=== PATIENT | male | born 1945 | race Caucasian/White ===

== ENCOUNTER 2019-03-09 01:22 | Inpatient (IN) | payer MEDICARE, SELFPAY ==
[2019-03-09] VITALS (10 sets, daily range): BP systolic 135–200; BP diastolic 56–85; PULSE 78–88; RESP 16–24; TEMP 36.2–37.6; O2SAT 93–98; BMI 30.5; BMI 28.8; BMI 30.6
--- NOTE | 2019-03-09 02:11 | EKG12_ITS ---
Test Reason : Blood Pressure : / mmHG Vent. Rate : 082 BPM Atrial Rate : 082 BPM P-R Int : 224 ms QRS Dur : 094 ms QT Int : 388 ms P-R-T Axes : 017 -35 007 degrees QTc Int : 453 ms Sinus rhythm with 1st degree A-V block Left axis deviation Incomplete right bundle branch block Abnormal ECG Confirmed by MATTI FUENTES ([id number]), legal editor NANDA HOPKINS ([id number]) on 03/14/2019 1:32:26 PM Referred By: Salvatore Mccall Confirmed By:MATTI FUENTES
--- NOTE | 2019-03-09 02:12 | CT_ITS ---
HISTORY: LT NEPHROSTOMY TUBE NOT DRAINING,BACK PAIN AND CONSTIPATION,PT'S URETER WAS CUT DURING SURGERY AND HAS NEPHRO TUBE IN LT KIDNEYHX:HTN,HLD,COLORECTAL CANCER WITH COLOSTOMY EXAMINATION: CT Abdomen And Pelvis W/ Contrast TECHNIQUE: Helically acquired images were obtained of the abdomen and pelvis following IV contrast. A radiation dose optimization technique was used for this scan. IV Contrast dosage and agent: 100ML Isovue 300 Oral contrast: None. COMPARISON: None FINDINGS: Lower thorax: Mild dependent atelectasis. No pleural effusion or pericardial effusion. The gallbladder is well distended and suboptimally visualized secondary to motion artifact. Several small gallstones are questioned. No biliary dilatation. Normal liver, spleen, and pancreas. Both kidneys are normal in position. Left percutaneous nephrostomy catheter which appears enters the left renal pelvis. From the left renal pelvis, the catheter extends to the L5-S1 level on the left. The catheter does not enter the urinary bladder and I am unsure if there is an ileal loop reservoir in place. Mild left hydronephrosis. No hydroureter visualized. The right kidney shows normal excretion of contrast without hydronephrosis or hydroureter. Small component of contrast within urinary bladder. The urinary bladder is well distended. Small free fluid superior to the urinary bladder and tracking of fluid within the mesentery, more so within the right abdomen. Widespread mesenteric edema. Edema and fluid may be related to urine leak from the left ureter. The adrenal glands are not enlarged. Abdominal aorta is atherosclerotic and normal in caliber. No retroperitoneal lymph node enlargement seen. GI tract: Left lower quadrant colostomy. No bowel obstruction seen. No pneumoperitoneum. CT/Abdomen/Pelvis W IV Cont ONLY IMPRESSION: 1. The left percutaneous nephrostomy catheter enters the left renal pelvis and extends into the left ureter but not urinary bladder. 2. Small ascites together with mesenteric fluid and mesenteric edema and this may reflect left ureteral urine leak. 3. Mild left hydronephrosis and no hydronephrosis on the right. 4. Left lower quadrant functioning colostomy. No bowel obstruction seen. Individualized dose optimization techniques were used for this CT. at 0441 Reported and signed by: Jae Martinez MD Electronically Signed: Jae Martinez, at 4:40 EDT Tel , Service support ,
[2019-03-09] MEDS: proMETHazine 25 MG/ML Syringe 6.25 MG IV (02:27)
[2019-03-09] MEDS: 0.9% Normal Saline 1,000 ML 1000 ML IV (02:27)
[2019-03-09 02:29] LABS: Absolute Lymphocyte Count 0.36 X10^3/uL (0.83-4.51); Absolute Neutrophil Count 10.1 X10^3/uL (2.0-7.7); Basophil# 0.01 X10^3/uL; Basophil% 0.1 % (0-1); Hematocrit 36.1 % (40-54); Hemoglobin 11.6 g/dL (13.0-16.5); Lymphocyte # 0.36 X10^3/ul (4.0); Lymphocyte % 3.3 % (19-41); Mean Corp Hgb Conc 32.1 g/dL (32-36); Mean Corpuscular Hgb 29.4 pg (27.0-32.0); Mean Corpuscular Volume 91.6 fL (80-94); Mean Platelet Vol. 9.5 fl (6.2-12.0); Monocyte# 0.49 X10^3/uL; Monocyte% 4.4 % (0-10); NRBC Flagged by Analyzer 0 % (0-5); Neutrophil # 10.11 X10^3/uL (2.7-7.7); Neutrophil % 91.7 % (47-70); POSITIVE DIFFERENTIAL YES; POSITIVE MORPHOLOGY YES; Platelet Count 97 K/mm3 (150-450); RBC Distribution Width CV 18.6 % (11.6-14.6); RBC Distribution Width SD 61.4 fl (35.1-43.9); Red Blood Count 3.94 M/mm3 (4.6-6.2)
[2019-03-09 02:31] LABS: Differential Indicated SCAN CRITERIA MET
[2019-03-09 02:50] LABS: ALB/GLOB Ratio 0.8 RATIO (0.9-2.4); AST(SGOT) 14 U/L (15-37); Alanine Aminotransfer ALT/SGPT 13 U/L (16-61); Albumin, Serum 3.1 g/dL (3.2-5.0); Alkaline Phosphatase 119 U/L (45-117); Anion Gap 10 (5-15); BUN 20 mg/dL (7-18); BUN/Creat Ratio 13.7 RATIO (10-20); Calcium,Total 8.9 mg/dL (8.5-10.1); Chloride 103 mmol/L (98-107); Creatinine, Serum 1.46 mg/dL (0.70-1.30); EST Glomerular Filtration Rate 50 mL/min (>60); Est Glom Filt Rate - Afr Amer 61 mL/min (>60); Estimated Creatinine Clearance 47.28 ml/min; Globulin 3.8 g/dL (2.2-4.2); Glucose 211 mg/dL (74-106); Lipase 49 U/L (73-393); Potassium 3.8 mmol/L (3.5-5.1); Protein, Total 6.9 g/dL (6.4-8.2); Sodium Level 138 mmol/L (136-145)
[2019-03-09 02:57] LABS: Differential Comment SCANNED
[2019-03-09 02:58] LABS: Platelet Estimate ADEQUATE (ADEQ)
[2019-03-09 03:00] LABS: Lactic Acid 3.2 mmol/L (0.4-2.0)
--- NOTE | 2019-03-09 03:00 | ED.RN ---
LAB CALLED WITH CRITICAL VALUE. DR FRITZ INFORMED AT THIS TIME.
--- NOTE | 2019-03-09 03:29 | ED.RN ---
MD AWARE OF INCREASED LACTIC ACID. NO NEW ORDERS. DISCUSSED URINE COLLECTION WITH MD, ORDER WILL BE CANCELLED.
--- NOTE | 2019-03-09 03:35 | ED.DCSUM_ITS ---
- ER Visit Summary Date of Service: 03/09/19 Chief Complaint: Abdominal pain History of Present Illness: The patient is a 73 M presenting with abdominal pain, nausea, vomiting. Patient has a history of rectal cancer on chemotherapy. He had surgery in [place] for rectal mass removal with diverting colostomy. During the surgery the ureter was cut. He now has a nephrostomy tube. He now follows at [facility]. The nephrostomy tube was exchanged last Thursday. The nephrostomy tube is now not draining. His colostomy also has decreased output. He complains of diffuse abdominal pain. He is scheduled to start his third round of chemotherapy tomorrow. He denies fever. Denies chest pain or shortness of breath. Physical Examination: Vitals are stable. Patient is afebrile. Alert no acute distress. HEENT exam is unremarkable. Neck is supple. Lungs are clear and equal bilaterally. Heart is regular rate and rhythm. Abdomen is soft diffuse tenderness, ostomy. Back: left nephrostomy tube Extremities are unremarkable. Skin is warm and dry. No focal neurologic deficit. Remainder of exam is unremarkable. Emergency Department Course and Treatment: EKG is sinus rhythm rate of 82 with no acute ischemic changes. CBC shows a hemoglobin 11.6, platelet 97. Glucose 211, BUN 20, creatinine 1.46. Alk phos 119, ALT 13, AST 14, lipase 49. Troponin is negative. Lactic acid 3.2. Patient was given IV fluids, Phenergan, Zofran. Discussed with [facility] interventional radiology. They reviewed his records and the nephrostomy tube is in the correct position. Discussed with Dr. Peña, Dr. Espinoza. Dr. Espinoza recommends CT with p.o. contrast. This is pending. Family prefers to stay at [facility] if possible. Discussed with the hospitalist for observation. Disposition: Observation Impression: Abdominal pain, vomiting, hx rectal cancer This note was generated with [employer] dictation software. It may contain incorrect words, spelling, and punctuation that were not noted in review of the chart prior to signing ED Disposition - Plan for ED Patient: Referrals: Bertrand Gardner [Primary Care Provider] -
[2019-03-09] MEDS: 0.9% Normal Saline 1,000 ML 999 ML IV (03:49)
[2019-03-09] MEDS: Ondansetron 4 MG/2 ML Vial IV (03:49)
[2019-03-09 04:05] LABS: Color, Urine Yellow (Yellow); Glucose, Dipstick 250 mg/dl (Normal); Ketone-Dipstick Negative (Negative); Leukocyte Esterase-Dipstick Negative /ul (Negative); Nitrite-Dipstick Negative (Negative); Occult Blood-Urine Negative /ul (Negative); Protein-Dipstick 15 mg/dl (Negative); Urine Bilirubin Dipstick Negative (Negative); Urine Clarity Clear (Clear); Urine Urobilinogen Normal (Normal)
[2019-03-09 04:11] LABS: Bacteria RARE /hpf (None Seen); Red Blood Cells-Urine 0-5 SEEN /hpf (0-5); White Blood Cells 0-5 SEEN /hpf (0-5)
[2019-03-09 04:12] LABS: Mucous, Urine 1+ /hpf (<or=2+); Squamous Epithelial Cells - UA 0-5 SEEN /hpf (0-5)
--- NOTE | 2019-03-09 05:32 | CT_ITS ---
STUDY: CT ABDOMEN AND PELVIS WITHOUT CONTRAST REASON FOR EXAM: Male, 73 years old. Decreased colostomy output RADIATION DOSAGE (If Supplied By Facility): CTDIvol = ( 20.18 ) mGy, DLP = ( 1185.15 ) mGycm TECHNIQUE: Transaxial images were obtained from the dome of the diaphragm to the symphysis pubis without oral contrast, and without intravenous contrast. Sagittal and coronal images were reconstructed. Individualized dose optimization techniques were used for this CT. COMPARISON: None. FINDINGS: Some dependent bibasilar atelectasis. The visualized portions of the heart are within normal limits. Small amount of ascites. Normal liver. Normal gallbladder and extrahepatic biliary system. Normal spleen. Normal pancreas. Normal bilateral adrenal glands. Normal right kidney. Left-sided nephroureteral stent without hydronephrosis. Normal visualized stomach. Normal small intestine. Status post resection of the sigmoid colon with a left lower quadrant colostomy. There is non-visualization of the appendix. Normal abdominal aorta. Normal inferior vena cava. Normal retroperitoneum. Normal urinary bladder. Normal abdominal wall. Normal osseous structures. CT/Abdomen/Pel W ORAL Cont Only IMPRESSION: 1. No acute abnormality. 2. Status post resection of the sigmoid colon with a left lower quadrant colostomy. No bowel obstruction. 3. Left-sided nephroureteral stent. 4. Small amount of ascites. Electronically Signed: Reggie Sim MD at 8:27 EDT Tel , Service support ,
[2019-03-09 06:27] LABS: Reflex Lactate? Y
--- NOTE | 2019-03-09 08:52 | PCM.CONS.B ---
- Consult Date of Consult: 03/09/19 - Reason for Consult CC: abdominal pain HPI: 73 y/o WM presents with recent lap-assisted LAR involving C with colostomy formation (12/07/18, Dr. Ward)?but unfortunately this was complicated?intraoperative left ureteral injury identified intraoperatively and managed with abdominal drains. Post op course c/b AMS, chronic thrombocytopenia, DARIAN, blood transfusion for anemia.?He was transferred to [facility] main?a few weeks ago?for further management of ureteral injury. ? Pathology: ?Residual tumor cells seen in distal margin, but no tumor visible at the sigmoid colon resection, no lymph nodes were identified. pT0, pNx. Has had nephrostomy tube x3 placed. Is draining now, had stopcock turned and was not draining. ? Adjuvant chemotherapy: Capcitabine by Dr. Monson ? He has been evaluated by Dr Serrato and Dr Vidal?for revision/repair of temporary ostomy and ureter and?combined operation,?but timing would depend on completion of adjuvant therapy. ? He presents with one day history of abdominal pain. Feeling ill. Has constipation. Also notes nausea and small amount of emesis. Denies fevers, but has chills and feeling clammy. He also notes no stool output per colostomy for 24 hours. He does admit to taking lots of peptobismol. Also admits to not drinking enough free water. CT scan shows stool throughout colon. Used gastrograffin contrast. ? PAST MEDICAL HISTORY Anemia ? Hyperlipidemia ? Hypertension ? Hypothyroidism rectal cancer ? ? PAST?SURGICAL?HISTORY colonoscopy laparoscopic Low anterior resection Colostomy Nephrostomy tube placement x 3 MEDICATIONS: capecitabine (XELODA) 500 mg tablet capecitabine (XELODA) 150 mg tablet capecitabine (XELODA) 150 mg tablet?() sertraline (ZOLOFT) 50 mg tablet ALPRAZolam (XANAX) 0.25 mg tablet ondansetron (ZOFRAN) 8 mg tablet famotidine (PEPCID) 20 mg tablet levothyroxine (SYNTHROID) 50 mcg tablet Hydrochlorothiazide 12.5 mg capsule lisinopril (ZESTRIL, PRINIVIL) 10 mg tablet pravastatin (PRAVACHOL) 40 mg tablet acetaminophen (TYLENOL 8 HOUR) 650 mg CR tablet methyl salicylate/menthol (THERA-GESIC TOPICAL) cyanocobalamin 1,000 mcg/mL soln Allergies: no known allergies ? REVIEW OF SYSTEMS: CONSTITUTIONAL: ?felt clammy and ill as above HEENT: ?Denies frequent or severe headaches, nasal congestion/sinus symptoms, problematic allergy problems. + Decreased hearing EYES: ?No diplopia or blurry vision. CARDIOVASCULAR: ?No chest pain, dyspnea, palpitations, orthopnea, PND, ankle edema. PULM: ?No dyspnea, unexplained cough. GI: ?see HPI. : ?see HPI,?No?gross hematuria or pyuria. NEURO: ?No new balance problems, peripheral weakness/paresthesias or numbness of concern. MUSC-SKEL: ?No new joint pain, swelling, or erythema. PSY: ?No concerns regarding depression, anxiety or panic. INTEGUMENTARY: ?No new skin changes (rash, new or changing mole, new growth) ? PHYSICAL EXAMINATION: 73-year-old moderately obese gentleman appeared to be distress Performance status?80% BP 146/67 Pulse 62 Temp (Src) 97.8 (Temporal) Wt 213 lb (96.6kg) HEENT: Head is normocephalic, atraumatic. Sclerae white, conjunctivae pink. PEERL. EOMs are intact. Wearing glasses. Oropharynx is benign. LYMPHATICS: There is no palpable adenopathy in the neck, supraclavicular region, axillae, or groin. LUNGS: Lungs are clear to percussion and auscultation. HEART: Heart is normal without murmurs, gallops, or rubs. ABDOMEN: Soft but generalized tenderness. Ostomy in left lower quadrant with pink mucosa. No masses can be palpated due to patient's body habitus. EXTREMITIES: Are without edema. No petechiae or ecchymosis NEUROLOGIC: Exam is physiologic ? ? ASSESSMENT:?abdominal pain, constipation ? PLAN:? admitted to hospitalist service. IV hydration No need for surgical intervention at this point in time. Will follow while patient in hospital Hopefully constipation will resolved with gastrografin given for CT scan
[2019-03-09] MEDS: 0.9% Normal Saline 1,000 ML 100 ML IV ×2 (11:20→21:34)
--- NOTE | 2019-03-09 13:58 | HP.PCM_ITS ---
Problem List (1) Rectal cancer Status: Acute (2) Intraoperative ureteral injury Status: Acute (3) Constipation Status: Acute (4) Nausea and vomiting Status: Acute (5) Hypothyroidism Status: Acute (6) Depression Status: Acute (7) Hyperlipidemia Status: Acute History of Present Illness Date of Admission: 03/09/19 Chief Complaint: Nausea and vomiting with abdominal pain The patient is a 73 year old M with PMH as below who presents with abdominal pain, nausea, vomiting for the last 24 hours. His medical history is fairly complicated with a recent diagnosis of rectal cancer he status post low anterior resection and colostomy at [facility] where unfortunately there was a complication, a ureteral injury on the left. He underwent a nephrostomy tube placement done at [facility] to assist with the complication. Initially his nephrostomy tube was found to be not draining however later it was determined that somehow the stopcock had been turned off and once that was corrected he started producing urine. He states that he has not had much of an appetite for the last several days and when he was having episodes of vomiting not much came up. In terms of his abdominal pain he states that he has had abdominal pain after surgery and with all the drain tubes that have been placed in the nephrostomy tube being placed but he still not back to a level of 0 abdominal pain. He states that his abdominal pain is much improved today from what it was yesterday. However he still has not had a bowel movement. CT scan of his abdomen and pelvis with oral contrast does not demonstrate small bowel obstruction. Past Medical History Allergies No Known Allergies Allergy (Verified 03/09/19 01:29) Home Medications: Ambulatory Orders Medication Instructions Recorded ALPRAZolam [Xanax] 0.25 mg PO QHS PRN PRN 03/09/19 Acetaminophen [Tylenol Extra 500 mg PO PRN PRN 03/09/19 Strength] Capecitabine 2,000 mg QWEEK 03/09/19 Famotidine 20 mg PO PRN PRN 03/09/19 Levothyroxine [Synthroid] 50 mcg PO DAILY 03/09/19 Ondansetron [Zofran] 8 mg PO Q8H PRN PRN 03/09/19 Pravastatin [Pravachol] 40 mg PO QHS 03/09/19 Sertraline HCl [Zoloft] 50 mg PO DAILY 03/09/19 Surgical History: - - Lap assisted LAR, colostomy, percutaneous nephrostomy tube Smoking Status: Former smoker Tobacco Use: Non-smoker Alcohol: None Drugs: None - *Family History Maternal History Items: - - His grandmother had cancer he is not sure what kind and he states that he does not pay attention to his family's medical history Review of Systems Constitutional: Reports: - - Loss of appetite. Denies: Chills, Fever, Weight Change HEENT: Denies: Head Aches, Sinus Congestion, Sinus Drainage Cardiovascular: Denies: Chest Pain, Palpitations Respiratory: Denies: Cough, Shortness of breath at rest, Sputum production Gastrointestinal: Reports: Abdominal Pain, Nausea, Vomiting Genitourinary: Denies: Dysuria Musculoskeletal: Denies: Joint Pain, Joint Tenderness Skin: Denies: Rash, Wounds Neurological: Denies: Numbness, Tingling, Focal weakness Psychiatric: Denies: Anxiety, Depression Hematologic/ Lymphatic: Denies: Easy Bruising, Easy Bleeding VTE Information - Inpt Only VTE Present on Admission: No Patient Problems: Active and Suspected Problems Rectal cancer (Acute) Intraoperative ureteral injury (Acute) Constipation (Acute) Nausea and vomiting (Acute) Hypothyroidism (Acute) Depression (Acute) Hyperlipidemia (Acute) - Physical Exam General: Alert, Oriented x3, Cooperative, No apparent distress, - - Hard of hearing HEENT: Atraumatic, PERRLA, EOMI, Normocephalic Oral: Dry Mucosa Neck: Supple, No JVD Lungs: Clear to auscultation, Normal air movement, No rhonchi, No wheeze, No rales, Diminished Cardiovascular: Regular rate, Regular Rhythm, Normal S1, Normal S2, No murmurs Abdomen: Soft, Non Tender, Non-Distended, No Hepato-splenomegaly, - - His abdominal wall muscle pain, there is reproduction of his abdominal pain when flexing his rectus muscles. There is no gas in the ostomy appliance Extremities: No edema, Capillary Refill Less than 3 Seconds Skin: No rashes, No breakdown Neurological: Neuro grossly intact, Sensory exam intact to light touch and pain Psych/Mental Status: Normal Affect, Appropriate Vital Signs Temp Pulse Resp BP Pulse Ox 99.1 F 78 18 136/78 H 93 03/09/19 11:15 03/09/19 11:15 03/09/19 11:15 03/09/19 11:15 03/09/19 11:15 Oxygen Delivery Method Room Air Weight: 218 lb 4.122 oz Body Mass Index (BMI) 28.8 Laboratory Tests Past 24 Hrs 03/09/19 03/09/19 03/09/19 02:20 02:20 02:20 WBC 11.0 RBC 3.94 L Hgb 11.6 L Hct 36.1 L MCV 91.6 MCH 29.4 MCHC 32.1 RDW Std Deviation 61.4 H RDW Coeff of Azael 18.6 H Plt Count 97 L MPV 9.5 Immature Gran % (Auto) 0.500 Neut % (Auto) 91.7 H Lymph % (Auto) 3.3 L Long % (Auto) 4.4 Eos % (Auto) 0.0 Baso % (Auto) 0.1 Absolute Neuts (auto) 10.1 H Absolute Lymphs (auto) 0.36 L Nucleated RBC % 0 Differential Comment SCANNED Platelet Estimate ADEQUATE Sodium 138 Potassium 3.8 Chloride 103 Carbon Dioxide 25.0 Anion Gap 10 BUN 20 H Creatinine 1.46 H Estim Creat Clear Calc 47.28 Est GFR (MDRD) Af Amer 61 Est GFR (MDRD) Non-Af 50 L BUN/Creatinine Ratio 13.7 Glucose 211 H Lactic Acid 3.2 H Calcium 8.9 Total Bilirubin 0.70 AST 14 L ALT 13 L Alkaline Phosphatase 119 H Troponin I < 0.015 Total Protein 6.9 Albumin 3.1 L Globulin 3.8 Albumin/Globulin Ratio 0.8 L Lipase 49 L Urine Color Urine Clarity Urine pH Ur Specific [place] Urine Protein Urine Glucose (UA) Urine Ketones Urine Occult Blood Urine Nitrite Urine Bilirubin Urine Urobilinogen Ur Leukocyte Esterase Urine RBC Urine WBC Ur Squamous Epith Cells Urine Bacteria Urine Mucus 03/09/19 03/09/19 03:55 06:36 WBC RBC Hgb Hct MCV MCH MCHC RDW Std Deviation RDW Coeff of Azael Plt Count MPV Immature Gran % (Auto) Neut % (Auto) Lymph % (Auto) Long % (Auto) Eos % (Auto) Baso % (Auto) Absolute Neuts (auto) Absolute Lymphs (auto) Nucleated RBC % Differential Comment Platelet Estimate Sodium Potassium Chloride Carbon Dioxide Anion Gap BUN Creatinine Estim Creat Clear Calc Est GFR (MDRD) Af Amer Est GFR (MDRD) Non-Af BUN/Creatinine Ratio Glucose Lactic Acid 3.0 H Calcium Total Bilirubin AST ALT Alkaline Phosphatase Troponin I Total Protein Albumin Globulin Albumin/Globulin Ratio Lipase Urine Color Yellow Urine Clarity Clear Urine pH 5.0 Ur Specific [place] 1.020 Urine Protein 15 H Urine Glucose (UA) 250 H Urine Ketones Negative Urine Occult Blood Negative Urine Nitrite Negative Urine Bilirubin Negative Urine Urobilinogen Normal Ur Leukocyte Esterase Negative Urine RBC 0-5 SEEN Urine WBC 0-5 SEEN Ur Squamous Epith Cells 0-5 SEEN Urine Bacteria RARE Urine Mucus 1+ Assessment/Plan All Active Problems Rectal cancer (Acute) Intraoperative ureteral injury (Acute) Constipation (Acute) Nausea and vomiting (Acute) Hypothyroidism (Acute) Depression (Acute) Hyperlipidemia (Acute) 1. Abdominal pain with nausea and vomiting/dehydration -Provide with IV fluids and clear liquid diet -He has been tolerating lemonades, popsicles and water while here, can advance as tolerated -Appreciate surgical assistance -Zofran PRN -CT scan is negative for an obstruction -His creatinine is 1.46 however we do not have anything to compare it to and therefore cannot determine whether he has an acute kidney injury or not or if this is even chronic. -The catheter was initially elevated to 3.2 and proved with fluid administration to 3, will continue with IV fluid 2. Rectal cancer status post lap assisted LAR with colostomy and ureteral injury status post percutaneous nephrostomy tube placement done at the [facility] -He is supposed to be starting chemotherapy however this will be delayed given his recent illness -Managed by [facility] oncology and he is to start capecitabine 3. Hypothyroidism -Stable -Continue with Synthroid 4. HLD -Stable -Continue with pravastatin 5. Depression/anxiety -Stable -Continue with Zoloft and Xanax VTE: SCDs Code Visit OBSV E&M: 53317 Initial observation care L3
[2019-03-09] MEDS: 0.9% NaCl Peripheral Flush Adult/Peds IV (21:33)
[2019-03-09] MEDS: Acetaminophen 325 MG Tablet 650 MG PO (23:52)
[2019-03-10] VITALS: BP 130/74; PULSE 79; RESP 24; TEMP 36.9; O2SAT 100
[2019-03-10 05:17] VITALS: BP 141/68; PULSE 86; RESP 24; TEMP 36.6; O2SAT 93
[2019-03-10 05:38] LABS: Absolute Lymphocyte Count 0.67 X10^3/uL (0.83-4.51); Absolute Neutrophil Count 6.1 X10^3/uL (2.0-7.7); Basophil# 0.03 X10^3/uL; Basophil% 0.4 % (0-1); Eosinophil# 0.09 X10^3/uL; Eosinophils% 1.2 % (0-5); Hematocrit 29.1 % (40-54); Hemoglobin 10.9 g/dL (13.0-16.5); Lymphocyte # 0.67 X10^3/ul (4.0); Lymphocyte % 9.1 % (19-41); Mean Corp Hgb Conc 37.5 g/dL (32-36); Mean Corpuscular Hgb 36.2 pg (27.0-32.0); Mean Corpuscular Volume 96.7 fL (80-94); Monocyte# 0.44 X10^3/uL; NRBC Flagged by Analyzer 0 % (0-5); Neutrophil # 6.08 X10^3/uL (2.7-7.7); Neutrophil % 82.6 % (47-70); POSITIVE COUNT YES; POSITIVE MORPHOLOGY YES; Platelet Count 108 K/mm3 (150-450); RBC Distribution Width CV 21.1 % (11.6-14.6); RBC Distribution Width SD 61.1 fl (35.1-43.9); Red Blood Count 3.01 M/mm3 (4.6-6.2); White Blood Count 7.4 K/mm3 (4.4-11.0)
[2019-03-10 05:43] LABS: Differential Indicated SCAN CRITERIA MET
[2019-03-10 05:56] LABS: Anion Gap 8 (5-15); BUN 15 mg/dL (7-18); BUN/Creat Ratio 15.7 RATIO (10-20); Calcium,Total 8.1 mg/dL (8.5-10.1); Chloride 108 mmol/L (98-107); Creatinine, Serum 0.95 mg/dL (0.70-1.30); Differential Comment SCANNED; EST Glomerular Filtration Rate 82 mL/min (>60); Est Glom Filt Rate - Afr Amer 99 mL/min (>60); Glucose 102 mg/dL (74-106); Sodium Level 139 mmol/L (136-145)
[2019-03-10] MEDS: 0.9% Normal Saline 1,000 ML 100 ML IV ×2 (07:53→18:19)
[2019-03-10] MEDS: Acetaminophen 325 MG Tablet 650 MG PO ×2 (07:57→20:34)
--- NOTE | 2019-03-10 08:22 | PN_ITS ---
Patient Problems: Active and Suspected Problems Rectal cancer (Acute) Intraoperative ureteral injury (Acute) Constipation (Acute) Nausea and vomiting (Acute) Hypothyroidism (Acute) Depression (Acute) Hyperlipidemia (Acute) Subjective: Seems to be doing better today, he ate mashed potatoes last night for dinner and stayed down and he is continued to drink lemonade and water without any incident. Vitals/I&O's: Vital Signs Temp Pulse Resp BP Pulse Ox 98 F 86 24 H 141/68 H 93 03/10/19 05:17 03/10/19 05:17 03/10/19 05:17 03/10/19 05:17 03/10/19 05:17 Oxygen Delivery Method Room Air Weight: 218 lb 4.122 oz Body Mass Index (BMI) 28.8 Intake and Output for Last 24 Hours 03/08/19 03/09/19 03/10/19 23:59 23:59 23:59 Intake Total 1788 / 1788 976 / 976 Output Total 800 / 800 175 / 175 Balance 988 / 988 801 / 801 General: Alert, Oriented x3, Cooperative, No apparent distress, - - Hard of hearing HEENT: Atraumatic, PERRLA, EOMI, Normocephalic Oral: Dry Mucosa Neck: Supple, No JVD Lungs: Clear to auscultation, Normal air movement, No rhonchi, No wheeze, No rales, Diminished Cardiovascular: Regular rate, Regular Rhythm, Normal S1, Normal S2, No murmurs Abdomen: Soft, Non Tender, Non-Distended, No Hepato-splenomegaly, - - Has abdominal wall muscle pain, there is reproduction of his abdominal pain when flexing his rectus muscles. There is no gas in the ostomy appliance Extremities: No edema, Capillary Refill Less than 3 Seconds Skin: No rashes, No breakdown Neurological: Neuro grossly intact, Sensory exam intact to light touch and pain Psych/Mental Status: Normal Affect, Appropriate Laboratory Results 03/10/19 05:12: WBC 7.4, RBC 3.01 L, Hgb 10.9 L, Hct 29.1 L, MCV 96.7 H, MCH 36.2 H, MCHC 37.5 H, RDW Std Deviation 61.1 H, RDW Coeff of Azael 21.1 H, Plt Count 108 L, MPV 11.0, Immature Gran % (Auto) 0.700, Neut % (Auto) 82.6 H, Lymph % (Auto) 9.1 L, Charles % (Auto) 6.0, Eos % (Auto) 1.2, Baso % (Auto) 0.4, Absolute Neuts (auto) 6.1, Absolute Lymphs (auto) 0.67 L, Nucleated RBC % 0, Differential Comment SCANNED 03/10/19 05:12: Sodium 139, Potassium 4.0, Chloride 108 H, Carbon Dioxide 23.0, Anion Gap 8, BUN 15, Creatinine 0.95, Estim Creat Clear Calc 77.10, Est GFR (MDRD) Af Amer 99, Est GFR (MDRD) Non-Af 82, BUN/Creatinine Ratio 15.7, Glucose 102, Calcium 8.1 L Current Medications Acetaminophen (Tylenol) 650 mg PO Q8H PRN PRN PRN Reason: PAIN Last Admin: 03/10/19 07:57 Dose: 650 mg Documented by: Docusate Sodium (Colace) 100 mg PO BID [facility] Sodium Chloride () 1,000 mls @ 100 mls/hr IV .Q10H MARC Last Admin: 03/10/19 07:53 Dose: 100 mls/hr Documented by: Nutritional Formula (Lactose Free) (Ensure Enlive) 120 ml PO 4X/DAY MARC Ondansetron HCl (Zofran) 4 mg IV Q8H PRN PRN PRN Reason: NAUSEA/VOMITING Polyethylene Glycol (Miralax) 17 gm PO BID MARC Sodium Chloride () 10 - 40 ml IV UD PRN PRN Reason: SALINE FLUSH Last Admin: 03/09/19 21:33 Dose: 10 ml Documented by: Medical Necessity - Tobacco Use Smoking Status: Former smoker Tobacco Use: Non-smoker Assessment/Plan All Active Problems Rectal cancer (Acute) Intraoperative ureteral injury (Acute) Constipation (Acute) Nausea and vomiting (Acute) Hypothyroidism (Acute) Depression (Acute) Hyperlipidemia (Acute) 1. Abdominal pain with nausea and vomiting/dehydration/DARIAN -Provide with IV fluids and clear liquid diet -He has been tolerating lemonades, popsicles and water while here, can advance as tolerated -Appreciate surgical assistance -Zofran PRN -CT scan is negative for an obstruction, though there does appear to be constipation. Will add MiraLAX and Colace and see if that helps -His creatinine is now 0.095 from 1.46, this is potentially his baseline and therefore he did present with an DARIAN -His lactate was initially elevated to 3.2 and proved with fluid administration to 3, will continue with IV fluid 2. Rectal cancer status post lap assisted LAR with colostomy and ureteral injury status post percutaneous nephrostomy tube placement done at the [facility] -He is supposed to be starting chemotherapy however this will be delayed given his recent illness -Managed by [facility] oncology and he is to start capecitabine 3. Hypothyroidism -Stable -Continue with Synthroid 4. HLD -Stable -Continue with pravastatin 5. Depression/anxiety -Stable -Continue with Zoloft and Xanax VTE: SCDs Code Visit OBSV E&M: 14797 Subsequent observation care L2
[2019-03-10 09:33] VITALS: BP 147/74; PULSE 79; RESP 16; TEMP 36.9; O2SAT 95
[2019-03-10] MEDS: Polyethylene Glycol 3350 17 GM PACKET PO (09:36)
[2019-03-10] MEDS: Docusate Sodium 100 MG Capsule PO (09:36)
--- NOTE | 2019-03-10 10:25 | CASEMGMT ---
Social Work Note ALICE reviewed pt's chart. Pt was recently diagnosed with rectal cancer. ALICE met with pt and introduced self and role at [facility]. Pt is alert and orientated x3, is hard of hearing. Pt states that he was diagnosed with rectal cancer last May. Pt states that he had been doing chemotherapy and radiation treatment through [facility]. Pt states from here on out he will only being doing Chemotherapy and that will be managed through [facility]. Pt states that his Chemotherapy will about 4 months and also mentioned that he is hoping to get his two surgeries scheduled by [facility]. Pt states that his two surgeries include moving his colostomy and reconstructing his colon. Pt states that he has good support through his family and denied wanting any additional information regarding support group or resources. Pt states that he has some anxiety and per H+P pt does have depression. Pt states how could you not be anxious when your whole life changes. Pt states I used to be able to go around whenever I wanted to and now I am attached to a hospital bed. SW offered support to pt. Pt denied additional needs or concerns at this time. Isabella Shultz PRINTING MACHINIST, FRENCH TEACHER
--- NOTE | 2019-03-10 11:05 | CASEMGMT ---
RN CM Assessment Presentation: Abdominal Pain, N/V Dehydration. Hx of rectal cancer, post lap assisted LAR w/colostomy and nephrostomy tube placement. Intro role of CM and purpose of RN CM assessment. Pt agitated, appears to be angry and not wishing to participate in assessment. Requested to speak with him re: CUEVAS form and pt stated he did not want to talk. RN CM requested to speak with and pt stated that was fine because she handles all this stuff anyway. -RN CM attempted call to , but no answer to phone call. -RN CM called to [facility], spoke with social organization professor. Home Health was not set up through them -SREEDHAR COTTER called to Dr. Gardner office. Staff Evelyn states pt had [facility] which was dc'd in January, PCP: Dr. Gardner Preferred Pharmacy: [facility] Insurance: Supri[employer] [facility] PPO Prescription Benefit: yes LNOK: , Afshan Gomez Living Arrangements: Pt would not discuss Transportation: states drives. DME: pt not sure which company supplies colostomy/nephrostomy supplies. HHC: Pt states he has Home Health Nurse but when asked company became agitated and stated he did not know and don't want to talk about this. DC PLAN: Home on discharge. Will need to have input from regarding care needs at home. Matthew JAMES RN ACM
--- NOTE | 2019-03-10 11:17 | PCM.PN.SRG ---
Patient Problems: Active and Suspected Problems Rectal cancer (Acute) Intraoperative ureteral injury (Acute) Constipation (Acute) Nausea and vomiting (Acute) Hypothyroidism (Acute) Depression (Acute) Hyperlipidemia (Acute) Subjective: Patient still complaint of abdominal pain, but states that he feels better, having stools in colostomy bag and it is full - Physical Exam General: Alert, Oriented x3 Oral: Moist Mucosa Lungs: Normal air movement Abdomen: - - soft but tender to palpation - especially upper abdomen mostly Vital Signs Temp Pulse Resp BP Pulse Ox 98.5 F 79 16 147/74 H 95 03/10/19 09:33 03/10/19 09:33 03/10/19 09:33 03/10/19 09:33 03/10/19 09:33 Oxygen Delivery Method Room Air Weight: 99 kg Body Mass Index (BMI) 28.8 Intake and Output for Last 24 Hours 03/08/19 03/09/19 03/10/19 23:59 23:59 23:59 Intake Total 1788 / 1788 976 / 976 Output Total 800 / 800 175 / 175 Balance 988 / 988 801 / 801 Laboratory Tests Past 24 Hrs 03/10/19 03/10/19 05:12 05:12 WBC 7.4 RBC 3.01 L Hgb 10.9 L Hct 29.1 L MCV 96.7 H MCH 36.2 H MCHC 37.5 H RDW Std Deviation 61.1 H RDW Coeff of Azael 21.1 H Plt Count 108 L MPV 11.0 Immature Gran % (Auto) 0.700 Neut % (Auto) 82.6 H Lymph % (Auto) 9.1 L [place] % (Auto) 6.0 Eos % (Auto) 1.2 Baso % (Auto) 0.4 Absolute Neuts (auto) 6.1 Absolute Lymphs (auto) 0.67 L Nucleated RBC % 0 Differential Comment SCANNED Sodium 139 Potassium 4.0 Chloride 108 H Carbon Dioxide 23.0 Anion Gap 8 BUN 15 Creatinine 0.95 Estim Creat Clear Calc 77.10 Est GFR (MDRD) Af Amer 99 Est GFR (MDRD) Non-Af 82 BUN/Creatinine Ratio 15.7 Glucose 102 Calcium 8.1 L Medical Necessity - Tobacco Use Smoking Status: Former smoker Tobacco Use: Non-smoker Assessment/Plan All Active Problems Rectal cancer (Acute) Intraoperative ureteral injury (Acute) Constipation (Acute) Nausea and vomiting (Acute) Hypothyroidism (Acute) Depression (Acute) Hyperlipidemia (Acute) Impression: probable constipation, probable dehydration Plan: continue present therapy No surgical intervention required at this time.
--- NOTE | 2019-03-10 12:35 | CASEMGMT ---
RN CM Note: Attempted to call again re: CUEVAS form and RN CM assessment clarification. No answer and was not in room. Matthew MARQUEZN RN ACM
[2019-03-10 14:48] VITALS: BP 153/77; PULSE 86; RESP 18; TEMP 36.6; O2SAT 96
[2019-03-10 20:23] VITALS: BP 155/72; PULSE 76; RESP 22; TEMP 37.4; O2SAT 96
[2019-03-10] MEDS: Pravastatin 40 MG Tablet PO (20:34)
[2019-03-10] MEDS: 0.9% NaCl Peripheral Flush Adult/Peds IV (20:38)
[2019-03-10] MEDS: Ondansetron 4 MG/2 ML Vial IV (20:38)
[2019-03-11 00:15] VITALS: BP 153/68; PULSE 81; RESP 22; TEMP 37.2; O2SAT 95
[2019-03-11 04:06] VITALS: BP 157/61; PULSE 77; RESP 22; TEMP 37.2; O2SAT 94
[2019-03-11] MEDS: 0.9% NaCl Peripheral Flush Adult/Peds IV ×6 (04:17→23:16)
[2019-03-11] MEDS: Ondansetron 4 MG/2 ML Vial IV ×3 (04:17→23:15)
[2019-03-11] MEDS: 0.9% Normal Saline 1,000 ML 100 ML IV ×2 (04:19→14:40)
[2019-03-11] MEDS: proCHLORPERazine 10 MG/2 ML Vial 5 MG IV ×3 (06:13→22:03)
[2019-03-11 08:07] VITALS: BP 168/88; PULSE 74; RESP 18; TEMP 37.1; O2SAT 93
--- NOTE | 2019-03-11 08:54 | PCM.DC ---
- Discharge Diagnoses Current Active Problems: Current Active and Chronic Problems Rectal cancer (Acute) Intraoperative ureteral injury (Acute) Constipation (Acute) Nausea and vomiting (Acute) Hypothyroidism (Acute) Depression (Acute) Hyperlipidemia (Acute) You will use the following diet at home:: Regular, High fiber Your food should be the consistency of: Regular Your liquids should be the consistency of: Regular/Thin Discharge Activity: Return to Normal Activity Call your doctor if you observe: Fever of 101 or Higher, Shortness of breath, Dizziness, Fainting spells, Swelling in the ankles, Chest pain, Increased palpitations (irregular heartbeat) Allergies/Adverse Reactions: Allergies No Known Allergies Allergy (Verified 03/09/19 01:29) Medications to take at Discharge ALPRAZolam [Xanax] 0.25 mg PO QHS PRN PRN 03/09/19 Acetaminophen [Tylenol Extra Strength] 500 mg PO PRN PRN 03/09/19 Capecitabine 2,000 mg QWEEK 03/09/19 Famotidine 20 mg PO PRN PRN 03/09/19 Levothyroxine [Synthroid] 50 mcg PO DAILY 03/09/19 Ondansetron [Zofran] 8 mg PO Q8H PRN PRN 03/09/19 Pravastatin [Pravachol] 40 mg PO QHS 03/09/19 Sertraline HCl [Zoloft] 50 mg PO DAILY 03/09/19 Docusate Sodium [Colace] 100 mg PO BID #20 cap 03/11/19 Polyethylene Glycol 3350 [Miralax] 17 gm PO DAILY #10 packet 03/11/19 The following prescriptions were given: Docusate Sodium [Colace] 100 mg PO BID #20 cap Transmission Status: Pending to [facility] Polyethylene Glycol 3350 [Miralax] 17 gm PO DAILY #10 packet Transmission Status: Pending to [facility] Primary Care Physician: Bertrand Gardner [Primary Care Provider] - Please follow up with your Primary Care Physician in: 3-5 days Test Results: Test results from this visit will be discussed in further detail at your follow-up appointment, if applicable.
--- NOTE | 2019-03-11 08:58 | PCM.DC.SUM ---
Discharge Date and Diagnosis - Problem List Patient Problems: Active and Suspected Problems Rectal cancer (Acute) Intraoperative ureteral injury (Acute) Constipation (Acute) Nausea and vomiting (Acute) Hypothyroidism (Acute) Depression (Acute) Hyperlipidemia (Acute) Date of Admission: 03/09/19 Date of Discharge: 03/11/19 - Primary Discharge Diagnosis Active and Suspected Problems Rectal cancer (Acute) Intraoperative ureteral injury (Acute) Constipation (Acute) Nausea and vomiting (Acute) Hypothyroidism (Acute) Depression (Acute) Hyperlipidemia (Acute) Hospital Course and Treatment Imaging Results: CT abd/pelvis: IMPRESSION: 1. The left percutaneous nephrostomy catheter enters the left renal pelvis and extends into the left ureter but not urinary bladder. 2. Small ascites together with mesenteric fluid and mesenteric edema and this may reflect left ureteral urine leak. 3. Mild left hydronephrosis and no hydronephrosis on the right. 4. Left lower quadrant functioning colostomy. No bowel obstruction seen. Individualized dose optimization techniques were used for this CT. CT Abd/pelvis with PO contrast: IMPRESSION: 1. No acute abnormality. 2. Status post resection of the sigmoid colon with a left lower quadrant colostomy. No bowel obstruction. 3. Left-sided nephroureteral stent. 4. Small amount of ascites. Consults: General Surgery Operations: None Procedures: None Summary of Care Provided: Per HPI: The patient is a 73 year old M with PMH as below who presents with abdominal pain, nausea, vomiting for the last 24 hours. His medical history is fairly complicated with a recent diagnosis of rectal cancer he status post low anterior resection and colostomy at [facility] where unfortunately there was a complication, a ureteral injury on the left. He underwent a nephrostomy tube placement done at [facility] to assist with the complication. Initially his nephrostomy tube was found to be not draining however later it was determined that somehow the stopcock had been turned off and once that was corrected he started producing urine. He states that he has not had much of an appetite for the last several days and when he was having episodes of vomiting not much came up. In terms of his abdominal pain he states that he has had abdominal pain after surgery and with all the drain tubes that have been placed in the nephrostomy tube being placed but he still not back to a level of 0 abdominal pain. He states that his abdominal pain is much improved today from what it was yesterday. However he still has not had a bowel movement. CT scan of his abdomen and pelvis with oral contrast does not demonstrate small bowel obstruction. Hospital Course: 1. Nominal pain with nausea and vomiting/dehydration/DARIAN -73-year-old male with a history of rectal cancer status post a lap assisted LAR with colostomy and then he suffered a ureteral injury necessitating a nephrostomy tube placement. He will need to have repeat surgery as his rectal margins are still positive. However he presented with dehydration and acute kidney injury as well as nausea and vomiting and initially there is concern for small bowel obstruction and therefore the initial CT scan in the ER was repeated with oral contrast. This demonstrated that he was wide open and did not have an obstruction. Review of the CT scan does indicate the likelihood of constipation. Light yesterday he was started on MiraLAX and Colace and had a large bowel movement and felt better after it. He has been tolerating a regular diet and drinking liquids. I discussed with him about the option of going home with continued bowel regimen and that he needs to increase his fluid intake, he states that he will be able to increase his fluid intake and would like to go home today if possible. He will be discharged home with outpatient follow-up with his primary care physician. We will also send him with 10 days of MiraLAX and Colace just to help with his constipation. 2. His other medical diagnoses were evaluated and his home medications were continued where appropriate Patient Problems: Active and Suspected Problems Rectal cancer (Acute) Intraoperative ureteral injury (Acute) Constipation (Acute) Nausea and vomiting (Acute) Hypothyroidism (Acute) Depression (Acute) Hyperlipidemia (Acute) Objective: General: Alert, Oriented x3, Cooperative, No apparent distress, - - Hard of hearing HEENT: Atraumatic, PERRLA, EOMI, Normocephalic Oral: Dry Mucosa Neck: Supple, No JVD Lungs: Clear to auscultation, Normal air movement, No rhonchi, No wheeze, No rales, Diminished Cardiovascular: Regular rate, Regular Rhythm, Normal S1, Normal S2, No murmurs Abdomen: Soft, Non Tender, Non-Distended, No Hepato-splenomegaly, - - Has abdominal wall muscle pain, there is reproduction of his abdominal pain when flexing his rectus muscles. There is improvement. Extremities: No edema, Capillary Refill Less than 3 Seconds Skin: No rashes, No breakdown Neurological: Neuro grossly intact, Sensory exam intact to light touch and pain Psych/Mental Status: Normal Affect, Appropriate - Physical Exam Vital Signs Temp Pulse Resp BP Pulse Ox 98.7 F 74 18 168/88 H 93 03/11/19 08:07 03/11/19 08:07 03/11/19 08:07 03/11/19 08:07 03/11/19 08:07 Oxygen Delivery Method Room Air Weight: 218 lb 4.122 oz Body Mass Index (BMI) 28.8 Intake and Output for Last 24 Hours 03/09/19 03/10/19 03/11/19 23:59 23:59 23:59 Intake Total 1788 / 1788 2974 / 3948 1885 / 1885 Output Total 800 / 800 2825 / 3325 1725 / 1725 Balance 988 / 988 149 / 623 160 / 160 Discharge Activity: Return to Normal Activity Call your doctor if you observe: Fever of 101 or Higher, Shortness of breath, Dizziness, Fainting spells, Swelling in the ankles, Chest pain, Increased palpitations (irregular heartbeat) Home Medications: Medications to take at Discharge ALPRAZolam [Xanax] 0.25 mg PO QHS PRN PRN 03/09/19 Acetaminophen [Tylenol Extra Strength] 500 mg PO PRN PRN 03/09/19 Capecitabine 2,000 mg QWEEK 03/09/19 Famotidine 20 mg PO PRN PRN 03/09/19 Levothyroxine [Synthroid] 50 mcg PO DAILY 03/09/19 Ondansetron [Zofran] 8 mg PO Q8H PRN PRN 03/09/19 Pravastatin [Pravachol] 40 mg PO QHS 03/09/19 Sertraline HCl [Zoloft] 50 mg PO DAILY 03/09/19 Docusate Sodium [Colace] 100 mg PO BID #20 cap 03/11/19 Polyethylene Glycol 3350 [Miralax] 17 gm PO DAILY #10 packet 03/11/19 Following Prescrptions Were Given to Patient: Docusate Sodium [Colace] 100 mg PO BID #20 cap Transmission Status: Pending to [facility] Polyethylene Glycol 3350 [Miralax] 17 gm PO DAILY #10 packet Transmission Status: Pending to [facility] Primary Care Physician: Latouf,Butros [Primary Care Provider] - Please follow up with your Primary Care Physician in: 3-5 days Disposition: Home Minutes spent on discharge:: 35 Patient Condition:: Stable Medical Necessity - Tobacco Use Smoking Status: Former smoker Tobacco Use: Non-smoker Meaningful Use Info Meaningful Use Diagnoses (Choose all that apply): None applicable Code Visit OBSV E&M: 61325 Observation care discharge
[2019-03-11] MEDS: Polyethylene Glycol 3350 17 GM PACKET PO (09:41)
[2019-03-11] MEDS: Docusate Sodium 100 MG Capsule PO (09:41)
[2019-03-11 14:00] VITALS: BP 169/91; PULSE 68; RESP 18; TEMP 36.4; O2SAT 96
[2019-03-11] MEDS: Famotidine 20 MG Tablet PO (16:14)
--- NOTE | 2019-03-11 17:09 | PCM.PN.HOSP ---
Patient Problems: Active and Suspected Problems Rectal cancer (Acute) Intraoperative ureteral injury (Acute) Constipation (Acute) Nausea and vomiting (Acute) Hypothyroidism (Acute) Depression (Acute) Hyperlipidemia (Acute) Subjective: Stated that he not ready to go home, still with nausea and some vomiting. Vitals/I&O's: Vital Signs Temp Pulse Resp BP Pulse Ox 97.5 F L 68 18 169/91 H 96 03/11/19 14:00 03/11/19 14:00 03/11/19 14:00 03/11/19 14:00 03/11/19 14:00 Oxygen Delivery Method Room Air Weight: 218 lb 4.122 oz Body Mass Index (BMI) 28.8 Intake and Output for Last 24 Hours 03/09/19 03/10/19 03/11/19 23:59 23:59 23:59 Intake Total 1788 / 1788 2974 / 3948 2605 / 2605 Output Total 800 / 800 2825 / 3325 2475 / 2475 Balance 988 / 988 149 / 623 130 / 130 General: Alert, Oriented x3, Cooperative, No apparent distress, - - Hard of hearing HEENT: Atraumatic, PERRLA, EOMI, Normocephalic Oral: Dry Mucosa Neck: Supple, No JVD Lungs: Clear to auscultation, Normal air movement, No rhonchi, No wheeze, No rales, Diminished Cardiovascular: Regular rate, Regular Rhythm, Normal S1, Normal S2, No murmurs Abdomen: Soft, Non Tender, Non-Distended, No Hepato-splenomegaly, - - Has abdominal wall muscle pain, there is reproduction of his abdominal pain when flexing his rectus muscles. There is no gas in the ostomy appliance Extremities: No edema, Capillary Refill Less than 3 Seconds Skin: No rashes, No breakdown Neurological: Neuro grossly intact, Sensory exam intact to light touch and pain Psych/Mental Status: Normal Affect, Appropriate Current Medications Acetaminophen (Tylenol) 650 mg PO Q8H PRN PRN PRN Reason: PAIN Last Admin: 03/10/19 20:34 Dose: 650 mg Documented by: Alprazolam (Xanax) 0.25 mg PO QHS PRN PRN PRN Reason: ANXIETY Docusate Sodium (Colace) 100 mg PO BID MARC Last Admin: 03/11/19 09:41 Dose: 100 mg Documented by: Famotidine (Pepcid) 20 mg PO DAILY PRN PRN Reason: REFLUX Last Admin: 03/11/19 16:14 Dose: 20 mg Documented by: Sodium Chloride () 1,000 mls @ 100 mls/hr IV .Q10H [facility] Last Admin: 03/11/19 14:40 Dose: 100 mls/hr Documented by: Levothyroxine Sodium (Synthroid) 50 mcg PO DAILY@0600 [facility] Last Admin: 03/11/19 08:09 Dose: Not Given Documented by: Nutritional Formula (Lactose Free) (Ensure Enlive) 120 ml PO 4X/DAY [facility] Last Admin: 03/11/19 14:29 Dose: Not Given Documented by: Ondansetron HCl (Zofran) 4 mg IV Q8H PRN PRN PRN Reason: NAUSEA/VOMITING Last Admin: 03/11/19 14:41 Dose: 4 mg Documented by: Polyethylene Glycol (Miralax) 17 gm PO DAILY [facility] Last Admin: 03/11/19 09:41 Dose: 17 gm Documented by: Pravastatin Sodium (Pravachol) 40 mg PO QHS [facility] Last Admin: 03/10/19 20:34 Dose: 40 mg Documented by: Prochlorperazine Edisylate (Compazine Iv) 5 mg IV Q6H PRN PRN PRN Reason: NAUSEA/VOMITING Last Admin: 03/11/19 16:06 Dose: 5 mg Documented by: Sertraline HCl (Zoloft) 50 mg PO DAILY [facility] Last Admin: 03/11/19 09:41 Dose: Not Given Documented by: Sodium Chloride () 10 - 40 ml IV UD PRN PRN Reason: SALINE FLUSH Last Admin: 03/11/19 16:06 Dose: 10 ml Documented by: Medical Necessity - Tobacco Use Smoking Status: Former smoker Tobacco Use: Non-smoker Assessment/Plan All Active Problems Rectal cancer (Acute) Intraoperative ureteral injury (Acute) Constipation (Acute) Nausea and vomiting (Acute) Hypothyroidism (Acute) Depression (Acute) Hyperlipidemia (Acute) 1. Abdominal pain with nausea and vomiting/dehydration/DARIAN -Provide with IV fluids and clear liquid diet -He has been tolerating lemonades, popsicles and water while here, can advance as tolerated -Appreciate surgical assistance -Zofran PRN -CT scan is negative for an obstruction, though there does appear to be constipation. Continue with MiraLAX and Colace -His creatinine is now 0.095 from 1.46, this is potentially his baseline and therefore he did present with an DARIAN -His lactate was initially elevated to 3.2 and proved with fluid administration to 3, will continue with IV fluid 2. Rectal cancer status post lap assisted LAR with colostomy and ureteral injury status post percutaneous nephrostomy tube placement done at the [facility] -He is supposed to be starting chemotherapy however this will be delayed given his recent illness -Managed by [facility] oncology and he is to start capecitabine 3. Hypothyroidism -Stable -Continue with Synthroid 4. HLD -Stable -Continue with pravastatin 5. Depression/anxiety -Stable -Continue with Zoloft and Xanax VTE: SCDs Code Visit OBSV E&M: 80605 Subsequent observation care L2
[2019-03-11 20:00] VITALS: BP 175/90; PULSE 85; RESP 20; TEMP 36.4; O2SAT 94
--- NOTE | 2019-03-11 22:55 | PCM.PN.BLA ---
Progress Note Plan this morning was for patient to be discharged. Will sign off patient's case, no surgical intervention required. Please re-consult if any new surgical problems develop, thank you
[2019-03-12 00:41] VITALS: BP 170/85; PULSE 87
[2019-03-12] MEDS: hydrALAZINE 20 MG/ML Vial 5 MG IV (00:41)
[2019-03-12] MEDS: 0.9% NaCl Peripheral Flush Adult/Peds IV ×6 (00:41→20:44)
[2019-03-12 02:00] VITALS: BP 139/87; PULSE 92; RESP 18; TEMP 36.5; O2SAT 96
[2019-03-12] MEDS: 0.9% Normal Saline 1,000 ML 100 ML IV ×2 (02:13→18:11)
[2019-03-12] MEDS: proCHLORPERazine 10 MG/2 ML Vial 5 MG IV ×2 (04:16→10:38)
--- NOTE | 2019-03-12 04:39 | NURSING ---
Pt's IV was alarming because he keeps bending his arm. Attempted an IV restart x1 which was unsuccessful. There is a sign above pt's bed not to use rt arm so options were limited. Put a new dressing on IV site in left antecub to straighten catheter hoping that will help.
--- NOTE | 2019-03-12 05:42 | NURSING ---
Nephrostomy tube flushed with 10 ml of NS with no resistance. Procedure well tolerated.
[2019-03-12 06:43] LABS: Absolute Lymphocyte Count 0.35 X10^3/uL (0.83-4.51); Absolute Neutrophil Count 4.5 X10^3/uL (2.0-7.7); Basophil# 0.03 X10^3/uL; Basophil% 0.5 % (0-1); Eosinophil# 0.01 X10^3/uL; Eosinophils% 0.2 % (0-5); Hematocrit 36.7 % (40-54); Lymphocyte # 0.35 X10^3/ul (4.0); Lymphocyte % 6.1 % (19-41); Mean Corp Hgb Conc 32.7 g/dL (32-36); Mean Corpuscular Hgb 29.4 pg (27.0-32.0); Mean Platelet Vol. 10.1 fl (6.2-12.0); Monocyte# 0.83 X10^3/uL; Monocyte% 14.4 % (0-10); NRBC Flagged by Analyzer 0 % (0-5); Neutrophil # 4.51 X10^3/uL (2.7-7.7); Neutrophil % 78.3 % (47-70); POSITIVE DIFFERENTIAL YES; POSITIVE MORPHOLOGY YES; Platelet Count 147 K/mm3 (150-450); RBC Distribution Width CV 18.8 % (11.6-14.6); RBC Distribution Width SD 61.7 fl (35.1-43.9); Red Blood Count 4.08 M/mm3 (4.6-6.2); White Blood Count 5.8 K/mm3 (4.4-11.0)
[2019-03-12 06:48] LABS: Differential Indicated SCAN CRITERIA MET
[2019-03-12 06:55] LABS: Anion Gap 10 (5-15); BUN 25 mg/dL (7-18); BUN/Creat Ratio 27.6 RATIO (10-20); Calcium,Total 8.7 mg/dL (8.5-10.1); Chloride 106 mmol/L (98-107); EST Glomerular Filtration Rate 87 mL/min (>60); Est Glom Filt Rate - Afr Amer 105 mL/min (>60); Estimated Creatinine Clearance 81.38 ml/min; Glucose 163 mg/dL (74-106); Sodium Level 137 mmol/L (136-145)
[2019-03-12] MEDS: Ondansetron 4 MG/2 ML Vial IV (07:07)
[2019-03-12 08:00] VITALS: BP 153/71; PULSE 93; RESP 20; TEMP 36.8; O2SAT 95
--- NOTE | 2019-03-12 09:22 | PN_ITS ---
Patient Problems: Active and Suspected Problems Rectal cancer (Acute) Intraoperative ureteral injury (Acute) Constipation (Acute) Nausea and vomiting (Acute) Hypothyroidism (Acute) Depression (Acute) Hyperlipidemia (Acute) Subjective: Does not feel, well states that he has had multiple episodes of bile green emesis Vitals/I&O's: Vital Signs Temp Pulse Resp BP Pulse Ox 98.2 F 93 20 H 153/71 H 95 03/12/19 08:00 03/12/19 08:00 03/12/19 08:00 03/12/19 08:00 03/12/19 08:00 Oxygen Delivery Method Room Air Weight: 218 lb 4.122 oz Body Mass Index (BMI) 28.8 Intake and Output for Last 24 Hours 03/10/19 03/11/19 03/12/19 23:59 23:59 23:59 Intake Total 2974 / 3948 2605 / 3497 1395 / 1395 Output Total 2825 / 3325 2475 / 3100 1025 / 1025 Balance 149 / 623 130 / 397 370 / 370 General: Alert, Oriented x3, Cooperative, No apparent distress, - - Hard of hearing HEENT: Atraumatic, PERRLA, EOMI, Normocephalic Oral: Dry Mucosa Neck: Supple, No JVD Lungs: Clear to auscultation, Normal air movement, No rhonchi, No wheeze, No rales, Diminished Cardiovascular: Regular rate, Regular Rhythm, Normal S1, Normal S2, No murmurs Abdomen: Soft, Non Tender, Non-Distended, No Hepato-splenomegaly, - - Has abdominal wall muscle pain, there is reproduction of his abdominal pain when flexing his rectus muscles. Stool in the ostomy appliance Extremities: No edema, Capillary Refill Less than 3 Seconds Skin: No rashes, No breakdown Neurological: Neuro grossly intact, Sensory exam intact to light touch and pain Psych/Mental Status: Normal Affect, Appropriate Laboratory Results 03/12/19 06:14: WBC 5.8, RBC 4.08 L, Hgb 12.0 L, Hct 36.7 L, MCV 90.0, MCH 29.4, MCHC 32.7, RDW Std Deviation 61.7 H, RDW Coeff of Azael 18.8 H, Plt Count 147 L, MPV 10.1, Immature Gran % (Auto) 0.500, Neut % (Auto) 78.3 H, Lymph % (Auto) 6.1 L, Hunt % (Auto) 14.4 H, Eos % (Auto) 0.2, Baso % (Auto) 0.5, Absolute Neuts (auto) 4.5, Absolute Lymphs (auto) 0.35 L, Nucleated RBC % 0 03/12/19 06:14: Sodium 137, Potassium 3.0 L, Chloride 106, Carbon Dioxide 21.0, Anion Gap 10, BUN 25 H, Creatinine 0.90, Estim Creat Clear Calc 81.38, Est GFR (MDRD) Af Amer 105, Est GFR (MDRD) Non-Af 87, BUN/Creatinine Ratio 27.6 H, Glucose 163 H, Calcium 8.7 Current Medications Acetaminophen (Tylenol) 650 mg PO Q8H PRN PRN PRN Reason: PAIN Last Admin: 03/10/19 20:34 Dose: 650 mg Documented by: Alprazolam (Xanax) 0.25 mg PO QHS PRN PRN PRN Reason: ANXIETY Docusate Sodium (Colace) 100 mg PO BID [facility] Last Admin: 03/11/19 23:18 Dose: Not Given Documented by: Famotidine (Pepcid) 20 mg PO DAILY PRN PRN Reason: REFLUX Last Admin: 03/11/19 16:14 Dose: 20 mg Documented by: Hydralazine HCl (Apresoline Iv) 5 mg IV Q4H PRN PRN PRN Reason: BLOOD PRESSURE ELEVATION Last Admin: 03/12/19 00:41 Dose: 5 mg Documented by: Sodium Chloride () 1,000 mls @ 100 mls/hr IV .Q10H [facility] Last Admin: 03/12/19 02:13 Dose: 100 mls/hr Documented by: Potassium Chloride () 10 meq in 100 mls @ 100 mls/hr IV BOLUS Q1H [facility] Stop: 03/12/19 13:29 Levothyroxine Sodium (Synthroid) 50 mcg PO DAILY@0600 [facility] Last Admin: 03/12/19 09:03 Dose: Not Given Documented by: Nutritional Formula (Lactose Free) (Ensure Enlive) 120 ml PO 4X/DAY [facility] Last Admin: 03/11/19 23:18 Dose: Not Given Documented by: Ondansetron HCl (Zofran) 4 mg IV Q8H PRN PRN PRN Reason: NAUSEA/VOMITING Last Admin: 03/12/19 07:07 Dose: 4 mg Documented by: Polyethylene Glycol (Miralax) 17 gm PO BID [facility] Last Admin: 03/11/19 23:18 Dose: Not Given Documented by: Pravastatin Sodium (Pravachol) 40 mg PO QHS [facility] Last Admin: 03/11/19 23:19 Dose: Not Given Documented by: Prochlorperazine Edisylate (Compazine Iv) 5 mg IV Q6H PRN PRN PRN Reason: NAUSEA/VOMITING Last Admin: 03/12/19 04:16 Dose: 5 mg Documented by: Sertraline HCl (Zoloft) 50 mg PO DAILY [facility] Last Admin: 03/11/19 09:41 Dose: Not Given Documented by: Sodium Chloride () 10 - 40 ml IV UD PRN PRN Reason: SALINE FLUSH Last Admin: 03/12/19 07:07 Dose: 10 ml Documented by: Medical Necessity - Tobacco Use Smoking Status: Former smoker Tobacco Use: Non-smoker Assessment/Plan All Active Problems Rectal cancer (Acute) Intraoperative ureteral injury (Acute) Constipation (Acute) Nausea and vomiting (Acute) Hypothyroidism (Acute) Depression (Acute) Hyperlipidemia (Acute) 1. Abdominal pain with nausea and vomiting/dehydration/DARIAN -C/w IVF, will make NPO since he is having bile green emesis -Appreciate surgical assistance -Zofran PRN -CT scan is negative for an obstruction, though there does appear to be constipation. Continue with MiraLAX and Colace -DARIAN resolved -His lactate was initially elevated to 3.2 and proved with fluid administration to 3, will continue with IV fluid 2. Rectal cancer status post lap assisted LAR with colostomy and ureteral injury status post percutaneous nephrostomy tube placement done at the [facility] -He is supposed to be starting chemotherapy however this will be delayed given his recent illness -Managed by [facility] oncology and he is to start capecitabine 3. Hypothyroidism -Stable -Continue with Synthroid 4. HLD -Stable -Continue with pravastatin 5. Depression/anxiety -Stable -Continue with Zoloft and Xanax VTE: SCDs Code Visit OBSV E&M: 45781 Subsequent observation care L2
--- NOTE | 2019-03-12 09:45 | RAD_ITS ---
STUDY: X-RAY - ABDOMEN/PELVIS REASON FOR EXAM: Male, 73 years old. Small bowel obstruction follow-up TECHNIQUE: AP supine and upright views of the abdomen and pelvis. COMPARISON: CT from yesterday FINDINGS: Normal visualized lung bases. Air-filled small bowel dilation has increased in overall distention since the prior study with diameter measuring up to 6 cm. There are several air-fluid levels on upright imaging. There are surgical clips project in left lower abdomen. There is no demonstrated free abdominal air. Left nephrostomy tube is similar in position with tip terminating in the mid left ureter (Gay loop projecting over left kidney). Normal soft tissue structures. Normal visualized osseous structures. RAD/Abd Inc Decub and/or Erect IMPRESSION: 1. Increasing bowel dilation with air-fluid level suggesting worsening bowel obstruction. 2. Left nephrostomy tube. Electronically Signed: Moi Sood MD ([place]) at 10:15 EDT , Service support ,
[2019-03-12 10:15] LABS: Magnesium 2.2 mg/dL (1.6-2.6); Phosphorus 2.6 mg/dL (2.5-4.9)
[2019-03-12] MEDS: Potassium Chloride 10mEq/100mL 10 MEQ/100 ML IV.SOLN. 100 MEQ IV BOLUS ×4 (10:35→15:05)
--- NOTE | 2019-03-12 12:26 | CT_ITS ---
STUDY: CT ABDOMEN AND PELVIS WITH CONTRAST REASON FOR EXAM: Male, 73 years old. Abdominal distention. Rectal cancer with colostomy. RADIATION DOSAGE (If Supplied By Facility): CTDIvol = ( 13.13 ) mGy, DLP = ( 1383.79 ) mGycm TECHNIQUE: Transaxial images were obtained from the dome of the diaphragm to the symphysis pubis without oral contrast. 100ml ml of Isovue 370 contrast was administered. Sagittal and coronal images were reconstructed. Individualized dose optimization techniques were used for this CT. COMPARISON: 03/09/2019 FINDINGS: The study is limited by patient motion. There are trace bilateral pleural effusions with overlying atelectasis. The visualized portions of the heart and pericardium are within normal limits. There are no calcified gallstones present. The liver is within normal limits. There are no suspicious hepatic lesions. The spleen is normal in size. The pancreas is within normal limits. The adrenal glands are within normal limits. There are no renal or ureteral stones. There is no hydronephrosis. There is a left-sided nephrostomy tube and ureteral stent in place. There are no focal renal lesions. There are stable postsurgical changes from distal colonic resection with a left lower quadrant colostomy. The stomach is distended. There are multiple dilated loops of proximal or mid small bowel with collapsed loops noted distally. There are thickened loops of small bowel noted at the transition point in the right lower quadrant (best seen on images 47-57 series 601). This likely represents an inflammatory stricture. The aorta is normal in caliber. There is a small amount of free fluid. There is no free air, fluid collection or lymphadenopathy. There are no destructive osseous lesions. CT/Abdomen/Pelvis WITH Contrast IMPRESSION: Small bowel obstruction with transition point likely due to an inflammatory stricture in the right lower quadrant. Small amount of ascites. No free air or fluid collection. Trace bilateral pleural effusions with overlying atelectasis. Electronically Signed: Je Wakefield, at 16:45 EDT Tel , Service support ,
[2019-03-12 15:57] VITALS: BP 157/75; PULSE 91; RESP 20; TEMP 37.3; O2SAT 93
--- NOTE | 2019-03-12 17:00 | PCM.CONS.GEN ---
Reason for Consult Date of Consultation: 03/12/19 Reason for Consultation: abdominal distention and vomiting History of Present Illness: The patient is a 73 year old M with a 1 day history of increasing nausea and vomiting with decreased ostomy output. The patient is 73-year-old male with a noted history of a low rectal cancer. . The patient has certain of the specifics but information gleaned from accessible online records demonstrated the following. the patient underwent colonoscopy in July 25, 2018 the patient was found to have polyps in the ascending colon transverse colon sigmoid colon and a rectal mass. No abnormalities were noted on digital rectal exam. endoscopy report stated a near circumferential ulcerated and necrotic mass extending from 10-20 cm from the anal verge. Multiple biopsies were obtained. pathology returned as adenomatous polyps and invasive moderately demonstrated adenocarcinoma. MRI was obtained which demonstrated a suspicious-looking lymph node and a bulky her mid rectal tumor listed as likely T3b) and 1. The tumor extended the anorectal angle and was felt within 1 mm of the distal rectal fascia. He was referred to Dr. Bola Monson in August for neoadjuvant therapy for stage III rectal cancer. he completed preoperative chemoradiotherapy on October 20, 2018. The patient on December 07, 2018 underwent laparoscopic-assisted low anterior resection with formation of colostomy for a planned laparoscopic assisted low anterior resection with complication of an iatrogenic left ureteral injury. The record of the operative note noted: Once the dissection was taken down to the level of the previously placed colonic tattoo during colonoscopy, the procedure was converted to an open procedure. Bookwalter self retraining device was placed. Originally, the rectal carcinoma was thought to be at 10 cm, but in actuality was at approximately 5 cm. The bowel was transected using a bowel stapling device approximately 5 cm from the anal verge and transected at the sigmoid. Specimens were obtained for pathology and passed off the table in a sterile manner. It was noted that there was still some residual tattoo on the rectal stump. Again, the stapler device was used to retract the remaining evident tattooed rectum; however, during maneuvering the stapler device into the pelvic, it became intwined with the left ureter and the left ureter was transected in half from the pull and yank of the stapler inadvertently. 3-0 Blue Prolene were used to tack both the distal and proximal ureteral segments to the left pelvic rim. The remaining ink margin on the rectum was transected and passed off the table in a sterile manner for pathology. Because of the low nature of the rectal stump, it was decided that the best option at this point was to create a colostomy. The colostomy was brought up in the left lower a drain was placed to drain the urine transabdominally. pathology initial sigmoid resection identified as negative for tumors, no lymph nodes identified. The additional margin returned as residual colonic adenocarcinoma identified and small mass within the muscularis propria inked margins were listed as free of tumor, no lymph nodes were identified. other report questioned whether there was a positive distal margin. the patient was admitted to [facility] on December 16, 2018. he had abdominal drains draining copious months of urine at presentation. He underwent a left antegrade nephrostogram after nephrostomy tube was placed demonstrating extravasation of contrast material and then the nephrostomy tube was placed and exchanged for occluding nephrostomy tube. After SHORTY drainage decreased the Ravi-Tillman drains were removed. he was discharged on December 21, 2018. the patient was seen by Dr. Garcia Vidal on January 07, 2019 this is a request for possible stoma takedown. The recommended plan was completion adjuvant chemotherapy and then ureteral repair and colostomy takedown after completion of adjuvant chemotherapy. The patient is admitted to [facility] on January 31 and February 28, 2019 for nephrostomy tube exchange. The patient was admitted to [facility] on March 09, 2019 with a complaint of abdominal pain nausea and vomiting for [address] scan of the abdomen and pelvis was obtained that time which did not demonstrate a bowel obstruction. The patient had a normal white blood cell countalthough a left shift. BUN/creatinine were mildly elevated. There was felt to be fecal loading of the transverse colon so the patient was given Maria Guadalupe lax and had significant output from his stoma. he was planning to be discharged home on March 11 but then noted increasing abdominal discomfort and is again been vomiting for the past 24 hours. I was contacted. An abdominal multiview was obtained this morningwhich was interpreted as increasing bowel dilation with air-fluid levels suggesting worsening bowel obstruction. Small bowel diameter was up to 6 cm. There was felt to be air throughout the colon additionally.laboratory parameters still demonstrated a normal white blood cell count of 5.8. Metabolic panel is unremarkable except for mildly low potassium at 3.0. repeat CT scan of the abdomen and pelvis demonstrated distended stomach multiply dilated loops of proximal and mid small bowel which was felt to be collapsed loops distally area and there felt to be thickened loops of small bowel noted transition point in the right lower quadrant listed as best seen on images 47-57 on series 601. Was felt this was likely an inflammatory stricture. there is liquid however in the colon though this was not as distended no intra-abdominal abscesses were noted. There was felt to be some fluid around the liver likely felt to be related to mild continued urine leak from the left ureter. Past Medical History Allergies No Known Allergies Allergy (Verified 03/09/19 01:29) Home Medications: Ambulatory Orders Medication Instructions Recorded Capecitabine 2,000 mg QWEEK 03/09/19 RX: ALPRAZolam [Xanax] 0.25 mg PO QHS PRN PRN 03/09/19 RX: Acetaminophen [Tylenol Extra 500 mg PO PRN PRN 03/09/19 Strength] RX: Famotidine 20 mg PO PRN PRN 03/09/19 RX: Levothyroxine [Synthroid] 50 mcg PO DAILY 03/09/19 RX: Ondansetron [Zofran] 8 mg PO Q8H PRN PRN 03/09/19 RX: Pravastatin [Pravachol] 40 mg PO QHS 03/09/19 RX: Sertraline HCl [Zoloft] 50 mg PO DAILY 03/09/19 RX: Docusate Sodium [Colace] 100 mg PO BID #20 cap 03/11/19 RX: Polyethylene Glycol 3350 17 gm PO DAILY #10 packet 03/11/19 [Miralax] Surgical History: - - Lap assisted LAR, colostomy, percutaneous nephrostomy tube Smoking Status: Former smoker Tobacco Use: Non-smoker Alcohol: None Drugs: None - *Family History Maternal History Items: - - His grandmother had cancer he is not sure what kind and he states that he does not pay attention to his family's medical history Review of Systems Constitutional: Reports: Anorexia. Denies: Chills, Fever, Weight Change HEENT: Reports: Difficulty Hearing. Denies: Head Aches, Sinus Congestion, Sinus Drainage Cardiovascular: Denies: Chest Pain, Palpitations Respiratory: Denies: Cough, Shortness of breath at rest, Sputum production Gastrointestinal: Reports: Abdominal Pain, Nausea, Vomiting Genitourinary: Denies: Dysuria Musculoskeletal: Denies: Joint Pain, Joint Tenderness Skin: Denies: Rash, Wounds Neurological: Denies: Numbness, Tingling, Focal weakness Psychiatric: Denies: Anxiety, Depression, Homicidal Ideations, Suicidal Ideations Hematologic/ Lymphatic: Denies: Easy Bruising, Easy Bleeding Patient Problems: Active and Suspected Problems Rectal cancer (Acute) Intraoperative ureteral injury (Acute) Constipation (Acute) Nausea and vomiting (Acute) Hypothyroidism (Acute) Depression (Acute) Hyperlipidemia (Acute) - Physical Exam General: Alert, Oriented x3, Cooperative Lungs: Clear to auscultation, Normal air movement Cardiovascular: Regular rate, No murmurs Abdomen: Hypoactive Bowel Sounds, Distended - mild diffusely tender. Well-healed midline incision, left lower quadrant colostomy with scant fluid in the colostomy bag minimal air, left posterior nephrostomy tube in place Vital Signs Temp Pulse Resp BP Pulse Ox 99.1 F 91 20 H 157/75 H 93 03/12/19 15:57 03/12/19 15:57 03/12/19 15:57 03/12/19 15:57 03/12/19 15:57 Oxygen Delivery Method Room Air Weight: 99 kg Body Mass Index (BMI) 28.8 Intake and Output for Last 24 Hours 03/10/19 03/11/19 03/12/19 23:59 23:59 23:59 Intake Total 2974 / 3948 2605 / 3497 2808 / 2808 Output Total 2825 / 3325 2475 / 3100 1625 / 1625 Balance 149 / 623 130 / 397 1183 / 1183 Laboratory Tests Past 24 Hrs 03/12/19 03/12/19 03/12/19 06:14 06:14 06:14 WBC 5.8 RBC 4.08 L Hgb 12.0 L Hct 36.7 L MCV 90.0 MCH 29.4 MCHC 32.7 RDW Std Deviation 61.7 H RDW Coeff of Azael 18.8 H Plt Count 147 L MPV 10.1 Immature Gran % (Auto) 0.500 Neut % (Auto) 78.3 H Lymph % (Auto) 6.1 L [place] % (Auto) 14.4 H Eos % (Auto) 0.2 Baso % (Auto) 0.5 Absolute Neuts (auto) 4.5 Absolute Lymphs (auto) 0.35 L Nucleated RBC % 0 Sodium 137 Potassium 3.0 L Chloride 106 Carbon Dioxide 21.0 Anion Gap 10 BUN 25 H Creatinine 0.90 Estim Creat Clear Calc 81.38 Est GFR (MDRD) Af Amer 105 Est GFR (MDRD) Non-Af 87 BUN/Creatinine Ratio 27.6 H Glucose 163 H Calcium 8.7 Phosphorus 2.6 Magnesium 2.2 Assessment/Plan All Active Problems Rectal cancer (Acute) Intraoperative ureteral injury (Acute) Constipation (Acute) Nausea and vomiting (Acute) Hypothyroidism (Acute) Depression (Acute) Hyperlipidemia (Acute) likely high-grade distal small bowel obstruction best seen on image 77 of 132 on the coronal sections just near the right inguinal region. No true internal hernia seen. recommend the patient maintained nothing by mouth and place an NG tube. Would recommend follow-up KUB. Would recommend PICC line placement and follow the patient is serial abdominal exams, serial abdominal x-rays, and laboratory studies. Given his recent surgical misadventures and overall complexity, I would recommend transfer to a tertiary care Center-[facility] if the patient does not resolve require surgical intervention.
--- NOTE | 2019-03-12 17:03 | PCA ---
rn in with pt
--- NOTE | 2019-03-12 17:41 | NURSING ---
Attempted to insert NG with SREEDHAR James. Each nurse attempted NG placement in each nostril- unable to advance NG to place.
[2019-03-12] MEDS: Tetracaine/Benzocaine/Butamben 1 APPLIC TOPICAL (18:49)
--- NOTE | 2019-03-12 19:24 | RAD_ITS ---
STUDY: X-RAY - ABDOMEN/PELVIS REASON FOR EXAM: Male, 73 years old. Nasogastric tube placement. TECHNIQUE: Single frontal image of the abdomen was obtained. COMPARISON: CT dated March 12, 2019. FINDINGS: Normal visualized lung bases. There is a nasogastric tube in place terminating within the expected region of the gastric fundus. There is a left-sided percutaneous nephrostomy tube associated with a left ureteral stent. There are dilated loops of small bowel present. Normal soft tissue structures. Normal visualized osseous structures. RAD/Abdomen Single View (Portable) IMPRESSION: Nasogastric tube in a satisfactory position. Dilated loops of small bowel may be secondary to a small bowel obstruction or small bowel ileus. Electronically Signed: Brunilda Noland MD at 22:52 EDT Tel , Service support ,
[2019-03-12 21:07] VITALS: BP 155/77; PULSE 95; RESP 20; TEMP 37.1; O2SAT 92
--- NOTE | 2019-03-12 22:13 | NURSING ---
PICC RN finished inserting double lumen PICC in RED, per PICC RN okay to use. This RN flushed both lines with NS, flushed easily and blood return noted. NS infusing into RED via PICC per orders. This RN then assessed patients NG tube in left nare, flushed with 10mls of water per orders and attached NG tube to LIWS. Initial return of gastric content was 2,000mls of yellow brownish gastric content. This RN recorded gastric output in I&O. Patient stated relief from N/V. Will continue to monitor.
[2019-03-13] MEDS: 0.9% Normal Saline 1,000 ML 100 ML IV ×2 (04:07→14:51)
[2019-03-13] MEDS: 0.9% NaCl Peripheral Flush Adult/Peds IV ×2 (05:20→11:19)
[2019-03-13 05:21] VITALS: BP 163/74; PULSE 95; RESP 18; TEMP 36.5; O2SAT 94
--- NOTE | 2019-03-13 05:45 | RAD_ITS ---
We are attempting to reach an attending provider to discuss findings. An addendum with communication details will be sent when the communication is complete. STUDY: X-RAY - ABDOMEN/PELVIS REASON FOR EXAM: Male, 73 years old. Nausea vomiting small bowel obstruction TECHNIQUE: Multiple AP supine views of the abdomen and pelvis. COMPARISON: March 12, 2019 KUB, March [address] scan abdomen and pelvis FINDINGS: Normal visualized lung bases. There is a NG tube present with side port is in the distal esophagus. Multiple distended loops of small bowel present with air fluid levels. There is a drain in the left lower quadrant. There is postoperative change in the pelvis. Hussein catheter is in place. There is contrast within the bladder presumably from the March 12, 2019 CT. There is no demonstrated free abdominal air. Liver spleen and kidneys are mostly obscured. RAD/Abd Inc Decub and/or Erect IMPRESSION: Radiographic findings highly suspicious for small bowel obstruction. The side port of the NG tube is in the distal esophagus and should be advanced into the stomach approximately 5 cm. Electronically Signed: Luz Elena Milligan MD at 12:00 EDT Tel , Service support ,
[2019-03-13 06:43] LABS: Anion Gap 8 (5-15); BUN 22 mg/dL (7-18); BUN/Creat Ratio 26.6 RATIO (10-20); Calcium,Total 8.6 mg/dL (8.5-10.1); Chloride 107 mmol/L (98-107); Creatinine, Serum 0.83 mg/dL (0.70-1.30); EST Glomerular Filtration Rate 96 mL/min (>60); Est Glom Filt Rate - Afr Amer 117 mL/min (>60); Estimated Creatinine Clearance 88.24 ml/min; Glucose 121 mg/dL (74-106); Potassium 2.9 mmol/L (3.5-5.1); Sodium Level 142 mmol/L (136-145)
--- NOTE | 2019-03-13 08:13 | PCM.PN.HOSP ---
Patient Problems: Active and Suspected Problems Rectal cancer (Acute) Intraoperative ureteral injury (Acute) Constipation (Acute) Nausea and vomiting (Acute) Hypothyroidism (Acute) Depression (Acute) Hyperlipidemia (Acute) Subjective: Feeling a little bit better today after he had his NG tube placed last night, with almost 4 L of output. Vitals/I&O's: Vital Signs Temp Pulse Resp BP Pulse Ox 97.7 F L 95 18 163/74 H 94 03/13/19 05:21 03/13/19 05:21 03/13/19 05:21 03/13/19 05:21 03/13/19 05:21 Oxygen Delivery Method Room Air Weight: 218 lb 4.122 oz Body Mass Index (BMI) 28.8 Intake and Output for Last 24 Hours 03/11/19 03/12/19 03/13/19 23:59 23:59 23:59 Intake Total 2605 / 3497 3534 / 3534 500 / 500 Output Total 2475 / 3100 5275 / 5275 1100 / 1100 Balance 130 / 397 -1741 / -1741 -600 / -600 General: Alert, Oriented x3, Cooperative, No apparent distress, - - Hard of hearing HEENT: Atraumatic, PERRLA, EOMI, Normocephalic, NG tube in place Oral: Dry Mucosa Neck: Supple, No JVD Lungs: Clear to auscultation, Normal air movement, No rhonchi, No wheeze, No rales, Diminished Cardiovascular: Regular rate, Regular Rhythm, Normal S1, Normal S2, No murmurs Abdomen: Soft, Non Tender, Non-Distended, No Hepato-splenomegaly, - - Has abdominal wall muscle pain, there is reproduction of his abdominal pain when flexing his rectus muscles. Extremities: No edema, Capillary Refill Less than 3 Seconds Skin: No rashes, No breakdown Neurological: Neuro grossly intact, Sensory exam intact to light touch and pain Psych/Mental Status: Normal Affect, Appropriate Laboratory Results 03/12/19 06:14: Phosphorus 2.6, Magnesium 2.2 03/13/19 05:20: Sodium 142, Potassium 2.9 L, Chloride 107, Carbon Dioxide 27.0, Anion Gap 8, BUN 22 H, Creatinine 0.83, Estim Creat Clear Calc 88.24, Est GFR (MDRD) Af Amer 117, Est GFR (MDRD) Non-Af 96, BUN/Creatinine Ratio 26.6 H, Glucose 121 H, Calcium 8.6 Current Medications Acetaminophen (Tylenol) 650 mg PO Q8H PRN PRN PRN Reason: PAIN Last Admin: 03/10/19 20:34 Dose: 650 mg Documented by: Alprazolam (Xanax) 0.25 mg PO QHS PRN PRN PRN Reason: ANXIETY Famotidine (Pepcid) 20 mg PO DAILY PRN PRN Reason: REFLUX Last Admin: 03/11/19 16:14 Dose: 20 mg Documented by: Heparin Sodium (Beef Lung) () 50 units IV UD PRN PRN Reason: HEPARIN FLUSH Hydralazine HCl (Apresoline Iv) 5 mg IV Q4H PRN PRN PRN Reason: BLOOD PRESSURE ELEVATION Last Admin: 03/12/19 00:41 Dose: 5 mg Documented by: Sodium Chloride () 1,000 mls @ 100 mls/hr IV .Q10H [facility] Last Admin: 03/13/19 04:07 Dose: 100 mls/hr Documented by: Potassium Chloride () 10 meq in 100 mls @ 100 mls/hr IV BOLUS Q1H [facility] Stop: 03/13/19 12:14 Levothyroxine Sodium (Synthroid) 50 mcg PO DAILY@0600 [facility] Last Admin: 03/13/19 02:43 Dose: Not Given Documented by: Ondansetron HCl (Zofran) 4 mg IV Q8H PRN PRN PRN Reason: NAUSEA/VOMITING Last Admin: 03/12/19 07:07 Dose: 4 mg Documented by: Pravastatin Sodium (Pravachol) 40 mg PO QHS [facility] Last Admin: 03/12/19 21:12 Dose: Not Given Documented by: Prochlorperazine Edisylate (Compazine Iv) 5 mg IV Q6H PRN PRN PRN Reason: NAUSEA/VOMITING Last Admin: 03/12/19 10:38 Dose: 5 mg Documented by: Sertraline HCl (Zoloft) 50 mg PO DAILY [facility] Last Admin: 03/12/19 10:57 Dose: Not Given Documented by: Sodium Chloride () 10 - 40 ml IV UD PRN PRN Reason: SALINE FLUSH Last Admin: 03/13/19 05:20 Dose: 30 ml Documented by: Sodium Chloride () 10 - 40 ml IV UD PRN PRN Reason: PICC FLUSH Medical Necessity - Tobacco Use Smoking Status: Former smoker Tobacco Use: Non-smoker Assessment/Plan All Active Problems Rectal cancer (Acute) Intraoperative ureteral injury (Acute) Constipation (Acute) Nausea and vomiting (Acute) Hypothyroidism (Acute) Depression (Acute) Hyperlipidemia (Acute) 1. High-grade distal small bowel obstruction/dehydration/DARIAN -C/w IVF, will make NPO since he is having bile green emesis -Appreciate surgical assistance -Zofran PRN -Initial CT scan was negative for an obstruction, started on bowel regimen with good stool output, then he progressed to having multiple episodes of bilious emesis and a repeat CT scan shows a high-grade obstruction of the distal small bowel -NG tube placed with almost 4000 mL's of output, if there is no significant improvement today we will plan on transfer to the [facility] where he had his previous surgical interventions -DARIAN resolved -His lactate was initially elevated to 3.2 and proved with fluid administration to 3, will continue with IV fluid 2. Rectal cancer status post lap assisted LAR with colostomy and ureteral injury status post percutaneous nephrostomy tube placement done at the [facility] -He is supposed to be starting chemotherapy however this will be delayed given his recent illness -Managed by [facility] oncology and he is to start capecitabine 3. Hypothyroidism -Stable -Continue with Synthroid when taking p.o. 4. HLD -Stable -Continue with pravastatin when taking p.o. 5. Depression/anxiety -Stable -Continue with Zoloft and Xanax when taking p.o. VTE: SCDs Code Visit Inpatient E&M: 57240 Subs Hosp L2
[2019-03-13 09:18] VITALS: BP 160/74; PULSE 78; RESP 22; TEMP 36.8; O2SAT 96
[2019-03-13] MEDS: Potassium Chloride 10mEq/100mL 10 MEQ/100 ML IV.SOLN. 100 MEQ IV BOLUS ×4 (09:26→12:57)
--- NOTE | 2019-03-13 10:43 | PCM.PN.SRG ---
Patient Problems: Active and Suspected Problems Rectal cancer (Acute) Intraoperative ureteral injury (Acute) Constipation (Acute) Nausea and vomiting (Acute) Hypothyroidism (Acute) Depression (Acute) Hyperlipidemia (Acute) Subjective: no abdominal pain, minimal output and stoma bag - Physical Exam General: Alert, Oriented x3, Cooperative Lungs: Clear to auscultation, Normal air movement Cardiovascular: Regular rate, No murmurs Abdomen: Soft, Non Tender, Hypoactive Bowel Sounds, - - minimal air and some fluid output and stoma bag Vital Signs Temp Pulse Resp BP Pulse Ox 98.3 F 78 22 H 160/74 H 96 03/13/19 09:18 03/13/19 09:18 03/13/19 09:18 03/13/19 09:18 03/13/19 09:18 Oxygen Delivery Method Room Air Weight: 99 kg Body Mass Index (BMI) 28.8 Intake and Output for Last 24 Hours 03/11/19 03/12/19 03/13/19 23:59 23:59 23:59 Intake Total 2605 / 3497 3534 / 3534 510 / 510 Output Total 2475 / 3100 5275 / 5275 1100 / 1100 Balance 130 / 397 -1741 / -1741 -590 / -590 Laboratory Tests Past 24 Hrs 03/13/19 05:20 Sodium 142 Potassium 2.9 L Chloride 107 Carbon Dioxide 27.0 Anion Gap 8 BUN 22 H Creatinine 0.83 Estim Creat Clear Calc 88.24 Est GFR (MDRD) Af Amer 117 Est GFR (MDRD) Non-Af 96 BUN/Creatinine Ratio 26.6 H Glucose 121 H Calcium 8.6 Medical Necessity - Tobacco Use Smoking Status: Former smoker Tobacco Use: Non-smoker Assessment/Plan All Active Problems Rectal cancer (Acute) Intraoperative ureteral injury (Acute) Constipation (Acute) Nausea and vomiting (Acute) Hypothyroidism (Acute) Depression (Acute) Hyperlipidemia (Acute) likely high-grade distal small bowel obstruction best seen on image 77 of 132 on the coronal sections just near the right inguinal region. No true internal hernia seen. KUB this morning demonstrates decreased gastric distention still some distended loops of small bowel proximally. Overall stable to slight improvement. recommend the patient maintained nothing by mouth and NG tube to low intermittent suction. we'll plan to have serial abdominal exams and serial obstructive series to assess progress. PICC line placed. Given his recent surgical misadventures and overall complexity, I would recommend transfer to a tertiary care Center-[facility] if the patient does not resolve require surgical intervention. discussed findings and plan with patient and his Jolene via the [phone]. also recommended if we were unable to communicate with her her daughter Richa Enrique could be reached at [phone]
[2019-03-13 11:27] LABS: Absolute Lymphocyte Count 0.35 X10^3/uL (0.83-4.51); Absolute Neutrophil Count 3.5 X10^3/uL (2.0-7.7); Basophil# 0.01 X10^3/uL; Basophil% 0.2 % (0-1); Eosinophil# 0.04 X10^3/uL; Eosinophils% 0.9 % (0-5); Hematocrit 31.6 % (40-54); Hemoglobin 10.1 g/dL (13.0-16.5); Lymphocyte # 0.35 X10^3/ul (4.0); Lymphocyte % 7.7 % (19-41); Mean Corpuscular Hgb 28.9 pg (27.0-32.0); Mean Corpuscular Volume 90.3 fL (80-94); Mean Platelet Vol. 10.1 fl (6.2-12.0); Monocyte# 0.57 X10^3/uL; Monocyte% 12.5 % (0-10); NRBC Flagged by Analyzer 0 % (0-5); Neutrophil # 3.53 X10^3/uL (2.7-7.7); Neutrophil % 77.6 % (47-70); POSITIVE DIFFERENTIAL YES; POSITIVE MORPHOLOGY YES; Platelet Count 106 K/mm3 (150-450); RBC Distribution Width CV 18.8 % (11.6-14.6); RBC Distribution Width SD 62.4 fl (35.1-43.9); White Blood Count 4.6 K/mm3 (4.4-11.0)
[2019-03-13 11:33] LABS: Differential Indicated SCAN CRITERIA MET
[2019-03-13 11:38] LABS: Anion Gap 5 (5-15); BUN 21 mg/dL (7-18); Calcium,Total 8.2 mg/dL (8.5-10.1); Chloride 107 mmol/L (98-107); Creatinine, Serum 0.81 mg/dL (0.70-1.30); EST Glomerular Filtration Rate 99 mL/min (>60); Est Glom Filt Rate - Afr Amer 120 mL/min (>60); Estimated Creatinine Clearance 90.42 ml/min; Glucose 118 mg/dL (74-106); Potassium 2.9 mmol/L (3.5-5.1); Sodium Level 140 mmol/L (136-145)
[2019-03-13] MEDS: Sertraline 50 MG Tablet PO (12:51)
[2019-03-13 15:59] VITALS: BP 147/89; PULSE 76; RESP 18; TEMP 36.8; O2SAT 95
[2019-03-13 20:38] VITALS: BP 123/87; PULSE 78; RESP 20; TEMP 37.3; O2SAT 95
[2019-03-13] MEDS: Pravastatin 40 MG Tablet PO (20:56)
[2019-03-14] MEDS: 0.9% Normal Saline 1,000 ML 100 ML IV (00:30)
[2019-03-14 02:08] VITALS: BP 158/67; PULSE 74; RESP 18; TEMP 37.4; O2SAT 93
[2019-03-14] MEDS: 0.9% NaCl Peripheral Flush Adult/Peds IV (05:23)
[2019-03-14] MEDS: Levothyroxine 50 MCG Tablet PO (05:25)
--- NOTE | 2019-03-14 05:30 | RAD_ITS ---
STUDY: X-RAY - ABDOMEN/PELVIS REASON FOR EXAM: Male, 73 years old. History of small bowel obstruction. TECHNIQUE: AP supine and upright views of the abdomen and pelvis. COMPARISON: Comparison is made with prior study dated March 13, 2019. FINDINGS: Normal visualized lung bases. A nasogastric tube is seen with the tip just distal to the gastroesophageal junction. There is evidence of a proximal small bowel dilatation. This has mildly improved as compared to prior study. There is no demonstrated free abdominal air. A left sided nephrostomy/ureteral catheter is in place and is unchanged. Normal soft tissue structures. There are diffuse degenerative changes of the visualized lumbar spine. RAD/Abd Inc Decub and/or Erect IMPRESSION: Persistent dilatation of the proximal small bowel loops although there has been mild improvement as compared to prior study. The tip of the nasogastric tube is just distal to the gastroesophageal junction. Electronically Signed: Syd Ortega, at 10:33 EDT , Service support ,
[2019-03-14 05:46] LABS: Absolute Lymphocyte Count 0.58 X10^3/uL (0.83-4.51); Absolute Neutrophil Count 4.3 X10^3/uL (2.0-7.7); Basophil# 0.01 X10^3/uL; Basophil% 0.2 % (0-1); Eosinophil# 0.08 X10^3/uL; Eosinophils% 1.4 % (0-5); Hematocrit 30.2 % (40-54); Hemoglobin 9.7 g/dL (13.0-16.5); Lymphocyte # 0.58 X10^3/ul (4.0); Lymphocyte % 10.3 % (19-41); Mean Corp Hgb Conc 32.1 g/dL (32-36); Mean Corpuscular Hgb 29.2 pg (27.0-32.0); Monocyte# 0.53 X10^3/uL; Monocyte% 9.4 % (0-10); NRBC Flagged by Analyzer 0 % (0-5); Neutrophil # 4.31 X10^3/uL (2.7-7.7); Neutrophil % 76.6 % (47-70); POSITIVE DIFFERENTIAL YES; Platelet Count 95 K/mm3 (150-450); RBC Distribution Width CV 18.7 % (11.6-14.6); RBC Distribution Width SD 62.7 fl (35.1-43.9); Red Blood Count 3.32 M/mm3 (4.6-6.2); White Blood Count 5.6 K/mm3 (4.4-11.0)
[2019-03-14 05:52] LABS: Anion Gap 9 (5-15); BUN 18 mg/dL (7-18); BUN/Creat Ratio 24.4 RATIO (10-20); Calcium,Total 8.1 mg/dL (8.5-10.1); Chloride 111 mmol/L (98-107); Creatinine, Serum 0.74 mg/dL (0.70-1.30); Differential Indicated SCAN CRITERIA MET; EST Glomerular Filtration Rate 110 mL/min (>60); Est Glom Filt Rate - Afr Amer 133 mL/min (>60); Estimated Creatinine Clearance 73.24 ml/min; Glucose 118 mg/dL (74-106); Potassium 2.9 mmol/L (3.5-5.1); Sodium Level 145 mmol/L (136-145)
[2019-03-14 06:33] LABS: Differential Comment SCANNED
[2019-03-14] MEDS: Potassium Chloride 10mEq/100mL 10 MEQ/100 ML IV.SOLN. 100 MEQ IV BOLUS ×4 (08:11→11:35)
[2019-03-14 08:16] VITALS: BP 159/61; PULSE 72; RESP 18; TEMP 37.1; O2SAT 94
--- NOTE | 2019-03-14 08:36 | PN.SURG_ITS ---
Patient Problems: Active and Suspected Problems Rectal cancer (Acute) Intraoperative ureteral injury (Acute) Constipation (Acute) Nausea and vomiting (Acute) Hypothyroidism (Acute) Depression (Acute) Hyperlipidemia (Acute) Subjective: more output in bag, no abdominal pain - Physical Exam General: Alert, Oriented x3, Cooperative Lungs: Clear to auscultation, Normal air movement Cardiovascular: Regular rate, No murmurs Abdomen: Soft, Non Tender, Hypoactive Bowel Sounds, - - air and stool in stoma bag Vital Signs Temp Pulse Resp BP Pulse Ox 98.7 F 72 18 159/61 H 94 03/14/19 08:16 03/14/19 08:16 03/14/19 08:16 03/14/19 08:16 03/14/19 08:16 Oxygen Delivery Method Room Air Weight: 99 kg Body Mass Index (BMI) 28.8 Intake and Output for Last 24 Hours 03/12/19 03/13/19 03/14/19 23:59 23:59 23:59 Intake Total 3534 / 3534 2881 / 2881 547 / 547 Output Total 5275 / 5275 4350 / 4350 625 / 625 Balance -1741 / -1741 -1469 / -1469 -78 / -78 Laboratory Tests Past 24 Hrs 03/13/19 03/13/19 03/14/19 11:17 11:17 05:30 WBC 4.6 5.6 RBC 3.50 L 3.32 L Hgb 10.1 L 9.7 L Hct 31.6 L 30.2 L MCV 90.3 91.0 MCH 28.9 29.2 MCHC 32.0 32.1 RDW Std Deviation 62.4 H 62.7 H RDW Coeff of Azael 18.8 H 18.7 H Plt Count 106 L 95 L MPV 10.1 10.0 Immature Gran % (Auto) 1.100 H 2.100 H Neut % (Auto) 77.6 H 76.6 H Lymph % (Auto) 7.7 L 10.3 L Bethel % (Auto) 12.5 H 9.4 Eos % (Auto) 0.9 1.4 Baso % (Auto) 0.2 0.2 Absolute Neuts (auto) 3.5 4.3 Absolute Lymphs (auto) 0.35 L 0.58 L Nucleated RBC % 0 0 Differential Comment SCANNED Sodium 140 Potassium 2.9 L Chloride 107 Carbon Dioxide 28.0 Anion Gap 5 BUN 21 H Creatinine 0.81 Estim Creat Clear Calc 90.42 Est GFR (MDRD) Af Amer 120 Est GFR (MDRD) Non-Af 99 BUN/Creatinine Ratio 26.0 H Glucose 118 H Calcium 8.2 L 03/14/19 05:30 WBC RBC Hgb Hct MCV MCH MCHC RDW Std Deviation RDW Coeff of Azael Plt Count MPV Immature Gran % (Auto) Neut % (Auto) Lymph % (Auto) Bethel % (Auto) Eos % (Auto) Baso % (Auto) Absolute Neuts (auto) Absolute Lymphs (auto) Nucleated RBC % Differential Comment Sodium 145 Potassium 2.9 L Chloride 111 H Carbon Dioxide 25.0 Anion Gap 9 BUN 18 Creatinine 0.74 Estim Creat Clear Calc 73.24 Est GFR (MDRD) Af Amer 133 Est GFR (MDRD) Non-Af 110 BUN/Creatinine Ratio 24.4 H Glucose 118 H Calcium 8.1 L Medical Necessity - Tobacco Use Smoking Status: Former smoker Tobacco Use: Non-smoker Assessment/Plan All Active Problems Rectal cancer (Acute) Intraoperative ureteral injury (Acute) Constipation (Acute) Nausea and vomiting (Acute) Hypothyroidism (Acute) Depression (Acute) Hyperlipidemia (Acute) likely high-grade distal small bowel obstruction best seen on image 77 of 132 on the coronal sections just near the right inguinal region. No true internal hernia seen. KUB this morning demonstrates improved bowel gas pattern - less snall bowel distention, but still a partial SBO picture. NG in place, draining bilious fluid. stoma with air and liquid stool. Overall improvement. - will continue NG to suction and recheck abd multiview in am recommend the patient maintained nothing by mouth and NG tube to low intermittent suction. we'll plan to have serial abdominal exams and serial obstructive series to assess progress. PICC line placed. discussed findings and plan with patient and his Jolene via the [phone]. also recommended if we were unable to communicate with her her daughter Richa Enrique could be reached at [phone]
--- NOTE | 2019-03-14 09:28 | PCM.PN.HOSP ---
Patient Problems: Active and Suspected Problems Nausea and vomiting (Acute) SBO (small bowel obstruction) (Acute) Hypokalemia (Acute) Subjective: States that his abdomen is feeling better and states that he did have some gas going to his ostomy. Abdomen is no longer distended and soft now. Vitals/I&O's: Vital Signs Temp Pulse Resp BP Pulse Ox 37.1 C 72 18 159/61 H 94 03/14/19 08:16 03/14/19 08:16 03/14/19 08:16 03/14/19 08:16 03/14/19 08:16 Oxygen Delivery Method Room Air Weight: 99 kg Body Mass Index (BMI) 28.8 Intake and Output for Last 24 Hours 03/12/19 03/13/19 03/14/19 23:59 23:59 23:59 Intake Total 3534 / 3534 2881 / 2881 547 / 547 Output Total 5275 / 5275 4350 / 4350 625 / 625 Balance -1741 / -1741 -1469 / -1469 -78 / -78 General: Alert, No apparent distress HEENT: Atraumatic, Normocephalic, - - NG tube in place Oral: Moist Mucosa, No Gingival or Mucosal Lesions/ Ulcerations Neck: No Nodes, Thyroid Normal Size and Texture Lungs: Clear to auscultation, Normal air movement, No rhonchi, No wheeze, No rales Cardiovascular: Regular rate, Regular Rhythm, Normal S1, Normal S2, No murmurs Abdomen: Bowel Sounds Present, Soft, Non Tender, Non-Distended, No Hepato-splenomegaly Extremities: No edema, No Calf Tenderness Skin: No rashes, No breakdown Psych/Mental Status: Normal Affect, Appropriate Laboratory Results 03/13/19 11:17: WBC 4.6, RBC 3.50 L, Hgb 10.1 L, Hct 31.6 L, MCV 90.3, MCH 28.9, MCHC 32.0, RDW Std Deviation 62.4 H, RDW Coeff of Azael 18.8 H, Plt Count 106 L, MPV 10.1, Immature Gran % (Auto) 1.100 H, Neut % (Auto) 77.6 H, Lymph % (Auto) 7.7 L, Wolfe % (Auto) 12.5 H, Eos % (Auto) 0.9, Baso % (Auto) 0.2, Absolute Neuts (auto) 3.5, Absolute Lymphs (auto) 0.35 L, Nucleated RBC % 0 03/13/19 11:17: Sodium 140, Potassium 2.9 L, Chloride 107, Carbon Dioxide 28.0, Anion Gap 5, BUN 21 H, Creatinine 0.81, Estim Creat Clear Calc 90.42, Est GFR (MDRD) Af Amer 120, Est GFR (MDRD) Non-Af 99, BUN/Creatinine Ratio 26.0 H, Glucose 118 H, Calcium 8.2 L 03/14/19 05:30: WBC 5.6, RBC 3.32 L, Hgb 9.7 L, Hct 30.2 L, MCV 91.0, MCH 29.2, MCHC 32.1, RDW Std Deviation 62.7 H, RDW Coeff of Azael 18.7 H, Plt Count 95 L, MPV 10.0, Immature Gran % (Auto) 2.100 H, Neut % (Auto) 76.6 H, Lymph % (Auto) 10.3 L, Wolfe % (Auto) 9.4, Eos % (Auto) 1.4, Baso % (Auto) 0.2, Absolute Neuts (auto) 4.3, Absolute Lymphs (auto) 0.58 L, Nucleated RBC % 0, Differential Comment SCANNED 03/14/19 05:30: Sodium 145, Potassium 2.9 L, Chloride 111 H, Carbon Dioxide 25.0, Anion Gap 9, BUN 18, Creatinine 0.74, Estim Creat Clear Calc 73.24, Est GFR (MDRD) Af Amer 133, Est GFR (MDRD) Non-Af 110, BUN/Creatinine Ratio 24.4 H, Glucose 118 H, Calcium 8.1 L Current Medications Acetaminophen (Tylenol) 650 mg PO Q8H PRN PRN PRN Reason: PAIN Last Admin: 03/10/19 20:34 Dose: 650 mg Documented by: Alprazolam (Xanax) 0.25 mg PO QHS PRN PRN PRN Reason: ANXIETY Benzocaine/Butamben/Tetracaine HCl (Cetacaine (Sp)) 1 applic TOPICAL Q1H PRN; Protocol Famotidine (Pepcid) 20 mg PO DAILY PRN PRN Reason: REFLUX Last Admin: 03/11/19 16:14 Dose: 20 mg Documented by: Heparin Sodium (Beef Lung) () 50 units IV UD PRN PRN Reason: HEPARIN FLUSH Hydralazine HCl (Apresoline Iv) 5 mg IV Q4H PRN PRN PRN Reason: BLOOD PRESSURE ELEVATION Last Admin: 03/12/19 00:41 Dose: 5 mg Documented by: Potassium Chloride/Sodium Chloride (Kcl 20meq In 0.45% Ns 1000ml) 1,000 mls @ 100 mls/hr IV .Q10H [facility] Last Admin: 03/14/19 08:06 Dose: 100 mls/hr Documented by: Potassium Chloride () 10 meq in 100 mls @ 100 mls/hr IV BOLUS Q1H [facility] Stop: 03/14/19 11:29 Last Admin: 03/14/19 09:15 Dose: 100 mls/hr Documented by: Levothyroxine Sodium (Synthroid) 50 mcg PO DAILY@0600 [facility] Last Admin: 03/14/19 05:25 Dose: 50 mcg Documented by: Ondansetron HCl (Zofran) 4 mg IV Q8H PRN PRN PRN Reason: NAUSEA/VOMITING Last Admin: 03/12/19 07:07 Dose: 4 mg Documented by: Pravastatin Sodium (Pravachol) 40 mg PO QHS [facility] Last Admin: 03/13/19 20:56 Dose: 40 mg Documented by: Prochlorperazine Edisylate (Compazine Iv) 5 mg IV Q6H PRN PRN PRN Reason: NAUSEA/VOMITING Last Admin: 03/12/19 10:38 Dose: 5 mg Documented by: Sertraline HCl (Zoloft) 50 mg PO DAILY [facility] Last Admin: 03/13/19 12:51 Dose: 50 mg Documented by: Sodium Chloride () 10 - 40 ml IV UD PRN PRN Reason: SALINE FLUSH Last Admin: 03/14/19 05:23 Dose: 30 ml Documented by: Sodium Chloride () 10 - 40 ml IV UD PRN PRN Reason: PICC FLUSH Medical Necessity - Tobacco Use Smoking Status: Former smoker Tobacco Use: Non-smoker Assessment/Plan All Active Problems Intraoperative ureteral injury (Resolved) Nausea and vomiting (Acute) SBO (small bowel obstruction) (Acute) Hypokalemia (Acute) 1. Small bowel obstruction Clinically and symptomatically improving General surgery following and assistance appreciated Continue NG and n.p.o. for now Consider TPN if n.p.o. status needs to be maintained 2. Nausea and vomiting Improved Supportive management 3. Hypokalemia Will replace with 40 mEq today but also changes fluids from normal saline to 20 mEq of potassium chloride and half-normal saline. Magnesium was normal at 2.2 on the . 4. rectal cancer Upon resolution from above, to follow-up with the [facility] oncology to start his chemotherapy 4. VTE prophylaxis: Moderate risk. SCDs already been ordered. Code Visit Inpatient E&M: 83735 Subs Hosp L2
[2019-03-14] MEDS: Sertraline 50 MG Tablet PO (12:18)
[2019-03-14 14:36] VITALS: BP 116/63; PULSE 74; RESP 18; TEMP 36.3; O2SAT 96
[2019-03-14 20:45] VITALS: BP 160/79; PULSE 72; RESP 18; TEMP 36.6; O2SAT 97
--- NOTE | 2019-03-14 20:55 | NURSING ---
pt had very small mucous/bloody BM. pt reports to this RN that this happens occasionally at home.
[2019-03-14] MEDS: ALPRAZolam 0.25 MG Tablet PO (20:57)
[2019-03-14] MEDS: Pravastatin 40 MG Tablet PO (20:57)
[2019-03-15 02:45] VITALS: BP 155/69; PULSE 69; RESP 22; TEMP 36.8; O2SAT 93
--- NOTE | 2019-03-15 03:30 | NURSING ---
this RN in to complete vitals and focused assessment. this RN can see that NGT is moving further out of nostril and discusses with pt ways to prevent that, reinforces keeping HOB at 30 degrees and being careful with movements. pt continues to be noncompliant. refusing to elevate HOB. this RN discusses with pt the need to replace the tube if it comes out and stabilize the tube. pt says to this RN you're not fucking putting that back in, i don't care if it comes out. this RN attempts to compromise with pt to at least secure tube where it is at. pt agrees, but continues to curse at this RN and resist care.
--- NOTE | 2019-03-15 05:00 | RAD_ITS ---
HISTORY: Small bowel obstruction. Comparison study is from yesterday morning. Findings: Left pierre-abdomen catheter persists. Esophagogastric tube persists. Air fluid levels within small bowel loops is similar. Decompressed colon is similar. There may be some bowel wall thickening to some of these distended loops of small bowel. One of these loops, within the left pierre-abdomen is distended to 5.9 cm. No pneumatosis. No free air. RAD/Abd Inc Decub and/or Erect IMPRESSION: Findings are similar to yesterday's study. There remains air-fluid levels with distended loops of small bowel consistent with a small bowel obstruction. at [id number] Reported and signed by: Nicholas Collins MD Electronically Signed: Nicholas Collins MD at 5:31 EDT Tel , Service support ,
[2019-03-15] MEDS: 0.9% NaCl Peripheral Flush Adult/Peds IV ×3 (06:02→21:03)
[2019-03-15] MEDS: Levothyroxine 50 MCG Tablet PO (06:02)
[2019-03-15 06:06] LABS: ALB/GLOB Ratio 0.6 RATIO (0.9-2.4); AST(SGOT) 9 U/L (15-37); Alanine Aminotransfer ALT/SGPT 10 U/L (16-61); Albumin, Serum 2.1 g/dL (3.2-5.0); Alkaline Phosphatase 70 U/L (45-117); Anion Gap 12 (5-15); BUN 15 mg/dL (7-18); BUN/Creat Ratio 21.8 RATIO (10-20); Calcium,Total 8.1 mg/dL (8.5-10.1); Chloride 108 mmol/L (98-107); Creatinine, Serum 0.69 mg/dL (0.70-1.30); EST Glomerular Filtration Rate 119 mL/min (>60); Est Glom Filt Rate - Afr Amer 144 mL/min (>60); Estimated Creatinine Clearance 73.24 ml/min; Globulin 3.7 g/dL (2.2-4.2); Glucose 105 mg/dL (74-106); Potassium 3.1 mmol/L (3.5-5.1); Protein, Total 5.8 g/dL (6.4-8.2); Sodium Level 143 mmol/L (136-145)
[2019-03-15 08:45] VITALS: BP 154/77; PULSE 68; RESP 18; TEMP 36.7; O2SAT 94
--- NOTE | 2019-03-15 09:00 | PN_ITS ---
Patient Problems: Active and Suspected Problems Hypokalemia (Acute) Nausea and vomiting (Acute) SBO (small bowel obstruction) (Acute) Subjective: Benoit ill this AM. No flatus. Vitals/I&O's: Vital Signs Temp Pulse Resp BP Pulse Ox 36.8 C 69 22 H 155/69 H 93 03/15/19 02:45 03/15/19 02:45 03/15/19 02:45 03/15/19 02:45 03/15/19 02:45 Oxygen Delivery Method Room Air Weight: 99 kg Body Mass Index (BMI) 28.8 Intake and Output for Last 24 Hours 03/13/19 03/14/19 03/15/19 23:59 23:59 23:59 Intake Total 2881 / 2881 2855 / 2855 1510 / 1510 Output Total 4350 / 4350 1800 / 1800 630 / 630 Balance -1469 / -1469 1055 / 1055 880 / 880 General: Alert, No apparent distress HEENT: Atraumatic, Normocephalic Oral: Moist Mucosa, No Gingival or Mucosal Lesions/ Ulcerations Neck: No Nodes, Thyroid Normal Size and Texture Lungs: Clear to auscultation, Normal air movement, No rhonchi, No wheeze, No rales Cardiovascular: Regular rate, Regular Rhythm, Normal S1, Normal S2, No murmurs Abdomen: Bowel Sounds Present, Soft, Non Tender, Non-Distended, Hypoactive Bowel Sounds Extremities: No edema, No Calf Tenderness Skin: No rashes, No breakdown Psych/Mental Status: Normal Affect, Appropriate Laboratory Results 03/15/19 05:28: Sodium 143, Potassium 3.1 L, Chloride 108 H, Carbon Dioxide 23.0, Anion Gap 12, BUN 15, Creatinine 0.69 L, Estim Creat Clear Calc 73.24, Est GFR (MDRD) Af Amer 144, Est GFR (MDRD) Non-Af 119, BUN/Creatinine Ratio 21.8 H, Glucose 105, Calcium 8.1 L, Magnesium 2.0, Total Bilirubin 0.60, AST 9 L, ALT 10 L, Alkaline Phosphatase 70, Total Protein 5.8 L, Albumin 2.1 L, Globulin 3.7, Albumin/Globulin Ratio 0.6 L Current Medications Acetaminophen (Tylenol) 650 mg PO Q8H PRN PRN PRN Reason: PAIN Last Admin: 03/10/19 20:34 Dose: 650 mg Documented by: Alprazolam (Xanax) 0.25 mg PO QHS PRN PRN PRN Reason: ANXIETY Last Admin: 03/14/19 20:57 Dose: 0.25 mg Documented by: Benzocaine/Butamben/Tetracaine HCl (Cetacaine (Sp)) 1 applic TOPICAL Q1H PRN; Protocol Famotidine (Pepcid) 20 mg PO DAILY PRN PRN Reason: REFLUX Last Admin: 03/11/19 16:14 Dose: 20 mg Documented by: Heparin Sodium (Beef Lung) () 50 units IV UD PRN PRN Reason: HEPARIN FLUSH Hydralazine HCl (Apresoline Iv) 5 mg IV Q4H PRN PRN PRN Reason: BLOOD PRESSURE ELEVATION Last Admin: 03/12/19 00:41 Dose: 5 mg Documented by: Potassium Chloride/Sodium Chloride (Kcl 20meq In 0.45% Ns 1000ml) 1,000 mls @ 100 mls/hr IV .Q10H [facility] Last Admin: 03/15/19 06:02 Dose: 100 mls/hr Documented by: Levothyroxine Sodium (Synthroid) 50 mcg PO DAILY@0600 [facility] Last Admin: 03/15/19 06:02 Dose: 50 mcg Documented by: Ondansetron HCl (Zofran) 4 mg IV Q8H PRN PRN PRN Reason: NAUSEA/VOMITING Last Admin: 03/12/19 07:07 Dose: 4 mg Documented by: Pravastatin Sodium (Pravachol) 40 mg PO QHS [facility] Last Admin: 03/14/19 20:57 Dose: 40 mg Documented by: Prochlorperazine Edisylate (Compazine Iv) 5 mg IV Q6H PRN PRN PRN Reason: NAUSEA/VOMITING Last Admin: 03/12/19 10:38 Dose: 5 mg Documented by: Sertraline HCl (Zoloft) 50 mg PO DAILY [facility] Last Admin: 03/14/19 12:18 Dose: 50 mg Documented by: Sodium Chloride () 10 - 40 ml IV UD PRN PRN Reason: SALINE FLUSH Last Admin: 03/15/19 06:02 Dose: 40 ml Documented by: Sodium Chloride () 10 - 40 ml IV UD PRN PRN Reason: PICC FLUSH Medical Necessity - Tobacco Use Smoking Status: Former smoker Tobacco Use: Non-smoker Assessment/Plan All Active Problems Hypokalemia (Acute) Intraoperative ureteral injury (Resolved) Nausea and vomiting (Acute) SBO (small bowel obstruction) (Acute) 1. Small bowel obstruction * Stable, no significant change from 03/14 * General surgery following and assistance appreciated, plan to continue NG and n.p.o. for now * Consider TPN if n.p.o. status needs to be maintained on 03/16 2. Nausea and vomiting * 2/2 above * Improved * Supportive management 3. Hypokalemia * Will replace with 40 mEq today but also changes fluids from normal saline to 20 mEq of potassium chloride and half-normal saline. * Magnesium was normal at 2 4. rectal cancer * Upon resolution from above, to follow-up with the [facility] oncology to start his chemotherapy 4. VTE prophylaxis: Moderate risk. SCDs already been ordered. Code Visit Inpatient E&M: 19054 Subs Hosp L2
[2019-03-15] MEDS: Potassium Chloride 10mEq/100mL 10 MEQ/100 ML IV.SOLN. 100 MEQ IV BOLUS ×4 (09:39→12:44)
[2019-03-15] MEDS: Sertraline 50 MG Tablet PO (10:06)
[2019-03-15] MEDS: proCHLORPERazine 10 MG/2 ML Vial 5 MG IV (15:45)
[2019-03-15 15:50] VITALS: BP 139/68; PULSE 73; RESP 18; TEMP 37.2; O2SAT 93
--- NOTE | 2019-03-15 19:16 | PCM.PN.SRG ---
Patient Problems: Active and Suspected Problems Nausea and vomiting (Acute) Subjective: no complaints - Physical Exam General: Alert, Oriented x3, Cooperative Lungs: Clear to auscultation, Normal air movement Cardiovascular: Regular rate, No murmurs Abdomen: Soft, Non Tender, Hypoactive Bowel Sounds Vital Signs Temp Pulse Resp BP Pulse Ox 98.9 F 73 18 139/68 H 93 03/15/19 15:50 03/15/19 15:50 03/15/19 15:50 03/15/19 15:50 03/15/19 15:50 Oxygen Delivery Method Room Air Weight: 99 kg Body Mass Index (BMI) 28.8 Intake and Output for Last 24 Hours 03/13/19 03/14/19 03/15/19 23:59 23:59 23:59 Intake Total 2881 / 2881 2855 / 2855 3243 / 3243 Output Total 4350 / 4350 1800 / 1800 1680 / 1680 Balance -1469 / -1469 1055 / 1055 1563 / 1563 Laboratory Tests Past 24 Hrs 03/15/19 05:28 Sodium 143 Potassium 3.1 L Chloride 108 H Carbon Dioxide 23.0 Anion Gap 12 BUN 15 Creatinine 0.69 L Estim Creat Clear Calc 73.24 Est GFR (MDRD) Af Amer 144 Est GFR (MDRD) Non-Af 119 BUN/Creatinine Ratio 21.8 H Glucose 105 Calcium 8.1 L Magnesium 2.0 Total Bilirubin 0.60 AST 9 L ALT 10 L Alkaline Phosphatase 70 Total Protein 5.8 L Albumin 2.1 L Globulin 3.7 Albumin/Globulin Ratio 0.6 L Medical Necessity - Tobacco Use Smoking Status: Former smoker Tobacco Use: Non-smoker Assessment/Plan All Active Problems Hypokalemia (Acute) Intraoperative ureteral injury (Resolved) Nausea and vomiting (Acute) SBO (small bowel obstruction) (Acute) likely high-grade distal small bowel obstruction best seen on image 77 of 132 on the coronal sections just near the right inguinal region. No true internal hernia seen. KUB this morning demonstrates slightly improved bowel gas pattern - less small bowel distention, but still a partial SBO picture. NG in place, draining bilious fluid. stoma with air and liquid stool. Overall improvement. - will continue NG to suction and recheck abd multiview in am recommend the patient maintained nothing by mouth and NG tube to low intermittent suction. we'll plan to have serial abdominal exams and serial obstructive series to assess progress. PICC line placed. discussed findings and plan with patient and his Jolene via the [phone]. also recommended if we were unable to communicate with her her daughter Richa Enrique could be reached at [phone]
[2019-03-15 20:56] VITALS: BP 168/83; PULSE 75; RESP 18; TEMP 37.3; O2SAT 96
[2019-03-15 21:02] VITALS: PULSE 75
[2019-03-15] MEDS: hydrALAZINE 20 MG/ML Vial 5 MG IV (21:02)
[2019-03-15] MEDS: Pravastatin 40 MG Tablet PO (21:02)
[2019-03-15] MEDS: ALPRAZolam 0.25 MG Tablet PO (21:02)
[2019-03-15 23:53] VITALS: BP 158/72; PULSE 68; RESP 22; TEMP 36.4; O2SAT 95
--- NOTE | 2019-03-16 03:21 | NURSING ---
kcl 20 meq in ns, new bag hung. infusing @ 100 ml/hr. unable to complete documentation on numerous computers. will call IT in am.
[2019-03-16] MEDS: proCHLORPERazine 10 MG/2 ML Vial 5 MG IV (03:45)
[2019-03-16] MEDS: 0.9% NaCl Peripheral Flush Adult/Peds IV ×2 (03:46→15:24)
--- NOTE | 2019-03-16 05:00 | RAD_ITS ---
HISTORY: Small bowel obstruction. 4 images of the abdomen. Comparison study most recently is from yesterday morning. Findings: The esophagogastric tube continues to terminate with its tip below the diaphragm. Left hemiabdomen drain persists. Air-fluid levels within the abdomen remain. Gaseous distention of loops of small bowel with some bowel wall thickening persists. This again remains most severe within the left pierre-abdomen. A loop of small bowel within the left hemiabdomen that is gaseously distended measures 6.5 cm in diameter. No pneumatosis. No free air. RAD/Abd Inc Decub and/or Erect IMPRESSION: Persistent air fluid levels with distention of small bowel. The number of loops of distended small bowel loops, and the number of air-fluid levels may be slightly diminished. at 0601 Reported and signed by: Nicholas Collins MD Electronically Signed: Nicholas Collins MD at 6:00 EDT Tel , Service support ,
[2019-03-16 05:12] VITALS: BP 155/63; PULSE 80; RESP 22; TEMP 37.3; O2SAT 94
--- NOTE | 2019-03-16 05:21 | NURSING ---
pt states I am in some sort of depression, and cannot seem to get out of it. emotional support offered and provided. pt does not wish to talk with this RN about anything specific. pt states i need to get outside, i'm not the kind of opal to stay inside.
--- NOTE | 2019-03-16 06:12 | CT_ITS ---
STUDY: CT ABDOMEN AND PELVIS WITHOUT CONTRAST REASON FOR EXAM: Male, 73 years old. Small bowel obstruction. Prior colectomy with colostomy. RADIATION DOSAGE (If Supplied By Facility): CTDIvol = ( 16.57 ) mGy, DLP = ( 964.4 ) mGycm TECHNIQUE: Transaxial images were obtained from the dome of the diaphragm to the symphysis pubis with oral contrast, and without intravenous contrast. Sagittal and coronal images were reconstructed. Individualized dose optimization techniques were used for this CT. COMPARISON: Comparison is made with prior study dated March 12, 2019. FINDINGS: Small right pleural effusion with bibasilar atelectasis slightly worse on the right side. A central venous catheter is seen in the superior vena cava. Coronary artery calcification. Nasogastric tube is seen within the body of the stomach. Normal liver. Suspect a tiny gallstone within the gallbladder lumen along its dependent posterior aspect. Normal spleen. Normal pancreas. Normal bilateral adrenal glands. Mild degree of right perinephric stranding. A left-sided nephrostomy catheter is seen with the tip in the mid left ureter. The stomach is not well-distended gallbladder is thickening of the antral portion of the stomach. The small bowel is not dilated at this time although there is evidence of a mural thickening in the proximal portion of the small bowel. A colostomy is seen in the left anterior mid abdomen. The appendix is visualized and appears normal. There is diffuse atherosclerotic calcification of the abdominal aorta, without a demonstrated aneurysm. Normal inferior vena cava. Normal retroperitoneum. Normal urinary bladder. There is enlargement of the prostate gland. It measures 5 cm x 4.3 cm. Normal abdominal wall. There are diffuse degenerative changes of the visualized lumbar spine. There is straightening of the normal lumbar lordosis. CT/Abdomen/Pel W ORAL Cont Only IMPRESSION: The small bowel loops are not distended at this time although there is residual small bowel thickening in the proximal small bowel. Left nephrostomy tube in situ as well as ureteral catheter. Tiny gallstone along the dependent portion of the gallbladder. Bibasilar patchy infiltrates and small right effusion. Electronically Signed: Syd Ortega, at 12:08 EDT , Service support ,
--- NOTE | 2019-03-16 06:14 | PCM.PN.SRG ---
Patient Problems: Active and Suspected Problems Nausea and vomiting (Acute) Subjective: hungry, no abdominal pain - Physical Exam General: Alert, Oriented x3, Cooperative Lungs: Clear to auscultation, Normal air movement Cardiovascular: Regular rate, No murmurs Abdomen: Soft, Non Tender, Hypoactive Bowel Sounds, - - scant liquid and no air in stoma bag, NG aspirate clearer Vital Signs Temp Pulse Resp BP Pulse Ox 99.1 F 80 22 H 155/63 H 94 03/16/19 05:12 03/16/19 05:12 03/16/19 05:12 03/16/19 05:12 03/16/19 05:12 Oxygen Delivery Method Room Air Weight: 99 kg Body Mass Index (BMI) 28.8 Intake and Output for Last 24 Hours 03/14/19 03/15/19 03/16/19 23:59 23:59 23:59 Intake Total 2855 / 2855 4109 / 4109 672 / 672 Output Total 1800 / 1800 2355 / 2355 750 / 750 Balance 1055 / 1055 1754 / 1754 -78 / -78 Medical Necessity - Tobacco Use Smoking Status: Former smoker Tobacco Use: Non-smoker Assessment/Plan All Active Problems Hypokalemia (Acute) Intraoperative ureteral injury (Resolved) Nausea and vomiting (Acute) SBO (small bowel obstruction) (Acute) likely high-grade distal small bowel obstruction best seen on image 77 of 132 on the coronal sections just near the right inguinal region. No true internal hernia seen. KUB this morning demonstrates very slightly improved bowel gas pattern - less small bowel distention, but still a partial SBO picture. NG in place, draining bilious fluid. - will continue NG to suction - CT scan with delayed imaging oral contrast to assess progression. Will start TPN. recommend the patient maintained nothing by mouth and NG tube to low intermittent suction. we'll plan to have serial abdominal exams and serial obstructive series to assess progress. PICC line placed. discussed findings and plan with patient and his Jolene via the [phone]. also recommended if we were unable to communicate with her her daughter Richa Enrique could be reached at [phone]
[2019-03-16 06:27] LABS: Absolute Lymphocyte Count 0.66 X10^3/uL (0.83-4.51); Absolute Neutrophil Count 6.5 X10^3/uL (2.0-7.7); Basophil# 0.03 X10^3/uL; Basophil% 0.4 % (0-1); Eosinophil# 0.14 X10^3/uL; Eosinophils% 1.7 % (0-5); Hematocrit 29.8 % (40-54); Hemoglobin 9.5 g/dL (13.0-16.5); Lymphocyte # 0.66 X10^3/ul (4.0); Lymphocyte % 7.9 % (19-41); Mean Corp Hgb Conc 31.9 g/dL (32-36); Mean Corpuscular Hgb 28.6 pg (27.0-32.0); Mean Corpuscular Volume 89.8 fL (80-94); Mean Platelet Vol. 9.9 fl (6.2-12.0); Monocyte# 0.65 X10^3/uL; Monocyte% 7.8 % (0-10); NRBC Flagged by Analyzer 0 % (0-5); Neutrophil # 6.46 X10^3/uL (2.7-7.7); Neutrophil % 77.4 % (47-70); Platelet Count 90 K/mm3 (150-450); RBC Distribution Width CV 18.6 % (11.6-14.6); Red Blood Count 3.32 M/mm3 (4.6-6.2); White Blood Count 8.3 K/mm3 (4.4-11.0)
[2019-03-16 06:52] LABS: Anion Gap 11 (5-15); BUN 11 mg/dL (7-18); BUN/Creat Ratio 16.9 RATIO (10-20); Chloride 107 mmol/L (98-107); Creatinine, Serum 0.65 mg/dL (0.70-1.30); EST Glomerular Filtration Rate 128 mL/min (>60); Est Glom Filt Rate - Afr Amer 154 mL/min (>60); Estimated Creatinine Clearance 73.24 ml/min; Glucose 87 mg/dL (74-106); Potassium 3.5 mmol/L (3.5-5.1); Sodium Level 140 mmol/L (136-145)
--- NOTE | 2019-03-16 07:42 | NURSING ---
20 meq kcl in 1000 ml .45 ns; new bag hung at 0321. infusing @ 100 ml/hr. verified with RN Dulce Maria Marte. unable to document in [employer]IS notified this am.
--- NOTE | 2019-03-16 08:25 | PN_ITS ---
Patient Problems: Active and Suspected Problems Nausea and vomiting (Acute) Subjective: States that he is upset that he cannot go home and be with his $1000 dog, is concerned about the other surgeries that he is potentially require in the future, just frustrated by the fact that his motor condition has not improved as quickly as anticipated. Vitals/I&O's: Vital Signs Temp Pulse Resp BP Pulse Ox 37.3 C 80 22 H 155/63 H 94 03/16/19 05:12 03/16/19 05:12 03/16/19 05:12 03/16/19 05:12 03/16/19 05:12 Oxygen Delivery Method Room Air Weight: 99 kg Body Mass Index (BMI) 28.8 Intake and Output for Last 24 Hours 03/14/19 03/15/19 03/16/19 23:59 23:59 23:59 Intake Total 2855 / 2855 4109 / 4109 672 / 672 Output Total 1800 / 1800 2355 / 2355 750 / 750 Balance 1055 / 1055 1754 / 1754 -78 / -78 General: Alert, No apparent distress, - - Of the side of the bed. Afebrile. HEENT: Atraumatic, Normocephalic Oral: Moist Mucosa, No Gingival or Mucosal Lesions/ Ulcerations Neck: No Nodes, Thyroid Normal Size and Texture Lungs: Clear to auscultation, Normal air movement, No rhonchi, No wheeze, No rales Cardiovascular: Regular rate, Regular Rhythm, Normal S1, Normal S2, No murmurs Abdomen: Bowel Sounds Present, Soft, Non Tender, Non-Distended, No Hepato- splenomegaly Extremities: No edema, No Calf Tenderness Skin: No rashes, No breakdown Musculoskeletal: No Tenderness to Palpation of Joints or Extremities, No Muscle Wasting Psych/Mental Status: Normal Affect, Appropriate Laboratory Results 03/16/19 06:12: WBC 8.3, RBC 3.32 L, Hgb 9.5 L, Hct 29.8 L, MCV 89.8, MCH 28.6, MCHC 31.9 L, RDW Std Deviation 61.0 H, RDW Coeff of Azael 18.6 H, Plt Count 90 L, MPV 9.9, Immature Gran % (Auto) 4.800 H, Neut % (Auto) 77.4 H, Lymph % (Auto) 7.9 L, [place] % (Auto) 7.8, Eos % (Auto) 1.7, Baso % (Auto) 0.4, Absolute Neuts (auto) 6.5, Absolute Lymphs (auto) 0.66 L, Nucleated RBC % 0 03/16/19 06:12: Sodium 140, Potassium 3.5, Chloride 107, Carbon Dioxide 22.0, Anion Gap 11, BUN 11, Creatinine 0.65 L, Estim Creat Clear Calc 73.24, Est GFR (MDRD) Af Amer 154, Est GFR (MDRD) Non-Af 128, BUN/Creatinine Ratio 16.9, Glucose 87, Calcium 8.0 L Current Medications Acetaminophen (Tylenol) 650 mg PO Q8H PRN PRN PRN Reason: PAIN Last Admin: 03/10/19 20:34 Dose: 650 mg Documented by: Alprazolam (Xanax) 0.25 mg PO QHS PRN PRN PRN Reason: ANXIETY Last Admin: 03/15/19 21:02 Dose: 0.25 mg Documented by: Benzocaine/Butamben/Tetracaine HCl (Cetacaine (Sp)) 1 applic TOPICAL Q1H PRN; Protocol Famotidine (Pepcid) 20 mg PO DAILY PRN PRN Reason: REFLUX Last Admin: 03/11/19 16:14 Dose: 20 mg Documented by: Heparin Sodium (Beef Lung) () 50 units IV UD PRN PRN Reason: HEPARIN FLUSH Hydralazine HCl (Apresoline Iv) 5 mg IV Q4H PRN PRN PRN Reason: BLOOD PRESSURE ELEVATION Last Admin: 03/15/19 21:02 Dose: 5 mg Documented by: Multivitamins 10 ml/ Chromium/Copper/Manganese/Seleni/Zn 1 ml/ Folic Acid 1 mg/Famotidine 40 mg/ Amino Acids/Electrolytes 2,011 mls @ 84 mls/hr IV .[id number] [facility] Stop: 03/17/19 06:03 Fat Emulsion Intravenous (Intralipid 20%) 500 mls @ 42 mls/hr IV .[id number] [facility] Potassium Chloride/Sodium Chloride (Kcl 20meq In 0.45% Ns 1000ml) 1,000 mls @ 100 mls/hr IV .Q10H [facility] Last Admin: 03/16/19 03:21 Dose: 100 mls/hr Documented by: Levothyroxine Sodium (Synthroid) 50 mcg PO DAILY@0600 [facility] Last Admin: 03/16/19 07:03 Dose: Not Given Documented by: Ondansetron HCl (Zofran) 4 mg IV Q8H PRN PRN PRN Reason: NAUSEA/VOMITING Last Admin: 03/12/19 07:07 Dose: 4 mg Documented by: Pravastatin Sodium (Pravachol) 40 mg PO QHS [facility] Last Admin: 03/15/19 21:02 Dose: 40 mg Documented by: Prochlorperazine Edisylate (Compazine Iv) 5 mg IV Q6H PRN PRN PRN Reason: NAUSEA/VOMITING Last Admin: 03/16/19 03:45 Dose: 5 mg Documented by: Sertraline HCl (Zoloft) 50 mg PO DAILY [facility] Last Admin: 03/15/19 10:06 Dose: 50 mg Documented by: Sodium Chloride () 10 - 40 ml IV UD PRN PRN Reason: SALINE FLUSH Last Admin: 03/16/19 03:46 Dose: 10 ml Documented by: Sodium Chloride () 10 - 40 ml IV UD PRN PRN Reason: PICC FLUSH Medical Necessity - Tobacco Use Smoking Status: Former smoker Tobacco Use: Non-smoker Assessment/Plan All Active Problems Hypokalemia (Acute) Intraoperative ureteral injury (Resolved) Nausea and vomiting (Acute) SBO (small bowel obstruction) (Acute) 1. Small bowel obstruction * Stable, no significant change from 03/14 * General surgery following and assistance appreciated, plan to continue NG and n.p.o. for now * TPN to be started on 03/16 2. Nausea and vomiting * 2/2 above * Improved * Supportive management 3. Hypokalemia * Improved * on 20 mEq in 1/2 NS. 4. rectal cancer * Upon resolution from above, to follow-up with the [facility] oncology to start his chemotherapy 4. VTE prophylaxis: Moderate risk. SCDs already been ordered. Code Visit Inpatient E&M: 55610 Subs Hosp L2
[2019-03-16 09:37] VITALS: BP 160/64; PULSE 70; RESP 22; TEMP 37.2; O2SAT 99
--- NOTE | 2019-03-16 11:04 | NURSING ---
Removed the colostomy appliance from the left lower abdomen to better assess the stoma and to change the appliance since it hadn't been changed since 03/10/19. stoma is pink and sits slightly above the skin level. stoma measures approx 1 5/8 and is slightly oval in shape. peristomal skin is intact. there was a small amount of liquid brown stool noted in the appliance. no flatus noted. cleansed peristomal skin with warm water. pat dry. applied a new 2 piece [place] flat appliance with an Adaptic ring. pt tolerated well. Pt states he does have home health who has been coming in to change the appliance twice a week. pt states he does fine emptying the appliance. states his does not want to learn how to change the appliance. she just can't handle it and I can't see it, so we will just pay someone to do it.
--- NOTE | 2019-03-16 13:37 | CASEMGMT ---
Tertiary facilities in network with patient's insurance: [facility], [facility], [facility], [facility], [facility].
[2019-03-16 15:14] VITALS: BP 159/71; PULSE 70; RESP 18; TEMP 37.3; O2SAT 97
[2019-03-16] MEDS: Sertraline 50 MG Tablet PO (15:19)
[2019-03-16] MEDS: Fat Emulsions 20% 500 ML IV (15:21)
[2019-03-16] MEDS: Pravastatin 40 MG Tablet PO (23:00)
[2019-03-16 23:03] VITALS: BP 150/70; PULSE 96; RESP 20; TEMP 36.6; O2SAT 96
--- NOTE | 2019-03-17 02:45 | NURSING ---
legal office administrator notified this nurse that the pt was pulling on his picc line and asking for a scissors. Upon entering the room, pt had the dressing removed. charge nurse notified. charge nurse verified measurement, changed dressing, and flushed with good blood return.
[2019-03-17 02:49] VITALS: BP 164/77; PULSE 86; RESP 20; TEMP 37; O2SAT 96
[2019-03-17] MEDS: 0.9% NaCl Peripheral Flush Adult/Peds IV ×2 (02:57→05:28)
[2019-03-17 02:58] VITALS: BP 157/74
--- NOTE | 2019-03-17 05:00 | RAD_ITS ---
HISTORY: Small bowel obstruction. Most recent study is a CT scan from yesterday morning. Study before that is an x-ray from yesterday morning before the CT scan. Findings: The left-sided nephroureteral remains in position. Air fluid levels persists. Distended small bowel loops persist but are perhaps less so than yesterday. No free air. Lung bases are clear. Degenerative disc disease persists. RAD/Abd Inc Decub and/or Erect IMPRESSION: Persistent air-fluid levels with persistent distention of small bowel, but to a lesser degree of severity than yesterday. at 0454 Reported and signed by: Nicholas Collins MD Electronically Signed: Nicholas Collins MD at 4:53 EDT Tel , Service support ,
[2019-03-17 05:51] LABS: ALB/GLOB Ratio 0.6 RATIO (0.9-2.4); AST(SGOT) 10 U/L (15-37); Alanine Aminotransfer ALT/SGPT 12 U/L (16-61); Alkaline Phosphatase 78 U/L (45-117); Anion Gap 7 (5-15); BUN 12 mg/dL (7-18); BUN/Creat Ratio 16.9 RATIO (10-20); Calcium,Total 7.5 mg/dL (8.5-10.1); Chloride 103 mmol/L (98-107); Creatinine, Serum 0.71 mg/dL (0.70-1.30); EST Glomerular Filtration Rate 115 mL/min (>60); Est Glom Filt Rate - Afr Amer 140 mL/min (>60); Estimated Creatinine Clearance 73.24 ml/min; Globulin 3.5 g/dL (2.2-4.2); Glucose 181 mg/dL (74-106); Magnesium 1.8 mg/dL (1.6-2.6); Phosphorus 2.8 mg/dL (2.5-4.9); Potassium 3.3 mmol/L (3.5-5.1); Protein, Total 5.5 g/dL (6.4-8.2); Sodium Level 136 mmol/L (136-145)
[2019-03-17] MEDS: Levothyroxine 50 MCG Tablet PO (06:20)
[2019-03-17 09:03] VITALS: BP 147/73; PULSE 71; RESP 18; TEMP 37.2; O2SAT 97
[2019-03-17] MEDS: Sertraline 50 MG Tablet PO (09:06)
--- NOTE | 2019-03-17 10:13 | PN_ITS ---
Patient Problems: Active and Suspected Problems Nausea and vomiting (Acute) Subjective: NG removed. Confusion overnight, improved but ongoing this AM. Wondering when he is going to get to [place]. Vitals/I&O's: Vital Signs Temp Pulse Resp BP Pulse Ox 37.2 C 71 18 147/73 H 97 03/17/19 09:03 03/17/19 09:03 03/17/19 09:03 03/17/19 09:03 03/17/19 09:03 Oxygen Delivery Method Room Air Weight: 99 kg Body Mass Index (BMI) 28.8 Intake and Output for Last 24 Hours 03/15/19 03/16/19 03/17/19 23:59 23:59 23:59 Intake Total 4109 / 4109 1569 / 1569 1000 / 1000 Output Total 2355 / 2355 2125 / 2125 450 / 450 Balance 1754 / 1754 -556 / -556 550 / 550 General: - - oriented to self. afebrile. HEENT: Atraumatic, Normocephalic Oral: Moist Mucosa, No Gingival or Mucosal Lesions/ Ulcerations Neck: No Nodes, Thyroid Normal Size and Texture Lungs: Clear to auscultation, Normal air movement, No rhonchi, No wheeze, No rales Cardiovascular: Regular rate, Regular Rhythm, Normal S1, Normal S2, No murmurs Abdomen: Soft, Non Tender, Non-Distended, No Hepato-splenomegaly, Hypoactive Bowel Sounds Extremities: No edema, No Calf Tenderness Skin: No rashes, No breakdown Psych/Mental Status: Anxious Laboratory Results 03/17/19 04:58: Sodium 136, Potassium 3.3 L, Chloride 103, Carbon Dioxide 26.0, Anion Gap 7, BUN 12, Creatinine 0.71, Estim Creat Clear Calc 73.24, Est GFR (MDRD) Af Amer 140, Est GFR (MDRD) Non-Af 115, BUN/Creatinine Ratio 16.9, Glucose 181 H, Calcium 7.5 L, Phosphorus 2.8, Magnesium 1.8, Total Bilirubin 0.60, AST 10 L, ALT 12 L, Alkaline Phosphatase 78, Total Protein 5.5 L, Albumin 2.0 L, Globulin 3.5, Albumin/Globulin Ratio 0.6 L Current Medications Acetaminophen (Tylenol) 650 mg PO Q8H PRN PRN PRN Reason: PAIN Last Admin: 03/10/19 20:34 Dose: 650 mg Documented by: Alprazolam (Xanax) 0.25 mg PO QHS PRN PRN PRN Reason: ANXIETY Last Admin: 03/15/19 21:02 Dose: 0.25 mg Documented by: Benzocaine/Butamben/Tetracaine HCl (Cetacaine (Sp)) 1 applic TOPICAL Q1H PRN; Protocol Famotidine (Pepcid) 20 mg PO DAILY PRN PRN Reason: REFLUX Last Admin: 03/11/19 16:14 Dose: 20 mg Documented by: Heparin Sodium (Beef Lung) () 50 units IV UD PRN PRN Reason: HEPARIN FLUSH Hydralazine HCl (Apresoline Iv) 5 mg IV Q4H PRN PRN PRN Reason: BLOOD PRESSURE ELEVATION Last Admin: 03/15/19 21:02 Dose: 5 mg Documented by: Multivitamins 10 ml/ Chromium/Copper/Manganese/Seleni/Zn 1 ml/ Folic Acid 1 mg/Famotidine 40 mg/ Amino Acids/Electrolytes 2,015.2 mls @ 84 mls/hr IV .Q24H [facility] Stop: 03/17/19 15:48 Last Admin: 03/16/19 15:20 Dose: 84 mls/hr Documented by: Potassium Chloride/Sodium Chloride (Kcl 20meq In 0.45% Ns 1000ml) 1,000 mls @ 15 mls/hr IV .[id number] [facility] Last Admin: 03/17/19 09:06 Dose: 15 mls/hr Documented by: Levothyroxine Sodium (Synthroid) 50 mcg PO DAILY@0600 [facility] Last Admin: 03/17/19 06:20 Dose: 50 mcg Documented by: Ondansetron HCl (Zofran) 4 mg IV Q8H PRN PRN PRN Reason: NAUSEA/VOMITING Last Admin: 03/12/19 07:07 Dose: 4 mg Documented by: Pravastatin Sodium (Pravachol) [address] [facility] Last Admin: 03/16/19 23:00 Dose: 40 mg Documented by: Prochlorperazine Edisylate (Compazine Iv) 5 mg IV Q6H PRN PRN PRN Reason: NAUSEA/VOMITING Last Admin: 03/16/19 03:45 Dose: 5 mg Documented by: Sertraline HCl (Zoloft) 50 mg PO DAILY [facility] Last Admin: 03/17/19 09:06 Dose: 50 mg Documented by: Sodium Chloride () 10 - 40 ml IV UD PRN PRN Reason: SALINE FLUSH Last Admin: 03/17/19 05:28 Dose: 30 ml Documented by: Sodium Chloride () 10 - 40 ml IV UD PRN PRN Reason: PICC FLUSH Medical Necessity - Tobacco Use Smoking Status: Former smoker Tobacco Use: Non-smoker Assessment/Plan All Active Problems Hypokalemia (Acute) Intraoperative ureteral injury (Resolved) Nausea and vomiting (Acute) SBO (small bowel obstruction) (Acute) 1. Small bowel obstruction * ongoing * General surgery following and assistance appreciated, plan to continue NG and n.p.o. for now * TPN started on 03/16 * NG removed 2. Nausea and vomiting * 2/2 above * Improved * Supportive management 3. Hypokalemia * Improved * on 20 mEq in 1/2 NS. 4. rectal cancer * Upon resolution from above, to follow-up with the [facility] oncology to start his chemotherapy 5. Delirium: * new * unclear etiology * did received alprazolam last night--will discontinue. 4. VTE prophylaxis: Moderate risk. SCDs already been ordered. Code Visit Inpatient E&M: 17829 Subs Hosp L2
--- NOTE | 2019-03-17 13:23 | CPS ---
started by nursing
[2019-03-17 15:31] VITALS: BP 152/79; PULSE 71; RESP 18; TEMP 36.5; O2SAT 100
--- NOTE | 2019-03-17 15:34 | NURSING ---
Spoke to daughterRicha on phone with updates. Suzanna reports when he was in [place] he also had confusion after a long stay.
--- NOTE | 2019-03-17 18:24 | PCM.PN.SRG ---
Patient Problems: Active and Suspected Problems Nausea and vomiting (Acute) Subjective: hungry, more air and stool in ostomy bag - Physical Exam Lungs: Clear to auscultation, Normal air movement Cardiovascular: Regular rate, No murmurs Abdomen: Soft, Non Tender, Hypoactive Bowel Sounds, Distended, - - stool and air in stoma bag Vital Signs Temp Pulse Resp BP Pulse Ox 97.7 F L 71 18 152/79 H 100 03/17/19 15:31 03/17/19 15:31 03/17/19 15:31 03/17/19 15:31 03/17/19 15:31 Oxygen Delivery Method Room Air Weight: 99 kg Body Mass Index (BMI) 28.8 Intake and Output for Last 24 Hours 03/15/19 03/16/19 03/17/19 23:59 23:59 23:59 Intake Total 4109 / 4109 1569 / 1569 1672 / 1672 Output Total 2355 / 2355 2125 / 2125 1600 / 1600 Balance 1754 / 1754 -556 / -556 72 / 72 Laboratory Tests Past 24 Hrs 03/17/19 04:58 Sodium 136 Potassium 3.3 L Chloride 103 Carbon Dioxide 26.0 Anion Gap 7 BUN 12 Creatinine 0.71 Estim Creat Clear Calc 73.24 Est GFR (MDRD) Af Amer 140 Est GFR (MDRD) Non-Af 115 BUN/Creatinine Ratio 16.9 Glucose 181 H Calcium 7.5 L Phosphorus 2.8 Magnesium 1.8 Total Bilirubin 0.60 AST 10 L ALT 12 L Alkaline Phosphatase 78 Total Protein 5.5 L Albumin 2.0 L Globulin 3.5 Albumin/Globulin Ratio 0.6 L Medical Necessity - Tobacco Use Smoking Status: Former smoker Tobacco Use: Non-smoker Assessment/Plan All Active Problems Hypokalemia (Acute) Intraoperative ureteral injury (Resolved) Nausea and vomiting (Acute) SBO (small bowel obstruction) (Acute) likely high-grade distal small bowel obstruction best seen on image 77 of 132 on the coronal sections just near the right inguinal region. No true internal hernia seen. CT scan with delayed imaging oral contrast was interpreted as contrast to colon without significantly dilated small bowel. KUB today still appears to me to have some degree of small bowel distention, but overall patient has increased stoma output. NG tube discontinued and will start clear liquids. Will continue TPN. recommend the patient maintained nothing by mouth and NG tube to low intermittent suction. we'll plan to have serial abdominal exams and serial obstructive series to assess progress. PICC line placed. Jolene via the [phone]. also recommended if we were unable to communicate with her her daughter Richa Enrique could be reached at [phone]
[2019-03-17 21:21] VITALS: BP 141/73; PULSE 68; RESP 18; TEMP 36.8; O2SAT 97
[2019-03-17] MEDS: Pravastatin 40 MG Tablet PO (21:23)
[2019-03-18 04:57] VITALS: BP 151/83; PULSE 73; RESP 18; TEMP 36.4; O2SAT 99
--- NOTE | 2019-03-18 05:00 | RAD_ITS ---
STUDY: X-RAY - ABDOMEN/PELVIS REASON FOR EXAM: Male, 73 years old. Small bowel obstruction TECHNIQUE: KUB decubitus and erect COMPARISON: 03/16/2019 FINDINGS: Normal visualized lung bases. There are mildly dilated small bowel loops within the upper abdomen measuring up to 4.4 cm. There is no demonstrated free abdominal air. The visualized liver, spleen and kidneys are grossly normal in size and morphology. Normal soft tissue structures. There are diffuse degenerative changes of the visualized lumbar spine. There is a left nephrostomy tube. RAD/Abd Inc Decub and/or Erect IMPRESSION: Persistent gaseous dilated loops of bowel within the upper abdomen as seen on CT abdomen and pelvis needle loom tender image from 03/16/2019 and [facility] from 03/16/2019. No significant radiographic change Electronically Signed: Santiago Nicholas, at 5:43 EDT Tel , Service support ,
[2019-03-18] MEDS: Levothyroxine 50 MCG Tablet PO (05:33)
[2019-03-18] MEDS: 0.9% NaCl Peripheral Flush Adult/Peds IV ×2 (05:33→17:10)
--- NOTE | 2019-03-18 07:36 | PCM.PN.SRG ---
Patient Problems: Active and Suspected Problems Nausea and vomiting (Acute) Subjective: no nausea, tolerating liquids, 3 good outputs from stoma yesterday - Physical Exam General: Alert, Oriented x3, Cooperative Lungs: Clear to auscultation, Normal air movement Cardiovascular: Regular rate, No murmurs Abdomen: Soft, Non Tender, Hypoactive Bowel Sounds Vital Signs Temp Pulse Resp BP Pulse Ox 97.6 F L 73 18 151/83 H 99 03/18/19 04:57 03/18/19 04:57 03/18/19 04:57 03/18/19 04:57 03/18/19 04:57 Oxygen Delivery Method Room Air Weight: 99 kg Body Mass Index (BMI) 28.8 Intake and Output for Last 24 Hours 03/16/19 03/17/19 03/18/19 23:59 23:59 23:59 Intake Total 1569 / 1569 3076 / 3076 479 / 479 Output Total 2125 / 2125 2675 / 2675 575 / 575 Balance -556 / -556 401 / 401 -96 / -96 Medical Necessity - Tobacco Use Smoking Status: Former smoker Tobacco Use: Non-smoker Assessment/Plan All Active Problems Hypokalemia (Acute) Intraoperative ureteral injury (Resolved) Nausea and vomiting (Acute) SBO (small bowel obstruction) (Acute) likely high-grade distal small bowel obstruction best seen on image 77 of 132 on the coronal sections just near the right inguinal region. No true internal hernia seen. CT scan with delayed imaging oral contrast was interpreted as contrast to colon without significantly dilated small bowel. KUB today still appears to me to have some degree of small bowel distention, but overall patient has increased stoma output. NG tube was discontinued and he is tolerating clear liquids. Will advance to low residue diet and OK for discharge if he is tolerating later today, Stop TPN. Jolene via the [phone]. also recommended if we were unable to communicate with her her daughter Richa Enrique could be reached at [phone]
--- NOTE | 2019-03-18 08:22 | NURSING ---
Colostomy appliance is intact. there is some flatus and a small amount of unformed alvarez stool in appliance. patient in much better spirits this morning. appliance had been changed on 03/16/19.
--- NOTE | 2019-03-18 08:42 | PCM.PN.HOSP ---
Patient Problems: Active and Suspected Problems Nausea and vomiting (Acute) Subjective: No new complaints. Vitals/I&O's: Vital Signs Temp Pulse Resp BP Pulse Ox 36.4 C L 73 18 151/83 H 99 03/18/19 04:57 03/18/19 04:57 03/18/19 04:57 03/18/19 04:57 03/18/19 04:57 Oxygen Delivery Method Room Air Weight: 99 kg Body Mass Index (BMI) 28.8 Intake and Output for Last 24 Hours 03/16/19 03/17/19 03/18/19 23:59 23:59 23:59 Intake Total 1569 / 1569 3076 / 3076 479 / 479 Output Total 2125 / 2125 2675 / 2675 575 / 575 Balance -556 / -556 401 / 401 -96 / -96 General: Alert, No apparent distress HEENT: Atraumatic, Normocephalic Oral: Moist Mucosa, No Gingival or Mucosal Lesions/ Ulcerations Neck: No Nodes, Thyroid Normal Size and Texture Lungs: Clear to auscultation, Normal air movement, No rhonchi, No wheeze Cardiovascular: Regular rate, Regular Rhythm, Normal S1, Normal S2, No murmurs Abdomen: Bowel Sounds Present, Soft, Non Tender, Non-Distended, No Hepato-splenomegaly, Hypoactive Bowel Sounds Extremities: No edema, No Calf Tenderness Skin: No rashes, No breakdown Psych/Mental Status: Normal Affect, Appropriate Current Medications Acetaminophen (Tylenol) 650 mg PO Q8H PRN PRN PRN Reason: PAIN Last Admin: 03/10/19 20:34 Dose: 650 mg Documented by: Benzocaine/Butamben/Tetracaine HCl (Cetacaine (Sp)) 1 applic TOPICAL Q1H PRN; Protocol Famotidine (Pepcid) 20 mg PO DAILY PRN PRN Reason: REFLUX Last Admin: 03/11/19 16:14 Dose: 20 mg Documented by: Heparin Sodium (Beef Lung) () 50 units IV UD PRN PRN Reason: HEPARIN FLUSH Hydralazine HCl (Apresoline Iv) 5 mg IV Q4H PRN PRN PRN Reason: BLOOD PRESSURE ELEVATION Last Admin: 03/15/19 21:02 Dose: 5 mg Documented by: Potassium Chloride/Sodium Chloride (Kcl 20meq In 0.45% Ns 1000ml) 1,000 mls @ 15 mls/hr IV .[id number] [facility] Last Admin: 03/17/19 09:06 Dose: 15 mls/hr Documented by: Multivitamins 10 ml/ Chromium/Copper/Manganese/Seleni/Zn 1 ml/ Folic Acid 1 mg/Famotidine 40 mg/ Amino Acids/Electrolytes 2,011 mls @ 84 mls/hr IV .[id number] [facility] Stop: 03/18/19 15:48 Last Admin: 03/17/19 16:42 Dose: 84 mls/hr Documented by: Levothyroxine Sodium (Synthroid) 50 mcg PO DAILY@0600 [facility] Last Admin: 03/18/19 05:33 Dose: 50 mcg Documented by: Ondansetron HCl (Zofran) 4 mg IV Q8H PRN PRN PRN Reason: NAUSEA/VOMITING Last Admin: 03/12/19 07:07 Dose: 4 mg Documented by: Pravastatin Sodium (Pravachol) 40 mg PO QHS [facility] Last Admin: 03/17/19 21:23 Dose: 40 mg Documented by: Prochlorperazine Edisylate (Compazine Iv) 5 mg IV Q6H PRN PRN PRN Reason: NAUSEA/VOMITING Last Admin: 03/16/19 03:45 Dose: 5 mg Documented by: Sertraline HCl (Zoloft) 50 mg PO DAILY [facility] Last Admin: 03/17/19 09:06 Dose: 50 mg Documented by: Sodium Chloride () 10 - 40 ml IV UD PRN PRN Reason: SALINE FLUSH Last Admin: 03/18/19 05:33 Dose: 40 ml Documented by: Sodium Chloride () 10 - 40 ml IV UD PRN PRN Reason: PICC FLUSH Medical Necessity - Tobacco Use Smoking Status: Former smoker Tobacco Use: Non-smoker Assessment/Plan All Active Problems Hypokalemia (Acute) Intraoperative ureteral injury (Resolved) Nausea and vomiting (Acute) SBO (small bowel obstruction) (Acute) 1. Small bowel obstruction ongoing Clears TPN started on 03/16 NG removed 2. Nausea and vomiting 2/2 above Improved Supportive management 3. Hypokalemia Improved on 20 mEq in 1/2 NS. 4. rectal cancer Upon resolution from above, to follow-up with the [facility] oncology to start his chemotherapy 5. Delirium: appears resolved at this time. unclear etiology did received alprazolam last night--will discontinue. 4. VTE prophylaxis: Moderate risk. SCDs already been ordered. Code Visit Inpatient E&M: 38290 Subs Hosp L2
[2019-03-18 11:00] VITALS: BP 141/76; PULSE 80; RESP 16; TEMP 36.7; O2SAT 99
[2019-03-18] MEDS: Sertraline 50 MG Tablet PO (11:14)
[2019-03-18 17:00] VITALS: BP 132/69; PULSE 78; RESP 18; TEMP 36.7; O2SAT 99
[2019-03-18] MEDS: Ondansetron 4 MG/2 ML Vial IV (17:09)
[2019-03-18 20:01] VITALS: BP 121/66; PULSE 74; RESP 18; TEMP 37; O2SAT 98
[2019-03-18] MEDS: proCHLORPERazine 10 MG/2 ML Vial 5 MG IV (22:39)
[2019-03-18] MEDS: Pravastatin 40 MG Tablet PO (22:40)
--- NOTE | 2019-03-19 00:21 | NURSING ---
Patient states that he feels sick. No vomiting yet does c/o nausea, will continue to monitor.
[2019-03-19 06:10] VITALS: BP 142/79; PULSE 66; RESP 18; TEMP 36.9; O2SAT 99
[2019-03-19] MEDS: Levothyroxine 50 MCG Tablet PO (06:20)
[2019-03-19 06:22] LABS: Anion Gap 5 (5-15); BUN 13 mg/dL (7-18); BUN/Creat Ratio 20.7 RATIO (10-20); Calcium,Total 7.9 mg/dL (8.5-10.1); Chloride 106 mmol/L (98-107); Creatinine, Serum 0.63 mg/dL (0.70-1.30); EST Glomerular Filtration Rate 132 mL/min (>60); Est Glom Filt Rate - Afr Amer 160 mL/min (>60); Estimated Creatinine Clearance 73.24 ml/min; Glucose 120 mg/dL (74-106); Phosphorus 3.5 mg/dL (2.5-4.9); Potassium 3.5 mmol/L (3.5-5.1); Sodium Level 139 mmol/L (136-145)
[2019-03-19 08:35] VITALS: BP 131/56; PULSE 66; RESP 16; TEMP 37.2; O2SAT 95
[2019-03-19] MEDS: Sertraline 50 MG Tablet PO (08:52)
--- NOTE | 2019-03-19 08:57 | PCM.PN.SRG ---
Patient Problems: Active and Suspected Problems Nausea and vomiting (Acute) Subjective: some nausea after eating but good stoma output - Physical Exam General: Alert, Oriented x3, Cooperative Lungs: Clear to auscultation, Normal air movement Cardiovascular: Regular rate, No murmurs Abdomen: Bowel Sounds Present, Soft, Non Tender Vital Signs Temp Pulse Resp BP Pulse Ox 98.9 F 66 16 131/56 H 95 03/19/19 08:35 03/19/19 08:35 03/19/19 08:35 03/19/19 08:35 03/19/19 08:35 Oxygen Delivery Method Room Air Weight: 99 kg Body Mass Index (BMI) 28.8 Intake and Output for Last 24 Hours 03/17/19 03/18/19 03/19/19 23:59 23:59 23:59 Intake Total 3076 / 3076 2228 / 2228 195 / 195 Output Total 2675 / 2675 2630 / 2630 750 / 750 Balance 401 / 401 -402 / -402 -555 / -555 Laboratory Tests Past 24 Hrs 03/19/19 05:55 Sodium 139 Potassium 3.5 Chloride 106 Carbon Dioxide 28.0 Anion Gap 5 BUN 13 Creatinine 0.63 L Estim Creat Clear Calc 73.24 Est GFR (MDRD) Af Amer 160 Est GFR (MDRD) Non-Af 132 BUN/Creatinine Ratio 20.7 H Glucose 120 H Calcium 7.9 L Phosphorus 3.5 Magnesium 2.0 Medical Necessity - Tobacco Use Smoking Status: Former smoker Tobacco Use: Non-smoker Assessment/Plan All Active Problems Hypokalemia (Acute) Intraoperative ureteral injury (Resolved) Nausea and vomiting (Acute) SBO (small bowel obstruction) (Acute) likely high-grade distal small bowel obstruction best seen on image 77 of 132 on the coronal sections just near the right inguinal region. No true internal hernia seen. CT scan with delayed imaging oral contrast was interpreted as contrast to colon without significantly dilated small bowel. KUB today still appears to me to have some degree of small bowel distention, but overall patient has increased stoma output. NG tube was discontinued and he is tolerating clear liquids. patient tolerating low residue diet with smaller meals with one episode of nausea but no vomiting. Still has good stoma output. At this point in time, I think it's reasonable to discharge the patient home on low residue small meal diet anticipating that he will continue improve. If the patient fails to improve/returns with worsening symptoms that I would recommend transferred to [facility]. Stop TPN. Jolene via the [email or web address]-[phone]. also recommended if we were unable to communicate with her her daughter Richa Enrique could be reached at [phone]
--- NOTE | 2019-03-19 10:35 | PCM.DC ---
- Discharge Diagnoses Current Active Problems: Current Active and Chronic Problems Rectal cancer (Chronic) Constipation (Chronic) Nausea and vomiting (Acute) Hypothyroidism (Chronic) Depression (Chronic) Hyperlipidemia (Chronic) You will use the following diet at home:: Other - low residue diet with mealler meals Discharge Activity: Return to Normal Activity Call your doctor if you observe: Fever of 101 or Higher, Shortness of breath, Dizziness, Fainting spells, Swelling in the ankles, Chest pain, Increased palpitations (irregular heartbeat) Allergies/Adverse Reactions: Allergies No Known Allergies Allergy (Verified 03/09/19 01:29) Medications to take at Discharge ALPRAZolam [Xanax] 0.25 mg PO QHS PRN PRN 03/09/19 Acetaminophen [Tylenol Extra Strength] 500 mg PO PRN PRN 03/09/19 Capecitabine 2,000 mg QWEEK 03/09/19 Famotidine 20 mg PO PRN PRN 03/09/19 Levothyroxine [Synthroid] 50 mcg PO DAILY 03/09/19 Ondansetron [Zofran] 8 mg PO Q8H PRN PRN 03/09/19 Pravastatin [Pravachol] 40 mg PO QHS 03/09/19 Sertraline HCl [Zoloft] 50 mg PO DAILY 03/09/19 Docusate Sodium [Colace] 100 mg PO BID #20 cap 03/11/19 Polyethylene Glycol 3350 [Miralax] 17 gm PO DAILY #10 packet 03/11/19 Walker [Ultra-Light Rollator] 1 ea MC DAILY #1 ea 03/19/19 The following prescriptions were given: Docusate Sodium [Colace] 100 mg PO BID #20 cap Transmission Status: Received by [facility] Polyethylene Glycol 3350 [Miralax] 17 gm PO DAILY #10 packet Transmission Status: Received by [facility] Walker [Ultra-Light Rollator] 1 ea MC DAILY #1 ea Prescription Printed Primary Care Physician: Bertrand Gardner [Primary Care Provider] - Please follow up with your Primary Care Physician in: 3-5 days Test Results: Test results from this visit will be discussed in further detail at your follow-up appointment, if applicable. Please Follow Up With: Reggie Lam MD When: 2 weeks Proposed Discharge Date: 03/19/19
--- NOTE | 2019-03-19 10:37 | DS.PCM_ITS ---
Discharge Date and Diagnosis - Problem List Patient Problems: Active and Suspected Problems Nausea and vomiting (Acute) Date of Admission: 03/09/19 Date of Discharge: 03/19/19 - Primary Discharge Diagnosis Active and Suspected Problems 1. Small bowel obstruction * resolved * low residue diet * if recurs or fails to improve, then will need to go to [facility] 2. Nausea and vomiting * 2/2 above * Improved * Supportive management 3. Hypokalemia * Improved 4. rectal cancer * Upon resolution from above, to follow-up with the [facility] oncology to start his chemotherapy 5. Delirium: * appears resolved at this time. * unclear etiology * did received alprazolam last night--will discontinue. - Secondary Discharge Diagnosis Chronic Problems Rectal cancer (Chronic) Constipation (Chronic) Hypothyroidism (Chronic) Depression (Chronic) Hyperlipidemia (Chronic) Hospital Course and Treatment Imaging Results: Clinical Impression(s) from Imaging Studies Abdomen/Pelvis CT 03/09/19 02:12 IMPRESSION: 1. The left percutaneous nephrostomy catheter enters the left renal pelvis and extends into the left ureter but not urinary bladder. 2. Small ascites together with mesenteric fluid and mesenteric edema and this may reflect left ureteral urine leak. 3. Mild left hydronephrosis and no hydronephrosis on the right. 4. Left lower quadrant functioning colostomy. No bowel obstruction seen. Individualized dose optimization techniques were used for this CT. at 0441 Reported and signed by: Jae Martinez MD Electronically Signed: Jae Martinez, at 4:40 EDT Tel , Service support , ADDENDUM: 03/09/19 0515 IMPRESSION: 1. The left percutaneous nephrostomy catheter enters the left renal pelvis and extends into the left ureter but not urinary bladder. 2. Small ascites together with mesenteric fluid and mesenteric edema and this may reflect left ureteral urine leak. 3. Mild left hydronephrosis and no hydronephrosis on the right. 4. Left lower quadrant functioning colostomy. No bowel obstruction seen. Individualized dose optimization techniques were used for this CT. at 0441 Reported and signed by: Jae Martinez MD Electronically Signed: Jae Martinez, at 5:06 EDT Tel , Service support , Abdomen CT 03/09/19 05:32 IMPRESSION: 1. No acute abnormality. 2. Status post resection of the sigmoid colon with a left lower quadrant colostomy. No bowel obstruction. 3. Left-sided nephroureteral stent. 4. Small amount of ascites. Electronically Signed: Reggie Sim MD at 8:27 EDT Tel , Service support , Abdomen X-Ray 03/12/19 09:45 IMPRESSION: 1. Increasing bowel dilation with air-fluid level suggesting worsening bowel obstruction. 2. Left nephrostomy tube. Electronically Signed: Moi Sood MD (Brooks) at 10:15 EDT , Service support , Abdomen/Pelvis CT 03/12/19 12:26 IMPRESSION: Small bowel obstruction with transition point likely due to an inflammatory stricture in the right lower quadrant. Small amount of ascites. No free air or fluid collection. Trace bilateral pleural effusions with overlying atelectasis. Electronically Signed: Je Wakefield, at 16:45 EDT Tel , Service support , KUB X-Ray 03/12/19 19:24 IMPRESSION: Nasogastric tube in a satisfactory position. Dilated loops of small bowel may be secondary to a small bowel obstruction or small bowel ileus. Electronically Signed: Brunilda Noland MD at 22:52 EDT Tel , Service support , Abdomen X-Ray 03/13/19 05:45 IMPRESSION: Radiographic findings highly suspicious for small bowel obstruction. The side port of the NG tube is in the distal esophagus and should be advanced into the stomach approximately 5 cm. Electronically Signed: Luz Elena Milligan MD at 12:00 EDT Tel , Service support , ADDENDUM: 03/13/19 1255 IMPRESSION: Radiographic findings highly suspicious for small bowel obstruction. The side port of the NG tube is in the distal esophagus and should be advanced into the stomach approximately 5 cm. N.B. : The above information has been verbally conveyed by Luz Elena Milligan MD to Tootie [id number], SREEDHAR, on 03/13/2019 12:48:23 (ET). Electronically Signed: Luz Elena Milligan MD at 12:00 EDT Tel , Service support , Abdomen X-Ray 03/14/19 05:30 IMPRESSION: Persistent dilatation of the proximal small bowel loops although there has been mild improvement as compared to prior study. The tip of the nasogastric tube is just distal to the gastroesophageal junction. Electronically Signed: Syd Ortega, at 10:33 EDT , Service support , Abdomen X-Ray 03/15/19 05:00 IMPRESSION: Findings are similar to yesterday's study. There remains air-fluid levels with distended loops of small bowel consistent with a small bowel obstruction. at 4345 Reported and signed by: Nicholas Collins MD Electronically Signed: Nicholas Collins MD at 5:31 EDT Tel , Service support , Abdomen X-Ray 03/16/19 05:00 IMPRESSION: Persistent air fluid levels with distention of small bowel. The number of loops of distended small bowel loops, and the number of air-fluid levels may be slightly diminished. at 0601 Reported and signed by: Nicholas Collins MD Electronically Signed: Nicholas Collins MD at 6:00 EDT Tel , Service support , Abdomen CT 03/16/19 06:12 IMPRESSION: The small bowel loops are not distended at this time although there is residual small bowel thickening in the proximal small bowel. Left nephrostomy tube in situ as well as ureteral catheter. Tiny gallstone along the dependent portion of the gallbladder. Bibasilar patchy infiltrates and small right effusion. Electronically Signed: Syd Ortega, at 12:08 EDT , Service support , Abdomen X-Ray 03/17/19 05:00 IMPRESSION: Persistent air-fluid levels with persistent distention of small bowel, but to a lesser degree of severity than yesterday. at 0454 Reported and signed by: Nicholas Collins MD Electronically Signed: Nicholas Collins MD at 4:53 EDT Tel , Service support , Abdomen X-Ray 03/18/19 05:00 IMPRESSION: Persistent gaseous dilated loops of bowel within the upper abdomen as seen on CT abdomen and pelvis skilled nursing facility counselor image from 03/16/2019 and [facility] from 03/16/2019. No significant radiographic change Electronically Signed: Santiago Nicholas, at 5:43 EDT Tel , Service support , Consultations 03/14/19 07:00 Consult: Onc/Wound/gerontology aide Routine Comment: colostomy/nephrostomy Reason for Consult:: colostomy/nephrostomy Reggie Genaro: general surgery Operations: None Procedures: None Summary of Care Provided: The patient is a 73 year old M presents with N/V. Subsequently developed a SBO. Had NG placed. Slowly progressed and SBO resolved. Surgery advised low residue diet with small quantities. If recurs, patient ought be transferred to [facility].[] Patient Problems: Active and Suspected Problems Nausea and vomiting (Acute) - Physical Exam General: Alert, No apparent distress HEENT: Atraumatic, Normocephalic Oral: Moist Mucosa, No Gingival or Mucosal Lesions/ Ulcerations Neck: No Nodes, Thyroid Normal Size and Texture Lungs: Clear to auscultation, Normal air movement, No rhonchi, No wheeze Cardiovascular: Regular rate, Regular Rhythm, Normal S1, Normal S2 Abdomen: Bowel Sounds Present, Soft, Non Tender, Non-Distended Extremities: No edema, No Calf Tenderness Psych/Mental Status: Normal Affect, Appropriate Vital Signs Temp Pulse Resp BP Pulse Ox 37.2 C 66 16 131/56 H 95 03/19/19 08:35 03/19/19 08:35 03/19/19 08:35 03/19/19 08:35 03/19/19 08:35 Oxygen Delivery Method Room Air Weight: 99 kg Body Mass Index (BMI) 28.8 Intake and Output for Last 24 Hours 03/17/19 03/18/19 03/19/19 23:59 23:59 23:59 Intake Total 3076 / 3076 2228 / 2228 195 / 195 Output Total 2675 / 2675 2630 / 2630 750 / 750 Balance 401 / 401 -402 / -402 -555 / -555 Laboratory Tests Past 24 Hrs 03/19/19 05:55 Sodium 139 Potassium 3.5 Chloride 106 Carbon Dioxide 28.0 Anion Gap 5 BUN 13 Creatinine 0.63 L Estim Creat Clear Calc 73.24 Est GFR (MDRD) Af Amer 160 Est GFR (MDRD) Non-Af 132 BUN/Creatinine Ratio 20.7 H Glucose 120 H Calcium 7.9 L Phosphorus 3.5 Magnesium 2.0 Discharge Diet: - - low residue Discharge Activity: Return to Normal Activity Call your doctor if you observe: Fever of 101 or Higher, Shortness of breath, Dizziness, Fainting spells, Swelling in the ankles, Chest pain, Increased palpitations (irregular heartbeat) Home Medications: Medications to take at Discharge ALPRAZolam [Xanax] 0.25 mg PO QHS PRN PRN 03/09/19 Acetaminophen [Tylenol Extra Strength] 500 mg PO PRN PRN 03/09/19 Capecitabine 2,000 mg QWEEK 03/09/19 Famotidine 20 mg PO PRN PRN 03/09/19 Levothyroxine [Synthroid] 50 mcg PO DAILY 03/09/19 Ondansetron [Zofran] 8 mg PO Q8H PRN PRN 03/09/19 Pravastatin [Pravachol] 40 mg PO QHS 03/09/19 Sertraline HCl [Zoloft] 50 mg PO DAILY 03/09/19 Docusate Sodium [Colace] 100 mg PO BID #20 cap 03/11/19 Polyethylene Glycol 3350 [Miralax] 17 gm PO DAILY #10 packet 03/11/19 Walker [Ultra-Light Rollator] 1 ea MC DAILY #1 ea 03/19/19 Following Prescrptions Were Given to Patient: Docusate Sodium [Colace] 100 mg PO BID #20 cap Transmission Status: Received by [facility] Polyethylene Glycol 3350 [Miralax] 17 gm PO DAILY #10 packet Transmission Status: Received by [facility] Walker [Ultra-Light Rollator] 1 ea MC DAILY #1 ea Prescription Printed Primary Care Physician: Bertrand Gardner [Primary Care Provider] - Please follow up with your Primary Care Physician in: 3-5 days Please Follow Up With: Reggie Lam MD When: 2 weeks Disposition: Home Minutes spent on discharge:: 35 Patient Condition:: Fair Medical Necessity - Tobacco Use Smoking Status: Former smoker Tobacco Use: Non-smoker Meaningful Use Info Meaningful Use Diagnoses (Choose all that apply): None applicable Code Visit Inpatient E&M: 99480 Disch Hosp
[2019-03-19] MEDS: 0.9% NaCl PICC Flush IV (14:31)
[2019-03-19] MEDS: Famotidine 20 MG Tablet PO (15:25)
[2019-03-19 15:28] VITALS: TEMP 36.9
== END 2019-03-19 17:45 | disposition home or self-care (01) | DRG 389 ==
LOC: ED 03:26 → MS3 12:23
PROVIDERS: Surgery; Admitting Provider Family Medicine; Emergency Provider Emergency Medicine; Family Provider Internal Medicine; PCP Internal Medicine; Referring Provider Family Medicine
DX: K56.600 Partial intestinal obstruction, unspecified as to cause (principal); C20 Malignant neoplasm of rectum; N99.72 Accidental puncture and laceration of a genitourinary system organ or structure during other procedure; N17.9 Acute kidney failure, unspecified; Z93.3 Colostomy status; Z93.6 Other artificial openings of urinary tract status; Z87.891 Personal history of nicotine dependence; E03.9 Hypothyroidism, unspecified; E78.5 Hyperlipidemia, unspecified; Z90.49 Acquired absence of other specified parts of digestive tract; I10 Essential (primary) hypertension; F32.9 Major depressive disorder, single episode, unspecified; E86.0 Dehydration; Y65.8 Other specified misadventures during surgical and medical care; E87.6 Hypokalemia; R41.0 Disorientation, unspecified
CPT/HCPCS: 36415; 36569; 74018; 74019; 74176; 74177; 80048; 80053; 81001; 83605; 83690; 83735; 84100; 84484; 85025; 93005; 97110; 97116; 97162; 97166; 97530; 97535; 97802; 99285; J7030; Q9967; A4216; J2405

== ENCOUNTER 2019-04-06 10:09 | Emergency (ER) | payer MEDICARE, SELFPAY ==
[2019-03-09 10:44] VITALS: BMI 28.8
[2019-04-06 10:09] VITALS: BP 131/70; PULSE 87; RESP 20; TEMP 36.6; O2SAT 99; BMI 29.8
--- NOTE | 2019-04-06 10:28 | CT_ITS ---
STUDY: CT BRAIN WITHOUT CONTRAST REASON FOR EXAM: Male, 73 years old. Dizziness and fatigue RADIATION DOSAGE (If Supplied By Facility): CTDIvol = ( 44.99 ) mGy, DLP = ( 846.73 ) mGycm TECHNIQUE: Transaxial CT imaging of the brain was performed without administration of intravenous contrast material. Individualized dose optimization techniques were used for this CT. COMPARISON: No relevant priors. FINDINGS: Normal soft tissue structures. Normal calvarium. There is mild cerebral atrophy with widening of the extra-axial spaces and ventricular dilatation. Normal white matter tracts of the cerebral hemispheres. Normal basal ganglia and thalami. Normal brainstem. Normal cerebellum. There is no intracranial hemorrhage. There are no findings of an acute ischemic infarction. Normal visualized paranasal sinuses. CT/Brain/Head without Contrast IMPRESSION: Chronic involutional changes of the brain. Electronically Signed: Keo Carrillo, at 12:14 EDT Tel , Service support ,
--- NOTE | 2019-04-06 10:28 | EKG12_ITS ---
Test Reason : WEAKNESS Blood Pressure : / mmHG Vent. Rate : 069 BPM Atrial Rate : 069 BPM P-R Int : 242 ms QRS Dur : 100 ms QT Int : 396 ms P-R-T Axes : 089 -26 006 degrees QTc Int : 424 ms Sinus rhythm with 1st degree A-V block with Premature atrial complexes Incomplete right bundle branch block Borderline ECG Confirmed by MATTI FUENTES ([id number]), purchase request editor LEXII GÓMEZ ([id number]) on 04/11/2019 2:48:58 PM Referred By: MINH Confirmed By:MATTI FUENTES
[2019-04-06 11:20] LABS: Absolute Lymphocyte Count 0.62 X10^3/uL (0.83-4.51); Absolute Neutrophil Count 5.2 X10^3/uL (2.0-7.7); Basophil# 0.01 X10^3/uL; Basophil% 0.2 % (0-1); Eosinophil# 0.06 X10^3/uL; Eosinophils% 0.9 % (0-5); Hematocrit 30.1 % (40-54); Hemoglobin 9.3 g/dL (13.0-16.5); Lymphocyte # 0.62 X10^3/ul (4.0); Lymphocyte % 9.8 % (19-41); Mean Corp Hgb Conc 30.9 g/dL (32-36); Mean Corpuscular Hgb 27.9 pg (27.0-32.0); Mean Corpuscular Volume 90.4 fL (80-94); Mean Platelet Vol. 9.9 fl (6.2-12.0); Monocyte# 0.41 X10^3/uL; Monocyte% 6.5 % (0-10); NRBC Flagged by Analyzer 0 % (0-5); Neutrophil # 5.18 X10^3/uL (2.7-7.7); Platelet Count 137 K/mm3 (150-450); RBC Distribution Width CV 17.7 % (11.6-14.6); Red Blood Count 3.33 M/mm3 (4.6-6.2); White Blood Count 6.3 K/mm3 (4.4-11.0)
[2019-04-06 11:39] LABS: Anion Gap 5 (5-15); BUN 9 mg/dL (7-18); BUN/Creat Ratio 8.7 RATIO (10-20); Calcium,Total 8.6 mg/dL (8.5-10.1); Chloride 101 mmol/L (98-107); Creatinine, Serum 1.03 mg/dL (0.70-1.30); EST Glomerular Filtration Rate 75 mL/min (>60); Est Glom Filt Rate - Afr Amer 91 mL/min (>60); Estimated Creatinine Clearance 69.06 ml/min; Glucose 124 mg/dL (74-106); Sodium Level 135 mmol/L (136-145)
--- NOTE | 2019-04-06 12:15 | ED.DCSUM_ITS ---
History of Present Illness Chief Complaint: Weakness Narrative: Resented for evaluation secondary to a feeling of dizziness. Patient has a underlying history of rectal cancer with colostomy, nephrostomy, and recent admission for small bowel obstruction around a month ago. Patient states that he was doing well, actually went out to lunch with some friends today. At the conclusion of the lunch he reports that he started to feel somewhat lightheaded. She states that the lightheadedness was giving him some difficulty with ambulating and he felt discoordinated but denied that he was having any sort of visual changes numbness or lateralizing weakness. Patient had some friends helped him out of the car, and he sat down and ate a candy bar and felt somewhat better, and upon arrival to the emergency department he feels completely resolved. Patient denies that he is having any sort of chest pain palpitations or shortness of breath associated with this. No change in output of his ostomy. No recent vomiting or fevers. Review of systems otherwise negative. Past Medical History - Allergies and Home Meds Allergies/Adverse Reactions: Allergies No Known Allergies Allergy (Verified 04/06/19 10:12) Primary Care Physician: Bertrand Gardner [Primary Care Provider] - Past Medical History: - - Elective cancer with history of colostomy, nephrostomy, and small bowel obstruction Surgical History: - - Lap assisted LAR, colostomy, percutaneous nephrostomy tube Smoking Status: Former smoker - Family History Maternal Family History: Reports: - - His grandmother had cancer he is not sure what kind and he states that he does not pay attention to his family's medical history Review of Systems All systems negative except as indicated General: Denies: Fever Eyes: Denies: Visual changes - bilaterally Cardiovascular: Denies: Chest pain, Palpitations Respiratory: Denies: Dyspnea Gastrointestinal: Denies: Abdominal pain, Nausea, Vomiting, Diarrhea Neurological: Reports: - - Lightheadedness. Denies: Headache, Weakness, Parasthesia, Numbness Physical Exam Vital Signs/Narrative: Vital Signs Temp Pulse Resp BP Pulse Ox 04/06/19 10:09 98 F 87 20 H 131/70 H 99 Inital Vital Signs reviewed: Yes General: Well nourished, Well developed, No Acute Distress Head: Normocephalic, Atraumatic Eyes: Perrl, EOMI, Pale conjunctiva - Minimally pale ENT: Moist mucous membranes, No rhinorrhea Neck: Supple, Nontender Cardiovascular: Regular rate, Regular rhythm, No murmurs, - - Plus radial pulses bilaterally symmetric Respiratory: No distress, CTA bilaterally, Chest nontender Abdomen: Soft, Nontender, - - Ostomy is pink and nontender Back: Nontender, Normal Inspection Extremities: Nontender, No edema Skin: Normal color, No rash Neurological: Alert, Oriented x3, - - NIH stroke scale is 0. Patient cerebellar testing is negative, he has a normal gait. Normal Romberg test. Psychological: Normal affect Diagnostic/Tx/Re-eval - EKG Initial EKG Interpretation: - - First-degree AV block with a W[place] interval of 242, occasional PACs, ventricular rate of 69 with incomplete right bundle branch block no evidence of ST segment changes or T wave changes. Prior: Unchanged - Medical Decision Making Patient presented secondary to an episode of lightheadedness. EKG shows no acute changes and shows a stable first-degree AV block. CBC demonstrates evidence of chronic anemia hemoglobin was 9.3 and stable. Chemistry shows a mild elevation in the patient's creatinine with baseline being 0.63 and today is 1.0. Patient potentially has an element of some mild dehydration. States that his left nephrostomy tube has been draining normally, and he is also urinating. He reports that he has been having some decreased p.o. intake recently. I do not feel that the patient requires admission at this point. Patient has follow- up with urology coming in a week. Patient was recommended to keep that appointment and return should he have any sort of worsening symptoms or d ecreased drainage from his urostomy tube or with urination. All questions were answered and the patient was discharged in stable condition. ED Disposition - Plan for ED Patient: Disposition: Home or Assisted Living Diagnosis: Dehydration Instructions: DEHYDRATION (6y-Adult) Referrals: Bertrand Gardner [Primary Care Provider] - 1-2 Days if not improving
[2019-04-06 13:10] VITALS: BP 148/76; PULSE 71; RESP 18; O2SAT 98
== END 2019-04-06 13:11 | disposition home or self-care (01) ==
PROVIDERS: Emergency Provider Emergency Medicine; Family Provider Internal Medicine; PCP Internal Medicine
DX: E86.0 Dehydration (principal); I44.0 Atrioventricular block, first degree; I49.1 Atrial premature depolarization; I45.10 Unspecified right bundle-branch block; C20 Malignant neoplasm of rectum; Z87.19 Personal history of other diseases of the digestive system; Z93.3 Colostomy status; Z93.6 Other artificial openings of urinary tract status; Z79.899 Other long term (current) drug therapy; Z87.891 Personal history of nicotine dependence
CPT/HCPCS: 70450; 80048; 84484; 85025; 93005; 99285

== ENCOUNTER 2019-06-02 10:40 | Emergency (ER) | payer MEDICARE, SELFPAY ==
[2019-06-02 10:41] VITALS: BP 157/71; PULSE 74; RESP 20; TEMP 36.6; O2SAT 99; BMI 27.1
--- NOTE | 2019-06-02 10:58 | ED.DCSUM_ITS ---
- ER Visit Summary Date of Service: 06/02/19 Chief Complaint: Abnormal behavior, urostomy check History of Present Illness: The patient is a 73 M who comes in today with his wanting his urostomy checked. Is actually a nephrostomy. The states that the disconnected his tube from the bag last night and was leaking all over the place. She called her doctor up at [facility] urology wanted it checked. The states that his behavior is worse at night. The patient knows that he is acting abnormal and states that he cannot help it. He was on Zoloft but they took him off of it and it improved but that his doctor put him on Xanax at night and it has been getting worse. He feels fine during the day. He is supposed to have a surgery this coming Thursday to reverse his colostomy and nephrostomy. He had these placed due to colon cancer. Physical Examination: Vital signs reviewed. HEENT exam unremarkable. Heart is regular rate and rhythm without murmurs. Lungs are clear to auscultation. Abdomen is soft and nontender. There is a colostomy in the left lower quadrant. Back exam reveals a nephrostomy tube on the left flank. The system is closed and there is no leaks. Extremities reveal no edema. Skin exam normal. Neurologic exam normal. He is alert and oriented in all spheres. He is answering all questions appropriately. Test Results: Hemoglobin 10.4. BUN 20. Urinalysis is 500 leukocyte and 25-50 white blood cells Emergency Department Course and Treatment: The patient's nephrostomy appears to be functioning normally. There is flow into the bag. There are no leaks. He does have an infection on urinalysis I will treat him with Keflex. As far as his behavior, it could be medication related. However, it could also be a symptom of dementia with a component of as it only appears to happen at night. At this point I do not feel he needs to be admitted to the hospital. He recognizes that he is doing it but says he cannot control it. He does have an insight about this which makes it perplexing. At this point I do not see any admission criteria. I will have social work talk with the patient about getting some help in the home in the evening until he has a surgery on Thursday at the [facility] Treatment Plan: [] Disposition: Discharge Impression: UTI This note was generated with [employer] dictation software. It may contain incorrect words, spelling, and punctuation that were not noted in review of the chart prior to signing ED Disposition - Plan for ED Patient: Referrals: Bertrand Gardner [Primary Care Provider] -
[2019-06-02 11:55] LABS: Mucous, Urine 0 SEEN /hpf (<or=2+)
[2019-06-02 11:57] LABS: Color, Urine Yellow (Yellow); Glucose, Dipstick Normal (Normal); Ketone-Dipstick Negative (Negative); Leukocyte Esterase-Dipstick 500 /ul (Negative); Nitrite-Dipstick Positive (Negative); Occult Blood-Urine 150 /ul (Negative); Protein-Dipstick 100 mg/dl (Negative); Specific Gravity, Urine 1.005 (1.002-1.030); Urine Bilirubin Dipstick Negative (Negative); Urine Clarity Cloudy (Clear); Urine Urobilinogen Normal (Normal)
[2019-06-02 12:01] LABS: Absolute Lymphocyte Count 0.43 X10^3/uL (0.83-4.51); Absolute Neutrophil Count 6.2 X10^3/uL (2.0-7.7); Basophil# 0.01 X10^3/uL; Basophil% 0.1 % (0-1); Eosinophil# 0.06 X10^3/uL; Eosinophils% 0.8 % (0-5); Hematocrit 34.4 % (40-54); Hemoglobin 10.4 g/dL (13.0-16.5); Lymphocyte # 0.43 X10^3/ul (4.0); Mean Corp Hgb Conc 30.2 g/dL (32-36); Mean Corpuscular Hgb 26.8 pg (27.0-32.0); Mean Corpuscular Volume 88.7 fL (80-94); Mean Platelet Vol. 9.8 fl (6.2-12.0); Monocyte# 0.43 X10^3/uL; NRBC Flagged by Analyzer 0 % (0-5); Neutrophil # 6.18 X10^3/uL (2.7-7.7); Neutrophil % 86.5 % (47-70); POSITIVE DIFFERENTIAL YES; Platelet Count 95 K/mm3 (150-450); RBC Distribution Width CV 15.5 % (11.6-14.6); RBC Distribution Width SD 50.8 fl (35.1-43.9); Red Blood Count 3.88 M/mm3 (4.6-6.2); White Blood Count 7.2 K/mm3 (4.4-11.0)
[2019-06-02 12:04] LABS: Bacteria 2+ /hpf (None Seen); Red Blood Cells-Urine 5-10 SEEN /hpf (0-5); Squamous Epithelial Cells - UA 0-5 SEEN /hpf (0-5); White Blood Cells 25-50 SEEN /hpf (0-5)
[2019-06-02 12:08] LABS: Differential Indicated SCAN CRITERIA MET
[2019-06-02 12:10] LABS: Anion Gap 7 (5-15); BUN 20 mg/dL (7-18); BUN/Creat Ratio 18.5 RATIO (10-20); Calcium,Total 8.9 mg/dL (8.5-10.1); Chloride 105 mmol/L (98-107); Creatinine, Serum 1.08 mg/dL (0.70-1.30); EST Glomerular Filtration Rate 71 mL/min (>60); Est Glom Filt Rate - Afr Amer 86 mL/min (>60); Estimated Creatinine Clearance 63.91 ml/min; Glucose 135 mg/dL (74-106); Sodium Level 139 mmol/L (136-145)
--- NOTE | 2019-06-02 12:34 | ED.RN ---
PT'S EXPRESSES CONCERNS ABOUT PT'S BEHAVIOR AT NIGHT. SHE STATES HE HAS CUT HIS NEPHROSTOMY TUBE AND CCUT OPEN THE BAG. SHE STATED THAT SHE IS CONCERNED THAT SHE ISN'T ABLE TO KEEP AN EYE ON HIM ALL NIGHT. I CONSULTED WITH JAMAL FROM SOCIAL WORK.
[2019-06-02] MEDS: Cephalexin 250 MG Capsule 500 MG PO (13:19)
--- NOTE | 2019-06-02 13:26 | DCINST.ED_ITS ---
ED Disposition - Plan for ED Patient: Disposition: Home or Assisted Living Instructions: Understanding Urinary Tract Infections (UTIs) Prescriptions: Cephalexin [Keflex] 500 mg PO Q12 #10 cap Transmission Status: Pending to [facility] [id number] Referrals: Bertrand Gardner [Primary Care Provider] - Additional Instructions: Your prescription was electronically transmitted to [facility] in [place]
--- NOTE | 2019-06-02 13:32 | RAD_ITS ---
STUDY: X-RAY - ABDOMEN/PELVIS REASON FOR EXAM: Male, 73 years old. Abdominal pain. TECHNIQUE: Single AP view of the abdomen / pelvis. COMPARISON: Comparison is made with prior examination of March 12, 2019. FINDINGS: A left-sided nephro ureteral catheter is in situ with the tip in the distal portion of the left ureter. There is a moderate amount of colonic fecal material. The visualized liver, spleen and kidneys are grossly normal in size and morphology. Surgical clips are seen in the left hemipelvis. There are diffuse degenerative changes of the visualized lumbar spine. RAD/Abdomen Single View IMPRESSION: A left-sided nephroureteral catheter is seen with the tip in the midportion of the left ureter. Electronically Signed: Syd Ortega, at 14:29 EDT , Service support ,
[2019-06-02 13:38] VITALS: BP 158/81; PULSE 73; RESP 18; O2SAT 97
[2019-06-02 15:15] VITALS: RESP 18
== END 2019-06-02 15:30 | disposition home or self-care (01) ==
PROVIDERS: Emergency Provider Emergency Medicine; Family Provider Internal Medicine; PCP Internal Medicine
DX: N39.0 Urinary tract infection, site not specified (principal); C18.9 Malignant neoplasm of colon, unspecified; Z96.0 Presence of urogenital implants; Z93.3 Colostomy status; Z79.899 Other long term (current) drug therapy
CPT/HCPCS: 74018; 80048; 81001; 85025; 99283

== ENCOUNTER 2019-07-03 06:54 | Emergency (ER) | payer MEDICARE, SELFPAY ==
[2019-07-03 06:55] VITALS: BP 139/69; PULSE 67; RESP 18; TEMP 36.8; O2SAT 99; BMI 23.1
--- NOTE | 2019-07-03 07:16 | ED.DCSUM_ITS ---
History of Present Illness Chief Complaint: Wound Check Detail of Chief Complaint: Ostomy leaking Informant: Patient, Family Onset: Days Current Severity: Mild Maximum Severity: Moderate Narrative: Patient presents for a leaking ostomy. He had a colostomy placed 4 weeks ago at the [facility]. Patient was recently in a [facility] to receive IV fluids secondary to dehydration. states he took him at the [facility] last night to get home. His ostomy has been leaking. It apparently was changed multiple times yesterday and at least twice overnight. They have a friend who is a nurse who came to the home and tried to change it may be because the wound is oozing they are having a hard time getting the bag to seal appropriately. - Past Medical History (1) Hyperlipidemia Status: Chronic (2) Hypothyroidism Status: Chronic (3) Rectal cancer Status: Chronic Past Medical History - Allergies and Home Meds Allergies/Adverse Reactions: Allergies No Known Allergies Allergy (Verified 04/06/19 10:12) Primary Care Physician: Bertrand Gardner [Primary Care Provider] - Prior records reviewed: Yes Surgical History: - - Lap assisted LAR, colostomy, percutaneous nephrostomy tube Lives: Spouse/ Significant Other Smoking Status: Former smoker - Family History Maternal Family History: Reports: - - His grandmother had cancer he is not sure what kind and he states that he does not pay attention to his family's medical history Review of Systems General: Denies: Chills, Fever Eyes: Denies: Visual changes - bilaterally ENT: Denies: Bilateral ear pain Cardiovascular: Denies: Chest pain Respiratory: Denies: Dyspnea, Cough Gastrointestinal: Denies: Abdominal pain, Vomiting Musculoskeletal: Denies: Extremity Pain Skin: Reports: Wounds Neurological: Denies: Headache Hematologic: Denies: Easy bruising, Easy bleeding Allergy: Denies: Uticaria Physical Exam Vital Signs/Narrative: Vital Signs Temp Pulse Resp BP Pulse Ox 07/03/19 06:55 98.2 F 67 18 139/69 H 99 Inital Vital Signs reviewed: Yes General: Well nourished, Well developed Head: Normocephalic ENT: Moist mucous membranes Neck: Supple Cardiovascular: Regular rate, Regular rhythm Respiratory: No distress, CTA bilaterally Abdomen: Soft, Tender - Mild tenderness around the colostomy site. Skin is erythematous and irritated. No open wounds. Extremities: Nontender Skin: - - As above Neurological: Alert, Oriented x3 Psychological: Normal affect Diagnostic/Tx/Re-eval - Medical Decision Making 1 of the floor nurses that works with the ostomies was able to present to the emergency room and change the site. She is able to use powder to help dry the area. Wound will be reinforced. Instructions are given to at bedside. They will follow-up as scheduled this week. ED Disposition - Plan for ED Patient: Disposition: Home or Assisted Living Diagnosis: Complication of ostomy Instructions: Changing Your Ostomy Pouch, Colostomy: Caring for Your Stoma Referrals: Bertrand Gardner [Primary Care Provider] -
[2019-07-03 09:08] VITALS: BP 127/81; PULSE 81; RESP 12; O2SAT 97
== END 2019-07-03 09:09 | disposition home or self-care (01) ==
PROVIDERS: Emergency Provider Emergency Medicine; Family Provider Internal Medicine; PCP Internal Medicine
DX: K94.03 Colostomy malfunction (principal); E78.5 Hyperlipidemia, unspecified; E03.9 Hypothyroidism, unspecified; Z85.048 Personal history of other malignant neoplasm of rectum, rectosigmoid junction, and anus; Z79.899 Other long term (current) drug therapy; Z87.891 Personal history of nicotine dependence
CPT/HCPCS: 99282

== ENCOUNTER 2019-07-04 14:23 | Emergency (ER) | payer MEDICARE, SELFPAY ==
[2019-07-03 06:55] VITALS: BMI 23.1
[2019-07-04 14:25] VITALS: BP 119/70; PULSE 72; RESP 16; TEMP 36.1; O2SAT 97; BMI 23.8
--- NOTE | 2019-07-04 15:27 | ED.DCSUM_ITS ---
History of Present Illness Chief Complaint: Other, Pain/Inj Detail of Chief Complaint: Leaking ileostomy bag Informant: Patient, Significant Other Onset: Weeks - 1 Context: Gradual Onset Timing: Continuous Quality: sore Location: skin around ileostomy site Current Severity: Moderate Maximum Severity: Moderate Worsened by: palpation Relieved by: nothing Associated Symptoms: none. no fevers, internal abd pain, n/v, bloody stools, purulent discharg. Narrative: Patient had a history of colon cancer and needed a nephrostomy for some reason, that was reversed and now he has a urinary stent somewhere, as well as a uret hral catheter. He had to have a surgery a month ago removing more bowel and closing off the colostomy on his left lower quadrant, giving him an ileostomy in his right lower quadrant. He was in a senior living for rehab and dehydration. He has been home for 6-7 days, and the ileostomy has been leaking off and on since then. It has been leaking to a significant degree now, and he cannot get things to stick around it or the symptoms to stop. It has made the skin around it excoriated and very sore. He has had no bleeding. They have a nurse helping him at home but they are not sure what else to do so they present here. - Past Medical History (1) Depression Status: Chronic (2) Hyperlipidemia Status: Chronic (3) Hypothyroidism Status: Chronic (4) Rectal cancer Status: Chronic (5) Intraoperative ureteral injury Status: Resolved Past Medical History - Allergies and Home Meds Allergies/Adverse Reactions: Allergies No Known Allergies Allergy (Verified 07/04/19 14:25) Primary Care Physician: Bertrand Gardner [Primary Care Provider] - Surgical History: - - Lap assisted LAR, colostomy, percutaneous nephrostomy tube, ileostomy w/ removal of colostomy Lives: Spouse/ Significant Other Smoking Status: Former smoker - Family History Maternal Family History: Reports: - - His grandmother had cancer he is not sure what kind and he states that he does not pay attention to his family's medical history Review of Systems General: Reports: Malaise. Denies: Chills, Fever, Sweats Eyes: Denies: Visual changes - bilaterally, Diplopia ENT: Denies: Rhinorrhea, Sore throat Cardiovascular: Denies: Chest pain, Palpitations Respiratory: Denies: Dyspnea, Cough, Dyspnea on exertion Gastrointestinal: Reports: Abdominal pain - skin around ileostomy; see HPI. Denies: Nausea, Vomiting, Diarrhea, Melena, Hematochezia Genitourinary: Denies: Dysuria, Hematuria, Frequency Musculoskeletal: Denies: Back pain, Swelling, Extremity Pain Skin: Reports: Wounds - ileostomy site. Denies: Rash Neurological: Denies: Headache, Weakness, Numbness Physical Exam Vital Signs/Narrative: Vital Signs Temp Pulse Resp BP Pulse Ox 07/04/19 14:25 96.9 F L 72 16 119/70 97 Inital Vital Signs reviewed: Yes General: Well nourished, Well developed, No Acute Distress Head: Normocephalic, Atraumatic Eyes: Perrl, EOMI ENT: Moist mucous membranes, No rhinorrhea Neck: Supple, Nontender Cardiovascular: Regular rate, Regular rhythm, No murmurs Respiratory: No distress, CTA bilaterally, Chest nontender Abdomen: Soft, Nondistended, Normal bowel sounds, Tender - only superficially at excoriated irritated skin around ileostomy site, around 10-12 cm diameter; no other abd tenderness. no abscess. no bleeding or purulent material noted., - - normal watery brown nonbloody stool emanating from ileostomy. Negative for: Guarding, Rebound tenderness Back: Nontender, Normal Inspection Extremities: Nontender, No edema Skin: Normal color, No rash, Rash - see GI above; other surgical wounds on abd healing nicely, nontender, no dehiscence. Neurological: Alert, Oriented x3, Cranial nerves II-XII grossly intact, Normal Strength, Normal Sensation, Normal Gait Psychological: Normal affect, Normal Mood Diagnostic/Tx/Re-eval - Medical Decision Making The ostomy/wound nurse was contacted and saw the patient since they were here during the day. She changed their hardware and bag and taping, taught them how to do it, also spoke with daughter over the phone so that she also knows in case they need help. Discussed how to care for it at home and follow-up, and they are comfortable going home. I did discuss with them that if they desire to go back to the senior living, I could have him admitted but they do not want that at this time. I do not think there is any sign of any infection here, just excoriated skin and the ostomy nurse agreed. He simply needs a barrier against it so that it has a chance to heal. At this time there is a bag and ring in place with no leaking. ED Disposition - Plan for ED Patient: Disposition: Home or Assisted Living Diagnosis: Ileostomy bag changed Instructions: Ileostomy: Caring For Your Stoma Referrals: Bertrand Gardner [Primary Care Provider] - As Needed (And/or your surgeon)
== END 2019-07-04 16:15 | disposition home or self-care (01) ==
PROVIDERS: Emergency Provider Emergency Medicine; Family Provider Internal Medicine; PCP Internal Medicine
DX: Z43.2 Encounter for attention to ileostomy (principal); C18.9 Malignant neoplasm of colon, unspecified; F32.9 Major depressive disorder, single episode, unspecified; E78.5 Hyperlipidemia, unspecified; E03.9 Hypothyroidism, unspecified; Z85.048 Personal history of other malignant neoplasm of rectum, rectosigmoid junction, and anus; Z79.899 Other long term (current) drug therapy; Z87.891 Personal history of nicotine dependence
CPT/HCPCS: 99282

== ENCOUNTER → 2019-07-25 13:10 | Outpatient (CLI) | payer MEDICARE, SELFPAY ==
[2019-07-04 14:25] VITALS: BMI 23.8
[2019-07-25 13:34] VITALS: BP 125/38; PULSE 73; RESP 16; TEMP 36; O2SAT 99; BMI 22.5
[2019-07-25] MEDS: 0.9% Normal Saline 1,000 ML 500 ML IV (13:45)
[2019-07-25] MEDS: Magnesium Sulfate 4gm/100mL 4 GM/100 ML IV.SOLN. IV (13:56)
[2019-07-25 15:58] VITALS: BP 128/78; PULSE 74; RESP 18; O2SAT 98
== END ==
PROVIDERS: Family Provider Internal Medicine; PCP Internal Medicine; Referring Provider Internal Medicine Hematology & Oncology; Visit Provider Internal Medicine Hematology & Oncology
DX: C20 Malignant neoplasm of rectum (principal)
CPT/HCPCS: 96365; 96366; J7030; A4216

== ENCOUNTER → 2019-07-28 08:47 | Outpatient (CLI) | payer MEDICARE, SELFPAY ==
[2019-07-25 13:34] VITALS: BMI 22.5
[2019-07-28 09:05] VITALS: BP 113/54; PULSE 58; RESP 16; TEMP 36.7; O2SAT 100; BMI 22.5
[2019-07-28] MEDS: Cosyntropin 0.25 MG Vial IV (09:20)
[2019-07-28 09:39] LABS: Anion Gap 8 (5-15); BUN 35 mg/dL (7-18); BUN/Creat Ratio 20.1 RATIO (10-20); Calcium,Total 8.6 mg/dL (8.5-10.1); Chloride 102 mmol/L (98-107); Creatinine, Serum 1.74 mg/dL (0.70-1.30); EST Glomerular Filtration Rate 41 mL/min (>60); Est Glom Filt Rate - Afr Amer 49 mL/min (>60); Estimated Creatinine Clearance 40.86 ml/min; Glucose 121 mg/dL (74-106); Magnesium 2.4 mg/dL (1.6-2.6); Potassium 5.3 mmol/L (3.5-5.1); Sodium Level 131 mmol/L (136-145)
[2019-07-28] MEDS: 0.9% Normal Saline 1,000 ML 500 ML IV (11:00)
[2019-08-05 13:13] LABS: Aldosterone, Serum 62.3 ng/dL (0.0-30.0)
== END ==
PROVIDERS: Family Provider Internal Medicine; PCP Internal Medicine; Referring Provider Internal Medicine Hematology & Oncology; Visit Provider Internal Medicine Hematology & Oncology
DX: E87.1 Hypo-osmolality and hyponatremia (principal); I10 Essential (primary) hypertension
CPT/HCPCS: 96361 ×2; 96374; 80048; 82088; 82533; 83735; J7030; A4216; J0834

== ENCOUNTER 2019-09-25 07:02 | Observation (INO) | payer MEDICARE, SELFPAY ==
[2019-07-28 09:05] VITALS: BMI 22.5
[2019-09-25] VITALS (12 sets, daily range): BP systolic 100–144; BP diastolic 60–63; PULSE 66–89; RESP 16–19; TEMP 36.6–37.1; O2SAT 94–97; BMI 27.6; BMI 28.2
--- NOTE | 2019-09-25 07:09 | RAD_ITS ---
STUDY: X-RAY CHEST REASON FOR EXAM: Male, 74 years old. Mid sternal chest pain radiating to lt neck and difficulty taking a deep breath, RECTAL CA TECHNIQUE: Single AP portable view of the chest. COMPARISON: None. FINDINGS: There are superimposed monitor leads. Low lung volume. Mild interstitial prominence left greater than right base possible chronic. There is no demonstrated pleural abnormality. Normal size heart. Normal mediastinum and matt. Normal visualized pulmonary arteries. Normal visualized aortic arch and descending thoracic aorta. There are diffuse degenerative changes of the visualized thoracic spine. There is degenerative osteoarthritis of the bilateral shoulders. There is no demonstrated abnormality of the visualized soft tissue structures of the upper abdomen. RAD/Chest 1 View (Portable) IMPRESSION: Mild interstitial disease left greater than right bases, probable chronic. No pulmonary edema, congestive heart failure or confluent pneumonia. Other nonacute findings as outlined above. Electronically Signed: Monika Alex MD at 7:39 EST , Service support ,
--- NOTE | 2019-09-25 07:09 | EKG12_ITS ---
Test Reason : CP Blood Pressure : / mmHG Vent. Rate : 067 BPM Atrial Rate : 067 BPM P-R Int : 216 ms QRS Dur : 104 ms QT Int : 408 ms P-R-T Axes : -26 -26 007 degrees QTc Int : 431 ms Sinus rhythm with 1st degree A-V block Incomplete right bundle branch block Minimal voltage criteria for LVH, may be normal variant Borderline ECG Confirmed by ISABEL MARTINEZ, ANDREW ([id number]), food editor NANDA HOPKINS ([id number]) on 09/28/2019 1:54:47 PM Referred By: Tere Barrios Confirmed By:ANDREW HALL MD
[2019-09-25] MEDS: Aspirin 81 MG TAB.CHEW 324 MG PO (07:16)
--- NOTE | 2019-09-25 07:18 | ED.DCSUM_ITS ---
- ER Visit Summary Date of Service: 09/25/19 Chief Complaint: Midsternal chest pain History of Present Illness: The patient is a 74 M hx of colon cancer and hypertension. No cardiac disease history. No history of DVT or PE. According to he and his he has had no recent travel, surgery or immobilization. No recent hospitalization. He denies any pleuritic pain. States that however it is tough getting a deep breath. No hemoptysis. He has leg swelling for last several weeks it is bilateral. He is never had a cardiac cath or any stents. No prior CABG. Exertional dyspnea or exertional chest pain the last several weeks. States driving to the emergency department the jarring of the car made his chest pain worse but is not reproducible chest wall pain. Physical Examination: Older male accompanied by his vital signs are stable and afebrile. Pulse ox 97% on room air no signs of hypoxia. H EENT exam unremarkable. Neck nontender no JVD. Lungs clear to auscultation bilaterally. Heart regular rhythm rate about 65 no murmur. Chest wall nontender. No ecchymo sis or bruising. No subcu air or crepitance. Abdomen is soft and nontender. Is a colostomy bag on the right but has brown stool. No peritoneal signs. Patient is moving all 4 extremities. Neurovascular intact. He has 1+ edema in both lower extremities and feet is equal and symmetrical. Calves are nontender. Dorsi and plantarflexion is intact. Neurologically is awake and alert with no focal motor deficits. Test Results: EKG shows a sinus rhythm with a first-degree AV block TN interval of 216. He also has an incomplete right bundle branch block. There is no acute signs of an MT nor ischemia. Portable 1 view chest x-ray shows no acute abnormality both read by myself and the radiologist. CBC white count 9. Hemoglobin 9.8 which is his baseline chronic anemia runs between 9 and 10. No bands. Chemistries unremarkable except creatinine 1.58. Normal gap. Troponin normal. D-dimer is elevated at 1.49. Due to this the patient will undergo a CTA. Due to the CTA and is already known renal insufficiency he will be treated with a liter of normal saline. CTA chest shows no PE nor any dissection. There is a prominent ascending aorta per the radiologist. There is mild pericardial thickening and small effusion. This may or may not be cause of his pain. Emergency Department Course and Treatment: Patient will undergo a cardiac work- up. Due to the type of pain was having and no cardiac history he will also have a d-dimer. He will be given p.o. aspirin. Treatment Plan: Repeat exam patient is doing well at 09 30 4 AM. Discussed all test results with both he and his family. Patient will be admitted for chest pain uncertain etiology I will discuss the admission with the hospitalist who is on page. Disposition: admission Impression: Acute chest pain of uncertain etiology Pericardial thickening and effusion on CTA Acute bilateral lower extremity edema This note was generated with [employer] dictation software. It may contain incorrect words, spelling, and punctuation that were not noted in review of the chart prior to signing ED Disposition - Plan for ED Patient: Referrals: Bertrand Gardner [Primary Care Provider] -
[2019-09-25 07:21] LABS: Absolute Lymphocyte Count 0.73 X10^3/uL (0.83-4.51); Absolute Neutrophil Count 7.9 X10^3/uL (2.0-7.7); Basophil# 0.02 X10^3/uL; Basophil% 0.2 % (0-1); Eosinophil# 0.06 X10^3/uL; Eosinophils% 0.7 % (0-5); Hematocrit 30.9 % (40-54); Hemoglobin 9.8 g/dL (13.0-16.5); Lymphocyte # 0.73 X10^3/ul (4.0); Mean Corp Hgb Conc 31.7 g/dL (32-36); Mean Corpuscular Hgb 31.2 pg (27.0-32.0); Mean Corpuscular Volume 98.4 fL (80-94); Mean Platelet Vol. 9.6 fl (6.2-12.0); Monocyte# 0.38 X10^3/uL; Monocyte% 4.2 % (0-10); NRBC Flagged by Analyzer 0 % (0-5); Neutrophil # 7.85 X10^3/uL (2.7-7.7); Neutrophil % 86.5 % (47-70); Platelet Count 103 K/mm3 (150-450); RBC Distribution Width CV 16.9 % (11.6-14.6); RBC Distribution Width SD 61.6 fl (35.1-43.9); Red Blood Count 3.14 M/mm3 (4.6-6.2); White Blood Count 9.1 K/mm3 (4.4-11.0)
[2019-09-25 07:29] LABS: Anion Gap 6 (5-15); BUN 19 mg/dL (7-18); Chloride 109 mmol/L (98-107); Creatinine, Serum 1.58 mg/dL (0.70-1.30); EST Glomerular Filtration Rate 46 mL/min (>60); Est Glom Filt Rate - Afr Amer 55 mL/min (>60); Estimated Creatinine Clearance 45.65 ml/min; Glucose 166 mg/dL (74-106); Potassium 4.1 mmol/L (3.5-5.1); Sodium Level 139 mmol/L (136-145)
[2019-09-25 07:46] LABS: D-Dimer Quantitative (DVT/PE) 1.49 FEU/ug/m (0.27-0.49)
--- NOTE | 2019-09-25 08:27 | CT_ITS ---
STUDY: CTA CHEST REASON FOR EXAM: Male, 74 years old. CHEST PAIN, ELEVATED D-DIMER, RADIATING INTO LEFT NECK, HX COLORECTAL CANCER RADIATION DOSAGE (If Supplied By Facility): CTDIvol = ( 12.63 ) mGy, DLP = ( 497.21 ) mGycm TECHNIQUE: The examination was performed with the intravenous administration of IV 100mL [id number]-300. Post-processing of the angiographic images was performed, with multiplanar reformation and 3D reconstruction. Individualized dose optimization techniques were used for this CT. COMPARISON: None. FINDINGS: Normal enhancement of the main pulmonary artery and right and left pulmonary arteries. Normal enhancement of the bilateral peripheral pulmonary arteries. There is no demonstrated pulmonary embolism. Mildly prominent ascending aorta measuring 4.2 cm. There is no demonstrated aortic dissection. Mild pericardial thickening/effusion. Normal mediastinum. Normal hilar regions. Normal visualized trachea and bronchi. The lungs are well expanded. Normal pulmonary parenchyma. Normal pleura. Normal chest wall structures. Degenerative vertebral changes. Normal visualized upper abdomen. CT/CTA Chest W/WO Contrast IMPRESSION: No demonstrated pulmonary embolism or arterial dissection. There is pericardial thickening/effusion. Mildly prominent ascending aorta. Electronically Signed: Vicente Wilder DO at 9:22 EST Tel [phone], Service support ,
[2019-09-25] MEDS: 0.9% Normal Saline 1,000 ML 999 ML IV (08:46)
--- NOTE | 2019-09-25 09:22 | NURSING ---
ostomy emptied for 250 cc
--- NOTE | 2019-09-25 09:38 | NURSING ---
DR CALVIN FOR DR GREGG
--- NOTE | 2019-09-25 09:40 | HP.PCM_ITS ---
Problem List (1) Chest pain Status: Acute Qualifiers: Chest pain type: unspecified Qualified Code(s): R07.9 - Chest pain, unspecified (2) Acute CHF Status: Acute Qualifiers: Heart failure type: unspecified Qualified Code(s): I50.9 - Heart failure, unspecified (3) Right foot ulcer Status: Chronic Qualifiers: Non-pressure ulcer stage: unspecified non-pressure ulcer stage Qualified Code(s): L97.519 - Non-pressure chronic ulcer of other part of right foot with unspecified severity History of Present Illness Date of Admission: 09/25/19 Chief Complaint: Chest pain - 1 day. Bilateral leg edema - 1 week The patient is a 74 year old M with PMHx of rectal cancer s/p resection, s/p colostomy who comes in with chest pain that started at 2 AM but he did not wake his up. He told her about chest pain being substernal, pressure-like, radiates to the left jaw. Denied any diaphoresis or dizziness or palpitation. No history of cardiac disease. He has noticed progressive leg swelling ongoing for about 1 week with a chronic wound on the plantar surface. This was initially associated with redness of the right leg that improved with start of Augmentin. According to patient's , patient has urinary retention issues and was due to have a UroLift. They have a referral to see Dr. Hoffman but are yet to see him. Patient was found in this admission to have urine retention more than 500. He voided about 200 mils out. Vitals in the emergency department showed temperature of 97.9F, heart rate 60s, blood pressure 144/63, respiratory rate was 19, SPO2 is 97% on room air. WBC count was 9.1, hemoglobin 9.8, platelet count 103, d-dimer 1.49, sodium 139, potassium 4.1, chloride 109, carbonate 24, BUN 19, creatinine 1.58, which is close to his baseline. EKG shows normal sinus rhythm, no acute ST-T changes. Troponins are negative. Past Medical History Past Medical History (Chronic Problems): Chronic Problems Right foot ulcer (Chronic) Rectal cancer (Chronic) Constipation (Chronic) Hypothyroidism (Chronic) Depression (Chronic) Hyperlipidemia (Chronic) Allergies No Known Allergies Allergy (Verified 09/25/19 07:03) Home Medications: Ambulatory Orders Medication Instructions Recorded Acetaminophen [Tylenol Extra 650 mg PO PRN PRN 03/09/19 Strength] Levothyroxine [Synthroid] 50 mcg PO DAILY 03/09/19 Pravastatin [Pravachol] 40 mg PO QHS 03/09/19 Cyanocobalamin [Vitamin B12] 1,000 mcg IM Q30D 04/06/19 Amox/Clavulanate Tablet [Augmentin 1 tab PO TID 09/25/19 Tablet] Furosemide [Lasix] 20 mg PO DAILY 09/25/19 Loperamide [Imodium] 2 mg PO Q6H PRN PRN 09/25/19 Ondansetron HCl [Zofran] 8 mg PO DAILY 09/25/19 Surgical History: - - Lap assisted LAR, colostomy, percutaneous nephrostomy tube, ileostomy w/ removal of colostomy Psychiatric History: Anxiety Lives: Spouse/ Significant Other Smoking Status: Former smoker Tobacco Use: Non-smoker Alcohol: None Drugs: None - *Family History Maternal History Items: - - His grandmother had cancer he is not sure what kind and he states that he does not pay attention to his family's medical history. He is adopted Review of Systems Constitutional: Reports: Malaise, Fatigue. Denies: Anorexia, Chills, Fever, Weakness, Weight Change Eyes: Denies: Blurred vision, Cataracts, Conjunctivae Inflammation, Pain, Redness HEENT: Denies: Difficulty Hearing, Difficulty Swallowing, Head Aches, Hearing C hanges, Sinus Congestion, Sinus Drainage, Sore Throat Cardiovascular: Reports: Chest Pain, Edema. Denies: Claudication, Light Headedness, Orthopnea, Palpitations, Syncope Respiratory: Reports: Shortness of breath upon exertion. Denies: Cough, Hemoptysis, Pleuritic Pain, Shortness of breath at rest, Sputum production Gastrointestinal: Denies: Abdominal Pain, Constipation, Hematemesis, Hematochezia, Nausea, Vomiting Genitourinary: Reports: Retention. Denies: Dysuria, Frequency Musculoskeletal: Denies: Joint Pain, Joint stiffness, Joint swelling, Joint Tenderness Skin: Denies: Rash, Wounds Neurological: Denies: Difficulty swallowing, Focal weakness, Numbness, Tingling Psychiatric: Denies: Anxiety, Depression, Homicidal Ideations, Suicidal Ideations Hematologic/ Lymphatic: Denies: Easy Bruising, Easy Bleeding VTE Information - Inpt Only VTE Present on Admission: No VTE Pharm Prophylaxis ordered?: Yes Patient Problems: Active and Suspected Problems Chest pain (Acute) Acute CHF (Acute) - Physical Exam Vitals/I&O's: Vital Signs Temp Pulse Resp BP Pulse Ox 97.9 F 69 16 144/63 H 97 09/25/19 07:02 09/25/19 07:11 09/25/19 09:20 09/25/19 07:11 09/25/19 07:20 Oxygen Delivery Method Room Air Weight: 94.8 kg Body Mass Index (BMI) 27.6 Intake and Output for Last 24 Hours 09/23/19 09/24/19 09/25/19 23:59 23:59 23:59 Output Total 200 / 200 Balance -200 / -200 General: Alert, Oriented x3, Cooperative, No apparent distress HEENT: Atraumatic, PERRLA, EOMI, Normocephalic, - - hard of hearing Oral: Moist Mucosa Neck: Supple Lungs: Diminished - especially at the lung bases Cardiovascular: Regular rate, Regular Rhythm, Normal S1, Normal S2, No murmurs Abdomen: Bowel Sounds Present, Soft, Non Tender, Non-Distended, No Hepato- splenomegaly Extremities: Edema - bilateral leg edema +3-4, mild cellulitis of the right foot Skin: - - ulcers on the right plantar surface of 1st and 2nd toes, old [place] on lateral surface of 1st toe Musculoskeletal: No Tenderness to Palpation of Joints or Extremities Lymphatic: No Cervical, Supraclavicular, or Inguinal Adenopathy Neurological: Cranial nerves II-XII grossly intact Psych/Mental Status: Normal Affect, Appropriate Laboratory Results 09/25/19 07:00: WBC 9.1, RBC 3.14 L, Hgb 9.8 L, Hct 30.9 L, MCV 98.4 H, MCH 31.2, MCHC 31.7 L, RDW Std Deviation 61.6 H, RDW Coeff of Azael 16.9 H, Plt Count 103 L, MPV 9.6, Immature Gran % (Auto) 0.400, Neut % (Auto) 86.5 H, Lymph % (Auto) 8.0 L, Summers % (Auto) 4.2, Eos % (Auto) 0.7, Baso % (Auto) 0.2, Absolute Neuts (auto) 7.9 H, Absolute Lymphs (auto) 0.73 L, Nucleated RBC % 0 09/25/19 07:00: Sodium 139, Potassium 4.1, Chloride 109 H, Carbon Dioxide 24.0, Anion Gap 6, BUN 19 H, Creatinine 1.58 H, Estim Creat Clear Calc 45.65, Est GFR (MDRD) Af Amer 55 L, Est GFR (MDRD) Non-Af 46 L, BUN/Creatinine Ratio 12.0, Glucose 166 H, Calcium 9.0, Troponin I < 0.015 09/25/19 07:00: D-Dimer Quant (PE/DVT) 1.49 H* Assessment/Plan All Active Problems Chest pain (Acute) Acute CHF (Acute) Hypokalemia (Acute) Intraoperative ureteral injury (Resolved) Nausea and vomiting (Acute) SBO (small bowel obstruction) (Acute) 74 year old M with PMHx of rectal cancer s/p resection, s/p colostomy who comes in with chest pain 1. Chest pain, atypical, admitting EKG shows no acute ST-T changes, troponins are negative No history of heart disease, stable vitals Cycle troponins, nuclear stress test in a.m., 2D echo Aspirin 81 mg p.o. daily, statins 2. Probable acute on chronic CHF, unknown EF, prominent bilateral lower extremity edema Will rule out acute DVT with stat Doppler ultrasound Continue on Lasix 40 mg IV twice daily, Saulo wraps to lower extremity, Continue CHF protocol with fluid restriction and daily weights 3. Right lower extremity cellulitis with ulcers at the plantar surface of the right foot. Continue on home Augmentin Wound RN and podiatry consult 4. History of urine retention, history of UroLift, Urology consult, start on Flomax and Proscar 5. Hyperlipidemia, on statin, will check lipid profile 6. History of rectal cancer status post resection, status post colostomy/CKD stage III/hypothyroidism/Probable cognitive impairment/hearing impairment- all complicating his care 7. DVT prophylaxis with heparin subcu Code Visit OBSV E&M: [id number] Initial observation care L3
--- NOTE | 2019-09-25 09:42 | NURSING ---
PCU CP PAINTSIL
--- NOTE | 2019-09-25 10:27 | ECHOD_ITS ---
Reason For Study: Chest pain Procedure This was a 2D Doppler, Color Flow transthoracic echocardiogram. The study was technically difficult. Exam performed portable in patient room. Left Ventricle Normal size and thickness. The estimated ejection fraction is 65 %. Stage 1 diastolic dysfunction. No regional wall motion abnormalities noted. Right Ventricle Normal size and thickness. Normal systolic function. Atria The left atrium is mildly enlarged. Normal right atrium. Normal atrial septum. Mitral Valve The mitral valve is structurally normal. No prolapse or stenosis seen. Trivial mitral valve insufficiency. Tricuspid Valve Normal tricuspid valve. Unable to estimate RV systolic pressure due to insufficient tricuspid regurgitant envelope. Aortic Valve Trisinus/trileaflet aortic valve. Mild diffuse aortic valve thickening. There is no aortic stenosis. Pulmonic Valve The pulmonic valve is not well visualized. Great Vessels Normal aortic root. Normal arch. Normal inferior vena cava. Inferior vena cava collapse with sniff. Pericardium/Pleural No pericardial effusion. MMode/2D Measurements & Calculations LVIDd: 4.2 cm IVSd: 1.5 cm Ao root diam: 3.6 cm LVIDs: 2.5 cm LVPWd: 1.2 cm RVDd: 3.7 cm FS: 40.3 % LAV(MOD-bp): 58.0 ml LA A4 area: 22.2 cm2 LA dimension(2D): 5.3 cm LAV(MOD-bp) Indexed: 26.7 ml/m2 LAV(MOD-sp2): 48.5 ml LAV(MOD-sp4): 67.4 ml RA A4 area: 12.4 cm2 Doppler Measurements & Calculations MV E max mesfin: 78.2 cm/sec Lat Peak E' Mesfin: 11.2 cm/sec Med Peak E' Mesfin: 8.8 cm/sec MV A max mesfin: 81.2 cm/sec E/E' lat: 7.0 E/E' med: 8.9 MV E/A: 0.96 Ao V2 max: 135.1 cm/sec LV V1 max: 105.5 cm/sec PA V2 max: 106.7 cm/sec Ao max P.3 mmHg LV V1 max P.5 mmHg Interpretation Summary The estimated ejection fraction is 65 %. Stage 1 diastolic dysfunction. The left atrium is mildly enlarged. Trivial mitral valve insufficiency. Unable to estimate RV systolic pressure due to insufficient tricuspid regurgitant envelope. There is no comparison study available. Ordering Physician: Tere Barrios Referring Physician: Tere Barrios Performed By: Julieta Curtis RDCS
--- NOTE | 2019-09-25 11:19 | EKG12_ITS ---
Test Reason : CP Blood Pressure : / mmHG Vent. Rate : 071 BPM Atrial Rate : 071 BPM P-R Int : 234 ms QRS Dur : 104 ms QT Int : 400 ms P-R-T Axes : 017 -24 014 degrees QTc Int : 434 ms Sinus rhythm with 1st degree A-V block Otherwise normal ECG Confirmed by ISABEL MARTINEZ, ANDREW ([id number]), editor publications NANDA HOPKINS ([id number]) on 09/28/2019 2:05:15 PM Referred By: Tere Barrios Confirmed By:ANDREW HALL MD
--- NOTE | 2019-09-25 12:51 | VDLE_ITS ---
Reason For Study: SWELLING RIGHT LEFT GSV is normal. GSV is normal. CFV is compressible, spontaneous, phasic, CFV is compressible, spontaneous, phasic, competent and demonstrates normal competent, and demonstrates normal augmentation. augmentation. FV is compressible, spontaneous, phasic, FV is compressible, spontaneous, phasic, competent and demonstrates normal competent and demonstrates normal augmentation. augmentation. POP V is compressible, spontaneous, phasic, POP V is compressible, spontaneous, phasic, competent and demonstrates normal competent and demonstrates normal augmentation. augmentation. T/P Trunk is compressible. T/P Trunk is compressible. PTV is compressible. PTV is compressible. RT PerV is compressible. LT PerV is compressible. Procedure A non-vascularized structure, measuring 2.1 x Exam performed portable in patient room. 1.0 cm is noted in the left Popliteal space. A preliminary report was called and/or faxed to [facility]. Interpretation Summary No evidence for acute deep venous thrombosis bilateral lower extremities with patent and compressible bilateral great saphenous veins. Left popliteal space 2.1 x 1 cm complex nonvascular structure undetermined etiology. Possible De La Vega's cyst with partial hemorrhage but clinical correlation would be appropriate Ordering Physician: Tere Barrios Referring Physician: CHAITANYA ROSALES Performed By: Sheba Rossi, RDCS, RVT
[2019-09-25 13:04] LABS: Hemoglobin A1c 4.9 % (4.2-6.3)
[2019-09-25 13:21] LABS: BNP,B-Type NATRIURETIC PEPTIDE 185.9 pg/mL (0-100)
[2019-09-25] MEDS: Heparin Injection (Vial) 5,000 UNIT/ML VIAL 5000 UNIT SC ×2 (14:04→21:45)
--- NOTE | 2019-09-25 14:59 | PCM.PN.BLA ---
Progress Note 74-year-old male who was in the hospital with a cardiac work-up for chest pain. He is also history of BPH with obstruction. Obtain most of the history from his . Apparently he tried to have a UroLift procedure done in [place] but was too painful and could not have it performed in the office. He has multiple medical problems he certainly a high risk for any general anesthetic procedures such as a TURP or greenlight laser etc. I would maximize medical therapy for him recommend we put him on Flomax 0.4 mg daily and Proscar 5 mg daily they can call my office I can see him for appointment as an outpatient I think I would try to manage him nonsurgically given all his medical problems, any questions give me a call. STROKE Vital Signs/Narrative: Vital Signs Temp Pulse Resp BP Pulse Ox 09/25/19 11:21 73 09/25/19 11:07 98.7 F 89 18 130/60 H 97 09/25/19 11:00 94
[2019-09-25] MEDS: Acetaminophen 325 MG Tablet 650 MG PO (16:57)
[2019-09-25] MEDS: Furosemide 40 MG/4 ML Vial IV (16:58)
[2019-09-25] MEDS: Tamsulosin HCl 0.4 MG Capsule PO (16:58)
[2019-09-25] MEDS: Amox/Clavulanate 500 MG Tablet PO (21:45)
[2019-09-25] MEDS: Pravastatin 40 MG Tablet PO (21:45)
[2019-09-26] VITALS (10 sets, daily range): BP systolic 115–143; BP diastolic 50–72; PULSE 66–76; RESP 16–20; TEMP 36.9–37.3; O2SAT 94–97
--- NOTE | 2019-09-26 05:55 | EKG12_ITS ---
Test Reason : AM EKG Blood Pressure : / mmHG Vent. Rate : 071 BPM Atrial Rate : 071 BPM P-R Int : 256 ms QRS Dur : 108 ms QT Int : 410 ms P-R-T Axes : 024 -23 010 degrees QTc Int : 445 ms Sinus rhythm with 1st degree A-V block with Premature atrial complexes Otherwise normal ECG When compared with ECG of 25-SEP-2019 11:23, MANUAL COMPARISON REQUIRED, DATA IS UNCONFIRMED Confirmed by MATTI FUENTES ([id number]), news editor LEXII GÓMEZ ([id number]) on 09/28/2019 3:14:09 PM Referred By: Tere Barrios Confirmed By:MATTI FUENTES
[2019-09-26] MEDS: Levothyroxine 50 MCG Tablet PO (06:34)
[2019-09-26] MEDS: Aspirin 81 MG TAB.CHEW PO (06:34)
[2019-09-26 06:42] LABS: Absolute Lymphocyte Count 0.56 X10^3/uL (0.83-4.51); Absolute Neutrophil Count 4.4 X10^3/uL (2.0-7.7); Basophil# 0.01 X10^3/uL; Basophil% 0.2 % (0-1); Eosinophil# 0.03 X10^3/uL; Eosinophils% 0.6 % (0-5); Hematocrit 24.8 % (40-54); Lymphocyte # 0.56 X10^3/ul (4.0); Lymphocyte % 10.5 % (19-41); Mean Corp Hgb Conc 32.3 g/dL (32-36); Mean Corpuscular Hgb 32.3 pg (27.0-32.0); Mean Platelet Vol. 10.1 fl (6.2-12.0); Monocyte# 0.31 X10^3/uL; Monocyte% 5.8 % (0-10); NRBC Flagged by Analyzer 0 % (0-5); Neutrophil # 4.39 X10^3/uL (2.7-7.7); Neutrophil % 82.5 % (47-70); POSITIVE COUNT YES; POSITIVE DIFFERENTIAL YES; Platelet Count 74 K/mm3 (150-450); RBC Distribution Width CV 16.4 % (11.6-14.6); RBC Distribution Width SD 60.1 fl (35.1-43.9); Red Blood Count 2.48 M/mm3 (4.6-6.2); White Blood Count 5.3 K/mm3 (4.4-11.0)
[2019-09-26 06:45] LABS: Differential Indicated SCAN CRITERIA MET
[2019-09-26 06:58] LABS: ALB/GLOB Ratio 0.5 RATIO (0.9-2.4); AST(SGOT) 9 U/L (15-37); Alanine Aminotransfer ALT/SGPT 11 U/L (16-61); Albumin, Serum 2.3 g/dL (3.2-5.0); Alkaline Phosphatase 102 U/L (45-117); Anion Gap 5 (5-15); BUN 19 mg/dL (7-18); BUN/Creat Ratio 12.7 RATIO (10-20); Calcium,Total 8.5 mg/dL (8.5-10.1); Chloride 109 mmol/L (98-107); Cholesterol 119 mg/dL (200); EST Glomerular Filtration Rate 49 mL/min (>60); Est Glom Filt Rate - Afr Amer 59 mL/min (>60); Estimated Creatinine Clearance 48.09 ml/min; Globulin 4.2 g/dL (2.2-4.2); Glucose 113 mg/dL (74-106); High Density Lipoprotein 38 mg/dL; Potassium 3.5 mmol/L (3.5-5.1); Protein, Total 6.5 g/dL (6.4-8.2); Sodium Level 139 mmol/L (136-145); Triglycerides 180 mg/dL; Very Low Density Lipoprotein 36 mg/dL (5-40)
[2019-09-26 07:03] LABS: Differential Comment SCANNED
[2019-09-26] MEDS: Furosemide 40 MG/4 ML Vial IV ×2 (09:52→17:35)
[2019-09-26] MEDS: 0.9% Saline Lock 10 ML Syringe IV ×2 (09:53→21:37)
[2019-09-26] MEDS: Amox/Clavulanate 500 MG Tablet PO ×2 (09:55→21:35)
[2019-09-26] MEDS: Ondansetron 8 MG Tablet PO (09:55)
--- NOTE | 2019-09-26 11:00 | CASEMGMT ---
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 Explained/reviewed CUEVAS form with patient in regards to current treatment this hospital admission. Informed Outpatient billing is determined by his insurance policy and continual review is conducted to determine any changes in condition that may warrant Inpatient stay. All questions addressed. Acknowledges and states understanding, CUEVAS form signed and placed in patient hard chart. Patient provided a copy of CUEVAS. Rosanne Oro RNCM
--- NOTE | 2019-09-26 12:33 | STRESSREP ---
Stress Test Report Date: 09-26-2019 Procedure: Pharmacologic stress nuclear imaging study Indications: Chest pain Consent: Per the patient Procedure: The patient underwent pharmacologic (Regadenoson) evaluation with a peak heart rate of 97 beats per minute (66 %predicted maximal heart rate) and a peak blood pressure of 140/78 mmHg. The baseline ECG demonstrated normal sinus rhythm. The peak pharmacologic ECG demonstrated no obvious ECG changes. There was a rare PVC during recovery. There was no complaint of chest discomfort during pharmacologic infusion or recovery. The examination was discontinued secondary to completion of protocol. Impression: 1. Pharmacologic (Regadenoson) evaluation 2. Peak pharmacologic ECG with. 3. There was a rare PVC during recovery. 4. Nuclear images pending Myocardial perfusion imaging study: Technique: The patient was injected with 11.0 millicuries of technetium 99m Cardiolite and subsequently rest SPECT Cardiolite nuclear imaging was obtained in the horizontal long, vertical long, and short axis views. The patient underwent pharmacologic (Regadenoson) evaluation with a peak heart rate of 97 beats per minute (66 % percent predicted maximal heart rate) and a peak blood pressure of 140/78 mmHg. The patient was injected with 34.3 millicuries of technetium 99m Cardiolite and subsequently stress SPECT Cardiolite nuclear imaging was obtained in the horizontal long, vertical long, and short axis views. A gated Cardiolite study at peak stress was obtained. Interpretation: Rest and stress SPECT Cardiolite nuclear imaging status post realignment, normalization, and attenuation correction demonstrate at rest relative uniform tracer uptake. Status post stress there appears to be an area of subtle diminished tracer uptake in portions of the distal anteroseptal and portions of the apical segments. There is end systolic thickening and brightening. The gated Cardiolite study demonstrates myocardial thickening and inward wall motion. The reported LVEF is 66 %. Impression: 1. Rest and stress SPECT currently nuclear imaging demonstrate myocardial perfusion changes potentially compatible with an area of stress-induced myocardial ischemia in portions of the distal anteroseptal and portions of the apical segments, however, an element of shifting soft tissue attenuation cannot be excluded. 2. The gated Cardiolite study reports an LVEF of 66 %. This note was generated with [employer] software. It may contain incorrect words, spelling, and punctuation that were not noted in checking the note before signing.
--- NOTE | 2019-09-26 14:27 | NURSING ---
Pt has an ileostomy to the right lower abdomen. states this was revised in June of 2019. states there is only one appliance that has worked for patient. states he used a 2 piece Conva[employer]ec appliance. pt uses a convex flange with a high volume pouch. This hospital does not carry the same appliance so an appliance from the hospital had been applied last pm/ no sign of leakage noted at this time. will monitor. no plan to change appliance unless it leaks since it was just changed. pt and ok with this plan.
[2019-09-26] MEDS: Clopidogrel Bisulfate 300 MG Tablet PO (15:31)
--- NOTE | 2019-09-26 15:43 | NURSING ---
wound photo: right great toe
--- NOTE | 2019-09-26 17:26 | RAD_ITS ---
We are attempting to reach an attending provider to discuss findings. An addendum with communication details will be sent when the communication is complete. STUDY: X-RAY - RIGHT FOOT CLINICAL: Male, 74 years old. Infection and Ulcer. TECHNIQUE: 3 view(s) of the foot. COMPARISON: None. FINDINGS: There is a plantar calcaneal spur. Normal visualized subtalar, talonavicular, calcaneocuboid, tarsal and tarsometatarsal articulations. Normal metatarsi. There is degenerative arthrosis of the metatarsophalangeal joint of the hallux . Normal tibial and fibular sesamoid bones. Normal interphalangeal joint of the great toe. Normal phalanges of the great toe. Normal second through fifth metatarsophalangeal joints. Normal interphalangeal joints and phalanges of the lesser toes. Soft tissue edema about the ankle. There is a focus of soft tissue edema distal to the fibula partially seen on this study for which underlying abscess formation should be considered. There is a partially visualized and homogeneous appearance of the distal fibula. RAD/Foot min 3 Views IMPRESSION: In the absence of recent surgical access, Question possible abscess potential gas in the deep soft tissues of the lateral aspect of the ankle partially visualized on this study. Age-indeterminate small erosions in the distal fibula which may represent age-indeterminate infection or degenerative change. Consideration for further imaging such as MRI with gadolinium or potential he is CT scan to evaluate the fluid collection in the ankle. Electronically Signed: Luz Elena Milligan MD at 1:59 EST Tel , Service support ,
--- NOTE | 2019-09-26 17:30 | CON.PCM_ITS ---
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 I saw him bedside this evening for right great toe ulcer with cellulitis that was previously treated with Augmentin in the outpatient setting. His history is obtained from his . It is noted the patient is very hard of hearing. The onset of the ulcer was within the last 1-1/2 to 2 weeks. The foot used to be bright red and was more swollen and painful. His reports this is significantly improved and is nearly resolved at this time. The patient reports continued pain with ulcer touch. He refuses ulcer debridement. He denies any known trauma. He has leg swelling. He denies cramping in the legs while walking. He denies loss of sensation while at rest. Past Medical History Past Medical History (Chronic Problems): Chronic Problems Right foot ulcer (Chronic) Hallux limitus of right foot (Chronic) Rectal cancer (Chronic) Constipation (Chronic) Hypothyroidism (Chronic) Depression (Chronic) Hyperlipidemia (Chronic) Allergies No Known Allergies Allergy (Verified 09/25/19 07:03) Home Medications: Ambulatory Orders Medication Instructions Recorded Acetaminophen [Tylenol Extra 650 mg PO PRN PRN 03/09/19 Strength] Levothyroxine [Synthroid] 50 mcg PO DAILY 03/09/19 Pravastatin [Pravachol] 40 mg PO QHS 03/09/19 Cyanocobalamin [Vitamin B12] 1,000 mcg IM Q30D 04/06/19 Amox/Clavulanate Tablet [Augmentin 1 tab PO TID 09/25/19 Tablet] Furosemide [Lasix] 20 mg PO DAILY 09/25/19 Loperamide [Imodium] 2 mg PO Q6H PRN PRN 09/25/19 Ondansetron HCl [Zofran] 8 mg PO DAILY 09/25/19 Surgical History: - - Lap assisted LAR, colostomy, percutaneous nephrostomy tube, ileostomy w/ removal of colostomy Psychiatric History: Anxiety Lives: Spouse/ Significant Other Smoking Status: Former smoker Tobacco Use: Non-smoker Alcohol: None Drugs: None - *Family History Maternal History Items: - - His grandmother had cancer he is not sure what kind and he states that he does not pay attention to his family's medical history. He is adopted Review of Systems Constitutional: Denies: Chills, Fever Cardiovascular: Reports: Chest Pressure. Denies: Claudication Gastrointestinal: Reports: Nausea Skin: Reports: Wounds Neurological: Denies: Numbness Patient Problems: Active and Suspected Problems Chest pain (Acute) Acute CHF (Acute) Cellulitis of right foot (Acute) 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 (Acute) - Physical Exam Vitals/I&O's: Vital Signs Temp Pulse Resp BP Pulse Ox 99.1 F 74 18 143/61 H 97 09/26/19 13:15 09/26/19 14:49 09/26/19 13:15 09/26/19 13:15 09/26/19 13:15 Oxygen Delivery Method Room Air Weight: 92.9 kg Body Mass Index (BMI) 28.2 Intake and Output for Last 24 Hours 09/24/19 09/25/19 09/26/19 23:59 23:59 23:59 Intake Total 1820 / 1820 280 / 280 Output Total 1775 / 1775 1525 / 1525 Balance 45 / 45 -1245 / -1245 General: Alert, Oriented x3, Cooperative HEENT: - - Hearing impaired Extremities: No cyanosis, Capillary Refill Less than 3 Seconds - All digits bilateral, No Calf Tenderness - Negative Winter and Tillman signs bilateral. Compartments of the right toes, foot, ankle and leg remain soft, Edema - Bilateral lower extremity edema with varicosities, Peripheral Pulses Normal - 2 out of 4 DP pulse bilateral and 1 out of 4 PT pulse bilateral Skin: Ulcer/ Wound - There is a plantar hallux ulcer with some peripheral callus and dried hematogenous drainage which the base is not well visualized. This is superficial and measures approximately 3 x 4 x 1 mm. There is no fluctuance or bogginess on palpation. There is no streaking directly from the site or odor. There is diffuse hyperpigmentation erythema extending from the hallux to the dorsal right foot. There is no interdigital maceration or necrosis. The nail is intact. His skin in general is hairless and atrophic. There are no other open lesions noted Musculoskeletal: Muscle Wasting, Tenderness - Pain with ulcer manipulation, - - Decreased loaded first metatarsal phalangeal joint range of motion right foot consistent with hallux limitus Neurological: Sensory exam intact to light touch and pain Psych/Mental Status: Normal Affect, Appropriate, Agitated Laboratory Results 09/26/19 06:03: WBC 5.3, RBC 2.48 L, Hgb 8.0 L, Hct 24.8 L, MCV 100.0 H, MCH 32.3 H, MCHC 32.3, RDW Std Deviation 60.1 H, RDW Coeff of Azael 16.4 H, Plt Count 74 L, MPV 10.1, Immature Gran % (Auto) 0.400, Neut % (Auto) 82.5 H, Lymph % (Auto) 10.5 L, [place] % (Auto) 5.8, Eos % (Auto) 0.6, Baso % (Auto) 0.2, Absolute Neuts (auto) 4.4, Absolute Lymphs (auto) 0.56 L, Nucleated RBC % 0, Differential Comment SCANNED 09/26/19 06:03: Sodium 139, Potassium 3.5, Chloride 109 H, Carbon Dioxide 25.0, Anion Gap 5, BUN 19 H, Creatinine 1.50 H, Estim Creat Clear Calc 48.09, Est GFR (MDRD) Af Amer 59 L, Est GFR (MDRD) Non-Af 49 L, BUN/Creatinine Ratio 12.7, Glucose 113 H, Calcium 8.5, Total Bilirubin 0.40, AST 9 L, ALT 11 L, Alkaline Ph osphatase 102, Total Protein 6.5, Albumin 2.3 L, Globulin 4.2, Albumin/Globulin Ratio 0.5 L, Triglycerides 180, Cholesterol 119, LDL Cholesterol 45, VLDL Cholesterol 36, HDL Cholesterol 38 L Current Medications Acetaminophen (Tylenol) 650 mg PO TID PRN PRN PRN Reason: Pain Score 1-10/10 Last Admin: 09/25/19 16:57 Dose: 650 mg Documented by: Amoxicillin/Clavulanate Potassium (Augmentin Tablet) 500 mg PO BID [facility] Last Admin: 09/26/19 09:55 Dose: 500 mg Documented by: Aspirin (Aspirin, Baby) 81 mg PO DAILY@0800 [facility] Last Admin: 09/26/19 06:34 Dose: 81 mg Documented by: Clopidogrel Bisulfate (Plavix) 75 mg PO DAILY [facility] Cyanocobalamin (Vitamin B12) 1,000 mcg IM Q30D [facility] Dextrose (D50w Syringe) 0 gm IV X1 PRN; Protocol PRN Reason: Hypoglycemia Furosemide (Lasix) 40 mg IV BID@1000,1800 [facility] Last Admin: 09/26/19 09:52 Dose: 40 mg Documented by: Glucagon () 1 mg IM .X1 PRN PRN Reason: Hypoglycemia Heparin Sodium (Porcine) (Heparin Na) 5,000 unit SC Q8 [facility] Last Admin: 09/26/19 14:14 Dose: Not Given Documented by: Levothyroxine Sodium (Synthroid) 50 mcg PO DAILY@0600 [facility] Last Admin: 09/26/19 06:34 Dose: 50 mcg Documented by: Loperamide HCl (Imodium) 2 mg PO Q6H PRN PRN PRN Reason: Diarrhea Nitroglycerin (Nitrostat) 0.4 mg SUBLINGUAL Q5M PRN PRN Reason: CARDIAC/CHEST PAIN Nutritional Formula (Bishop - [place] Flavor) 1 packet PO BIDCM [facility] Ondansetron HCl (Zofran) 8 mg PO DAILY [facility] Last Admin: 09/26/19 09:55 Dose: 8 mg Documented by: Ondansetron HCl (Zofran) 4 mg IV Q8H PRN PRN PRN Reason: NAUSEA/VOMITING Pravastatin Sodium (Pravachol) 40 mg PO QHS [facility] Last Admin: 09/25/19 21:45 Dose: 40 mg Documented by: Sodium Chloride () 10 - 40 ml IV UD PRN PRN Reason: SALINE FLUSH Last Admin: 09/26/19 09:53 Dose: 10 ml Documented by: Tamsulosin HCl (Flomax) 0.4 mg PO DAILY@1730 [facility] Last Admin: 09/25/19 16:58 Dose: 0.4 mg Documented by: Assessment/Plan All Active Problems Chest pain (Acute) Acute CHF (Acute) Cellulitis of right foot (Acute) 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 (Acute) Hypokalemia (Acute) Intraoperative ureteral injury (Resolved) Nausea and vomiting (Acute) SBO (small bowel obstruction) (Acute) Right hallux ulcer with adjacent foot cellulitis Hallux limitus biomechanical deformity Lower extremity edema Malnutrition suspected Other comorbidities: Myocardial ischemia (66% EF), hyperlipidemia, congestive heart failure, history of rectal cancer status post resection, status post colostomy, chronic kidney disease stage III, hypothyroidism, hearing impairment, and suspected cognitive impairment I reviewed and discussed his case. It is noted he is afebrile and his vital signs are fairly stable at this time. He does not have leukocytosis: White blood cell count was 5.3 this morning. Per discussion with and patient it seems his cellulitis has significantly improved with oral Augmentin. I recommended ulcer debridement and he refused at this time. Therefore, I recommend changing the dressing daily with hydrogel and to clean the site with saline or soap and water. There is no purulence on expression I do not recommend any type of surgical intervention at this time. I recommend obtaining a baseline x-ray to rule out any Charcot, bone destruction, foreign body, or signs of deeper infection. This was ordered. I also recommend he keep pressure off the site by heel weightbearing surgical shoe; this was ordered. To continue on oral antibiotics. The toes mainly callused and very dry and therefore a wound culture was not obtained. I will continue to follow him closely while in house. His venous Doppler was reviewed and it is noted he does not have evidence of a deep venous fibrosis. I do recommend light compression to the right lower extremity with elevation. An Saulo wrap will be appropriate at this time. Nutritional supplementation, Bishop, was ordered to optimize his healing. Medical management DVT prophylaxis per hospitalist team is noted and appreciated. Thank you for the consultation. I answered the patient's questions as well as his 's questions bedside. Please not hesitate to call me with any questions. Podiatry team will continue to follow him on a by weekly to weekly basis while in house, otherwise he can follow-up in the outpatient setting if his x-rays come back negative. Kaelyn Will DPM, [facility] [phone]
[2019-09-26] MEDS: Tamsulosin HCl 0.4 MG Capsule PO (17:35)
--- NOTE | 2019-09-26 18:31 | PCM.CONS.C ---
Problem List (1) Chest pain Status: Acute Qualifiers: Chest pain type: unspecified Qualified Code(s): R07.9 - Chest pain, unspecified (2) Hyperlipidemia Status: Chronic Reason for Consult Date of Consultation: 09/26/19 History of Present Illness: The patient is a 74 year old M, hard of hearing, with a history of colon cancer status post colectomy, hypertension but currently on no medications, no previous known cardiac history. Patient is been asymptomatic up until around 2 AM on Thursday morning when he developed new onset substernal chest pressure radiating to his neck, with no associated shortness of breath, diaphoresis, nausea or vomiting. The patient states that his chest pain was sudden onset, and had associated shortness of breath and dyspnea. He woke up his that evening, and they drove in her car to the emergency room. He noted during the trip that he had pain whenever he had a bump. An EKG in the ER showed normal sinus rhythm with incomplete right bundle branch block, no acute changes. He ruled out for myocardial infarction with troponins x3 being negative, and underwent a non-walking Lexiscan/MPI today which was abnormal for anterior ischemia. On further history the patient denies any exertional chest pain, angina, or shortness of breath prior to or subsequent his admission. He has chronic anemia with a hemoglobin of 8.0. He also underwent a stress echo on 09/26/2019 with the following results: The estimated ejection fraction is 65 %. Stage 1 diastolic dysfunction. The left atrium is mildly enlarged. Trivial mitral valve insufficiency. Unable to estimate RV systolic pressure due to insufficient tricuspid regurgitant envelope. There is no comparison study available. Past Medical History Allergies/Adverse Reactions: Allergies No Known Allergies Allergy (Verified 09/25/19 07:03) Home Medications: Ambulatory Orders Medication Instructions Recorded Acetaminophen [Tylenol Extra 650 mg PO PRN PRN 03/09/19 Strength] Levothyroxine [Synthroid] 50 mcg PO DAILY 03/09/19 Pravastatin [Pravachol] 40 mg PO QHS 03/09/19 Cyanocobalamin [Vitamin B12] 1,000 mcg IM Q30D 04/06/19 Amox/Clavulanate Tablet [Augmentin 1 tab PO TID 09/25/19 Tablet] Furosemide [Lasix] 20 mg PO DAILY 09/25/19 Loperamide [Imodium] 2 mg PO Q6H PRN PRN 09/25/19 Ondansetron HCl [Zofran] 8 mg PO DAILY 09/25/19 Past Medical History (Chronic Problems): Chronic Problems Right foot ulcer (Chronic) Hallux limitus of right foot (Chronic) Rectal cancer (Chronic) Constipation (Chronic) Hypothyroidism (Chronic) Depression (Chronic) Hyperlipidemia (Chronic) Surgical History: - - Lap assisted LAR, colostomy, percutaneous nephrostomy tube, ileostomy w/ removal of colostomy Psychiatric History: Anxiety - *Family History Maternal History Items: - - His grandmother had cancer he is not sure what kind and he states that he does not pay attention to his family's medical history. He is adopted Lives: Spouse/ Significant Other Smoking Status: Former smoker Tobacco Use: Non-smoker Alcohol: None Drugs: None Review of Systems - Review of Systems General: Denies: Fever, Night Sweats, Fatigue Cardiovascular: Reports: Chest Discomfort, Chest Discomfort at Rest. Denies: Shortness of Breath, Orthopnea, PND, Peripheral Edema, Palpitations, Lightheadedness, Dizziness, Near Syncope, Syncope Respiratory: Denies: Cough, Sputum Production, Hemoptysis Gastrointestinal: Denies: Hematemesis, Hematochezia, Melena Genitourinary: Denies: Dysuria, Hematuria Skin: Denies: Rash Subjectve: Patient sitting in bed, no acute distress. Objective: Vital Signs Temp Pulse Resp BP Pulse Ox 98.5 F 70 18 133/72 H 96 09/26/19 15:00 09/26/19 15:00 09/26/19 15:00 09/26/19 15:00 09/26/19 15:00 Oxygen Delivery Method Room Air Weight: 204 lb 12.951 oz Body Mass Index (BMI) 28.2 Intake and Output for Last 24 Hours 09/24/19 09/25/19 09/26/19 23:59 23:59 23:59 Intake Total 1820 / 1820 520 / 520 Output Total 1775 / 1775 2675 / 2675 Balance 45 / 45 -2155 / -2155 General: Awake, Alert, Oriented x 3 HEENT: PERRL, EOMI, Sclera Non Icteric Neck: Supple, Good ROM, No Lymph Node Enlargement Lungs: Clear to auscultation Cardiovascular: Regular Rhythm, Normal S1, Normal S2, No Murmurs, No Rubs, No Gallops Vascular: No Carotid Bruits, Normal Femoral Pulses, Normal Radial Pulses, Normal Dorsalis Pedal Pulse, Normal Posterior Tibial Pulses Abdomen: Bowel Sounds Present, Soft, Non Tender, No HSM, No Organomegaly Extremities: No Cyanosis, No Clubbing, No edema Neurological: No Focal Motor or Sensory Deficit 09/26/19 06:03: WBC 5.3, RBC 2.48 L, Hgb 8.0 L, Hct 24.8 L, MCV 100.0 H, MCH 32.3 H, MCHC 32.3, Plt Count 74 L, MPV 10.1, Immature Gran % (Auto) 0.400, Neut % (Auto) 82.5 H, Lymph % (Auto) 10.5 L, [place] % (Auto) 5.8, Eos % (Auto) 0.6, Baso % (Auto) 0.2, Absolute Neuts (auto) 4.4, Nucleated RBC % 0 09/26/19 06:03: Sodium 139, Potassium 3.5, Chloride 109 H, Carbon Dioxide 25.0, Anion Gap 5, BUN 19 H, Creatinine 1.50 H, Est GFR (MDRD) Af Amer 59 L, Est GFR (MDRD) Non-Af 49 L, BUN/Creatinine Ratio 12.7, Glucose 113 H, Calcium 8.5, Total Bilirubin 0.40, Triglycerides 180, Cholesterol 119, LDL Cholesterol 45, VLDL Cholesterol 36, HDL Cholesterol 38 L Rhythm: EKG: ECHO:The estimated ejection fraction is 65 %. Stage 1 diastolic dysfunction. The left atrium is mildly enlarged. Trivial mitral valve insufficiency. Unable to estimate RV systolic pressure due to insufficient tricuspid regurgitant envelope. There is no comparison study available. Stress Test: Cardiac Cath: PCI: CT Surgery: Holter monitor: EPS: PPM: CXR: Chest CT Scan: Assessment/Plan 1. Abnormal stress test: The patient has several risk factors for coronary occlusive disease including his age, previous smoker who quit around 10 years ago, hypertension, unstable angina, and abnormal stress test for anterior ischemia. Given the patient's constellation of symptoms and findings, I recommend he undergo a left her catheterization tomorrow morning. He will be loaded with 300 mg of Plavix followed by 75 mg daily as well as baby aspirin 81 mg p.o. daily. Depending upon the findings of his catheterization will determine whether he requires intervention or simply medical management. Given his history of colon cancer and anemia, my preference would be for percutaneous intervention if able to be done. 2. Hyperlipidemia: Recommend obtaining a fasting lipid profile if not already done so. 3. Thank you very much for the opportunity to participate in the cardiac care of your patient. Consultation time took place between 6 PM and 6:40 PM. Code Visit Inpatient E&M: 32126 Init Hosp L2
[2019-09-26] MEDS: Acetaminophen 325 MG Tablet 650 MG PO (18:48)
--- NOTE | 2019-09-26 19:16 | PN_ITS ---
Patient Problems: Active and Suspected Problems Localized edema (Acute) Chest pain (Acute) Acute CHF (Acute) Cellulitis of right foot (Acute) 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 (Acute) Subjective: Patient was seen and examined today, I talked extensively with his who was in his room today. Patient is extremely hard of hearing which makes it difficult to communicate with him, he had a nuclear stress test today which was positive for anterior ischemia, I had cardiology see him today and the patient has consented to undergo a cardiac catheterization. Patient was also seen by podiatry today, he has a superficial ulceration on his right great toe over the medial aspect, patient has refused any debridement of the area by podiatry. Patient's venous duplex scan today was negative for evidence of VTE, patient's echocardiogram performed today showed a normal ejection fraction, no significant valvular heart disease was noted. - Physical Exam Vitals/I&O's: Vital Signs Temp Pulse Resp BP Pulse Ox 98.5 F 70 18 133/72 H 96 09/26/19 15:00 09/26/19 15:00 09/26/19 15:00 09/26/19 15:00 09/26/19 15:00 Oxygen Delivery Method Room Air Weight: 92.9 kg Body Mass Index (BMI) 28.2 Intake and Output for Last 24 Hours 09/24/19 09/25/19 09/26/19 23:59 23:59 23:59 Intake Total 1820 / 1820 520 / 520 Output Total 1775 / 1775 2675 / 2675 Balance 45 / 45 -2155 / -2155 General: Alert, Oriented x3, Cooperative, No apparent distress, Well developed, - - Patient is extremely hard of hearing and is difficult to communicate verbally with HEENT: Atraumatic, PERRLA, EOMI, Normocephalic Oral: Moist Mucosa Neck: Supple, No JVD, Trachea Midline, Thyroid Normal Size and Texture Lungs: Clear to auscultation, Normal air movement, No rhonchi, No wheeze, No rales Cardiovascular: Regular rate, Regular Rhythm, Normal S1, Normal S2, No murmurs, No Ectopic Activity, PMI Normal, No rub noted Abdomen: Bowel Sounds Present, Soft, Non Tender, Non-Distended Extremities: No clubbing, No cyanosis, No edema, Capillary Refill Less than 3 Seconds Skin: No rashes, No breakdown Musculoskeletal: No Tenderness to Palpation of Joints or Extremities Neurological: Cranial nerves II-XII grossly intact, Neuro grossly intact, Sensory exam intact to light touch and pain, Coordination normal Psych/Mental Status: Normal Affect, Appropriate, Alert and oriented to time, place, person, mood and affect Laboratory Results 09/26/19 06:03: WBC 5.3, RBC 2.48 L, Hgb 8.0 L, Hct 24.8 L, MCV 100.0 H, MCH 32.3 H, MCHC 32.3, RDW Std Deviation 60.1 H, RDW Coeff of Azael 16.4 H, Plt Count 74 L, MPV 10.1, Immature Gran % (Auto) 0.400, Neut % (Auto) 82.5 H, Lymph % (Auto) 10.5 L, [place] % (Auto) 5.8, Eos % (Auto) 0.6, Baso % (Auto) 0.2, Absolute Neuts (auto) 4.4, Absolute Lymphs (auto) 0.56 L, Nucleated RBC % 0, Differential Comment SCANNED 09/26/19 06:03: Sodium 139, Potassium 3.5, Chloride 109 H, Carbon Dioxide 25.0, Anion Gap 5, BUN 19 H, Creatinine 1.50 H, Estim Creat Clear Calc 48.09, Est GFR (MDRD) Af Amer 59 L, Est GFR (MDRD) Non-Af 49 L, BUN/Creatinine Ratio 12.7, Glucose 113 H, Calcium 8.5, Total Bilirubin 0.40, AST 9 L, ALT 11 L, Alkaline Phosphatase 102, Total Protein 6.5, Albumin 2.3 L, Globulin 4.2, Albumin/Globulin Ratio 0.5 L, Triglycerides 180, Cholesterol 119, LDL Cholesterol 45, VLDL Cholesterol 36, HDL Cholesterol 38 L Current Medications Acetaminophen (Tylenol) 650 mg PO TID PRN PRN PRN Reason: Pain Score 1-10/10 Last Admin: 09/26/19 18:48 Dose: 650 mg Documented by: Amoxicillin/Clavulanate Potassium (Augmentin Tablet) 500 mg PO BID [facility] Last Admin: 09/26/19 09:55 Dose: 500 mg Documented by: Aspirin (Aspirin, Baby) 81 mg PO DAILY@0800 [facility] Last Admin: 09/26/19 06:34 Dose: 81 mg Documented by: Clopidogrel Bisulfate (Plavix) 75 mg PO DAILY [facility] Cyanocobalamin (Vitamin B12) 1,000 mcg IM Q30D [facility] Dextrose (D50w Syringe) 0 gm IV X1 PRN; Protocol PRN Reason: Hypoglycemia Diphenhydramine HCl (Benadryl) 50 mg PO X1 ONE Stop: 09/27/19 07:01 Furosemide (Lasix) 40 mg IV BID@1000,1800 [facility] Last Admin: 09/26/19 17:35 Dose: 40 mg Documented by: Glucagon () 1 mg IM .X1 PRN PRN Reason: Hypoglycemia Heparin Sodium (Porcine) (Heparin Na) 5,000 unit SC Q8 [facility] Last Admin: 09/26/19 14:14 Dose: Not Given Documented by: Sodium Chloride () 1,000 mls @ 15 mls/hr IV .Q48H [facility] Levothyroxine Sodium (Synthroid) 50 mcg PO DAILY@0600 [facility] Last Admin: 09/26/19 06:34 Dose: 50 mcg Documented by: Loperamide HCl (Imodium) 2 mg PO Q6H PRN PRN PRN Reason: Diarrhea Nitroglycerin (Nitrostat) 0.4 mg SUBLINGUAL Q5M PRN PRN Reason: CARDIAC/CHEST PAIN Nutritional Formula (Bishop - [place] Flavor) 1 packet PO BIDCM [facility] Ondansetron HCl (Zofran) 8 mg PO DAILY [facility] Last Admin: 09/26/19 09:55 Dose: 8 mg Documented by: Ondansetron HCl (Zofran) 4 mg IV Q8H PRN PRN PRN Reason: NAUSEA/VOMITING Pravastatin Sodium (Pravachol) 40 mg PO QHS [facility] Last Admin: 09/25/19 21:45 Dose: 40 mg Documented by: Sodium Chloride () 10 - 40 ml IV UD PRN PRN Reason: SALINE FLUSH Last Admin: 09/26/19 09:53 Dose: 10 ml Documented by: Tamsulosin HCl (Flomax) 0.4 mg PO DAILY@1730 [facility] Last Admin: 09/26/19 17:35 Dose: 0.4 mg Documented by: Medical Necessity - Tobacco Use Smoking Status: Former smoker Tobacco Use: Non-smoker Assessment/Plan All Active Problems Localized edema (Acute) Chest pain (Acute) Acute CHF (Acute) Cellulitis of right foot (Acute) 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 (Acute) Hypokalemia (Resolved) Rectal cancer (Ruled-out) Intraoperative ureteral injury (Resolved) Nausea and vomiting (Acute) SBO (small bowel obstruction) (Acute) #1 chest pain-with abnormal stress test-patient will undergo a cardiac catheterization tomorrow, cardiology saw the patient and discussed care with him #2 generalized lower extremity edema-etiology unclear, I do not detect any signs of congestive heart failure at this time, I do not think the patient had congestive heart failure when he was admitted. #3 colon cancer #4 neuropathic ulceration right great [id number] localized cellulitis, continue present antibiotic coverage #5 hyperlipidemia #6 urinary retention-patient is on Flomax and Proscar #7 hard of hearing #8 chronic kidney disease stage III-etiology unclear Code Visit Inpatient E&M: 96600 Subs Hosp L2
[2019-09-26] MEDS: Pravastatin 40 MG Tablet PO (21:35)
[2019-09-26] MEDS: Heparin Injection (Vial) 5,000 UNIT/ML VIAL 5000 UNIT SC (21:35)
--- NOTE | 2019-09-26 21:40 | NURSING ---
R great toe washed with NS and wrapped with Aquacel and sterile gauze. No hydrogel on unit.
[2019-09-27] VITALS (20 sets, daily range): BP systolic 104–135; BP diastolic 41–75; PULSE 61–78; RESP 12–18; TEMP 36.3–36.9; O2SAT 94–99
--- NOTE | 2019-09-27 02:12 | NURSING ---
Received report from Radiologist, Dr. Milligan, regarding R foot xray.
--- NOTE | 2019-09-27 04:05 | PCM.RX.CS ---
Consult Pharmacy has been consulted to manage selected antiobiotic: Vancomycin Type of Consult: New start Suspected Infection: Skin/Soft tissue Prior Doses of Antibiotics Received/Current Regimen: Medications Vancomycin HCl 750 mg/ Sodium (Chloride) 265 mls @ 250 mls/hr IV Q12H [facility] Vancomycin HCl 1,500 mg/ (Sodium Chloride) 530 mls @ 250 mls/hr IV X1 ONE Stop: 09/27/19 05:07 Last Admin: 09/27/19 03:55 Dose: 250 mls/hr Labs: Sodium 139 mmol/L (136-145) 09/26/19 06:03 Potassium 3.5 mmol/L (3.5-5.1) 09/26/19 06:03 Chloride 109 mmol/L (98-107) H 09/26/19 06:03 Carbon Dioxide 25.0 mmol/L (21.0-32.0) 09/26/19 06:03 Anion Gap 5 (5-15) 09/26/19 06:03 BUN 19 mg/dL (7-18) H 09/26/19 06:03 Creatinine 1.50 mg/dL (0.70-1.30) H 09/26/19 06:03 Est GFR (MDRD) Af Amer 59 mL/min (>60) L 09/26/19 06:03 Est GFR (MDRD) Non-Af 49 mL/min (>60) L 09/26/19 06:03 BUN/Creatinine Ratio 12.7 RATIO (10-20) 09/26/19 06:03 Glucose 113 mg/dL (74-106) H 09/26/19 06:03 Weight used for dosin.9 kg Estimated Creatinine Clearance: 48 Goal Trough: 15-20 mcg/mL Pharmacy Plan for Drug Dosing: Pharmacy Service will continue to monitor and adjust dosing as required. Follow-Up Labs: Trough Vancomycin Labs to be done on [date and time ordered]: 09/28/19 @2211
[2019-09-27 04:15] LABS: Hematocrit 25.7 % (40-54); Hemoglobin 8.3 g/dL (13.0-16.5); Mean Corp Hgb Conc 32.3 g/dL (32-36); Mean Corpuscular Hgb 32.2 pg (27.0-32.0); Mean Corpuscular Volume 99.6 fL (80-94); Mean Platelet Vol. 9.3 fl (6.2-12.0); Platelet Count 100 K/mm3 (150-450); RBC Distribution Width SD 57.5 fl (35.1-43.9); Red Blood Count 2.58 M/mm3 (4.6-6.2); White Blood Count 5.9 K/mm3 (4.4-11.0)
[2019-09-27 04:25] LABS: International Normalized Ratio 1.2; Prothrombin Time (Protime)PT. 14.6 SECONDS (11.7-14.9)
[2019-09-27 04:29] LABS: Anion Gap 8 (5-15); BUN 19 mg/dL (7-18); BUN/Creat Ratio 13.4 RATIO (10-20); Calcium,Total 8.3 mg/dL (8.5-10.1); Chloride 102 mmol/L (98-107); Creatinine, Serum 1.42 mg/dL (0.70-1.30); EST Glomerular Filtration Rate 52 mL/min (>60); Est Glom Filt Rate - Afr Amer 63 mL/min (>60); Glucose 125 mg/dL (74-106); Potassium 3.1 mmol/L (3.5-5.1); Sodium Level 135 mmol/L (136-145)
[2019-09-27] MEDS: Aspirin 81 MG TAB.CHEW PO (04:57)
[2019-09-27] MEDS: Levothyroxine 50 MCG Tablet PO (04:57)
[2019-09-27] MEDS: Clopidogrel Bisulfate 75 MG Tablet PO (04:57)
[2019-09-27] MEDS: 0.9% Normal Saline 1,000 ML 15 ML IV (06:20)
[2019-09-27] MEDS: Potassium Chloride 10mEq/100mL 10 MEQ/100 ML IV.SOLN. 100 MEQ IV BOLUS ×2 (06:29→08:41)
[2019-09-27] MEDS: DiphenhydrAMINE 25 MG Capsule 50 MG PO (06:53)
--- NOTE | 2019-09-27 06:55 | NURSING ---
Report called to SREEDHAR Kate in cath lab nurse. They are ready for him.
--- NOTE | 2019-09-27 08:24 | CL.D_ITS ---
Patient Name: HUONG BATES Study Date: 09/27/2019 Performing: Bertin Cohn MD Ht: 73 inches 185.42 cm : 1945 Wt: 203.99 lbs 92.53 kg Age: 74 Gender: male BSA: 2.17 PROCEDURE(S) PERFORMED [id number]/LV CLINICAL PROFILE AND INDICATIONS Indications: New Onset Angina <= 2 months, Suspected CAD Heart Failure: None Stress/Imaging Date: 09/26/2018Stress Test with SPECT MPI: Positive Low Risk Angina Classification Anginal Classification w/in 2 Weeks: CCS IV CAD Presentations: Unstable angina. 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 Non obstructive coronary arteries RECOMMENDATIONS Staged percutaneous intervention vs Medical Therapy Manual sheath removal Additional eval for anemia; trial of DAPT to determine if pt is able to endure long-term DAPT. Pt most likely not a surgical candidate due to colon cancer diagnosis. Start coreg and imdur for anginal symptoms. If pt is able to tolerate DAPT and has no further anemia, would consider PCI to LAD with long sheath, followed by PCI of PL branch of RCA +/- mid RCA if dye alotment not surpassed. DESCRIPTION OF PROCEDURE The patient arrived to the procedure lab. The risks and benefits of the procedure as well as a full d escription of our services here and current unavailability of surgical backup were fully explained to the patient and/or their significant other prior to the catheterization. The Timeout was completed, verifying the correct patient and procedure. The patient's procedural site was prepped and draped in the usual fashion. Local anesthetic was given subcutaneously to right groin region with Lidocaine 2%. Using a modified Seldinger technique, arterial access was obtained via the right femoral artery, a 4 Fr sheath was inserted Left Coronary Artery selective angiography was performed in multiple views us ing a 4 Fr. JL5 catheter. Right Coronary Artery selective angiography was then performed in multiple views using a 4 Fr. 3DRC catheter. Left Ventriculography was performed in JACOBS projection using a 4 Fr . Pigtail catheter. LV to AO pullback pressures were then recorded.The arterial sheath was pulled and manual compression applied until hemostasis is achieved. CORONARY ANGIOGRAPHY DOMINANCE: Right Dominant LEFT HEART ASSESSMENT Left Ventricular Ejection Fraction: by LV Gram 60 % Anterior Hypokinesis - Trivial Normal Left Ventricular systolic function LVEDP: 16 mmHg LEFT MAIN: 30 ostial % Stenosis, 30 distal % Stenosis LEFT ANTERIOR DESCENDING ARTERY: PROX LAD: Mild calcification MID LAD: 75 % Stenosis, 75 % Stenosis CIRCUMFLEX ARTERY: PROX CIRC: Mild luminal irregularities less than 30% RIGHT CORONARY ARTERY: MID RCA: Moderate calcification, 60 % Stenosis RT PLV: 75 % Stenosis RT PDA: Ostial - Mild luminal irregularities less than 30% COLLATERAL FLOW: Collateral flow from Right to Left COMPLICATIONS No Complications PROCEDURE MEDICATIONS Oxygen: 2 L/min via nasal cannula SUMMARY OF HEMODYNAMIC DATA Time AIR REST ECG 07:32:27 AO 120/52 (74) SA 07:49:35 LV 162/-13, 18 07:57:53 LV 162/-15, 14 07:58:00 LVp 161/-17, 22 07:58:06 AOp 159/62 (102) 07:58:11 Signed By Bertin Cohn MD On 09/27/2019 08:23:27 Bertin Cohn MD
[2019-09-27] MEDS: Amox/Clavulanate 500 MG Tablet PO ×2 (09:18→21:01)
[2019-09-27] MEDS: Ondansetron 8 MG Tablet PO (09:19)
[2019-09-27] MEDS: Isosorbide Mononitrate 30 MG Tablet PO (09:22)
[2019-09-27] MEDS: Carvedilol 3.125 MG TABLET PO ×2 (11:25→21:01)
[2019-09-27] MEDS: Furosemide 40 MG Tablet PO (11:25)
[2019-09-27] MEDS: HYDROcodone Bitartrate/Apap 5/325 Tablet PO (11:25)
--- NOTE | 2019-09-27 12:27 | NURSING ---
charting reviewed by this RN for student KM
--- NOTE | 2019-09-27 16:06 | PN_ITS ---
Patient Problems: Active and Suspected Problems Localized edema (Acute) Chest pain (Acute) Acute CHF (Acute) Cellulitis of right foot (Acute) 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 (Acute) Subjective: This 74-year-old male was seen at [facility] for follow-up of right foot ulcer. He relates that this is much better today and his continue to get better since he was started on oral antibiotics in the outpatient setting. He denies any active drainage or odor. He had a cardiac catheterization performed today and is currently undergoing a blood transfusion. He recently woke up and relates he is in a hurry to get back to [place] and is upset that he is connected to the transfusion. He has a right surgical shoe in place. - Physical Exam Vitals/I&O's: Vital Signs Temp Pulse Resp BP Pulse Ox 98.0 F 65 14 120/46 L 97 09/27/19 14:52 09/27/19 15:00 09/27/19 14:52 09/27/19 14:52 09/27/19 14:52 Oxygen Delivery Method Room Air Weight: 89.2 kg Body Mass Index (BMI) 28.2 Intake and Output for Last 24 Hours 09/25/19 09/26/19 09/27/19 23:59 23:59 23:59 Intake Total 1820 / 1820 770 / 770 1013.75 / 1013.75 Output Total 1775 / 1775 3625 / 3625 1500 / 1500 Balance 45 / 45 -2855 / -2855 -486.25 / -486.25 General: Alert, Oriented x3, Cooperative Extremities: No cyanosis, Capillary Refill Less than 3 Seconds, No Calf Tenderness, Diminished Peripheral Pulses - Pulses are palpable to dorsalis pedis, Edema - Decreased right foot Skin: Ulcer/ Wound - Plantar hallux skin discontinuity with callus and evidence of previous hematogenous drainage. Prior refusal for debridement was noted. His adjacent skin is atrophic with some edema and hyperpigmentation and thin skin that is hairless. There is no purulence on expression. Erythema and streaking have resolved. Upon closer evaluation of the ankle level there is no bogginess, fluctuance, erythema, induration, or pain on palpation. Musculoskeletal: Muscle Wasting, - - No pain palpation to the ankle with passive motion or along the adjacent tendon structures. There is decreased pain on palpation to the right hallux Neurological: Sensory exam intact to light touch and pain Psych/Mental Status: Normal Affect, Appropriate Laboratory Results 09/27/19 04:02: WBC 5.9, RBC 2.58 L, Hgb 8.3 L, Hct 25.7 L, MCV 99.6 H, MCH 32.2 H, MCHC 32.3, RDW Std Deviation 57.5 H, RDW Coeff of Azael 16.0 H, Plt Count 100 L , MPV 9.3 09/27/19 04:02: PT 14.6, INR 1.2 09/27/19 04:02: Sodium 135 L, Potassium 3.1 L, Chloride 102, Carbon Dioxide 25.0, Anion Gap 8, BUN 19 H, Creatinine 1.42 H, Estim Creat Clear Calc 50.80, Est GFR (MDRD) Af Amer 63, Est GFR (MDRD) Non-Af 52 L, BUN/Creatinine Ratio 13.4, Glucose 125 H, Calcium 8.3 L 09/27/19 11:49: Blood Type O POSITIVE, Antibody Screen NEGATIVE, Crossmatch See Detail Current Medications Acetaminophen (Tylenol) 650 mg PO TID PRN PRN PRN Reason: Pain Score 1-10/10 Last Admin: 09/26/19 18:48 Dose: 650 mg Documented by: Hydrocodone Bitart/Acetaminophen ([place] 5mg-325mg) 1 - 2 tablet PO Q6H PRN PRN PRN Reason: Pain Score 1-10/10 Last Admin: 09/27/19 11:25 Dose: 1 tablet Documented by: Amoxicillin/Clavulanate Potassium (Augmentin Tablet) 500 mg PO BID [facility] Last Admin: 09/27/19 09:18 Dose: 500 mg Documented by: Aspirin (Aspirin, Baby) 81 mg PO DAILY@0800 [facility] Last Admin: 09/27/19 04:57 Dose: 81 mg Documented by: Carvedilol (Coreg) 3.125 mg PO BID [facility] Last Admin: 09/27/19 11:25 Dose: 3.125 mg Documented by: Clopidogrel Bisulfate (Plavix) 75 mg PO DAILY [facility] Last Admin: 09/27/19 04:57 Dose: 75 mg Documented by: Cyanocobalamin (Vitamin B12) 1,000 mcg IM Q30D [facility] Dextrose (D50w Syringe) 0 gm IV X1 PRN; Protocol PRN Reason: Hypoglycemia Furosemide (Lasix) 40 mg PO DAILY [facility] Last Admin: 09/27/19 11:25 Dose: 40 mg Documented by: Glucagon () 1 mg IM .X1 PRN PRN Reason: Hypoglycemia Heparin Sodium (Beef Lung) (Heparin 500 Unit/5 Ml (100/Ml)) 500 unit IV UD PRN PRN Reason: HEPARIN FLUSH Heparin Sodium (Porcine) (Heparin Na) 5,000 unit SC Q8 [facility] Last Admin: 09/27/19 11:28 Dose: Not Given Documented by: Sodium Chloride () 1,000 mls @ 15 mls/hr IV .Q48H [facility] Last Infusion: 09/27/19 15:15 Dose: 0 mls/hr Documented by: Isosorbide Mononitrate (Imdur) 30 mg PO DAILY [facility] Last Admin: 09/27/19 09:22 Dose: 30 mg Documented by: Labetalol HCl (Trandate) 5 mg IV X1 PRN PRN Reason: SBP > 160 prior to sheath pull Stop: 09/29/19 08:18 Levothyroxine Sodium (Synthroid) 50 mcg PO DAILY@0600 [facility] Last Admin: 09/27/19 04:57 Dose: 50 mcg Documented by: Loperamide HCl (Imodium) 2 mg PO Q6H PRN PRN PRN Reason: Diarrhea Nitroglycerin (Nitrostat) 0.4 mg SUBLINGUAL Q5M PRN PRN Reason: CARDIAC/CHEST PAIN Nutritional Formula (Bishop - [place] Flavor) 1 packet PO BIDCM [facility] Last Admin: 09/27/19 09:18 Dose: 1 packet Documented by: Ondansetron HCl (Zofran) 8 mg PO DAILY [facility] Last Admin: 09/27/19 09:19 Dose: 8 mg Documented by: Ondansetron HCl (Zofran) 4 mg IV Q8H PRN PRN PRN Reason: NAUSEA/VOMITING Pravastatin Sodium (Pravachol) 40 mg PO QHS [facility] Last Admin: 09/26/19 21:35 Dose: 40 mg Documented by: Sodium Chloride () 10 - 40 ml IV UD PRN PRN Reason: SALINE FLUSH Last Admin: 09/26/19 21:37 Dose: 10 ml Documented by: Tamsulosin HCl (Flomax) 0.4 mg PO DAILY@1730 [facility] Last Admin: 09/26/19 17:35 Dose: 0.4 mg Documented by: Medical Necessity - Tobacco Use Smoking Status: Former smoker Tobacco Use: Non-smoker Assessment/Plan All Active Problems Localized edema (Acute) Chest pain (Acute) Acute CHF (Acute) Cellulitis of right foot (Acute) 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 (Acute) Hypokalemia (Resolved) Rectal cancer (Ruled-out) Intraoperative ureteral injury (Resolved) Nausea and vomiting (Acute) SBO (small bowel obstruction) (Acute) Right hallux ulcer with adjacent foot cellulitis -improving Hallux limitus biomechanical deformity Lower extremity edema Malnutrition suspected Other comorbidities: Myocardial ischemia (66% EF), hyperlipidemia, potential congestive heart failure, history of rectal cancer status post resection, status post colostomy, chronic kidney disease stage III, hypothyroidism, hearing impairment, and suspected cognitive impairment I reviewed and discussed his case. It is noted he is afebrile and his vital signs are stable at this time. He does not have leukocytosis. He continues to improve clinically on oral Augmentin. I recommend changing the dressing daily with hydrogel and to clean the site with saline or soap and water. There is no purulence on expression I do not recommend any type of surgical intervention at this time. I reviewed his x-ray exam which did not demonstrate any soft tissue emphysema, foreign body, fracture, dislocation, evidence of Charcot, or osseous destruction. On the foot AP it is noted there was a comment placed about potential soft tissue changes or emphysema just distal to the distal aspect of the fibula. On personal review I do see that there is a soft tissue density change and this was not noticed on other views. The ankle and hindfoot were also evaluated today and this does not correlate with his clinical presentation. I recommend continued heel weightbearing with surgical shoe on the right foot. To continue with Saulo wrap and elevation to manage lower extremity edema. His DVT screening with Doppler was negative. It is noted he had a recent cardiac catheterization performed earlier today and he is currently under transfusion. From a podiatry standpoint, discharge is okay. To follow-up in the clinical setting within 1 week of discharge. This case was discussed with Dr. Saleem. Kaelyn Will DPM, [facility] [phone]
[2019-09-27] MEDS: Tamsulosin HCl 0.4 MG Capsule PO (17:00)
--- NOTE | 2019-09-27 17:16 | PCM.DC.POD ---
Weight Bearing Status: Partial weight bearing - Heel weightbearing right with surgical shoe and also some Keep extremity elevated above heart level: Right Leg Call your doctor if your incision/area has: Continuous Slow Oozing, Sudden Increased Bleeding, Increased Pain/ Swelling, Increased Redness, Foul Smelling Discharge Call your doctor if you observe: Fever of 101 or Higher, Calf discomfort, Uncontrolled pain Cleanse incision/area with: Soap & Water, - - Change dressing daily with hydrogel and gauze, right hallux Allergies/Adverse Reactions: Allergies No Known Allergies Allergy (Verified 09/25/19 07:03) Medications to take at Discharge Acetaminophen [Tylenol Extra Strength] 650 mg PO PRN PRN 03/09/19 Levothyroxine [Synthroid] 50 mcg PO DAILY 03/09/19 Pravastatin [Pravachol] 40 mg PO QHS 03/09/19 Cyanocobalamin [Vitamin B12] 1,000 mcg IM Q30D 04/06/19 Amox/Clavulanate Tablet [Augmentin Tablet] 1 tab PO TID 09/25/19 Loperamide [Imodium] 2 mg PO Q6H PRN PRN 09/25/19 Ondansetron HCl [Zofran] 8 mg PO DAILY 09/25/19 Aspirin [Aspirin, Baby] 81 mg PO DAILY@0800 tab.chew 09/27/19 Carvedilol [Coreg (Beta Abi)] 3.125 mg PO BID #60 tab 09/27/19 Clopidogrel Bisulfate [Plavix] 75 mg PO DAILY #30 tab 09/27/19 Furosemide [Lasix] 40 mg PO DAILY #30 tab 09/27/19 Isosorbide Mononitrate [Imdur] 30 mg PO DAILY #30 tab 09/27/19 Potassium Chloride 20 meq PO DAILY #60 tablet.er 09/27/19 Tamsulosin HCl [Flomax] 0.4 mg PO DAILY@1730 #30 cap 09/27/19 The following prescriptions were given: Carvedilol [Coreg (Beta Abi)] 3.125 mg PO BID #60 tab Transmission Status: Received by [id number] Tamsulosin HCl [Flomax] 0.4 mg PO DAILY@1730 #30 cap Transmission Status: Received by [facility] 181 Isosorbide Mononitrate [Imdur] 30 mg PO DAILY #30 tab Transmission Status: Received by [facility] Furosemide [Lasix] 40 mg PO DAILY #30 tab Transmission Status: Received by [facility] Clopidogrel Bisulfate [Plavix] 75 mg PO DAILY #30 tab Transmission Status: Received by [facility] Potassium Chloride 20 meq PO DAILY #60 tablet.er Transmission Status: Received by [facility] Primary Care Physician: Bertrand Gardner [Primary Care Provider] - Test Results: Test results from this visit will be discussed in further detail at your follow-up appointment, if applicable. Please Follow Up With: Huber Borrego, TRANSFER TABLE OPERATOR-C Please Follow Up With: Kaelyn Will DPM When: [facility] healing center 1 week. call [facility] if concerns [phone] Proposed Discharge Date: 09/27/19
--- NOTE | 2019-09-27 19:05 | PCM.PROGNOTE ---
Patient Problems: Active and Suspected Problems Localized edema (Acute) Chest pain (Acute) Acute CHF (Acute) Cellulitis of right foot (Acute) 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 (Acute) Subjective: Patient was seen and examined today, I talked extensively with his today as well as cardiology. Patient underwent a cardiac catheterization today which showed coronary artery disease in the LAD and RCA, nonobstructive coronary arteries were noted. Patient's LV function was preserved. Cardiology feels that the patient should not undergo stent placement at this time due to his anemia and the possibility of an undetected GI bleed. Patient will remain on aspirin and Plavix at this time and will be monitored as an outpatient and intervention may be attempted in the near future. I gave the patient 1 unit of packed red blood cells today, I will recheck his H&H tomorrow. Patient's leg edema has pretty much resolved. - Physical Exam Vitals/I&O's: Vital Signs Temp Pulse Resp BP Pulse Ox 97.9 F 74 18 135/69 H 96 09/27/19 18:38 09/27/19 18:38 09/27/19 18:38 09/27/19 18:38 09/27/19 18:38 Oxygen Delivery Method Room Air Weight: 89.2 kg Body Mass Index (BMI) 28.2 Intake and Output for Last 24 Hours 09/25/19 09/26/19 09/27/19 23:59 23:59 23:59 Intake Total 1820 / 1820 770 / 770 2163.75 / 2163.75 Output Total 1775 / 1775 3625 / 3625 2500 / 2500 Balance 45 / 45 -2855 / -2855 -336.25 / -336.25 General: Alert, Oriented x3, Cooperative, No apparent distress, Well developed, - - Patient is extremely hard of hearing HEENT: Atraumatic, PERRLA, EOMI, Normocephalic Oral: Moist Mucosa Neck: Supple, No JVD, Trachea Midline, Thyroid Normal Size and Texture Lungs: Clear to auscultation, Normal air movement, No rhonchi, No wheeze, No rales Cardiovascular: Regular rate, Regular Rhythm, Normal S1, Normal S2, No murmurs, PMI Normal, No rub noted Abdomen: Bowel Sounds Present, Soft, Non Tender, Non-Distended, No hernias noted Extremities: No clubbing, No cyanosis, Capillary Refill Less than 3 Seconds, Edema - Mild trace edema is noted in the lower legs bilaterally Skin: No rashes, Excoriated - There is some excoriation of the proximal great toe on the right on the plantar aspect as noted by podiatry and wound care Musculoskeletal: No Tenderness to Palpation of Joints or Extremities Neurological: Cranial nerves II-XII grossly intact, Neuro grossly intact, Sensory exam intact to light touch and pain Psych/Mental Status: Normal Affect, Appropriate, Alert and oriented to time, place, person, mood and affect Laboratory Results 09/27/19 04:02: WBC 5.9, RBC 2.58 L, Hgb 8.3 L, Hct 25.7 L, MCV 99.6 H, MCH 32.2 H, MCHC 32.3, RDW Std Deviation 57.5 H, RDW Coeff of Aazel 16.0 H, Plt Count 100 L, MPV 9.3 09/27/19 04:02: PT 14.6, INR 1.2 09/27/19 04:02: Sodium 135 L, Potassium 3.1 L, Chloride 102, Carbon Dioxide 25.0, Anion Gap 8, BUN 19 H, Creatinine 1.42 H, Estim Creat Clear Calc 50.80, Est GFR (MDRD) Af Amer 63, Est GFR (MDRD) Non-Af 52 L, BUN/Creatinine Ratio 13.4, Glucose 125 H, Calcium 8.3 L 09/27/19 11:49: Blood Type O POSITIVE, Antibody Screen NEGATIVE, Crossmatch See Detail Current Medications Acetaminophen (Tylenol) 650 mg PO TID PRN PRN PRN Reason: Pain Score 1-1010 Last Admin: 09/26/19 18:48 Dose: 650 mg Documented by: Hydrocodone Bitart/Acetaminophen ([place] 5mg-325mg) 1 - 2 tablet PO Q6H PRN PRN PRN Reason: Pain Score 1-1010 Last Admin: 09/27/19 11:25 Dose: 1 tablet Documented by: Amoxicillin/Clavulanate Potassium (Augmentin Tablet) 500 mg PO BID [facility] Last Admin: 09/27/19 09:18 Dose: 500 mg Documented by: Aspirin (Aspirin, Baby) 81 mg PO DAILY@0800 [facility] Last Admin: 02/25/20 04:57 Dose: 81 mg Documented by: Carvedilol (Coreg) 3.125 mg PO BID [facility] Last Admin: 09/27/19 11:25 Dose: 3.125 mg Documented by: Clopidogrel Bisulfate (Plavix) 75 mg PO DAILY [facility] Last Admin: 09/27/19 04:57 Dose: 75 mg Documented by: Cyanocobalamin (Vitamin B12) 1,000 mcg IM Q30D [facility] Dextrose (D50w Syringe) 0 gm IV X1 PRN; Protocol PRN Reason: Hypoglycemia Furosemide (Lasix) 40 mg PO DAILY [facility] Last Admin: 09/27/19 11:25 Dose: 40 mg Documented by: Glucagon () 1 mg IM .X1 PRN PRN Reason: Hypoglycemia Heparin Sodium (Beef Lung) (Heparin 500 Unit/5 Ml (100/Ml)) 500 unit IV UD PRN PRN Reason: HEPARIN FLUSH Heparin Sodium (Porcine) (Heparin Na) 5,000 unit SC Q8 [facility] Last Admin: 09/27/19 11:28 Dose: Not Given Documented by: Sodium Chloride () 1,000 mls @ 15 mls/hr IV .Q48H [facility] Last Infusion: 09/27/19 15:15 Dose: 0 mls/hr Documented by: Isosorbide Mononitrate (Imdur) 30 mg PO DAILY [facility] Last Admin: 09/27/19 09:22 Dose: 30 mg Documented by: Labetalol HCl (Trandate) 5 mg IV X1 PRN PRN Reason: SBP > 160 prior to sheath pull Stop: 09/29/19 08:18 Levothyroxine Sodium (Synthroid) 50 mcg PO DAILY@0600 [facility] Last Admin: 09/27/19 04:57 Dose: 50 mcg Documented by: Loperamide HCl (Imodium) 2 mg PO Q6H PRN PRN PRN Reason: Diarrhea Nitroglycerin (Nitrostat) 0.4 mg SUBLINGUAL Q5M PRN PRN Reason: CARDIAC/CHEST PAIN Nutritional Formula (Bishop - [place] Flavor) 1 packet PO BIDCM [facility] Last Admin: 09/27/19 17:00 Dose: Not Given Documented by: Ondansetron HCl (Zofran) 8 mg PO DAILY [facility] Last Admin: 09/27/19 09:19 Dose: 8 mg Documented by: Ondansetron HCl (Zofran) 4 mg IV Q8H PRN PRN PRN Reason: NAUSEA/VOMITING Pravastatin Sodium (Pravachol) 40 mg PO QHS [facility] Last Admin: 09/26/19 21:35 Dose: 40 mg Documented by: Sodium Chloride () 10 - 40 ml IV UD PRN PRN Reason: SALINE FLUSH Last Admin: 09/26/19 21:37 Dose: 10 ml Documented by: Tamsulosin HCl (Flomax) 0.4 mg PO DAILY@1730 [facility] Last Admin: 09/27/19 17:00 Dose: 0.4 mg Documented by: Medical Necessity - Tobacco Use Smoking Status: Former smoker Tobacco Use: Non-smoker Assessment/Plan All Active Problems Localized edema (Acute) Chest pain (Acute) Acute CHF (Acute) Cellulitis of right foot (Acute) 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 (Acute) Hypokalemia (Resolved) Rectal cancer (Ruled-out) Intraoperative ureteral injury (Resolved) Nausea and vomiting (Acute) SBO (small bowel obstruction) (Acute) #1 Nonobstructive coronary artery disease-continue present care per cardiology #2 generalized lower extremity edema-pretty much resolved at this time, it may be secondary to venous reasons #3 colon cancer #4 neuropathic ulceration right great toe-continue present care, I discussed the patient's plain x-ray results of his right foot with podiatry today, there was some suggestion that the patient might have an abscess in the lateral aspect of the right ankle, this does not fit with his physical exam and the patient has no complaints of any pain in the right ankle itself. Podiatry does not think that he has an abscess at this time, I canceled the patient's MRI today and I canceled the patient's vancomycin. #5 hyperlipidemia #6 urinary retention-patient is on Flomax and Proscar #7 hard of hearing #8 chronic kidney disease stage III-etiology unclear #9 hypokalemia-patient was given potassium today, recheck BMP in the morning #10 acute on chronic anemia requiring blood transfusion-possibly anemia of chronic disease-due to the patient's complaints of chest discomfort previously, I thought it walker that the patient receive 1 unit of packed red blood cells, I discussed this with cardiology and they concurred. Patient will have a repeat H&H tomorrow. The anemia may be secondary to anemia of chronic disease. Code Visit Inpatient E&M: 06894 Subs Hosp L2
[2019-09-27] MEDS: Pravastatin 40 MG Tablet PO (21:01)
[2019-09-27] MEDS: Heparin Injection (Vial) 5,000 UNIT/ML VIAL 5000 UNIT SC (21:01)
[2019-09-28 03:00] VITALS: BP 133/66; PULSE 61; PULSE 62; RESP 16; TEMP 36.6; O2SAT 97
[2019-09-28] MEDS: Levothyroxine 50 MCG Tablet PO (06:17)
[2019-09-28] MEDS: Heparin Injection (Vial) 5,000 UNIT/ML VIAL 5000 UNIT SC (06:18)
[2019-09-28 06:55] LABS: Hematocrit 29.6 % (40-54); Hemoglobin 9.5 g/dL (13.0-16.5)
[2019-09-28 07:00] VITALS: PULSE 59
[2019-09-28 07:09] LABS: Iron 44 ug/dL (65-175); Iron Binding Capacity,Total 213 ug/dL (250-450); PERCENT IRON SATURATION 20.7 % (15.0-55.0)
--- NOTE | 2019-09-28 09:40 | PCM.PN.CARD ---
Subjectve: Patient feeling better this morning, received 1 unit of PRBCs yesterday and feels much better. No chest pain or anginal symptoms. Hemoglobin increased to 9.5. Objective: Vital Signs Temp Pulse Resp BP Pulse Ox 97.8 F 59 L 16 133/66 H 97 09/28/19 03:00 09/28/19 07:00 09/28/19 03:00 09/28/19 03:00 09/28/19 03:00 Oxygen Delivery Method Room Air Weight: 196 lb 13.965 oz Body Mass Index (BMI) 28.2 Intake and Output for Last 24 Hours 09/26/19 09/27/19 09/28/19 23:59 23:59 23:59 Intake Total 770 / 770 2283.75 / 2283.75 120 / 120 Output Total 3625 / 3625 2900 / 2900 500 / 500 Balance -2855 / -2855 -616.25 / -616.25 -380 / -380 General: Awake, Alert, Oriented x 3 HEENT: PERRL, EOMI, Sclera Non Icteric Neck: Supple, Good ROM, No Lymph Node Enlargement Lungs: Clear to auscultation Cardiovascular: Regular Rhythm, Normal S1, Normal S2, No Murmurs, No Rubs, No Gallops Vascular: No Carotid Bruits, Normal Femoral Pulses, Normal Radial Pulses, Normal Dorsalis Pedal Pulse, Normal Posterior Tibial Pulses Abdomen: Bowel Sounds Present, Soft, Non Tender, No HSM, No Organomegaly Extremities: No Cyanosis, No Clubbing, No edema Neurological: No Focal Motor or Sensory Deficit 09/28/19 06:15: Hgb 9.5 L, Hct 29.6 L 09/28/19 06:15: Iron 44 L, TIBC 213 L, Iron Saturation 20.7 Rhythm: EKG: ECHO: Stress Test: Cardiac Cath: PCI: CT Surgery: Holter monitor: EPS: PPM: CXR: Chest CT Scan: Medical Necessity - Tobacco Use Smoking Status: Former smoker Tobacco Use: Non-smoker Assessment/Plan 1. Abnormal stress test: The patient has several risk factors for coronary occlusive disease including his age, previous smoker who quit around 10 years ago, hypertension, unstable angina, and abnormal stress test for anterior ischemia. Patient underwent diagnostic coronary angiogram on 09/27/2019 which demonstrated probable significant lesion in his mid LAD with mild calcification as well as IV contrast dye induced chest pain when injecting the right coronary artery illuminating a proximal posterior lateral stenosis of about 75 to 80%. Patient will be trialed on dual antiplatelet therapy of aspirin and Plavix for the next 2 to 3 weeks to determine if he is able to tolerate this with respect to his anemia. If he has no significant worsening anemia and no GI bleeding, he will then return in 2 to 3 weeks time for elective angioplasty and stenting using a long 55 cm sheath of his LAD followed by his posterior lateral branch and assuming there is a dye allotment available. Would recommend keeping the patient's hemoglobin above 9.0 as he develops chest pain below 9.0. I discussed the patient's colon issues yesterday with Dr. Kay, and he indicates that no additional chemotherapy is needed at this time. Patient did have plans for a reversal of his colostomy but this will have to wait until after his coronary revascularization takes place. 2. Hyperlipidemia: His LDL is 45 and HDL is 38. Continue Pravachol therapy. 3. Thank you very much for the opportunity to participate in the cardiac care of your patient. Patient may be discharged home and follow-up with Dr. Cohn going forward. Code Visit Inpatient E&M: 18240 Subs Hosp L2
[2019-09-28 09:42] VITALS: BP 143/70; PULSE 78; RESP 14; TEMP 36.6; O2SAT 97
[2019-09-28] MEDS: Isosorbide Mononitrate 30 MG Tablet PO (09:44)
[2019-09-28] MEDS: Furosemide 40 MG Tablet PO (09:44)
[2019-09-28] MEDS: Amox/Clavulanate 500 MG Tablet PO (09:44)
[2019-09-28] MEDS: Carvedilol 3.125 MG TABLET PO (09:44)
[2019-09-28] MEDS: Aspirin 81 MG TAB.CHEW PO (09:44)
[2019-09-28] MEDS: Ondansetron 8 MG Tablet PO (09:45)
[2019-09-28] MEDS: Clopidogrel Bisulfate 75 MG Tablet PO (09:45)
--- NOTE | 2019-09-28 09:46 | NURSING ---
Pt requesting that the ostomy appliance be changed prior to discharge home today. did bring in some of the patient's supplies, but did not bring an appliance. pt prefers a large volume pouch so had to use a smaller flange since that is the only one that the pouch fit on. removed ostomy appliance. stoma is a double barrel stoma and is well budded and dark pink in color. peristomal skin is intact. stoma measures approx 1 1/4 and is slightly oval in shape. cleansed peristomal skin with warm water. pat dry. applied a 2 piece flat [place] appliance with an [employer] ring. reapplied the stoma belt per request. pt tolerated well. denies further needs at this time.
--- NOTE | 2019-09-28 11:57 | PCM.DC ---
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 If pt is able to tolerate DAPT and has no further anemia, would consider PCI to LAD with long sheath, followed by PCI of PL branch of RCA +/- mid RCA if dye alotment not surpassed. 09/27/2019 Chest pain (Acute) Acute CHF (Acute) Right foot ulcer (Chronic) Cellulitis of right foot (Acute) Hallux limitus of right foot (Chronic) 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 (Acute) You will use the following diet at home:: Regular Your food should be the consistency of: Regular Your liquids should be the consistency of: Regular/Thin Discharge Activity: Return to Normal Activity Weight Bearing Status: Partial weight bearing - Heel weightbearing right with surgical shoe and also some Keep extremity elevated above heart level: Right Leg Call your doctor if your incision/area has: Continuous Slow Oozing, Sudden Increased Bleeding, Increased Pain/ Swelling, Increased Redness, Foul Smelling Discharge Call your doctor if you observe: Fever of 101 or Higher, Calf discomfort, Uncontrolled pain Cleanse incision/area with: Soap & Water, - - Change dressing daily with hydrogel and gauze, right hallux Additional Instructions: Take Ferrous sulfate 325 mg twice a day-over the counter Allergies/Adverse Reactions: Allergies No Known Allergies Allergy (Verified 09/25/19 07:03) Medications to take at Discharge Acetaminophen [Tylenol Extra Strength] 650 mg PO PRN PRN 03/09/19 Levothyroxine [Synthroid] 50 mcg PO DAILY 03/09/19 Pravastatin [Pravachol] 40 mg PO QHS 03/09/19 Cyanocobalamin [Vitamin B12] 1,000 mcg IM Q30D 04/06/19 Amox/Clavulanate Tablet [Augmentin Tablet] 1 tab PO TID 09/25/19 Loperamide [Imodium] 2 mg PO Q6H PRN PRN 09/25/19 Ondansetron HCl [Zofran] 8 mg PO DAILY 09/25/19 Aspirin [Aspirin, Baby] 81 mg PO DAILY@0800 tab.chew 09/27/19 Carvedilol [Coreg (Beta Abi)] 3.125 mg PO BID #60 tab 09/27/19 Clopidogrel Bisulfate [Plavix] 75 mg PO DAILY #30 tab 09/27/19 Furosemide [Lasix] 40 mg PO DAILY #30 tab 09/27/19 Isosorbide Mononitrate [Imdur] 30 mg PO DAILY #30 tab 09/27/19 Potassium Chloride 20 meq PO DAILY #60 tablet.er 09/27/19 Tamsulosin HCl [Flomax] 0.4 mg PO DAILY@1730 #30 cap 09/27/19 The following prescriptions were given: Carvedilol [Coreg (Beta Abi)] 3.125 mg PO BID #60 tab Transmission Status[facility] Tamsulosin HCl [Flomax] 0.4 mg PO DAILY@1730 #30 cap Transmission Status: Received by [facility]12 Isosorbide Mononitrate [Imdur] 30 mg PO DAILY #30 tab Transmission Status: Received by [facility] Furosemide [Lasix] 40 mg PO DAILY #30 tab Transmission Status: [facility] Clopidogrel Bisulfate [Plavix] 75 mg PO DAILY #30 tab Transmission Status: [facility] Potassium Chloride 20 meq PO DAILY #60 tablet.er Transmission Status: [facility] Primary Care Physician: Bertrand Gardner [Primary Care Provider] - Please follow up with your Primary Care Physician in: in 2-3 weeks Test Results: Test results from this visit will be discussed in further detail at your follow-up appointment, if applicable. Please Follow Up With: Huber Borrego, AUTOMOTIVE BRAKE ADJUSTERMilliC Please Follow Up With: Kaelyn Will DPM When: [facility]. [facility] if concerns [phone] Proposed Discharge Date: 09/27/19
[2019-09-28 13:42] VITALS: BP 108/55; PULSE 69; RESP 17; TEMP 36.4; O2SAT 94
--- NOTE | 2019-09-28 14:48 | PHA.DC.MC ---
Addendum entered and electronically signed by Samia Shepard 09/28/19 14:53: Pt requested his medications be sent to [facility]. I called them and the will get the prescriptions from [facility]. Original Note: Pharmacy Service has performed discharge medication reconciliation and counseling for this patient. 1. ASPIRIN 81MG PO DAILYCM 2. CLOPIDOGREL 75MG PO DAILY 3. CARVEDILOL 3.125MG PO BID 4. FUROSEMIDE 40MG PO DAILY 5. ISOSORBIDE MONONITRATE 30MG PO DAILY 6. POTASSIUM CHLORIDE 20MEQ PO DAILY 7. TAMSULOSIN 0.4MG PO DAILY The patient's discharge medication list was reviewed for discrepancies and discrepancies were resolved. Home Medications Acetaminophen [Tylenol Extra Strength] 650 mg PO PRN PRN 03/09/19 Levothyroxine [Synthroid] 50 mcg PO DAILY 03/09/19 Pravastatin [Pravachol] 40 mg PO QHS 03/09/19 Cyanocobalamin [Vitamin B12] 1,000 mcg IM Q30D 04/06/19 Amox/Clavulanate Tablet [Augmentin Tablet] 1 tab PO TID 09/25/19 Loperamide [Imodium] 2 mg PO Q6H PRN PRN 09/25/19 Ondansetron HCl [Zofran] 8 mg PO DAILY 09/25/19 Aspirin [Aspirin, Baby] 81 mg PO DAILY@0800 tab.chew 09/27/19 Carvedilol [Coreg (Beta Abi)] 3.125 mg PO BID #60 tab 09/27/19 Clopidogrel Bisulfate [Plavix] 75 mg PO DAILY #30 tab 09/27/19 Furosemide [Lasix] 40 mg PO DAILY #30 tab 09/27/19 Isosorbide Mononitrate [Imdur] 30 mg PO DAILY #30 tab 09/27/19 Potassium Chloride 20 meq PO DAILY #60 tablet.er 09/27/19 Tamsulosin HCl [Flomax] 0.4 mg PO DAILY@1730 #30 cap 09/27/19 The patient was counseled on the following discharge medications and changes in medications for homegoing were reviewed. The Reason for Use, instructions for use, and potential side effects were reviewed for all new medications. The patient's questions regarding all of their medications were answered. The patient demonstrated some understanding but would benefit from further education and reinforcement.
--- NOTE | 2019-10-02 08:35 | PCM.DC.SUM ---
Discharge Date and Diagnosis Date of Admission: 09/25/19 Date of Discharge: 10/27/19 - Primary Discharge Diagnosis #1 Nonobstructive coronary artery disease- #2 generalized lower extremity edema #3 colon cancer #4 neuropathic ulceration right great toe #5 hyperlipidemia #6 urinary retention #7 hard of hearing #8 chronic kidney disease stage III-etiology unclear #9 hypokalemia- #10 acute on chronic anemia requiring blood transfusion- anemia of chronic disease #11 angina - Secondary Discharge Diagnosis Chronic Problems History of left heart catheterization (Chronic 09/27/19) LVEF: by LV gram 60 %; Elevated Left Ventricular End Diastolic Pressure 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 If pt is able to tolerate DAPT and has no further anemia, would consider PCI to LAD with long sheath, followed by PCI of PL branch of RCA +/- mid RCA if dye alotment not surpassed. 09/27/2019 Colon cancer (Chronic) Right foot ulcer (Chronic) Hallux limitus of right foot (Chronic) Constipation (Chronic) Hypothyroidism (Chronic) Depression (Chronic) Hyperlipidemia (Chronic) Hospital Course and Treatment Consultations 09/25/19 12:26 Consult: Onc/Wound/dairy supplies sales representative Routine Comment: Operations: None Procedures: 2-D Echocardiogram, Blood transfusion, Cardiac catheterization, Nuclear stress test Summary of Care Provided: The patient is a 74 year old M who was seen in the emergency room at [facility] with complaints of midsternal chest pain. Work-up in the emergency room included an EKG which showed normal sinus rhythm with a first-degree AV block, chest x-ray showed no acute abnormality, troponin was normal, d-dimer was elevated at 1.49, patient underwent a CT of the chest which showed no PE or dissection. Patient was placed into observation status on PCU, serial cardiac enzymes were normal, patient was seen in consultation by podiatry due to a neuropathic wound on his right toe-patient refused any surgery from podiatry and wound care was carried out instead. Patient underwent a resting nuclear pharmacological stress test which was positive for reversible ischemia, patient then underwent a cardiac catheterization which showed nonobstructive coronary disease, cardiology elected to treat patient medically due to his anemia and concern for bleeding if the patient underwent stents with antiplatelet agents. Patient was noted to be anemic-this was felt to be secondary to anemia of chronic disease-patient was given unit of blood. On 09/28/2019, patient was seen and examined: On examination he appeared in good health and spirits. Vital signs as documented. Skin warm and dry and without overt rashes. Neck without JVD. Lungs clear. Heart exam notable for regular rhythm, normal sounds and absence of murmurs, rubs or gallops. Abdomen unremarkable and without evidence of organomegaly, masses, or abdominal aortic enlargement. Extremities nonedematous. Neuro: Cranial nerves II through XII are grossly intact, no focal motor deficits were noted, sensation to light touch and pinprick intact. Psych: Patient is alert and oriented x3, he does not appear anxious or depressed Patient was discharged home in stable condition on 09/28/2019. - Physical Exam Vitals/I&O's: Vital Signs Temp Pulse Resp BP Pulse Ox 97.6 F L 69 17 108/55 L 94 09/28/19 13:42 09/28/19 13:42 09/28/19 13:42 09/28/19 13:42 09/28/19 13:42 Oxygen Delivery Method Room Air Weight: 89.3 kg Body Mass Index (BMI) 28.2 Discharge Activity: Return to Normal Activity Weight Bearing Status: Partial weight bearing - Heel weightbearing right with surgical shoe and also some Keep extremity elevated above heart level: Right Leg Call your doctor if your incision/area has: Continuous Slow Oozing, Sudden Increased Bleeding, Increased Pain/ Swelling, Increased Redness, Foul Smelling Discharge Call your doctor if you observe: Fever of 101 or Higher, Calf discomfort, Uncontrolled pain Cleanse incision/area with: Soap & Water, - - Change dressing daily with hydrogel and gauze, right hallux Home Medications: Medications to take at Discharge Acetaminophen [Tylenol Extra Strength] 650 mg PO PRN PRN 03/09/19 Levothyroxine [Synthroid] 50 mcg PO DAILY 03/09/19 Pravastatin [Pravachol] 40 mg PO QHS 03/09/19 Cyanocobalamin [Vitamin B12] 1,000 mcg IM Q30D 04/06/19 Amox/Clavulanate Tablet [Augmentin Tablet] 1 tab PO TID 09/25/19 Loperamide [Imodium] 2 mg PO Q6H PRN PRN 09/25/19 Ondansetron HCl [Zofran] 8 mg PO DAILY 09/25/19 Aspirin [Aspirin, Baby] 81 mg PO DAILY@0800 tab.chew 09/27/19 Carvedilol [Coreg (Beta Abi)] 3.125 mg PO BID #60 tab 09/27/19 Clopidogrel Bisulfate [Plavix] 75 mg PO DAILY #30 tab 09/27/19 Furosemide [Lasix] 40 mg PO DAILY #30 tab 09/27/19 Isosorbide Mononitrate [Imdur] 30 mg PO DAILY #30 tab 09/27/19 Potassium Chloride 20 meq PO DAILY #60 tablet.er 09/27/19 Tamsulosin HCl [Flomax] 0.4 mg PO DAILY@1730 #30 cap 09/27/19 Following Prescrptions Were Given to Patient: Carvedilol [Coreg (Beta Abi)] 3.125 mg PO BID #60 tab Transmission Status[facility] Tamsulosin HCl [Flomax] 0.4 mg PO DAILY@1730 #30 cap Transmission Status: Received by [facility] Isosorbide Mononitrate [Imdur] 30 mg PO DAILY #30 tab Transmission Status: Received by [facility] 181 Furosemide [Lasix] 40 mg PO DAILY #30 tab Transmission Status: Received by [facility]12 Clopidogrel Bisulfate [Plavix] 75 mg PO DAILY #30 tab Transmission Status: [facility] Potassium Chloride 20 meq PO DAILY #60 tablet.er Transmission Status: [facility] Primary Care Physician: Bertrand Gardner [Primary Care Provider] - Please follow up with your Primary Care Physician in: in 2-3 weeks Please Follow Up With: Bertrand Gardner When: 2-3 weeks Please Follow Up With: Huber Borrego TRAINING AND DEVELOPMENT ASSISTANT-C Please Follow Up With: Kaelyn Will DPM When: [facility] week. [facility] if concerns [phone] Disposition: Home Minutes spent on discharge:: 30 Patient Condition:: Stable Medical Necessity - Tobacco Use Smoking Status: Former smoker Tobacco Use: Non-smoker Meaningful Use Info Meaningful Use Diagnoses (Choose all that apply): None applicable Code Visit OBSV E&M: 06946 Observation care discharge
== END 2019-09-28 11:58 | disposition home or self-care (01) ==
LOC: ED 07:05 → PCU 10:04
PROVIDERS: Family Medicine; Admitting Provider Internal Medicine; Emergency Provider Emergency Medicine; PCP Internal Medicine; Referring Provider Internal Medicine; Visit Provider Internal Medicine
DX: I25.10 Atherosclerotic heart disease of native coronary artery without angina pectoris (principal); I44.0 Atrioventricular block, first degree; I45.10 Unspecified right bundle-branch block; L03.115 Cellulitis of right lower limb; I13.0 Hypertensive heart and chronic kidney disease with heart failure and stage 1 through stage 4 chronic kidney disease, or unspecified chronic kidney disease; N18.3 Chronic kidney disease, stage 3 (moderate); I50.9 Heart failure, unspecified; M79.89 Other specified soft tissue disorders; R33.9 Retention of urine, unspecified; E03.9 Hypothyroidism, unspecified; E78.5 Hyperlipidemia, unspecified; N40.1 Benign prostatic hyperplasia with lower urinary tract symptoms; N13.8 Other obstructive and reflux uropathy; M20.5X1 Other deformities of toe(s) (acquired), right foot; E87.6 Hypokalemia; R94.39 Abnormal result of other cardiovascular function study; L97.512 Non-pressure chronic ulcer of other part of right foot with fat layer exposed; Z85.038 Personal history of other malignant neoplasm of large intestine; Z79.899 Other long term (current) drug therapy; Z87.891 Personal history of nicotine dependence; I34.0 Nonrheumatic mitral (valve) insufficiency
CPT/HCPCS: 36415; 36430; 71045; 71275; 73630; 78452; 80048; 80053; 80061; 83036; 83540; 83550; 83880; 84484; 85014; 85018; 85025; 85027; 85379; 85610; 86850; 86900; 86901; 86920; 86922; 93005; 93017; 93306; 93458; 93970; 96361; 96365; 96366; 96372; 96375; 96376; 97162; 97166; 99218; 99284; A9500; J7030; J7040; P9016; Q9967; A4216; C1769; C1894; C8929; G0378; J1940; J2785

== ENCOUNTER → 2019-11-16 11:30 | Outpatient (CLI) | payer MEDICARE, SELFPAY ==
[2019-09-25 10:30] VITALS: BMI 28.2
--- NOTE | 2019-10-24 10:18 | HP_ITS ---
HPI HPI History of Present Illness Surgical H&P: Yes Details: This is a 74-year-old male who presents to the office today for a cardiovascular outpatient follow-up. He has a history of coronary artery disease, hyperlipidemia, and rectal cancer status post colostomy and resection. Patient was evaluated at [facility] in September 2019 for midsternal chest pain. He underwent a nuclear stress test on 09/26/2019 that was considered to be abnormal. He underwent a heart catheterization on 09/27/2019 that showed double vessel coronary artery disease of the LAD and PL branch of the RCA. Patient was started on dual antiplatelet therapy and it was recommend he undergo a staged procedure after ensuring tolerating dual antiplatelet therapy. Patient presents today to evaluate tolerating Aspirin and Plavix therapy. He denies chest, arm, jaw, or neck discomfort. His exercise tolerance is stable. He denies symptoms of CHF, palpitations, dizziness, near syncope, or syncopal episodes. He denies edema or claudication issues. He denies orthopnea, PND, fever, chills, blood in urine, blood in stool, myalgia, or unexplainable fatigue. He states lightheadedness with quick position changes. He follows with Garcia Vidal MD, PhD in regards to colorectal surgery. Intake Vital Signs 10/24/19 Height 6 ft 1 in 10/24/19 Weight: 193 lb 10/24/19 BMI 25.4 10/24/19 BP 102/52 L 10/24/19 Blood Pressure Location Lt brachial 10/24/19 Position Sitting 10/24/19 Respiration 18 10/24/19 Pulse 68 10/24/19 Pulse Source Auscultation Intake Visit Reasons: 2-4 WK S/P STAGED PCI Long Distance Operator Required: No Accompanied by: Is patient in pain?: No Allergies No Known Allergies Allergy (Verified 10/24/19 09:02) Medications Acetaminophen [Tylenol Extra Strength] 650 mg PO PRN PRN 03/09/19 [History Confirmed 10/24/19] Levothyroxine [Synthroid] 50 mcg PO DAILY 03/09/19 [History Confirmed 10/24/19] Pravastatin [Pravachol] 40 mg PO QHS 03/09/19 [History Confirmed 10/24/19] Cyanocobalamin [Vitamin B12] 1,000 mcg IM Q30D 09/04/19 [History Confirmed 10/24/19] Loperamide [Imodium] 2 mg PO Q6H PRN PRN 09/25/19 [History Confirmed 10/24/19] Ondansetron HCl [Zofran] 8 mg PO DAILY 09/25/19 [History Confirmed 10/24/19] Aspirin [Aspirin, Baby] 81 mg PO DAILY@0800 tab.chew 09/27/19 [Rx Confirmed 10/24/19] Furosemide [Lasix] 40 mg PO DAILY #30 tab 09/27/19 [Rx Confirmed 10/24/19] Potassium Chloride 20 meq PO DAILY #60 tablet.er 09/27/19 [Rx Confirmed 10/24/19] Tamsulosin HCl [Flomax] 0.4 mg PO DAILY@1730 #30 cap 09/27/19 [Rx Confirmed 10/24/19] carvedilol 3.125 mg tablet 3.125 mg PO BID #180 tab 10/24/19 [Rx Confirmed 10/24/19] clopidogrel 75 mg tablet 75 mg PO DAILY #90 tab 10/24/19 [Rx Confirmed 10/24/19] ferrous sulfate 325 mg (65 mg iron) tablet 325 mg PO BID 10/24/19 [History Confirmed 10/24/19] finasteride 5 mg tablet 5 mg PO DAILY 10/24/19 [History Confirmed 10/24/19] isosorbide mononitrate 30 mg tablet,extended release 24 hr 30 mg PO DAILY #90 tab 10/24/19 [Rx Confirmed 10/24/19] Ejection fraction %: 65 to 70 PFSH Medical History (Updated 10/24/19 @ 09:22 by Huber Borrego NP-C) Acute CHF (Resolved) Colon cancer (Chronic) Constipation (Chronic) Depression (Chronic) Hallux limitus of right foot (Chronic) Hyperlipidemia (Chronic) Hypothyroidism (Chronic) Nausea and vomiting (Chronic) Right foot ulcer (Chronic) Cellulitis of right foot (Resolved) Chest pain (Resolved) 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 (Resolved) Hypokalemia (Resolved) Intraoperative ureteral injury (Resolved) Localized edema (Resolved) SBO (small bowel obstruction) (Resolved) Rectal cancer (Ruled-out) Surgical History (Updated 10/24/19 @ 09:11 by Simran Menendez) History of left heart catheterization (Chronic 09/27/19) History of hernia repair (Chronic) History of ileostomy (Chronic) History of partial colectomy (Chronic) History of ureter repair (Resolved) Family History (Updated 10/24/19 @ 09:12 by Simran Menendez) Other Adopted Social History (Updated 10/24/19 @ 10:18 by AUGUSTIN Bradshaw) Smoking Status: Former smoker how long ago did patient quit smokin years ago alcohol intake: never substance use type: does not use caffeine: Yes Type: coffee Number of servings: 1 ROS Const Const: Negative for fatigue, weakness, headache(s), frequent falls, difficulty sleeping or excessive sweating Eyes Eyes: Negative for loss of peripheral vision, transient loss of vision, blurry vision, double vision or tunnel vision ENT ENT: Negative for headache(s), dizziness, Nosebleed/epistaxis or balance problems Cardio Chest Pain: No Palpitations: No Edema: Bilateral (Occasional mild) Muscle aches with walking: None Resp Respiratory: Negative for SOB with activity, SOB at rest, SOB orthopnea\SOB lying down, Cough or paroxysmal nocturnal dyspnea GI GI: Negative nausea, vomiting, heartburn or black,tarry stools : Negative for hematuria Musc Musc: Positive for muscle weakness; negative for muscle aches/ myalgia, joint pain or balance problems Skin Skin: Negative non-healing lesions, rash or unusual bruising Neuro Neuro: Positive for lightheadedness; negative for dizziness, near syncope, syncope, frequent falls, headache(s), weakness, blurry vision, double vision or lack of coordination Abbe Hematologic/Lymphatic: Negative for easy bleeding or easy bruising Endo Endo: Negative for fatigue, excessive sweating or increased thirst/drinking Psych Psych: Negative for anxiety or depression Allergy Allergy/Immunology: Negative for hives, Negative for rash Cardiology Exam Const Appearance: cooperative, healthy appearing, comfortable and no acute distress Nutritional Appearance: well nourished and overweight Orientation: alert, awake and oriented x3 Head Head: normal to inspection Ears: hearing grossly normal bilaterally Nose: external nose normal Face and Sinus: face symmetric Mouth: oral mucosae normal Eyes General: appearance normal, both eyes and all related structures Eyelids: eyelids normal EOM: EOM intact bilaterally Neck Neck: normal visual inspection and no JVD Carotids: normal carotid upstroke Chest Chest inspection: normal inspection of the chest, symmetric chest movement and normal respiratory effort; negative cough Auscultation: Bilateral: Clear to Auscultation Cardio Rate: regular rate Rhythm: regular rhythm Heart sounds: S1 normal and S2 normal; negative rub, gallop or murmur GI GI: normal to inspection Neuro General: alert, awake, oriented x3 and CN's II-XI intact bilaterally Skin Skin: no rashes or lesions noted Extremities Pulses: Normal: Right Posterior Tibial Pulse, Left Posterior Tibial Pulse, Right Radial Pulse, Left Radial Pulse Lower Extremity Edema: None: Bilateral Psych Psychological: normal affect Assessment & Plan 1. Atherosclerosis of [place] coronary artery of [place] heart without angina pectoris I25.10 Plan Patient underwent heart catheterization on 09/27/2019 that revealed double vessel coronary artery disease of LAD and PL branch of RCA. Mid LAD was noted to have 75% stenosis and PL branch of RCA was noted to have 75% stenosis. Patient did have collateral flow from right to left. He was started on aspirin and Plavix therapy. Due to his underlying anemia, it was recommended to begin therapy and proceed with intervention on a staged basis. Patient's echocardiogram during his hospitalization September 2019 showed a preserved ejection fraction of 65% and stage I diastolic dysfunction. Patient will undergo laboratory evaluation after office visit to assess for stability. He denies any symptoms of bleeding. Based on laboratory testing, further recommendation will be made. Unfortunately, doing to coronavirus concerns, overnight hospitalization, and social distancing , his case will be reviewed with Dr. Chon in regards to changing procedure from 10/26/2019 due to safety concerns. Patient is agreeable to this. His heart catheterization will hopefully take place within the next 30 days. His EKG today in office shows sinus rhythm with a first-degree AV block and incomplete right bundle branch block at a rate of 62 bpm QTC of 389. Orders Orders: Stent Today 12 Lead EKG performed by BMS Today Basic Metabolic Profile (BMP) Today Partial Thromboplast Time Today Prothrombin Time w/INR Today CBC W/Diff, Automated Today 2. Hyperlipidemia, unspecified hyperlipidemia type E78.5 Plan Lipid panel from 09/26/2019 showed cholesterol: 119, HDL: 38, LDL: 45, and triglycerides: 180. At this time, he will continue current statin medication. Orders Orders: Stent Today 12 Lead EKG performed by BMS Today Basic Metabolic Profile (BMP) Today Partial Thromboplast Time Today Prothrombin Time w/INR Today CBC W/Diff, Automated Today Plan Detail Other Orders Orders: 12 Lead EKG performed by BMS Today R07.9, Z98.890 Partial Thromboplast Time Today R07.9 Prothrombin Time w/INR Today R07.9 Other Medications Refilled: carvedilol 3.125 mg PO BID 180 tabs 3RF isosorbide mononitrate ER 30 mg PO DAILY 90 tabs 3RF clopidogrel 75 mg PO DAILY 90 tabs 3RF Additional Comments Thank you for allowing us to participate in the patients plan of care, if you have any questions please do not hesitate to call. This note was generated using a voice recognition system and there may be incorrect words, spelling or punctuation that were not noted when reviewing the office note prior to saving. Coding Level of Care Code Off vis,est,level 3 Diagnoses Atherosclerosis of [place] coronary artery of [place] heart without angina pectoris I25.10 Hyperlipidemia, unspecified hyperlipidemia type E78.5 ??Hyperlipidemia type: unspecified Coding Level of Care Code Off vis,est,level 3 Diagnoses Atherosclerosis of [place] coronary artery of [place] heart without angina pectoris I25.10 Hyperlipidemia, unspecified hyperlipidemia type E78.5 ??Hyperlipidemia type: unspecified Supplemental Info Supplemental Information Heart catheterization from 09/27/2019: CONCLUSIONS Normal LV size, wall motion,and systolic function LVEF: by LV gram 60 % Elevated Left Ventricular End Diastolic Pressure 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 Pt most likely not a surgical candidate due to colon cancer diagnosis. Start Coreg and Imdur for anginal symptoms. If pt is able to tolerate DAPT and has no further anemia, would consider PCI to LAD with long sheath, followed by PCI of PL branch of RCA +/- mid RCA if dye allotment not surpassed. CORONARY ANGIOGRAPHY DOMINANCE: Right Dominant LEFT HEART ASSESSMENT Left Ventricular Ejection Fraction: by LV Gram 60 % Anterior Hypokinesis - Trivial Normal Left Ventricular systolic function LVEDP: 16 mmHg LEFT MAIN: 30 ostial % Stenosis, 30 distal % Stenosis LEFT ANTERIOR DESCENDING ARTERY: PROX LAD: Mild calcification MID LAD: 75 % Stenosis, 75 % Stenosis CIRCUMFLEX ARTERY: PROX CIRC: Mild luminal irregularities less than 30% RIGHT CORONARY ARTERY: MID RCA: Moderate calcification, 60 % Stenosis RT PLV: 75 % Stenosis RT PDA: Ostial - Mild luminal irregularities less than 30% COLLATERAL FLOW: Collateral flow from Right to Left Echocardiogram from 09/25/2019: Interpretation Summary The estimated ejection fraction is 65 %. Stage 1 diastolic dysfunction. The left atrium is mildly enlarged. Trivial mitral valve insufficiency. Unable to estimate RV systolic pressure due to insufficient tricuspid regurgitant envelope. There is no comparison study available. Labs LDL Cholesterol 45 mg/dL (0-130) 09/26/19 HDL Cholesterol 38 mg/dL (40-) L 09/26/19 Triglycerides 180 mg/dL (-199) 09/26/19 VLDL Cholesterol 36 mg/dL (5-40) 09/26/19 Diagnostics Electrocardiogram 09/26/19 Echocardiogram 09/25/19 Stress Test Nuclear Medicine 09/26/19 Stress Test 09/26/19 Cardiac Catheterization 09/27/19 Chest X-Ray 09/25/19 Venous Doppler Study 09/25/19 10/24/19 1019 <Electronically signed by Huber Hogue> Date _ Huber Borrego [employer]-C
[2019-10-24 10:48] LABS: Absolute Lymphocyte Count 1.07 X10^3/uL (0.83-4.51); Absolute Neutrophil Count 4.5 X10^3/uL (2.0-7.7); Basophil# 0.03 X10^3/uL; Basophil% 0.5 % (0-1); Eosinophil# 0.19 X10^3/uL; Hematocrit 31.3 % (40-54); Hemoglobin 10.1 g/dL (13.0-16.5); Lymphocyte # 1.07 X10^3/ul (4.0); Lymphocyte % 17.2 % (19-41); Mean Corp Hgb Conc 32.3 g/dL (32-36); Mean Corpuscular Hgb 31.2 pg (27.0-32.0); Mean Corpuscular Volume 96.6 fL (80-94); Mean Platelet Vol. 9.4 fl (6.2-12.0); Monocyte# 0.37 X10^3/uL; Monocyte% 5.9 % (0-10); NRBC Flagged by Analyzer 0 % (0-5); Neutrophil # 4.54 X10^3/uL (2.7-7.7); Neutrophil % 72.9 % (47-70); Platelet Count 110 K/mm3 (150-450); RBC Distribution Width CV 14.4 % (11.6-14.6); RBC Distribution Width SD 50.4 fl (35.1-43.9); Red Blood Count 3.24 M/mm3 (4.6-6.2); White Blood Count 6.2 K/mm3 (4.4-11.0)
[2019-10-24 11:00] LABS: International Normalized Ratio 1.1; Prothrombin Time (Protime)PT. 13.7 SECONDS (11.7-14.9)
[2019-10-24 11:01] LABS: Partial Thromboplast Time 27.8 Seconds (24.1-36.2)
[2019-10-24 11:17] LABS: Anion Gap 7 (5-15); BUN 30 mg/dL (7-18); BUN/Creat Ratio 17.1 RATIO (10-20); Calcium,Total 8.9 mg/dL (8.5-10.1); Chloride 105 mmol/L (98-107); Creatinine, Serum 1.75 mg/dL (0.70-1.30); EST Glomerular Filtration Rate 41 mL/min (>60); Est Glom Filt Rate - Afr Amer 49 mL/min (>60); Glucose 109 mg/dL (74-106); Potassium 5.2 mmol/L (3.5-5.1); Sodium Level 135 mmol/L (136-145)
== END ==
PROVIDERS: Nurse Practitioner Family; PCP Internal Medicine; Referring Provider Internal Medicine Cardiovascular Disease; Visit Provider Internal Medicine Cardiovascular Disease
DX: I25.10 Atherosclerotic heart disease of native coronary artery without angina pectoris (principal); E78.5 Hyperlipidemia, unspecified; R07.9 Chest pain, unspecified
CPT/HCPCS: 36415; 80048; 85025; 85610; 85730

== ENCOUNTER 2019-12-14 22:19 | Emergency (ER) | payer MEDICARE, SELFPAY ==
[2019-10-24 10:03] VITALS: BMI 28.2
[2019-12-14 22:20] VITALS: BP 153/78; PULSE 68; RESP 18; TEMP 36.4; O2SAT 100; BMI 27.8
--- NOTE | 2019-12-14 23:00 | ED.DCSUM_ITS ---
- ER Visit Summary Date of Service: 12/14/19 Chief Complaint: Ileostomy bag falling off History of Present Illness: The patient is a 74 M who reports that he had an ileostomy performed in December 2018 at the [facility] for rectal cancer. He reports that for the past 3 days he is been having a difficult time getting the back to stick. He denies any pain. He reports that it is draining normally. There is been no blood. Review of systems: General: No fever, chills, cold sweats. Cardiovascular: No chest pain, palpitations. Respiratory: No cough, shortness of breath, dyspnea on exertion. Gastrointestinal: No abdominal pain, nausea, vomiting, diarrhea, melena, or hematochezia. Genitourinary: No dysuria, frequency, hematuria. Skin: No rash. Neuro: No headache, numbness, weakness. Physical Examination: Vitals: Stable. Afebrile. General: Well-nourished and well-developed. Head: Normocephalic atraumatic. Neck: Supple, no lymphadenopathy. No JVD. Nontender. Cardiovascular: Regular rate and rhythm. 2 out of 6 systolic murmur. Respiratory: No respiratory distress. Clear to auscultation bilaterally. Abdominal: Soft, nontender, nondistended, normal bowel sounds. No guarding, rebound, or peritoneal signs. The ileostomy stoma is just inferior and to the right of his umbilicus. There is a larger ileostomy and then a second smaller stoma as well. There is no duskiness. They have normal color. There is no surrounding erythema. There is no induration or fluctuance. Back: Nontender. Extremities: Nontender, no edema. Skin: Normal color, no rash. Neurologic: Alert and oriented ?3. Cranial nerves II through XII are intact. Normal strength and sensation. Psych: Normal affect. Emergency Department Course and Treatment: Patient had adhesive and a new ileostomy bag placed. This has sealed much better. Treatment Plan: Patient will be discharged instructions to contact Dr. Espinoza to see if there is a stoma nurse in [facility] that may be able to help him with this without having to drive back up to [place]. Return to the emergency department for any worsening symptoms. Disposition: To home in improved and stable condition. Impression: 1. Stoma care. This note was generated with Dragon dictation software. It may contain incorrect words, spelling, and punctuation that were not noted in review of the chart prior to signing ED Disposition - Plan for ED Patient: Disposition: Home or Assisted Living Instructions: Ileostomy: Caring For Your Stoma Referrals: Dulce Maria Espinoza MD [STAFF PHYSICIAN] - As soon as possible
== END 2019-12-14 23:17 | disposition home or self-care (01) ==
LOC: ED 23:01
PROVIDERS: Emergency Provider Emergency Medicine; PCP Internal Medicine
DX: Z43.2 Encounter for attention to ileostomy (principal); C20 Malignant neoplasm of rectum; R01.1 Cardiac murmur, unspecified; I25.10 Atherosclerotic heart disease of native coronary artery without angina pectoris; I50.9 Heart failure, unspecified; E78.00 Pure hypercholesterolemia, unspecified; E03.9 Hypothyroidism, unspecified; N40.0 Benign prostatic hyperplasia without lower urinary tract symptoms; F32.9 Major depressive disorder, single episode, unspecified; N18.9 Chronic kidney disease, unspecified; Z87.19 Personal history of other diseases of the digestive system; Z79.82 Long term (current) use of aspirin; Z79.02 Long term (current) use of antithrombotics/antiplatelets; Z79.899 Other long term (current) drug therapy; Z87.891 Personal history of nicotine dependence
CPT/HCPCS: 99282

== ENCOUNTER → 2019-12-16 14:09 | Outpatient (CLI) | payer MEDICARE, SELFPAY ==
[2019-10-24 10:03] VITALS: BMI 28.2
[2019-12-14 22:20] VITALS: BMI 27.8
--- NOTE | 2019-12-16 14:10 | ECHOD_ITS ---
Reason For Study: OTHER, H/O PERICARDIAL EFFUSION Procedure Exam performed in department. Left Ventricle Normal size and thickness. The estimated ejection fraction is 65 %. Stage 1 diastolic dysfunction. No regional wall motion abnormalities noted. Right Ventricle Normal size and thickness. Normal systolic function. Atria The left atrium is mildly enlarged. Normal right atrium. Normal atrial septum. Mitral Valve Mild diffuse mitral valve thickening. Mild mitral annular calcification extending into the posterior leaflet. Trivial mitral valve insufficiency. Tricuspid Valve Normal tricuspid valve. Trivial tricuspid valve insufficiency. Unable to estimate RV systolic pressure due to insufficient tricuspid regurgitant envelope. Aortic Valve Trisinus/trileaflet aortic valve. Mild diffuse aortic valve thickening. There is no aortic stenosis. Pulmonic Valve Normal pulmonic valve. Great Vessels Normal aortic root. Normal arch. Normal inferior vena cava. Inferior vena cava collapse with sniff. Pericardium/Pleural No pericardial effusion. MMode/2D Measurements & Calculations LVIDd: 5.0 cm IVSd: 1.4 cm LA dimension: 5.3 cm LVIDs: 3.4 cm LVPWd: 1.2 cm RVDd: 3.2 cm FS: 32.8 % LAV(MOD-bp): 82.3 ml LA A4 area: 21.5 cm2 RA A4 area: 16.8 cm2 LAV(MOD-bp) Indexed: 37.9 ml/m2 LAV(MOD-sp2): 76.1 ml LAV(MOD-sp4): 68.9 ml Doppler Measurements & Calculations MV E max mesfin: 55.8 cm/sec Lat Peak E' Mesfin: 7.7 cm/sec Med Peak E' Mesfin: 6.7 cm/sec MV A max mesfin: 75.7 cm/sec E/E' lat: 7.2 E/E' med: 8.3 MV E/A: 0.74 Ao V2 max: 149.1 cm/sec LV V1 max: 93.1 cm/sec Ao max P.9 mmHg LV V1 max P.5 mmHg Interpretation Summary The estimated ejection fraction is 65 %. Stage 1 diastolic dysfunction. The left atrium is mildly enlarged. Unable to estimate RV systolic pressure due to insufficient tricuspid regurgitant envelope. In comparison to echo report dated 09/26/2019, no appreciable changes noted. No pericardial effusion noted. Ordering Physician: Bertin Cohn Referring Physician: Bertrand Gardner Performed By: Concepcion Lomas, JIMMY, RVT
== END ==
PROVIDERS: PCP Internal Medicine; Referring Provider Internal Medicine Cardiovascular Disease; Visit Provider Internal Medicine Cardiovascular Disease
DX: I25.10 Atherosclerotic heart disease of native coronary artery without angina pectoris (principal); I31.3 Pericardial effusion (noninflammatory); I50.9 Heart failure, unspecified; Z43.3 Encounter for attention to colostomy; Z85.038 Personal history of other malignant neoplasm of large intestine; Z79.82 Long term (current) use of aspirin; Z79.899 Other long term (current) drug therapy
CPT/HCPCS: 93306; 99282

== ENCOUNTER 2019-12-16 19:37 | Emergency (ER) | payer MEDICARE, SELFPAY ==
[2019-12-16 19:38] VITALS: BP 145/74; PULSE 70; RESP 16; TEMP 36.8; O2SAT 95; BMI 26.9
--- NOTE | 2019-12-16 19:57 | ED.DCSUM_ITS ---
- ER Visit Summary Date of Service: 12/16/19 Chief Complaint: Leaking around his colostomy History of Present Illness: The patient is a 74 M who presents with leaking around his colostomy bag. Patient states that it is leaking into his umbilical area. Patient states he had a similar episode 2 days ago and came here. Patient had a new ostomy bag placed which sealed up the leak. Patient states it started leaking again tonight. Patient denies any fevers or chills. Patient denies any other symptoms. Patient denies any pain. Physical Examination: Vital signs are stable. Patient is afebrile. Patient is in no acute distress. Oral mucosa is pink and moist. Neck is supple. Trachea is midline. There is no JVD. Heart was regular rate and rhythm. Lungs are clear and equal bilaterally. Abdomen is soft. Bowel sounds are normal. There is no tenderness. There is some leaking at the colostomy site near the umbilicus. There is no erythema. There is no warmth. There is no purulent discharge or drainage. Extremities are intact. There is no calf tenderness or edema. Cranial nerves II through XII are intact. There are no focal motor or sensory deficits. Emergency Department Course and Treatment: Colostomy bag was replaced. Patient was instructed to follow-up with his primary care physician and surgeon as scheduled. Patient understood and was agreeable with the plan. All questions were answered. Disposition: Discharge home Impression: Ostomy care This note was generated with [employer] dictation software. It may contain incorrect words, spelling, and punctuation that were not noted in review of the chart prior to signing ED Disposition - Plan for ED Patient: Disposition: Home or Assisted Living Diagnosis: Complication of ostomy Instructions: Colostomy: Caring for Your Stoma Referrals: Bertrand Gardner MD [Primary Care Provider] - 3-5 Days
[2019-12-16 21:36] VITALS: RESP 18
== END 2019-12-16 21:37 | disposition home or self-care (01) ==
PROVIDERS: Emergency Provider Emergency Medicine; PCP Internal Medicine
DX: Z43.3 Encounter for attention to colostomy (principal); I25.10 Atherosclerotic heart disease of native coronary artery without angina pectoris; Z85.038 Personal history of other malignant neoplasm of large intestine; Z79.82 Long term (current) use of aspirin; Z79.899 Other long term (current) drug therapy
CPT/HCPCS: 99282

== ENCOUNTER 2020-01-11 07:13 | Day surgery (SDC) | payer MEDICARE, SELFPAY ==
[2020-01-06 15:04] VITALS: BMI 26.4
[2020-01-10 09:44] VITALS: BMI 26.4
[2020-01-11] VITALS (16 sets, daily range): BP systolic 100–154; BP diastolic 38–86; PULSE 53–64; RESP 13–19; TEMP 36.4; O2SAT 100; BMI 26.4
[2020-01-11 07:29] LABS: Absolute Lymphocyte Count 0.88 X10^3/uL (0.83-4.51); Absolute Neutrophil Count 4.1 X10^3/uL (2.0-7.7); Basophil# 0.02 X10^3/uL; Basophil% 0.4 % (0-1); Eosinophil# 0.13 X10^3/uL; Eosinophils% 2.3 % (0-5); Hematocrit 32.4 % (40-54); Hemoglobin 10.5 g/dL (13.0-16.5); Lymphocyte # 0.88 X10^3/ul (4.0); Lymphocyte % 15.8 % (19-41); Mean Corp Hgb Conc 32.4 g/dL (32-36); Mean Corpuscular Hgb 32.6 pg (27.0-32.0); Mean Corpuscular Volume 100.6 fL (80-94); Mean Platelet Vol. 9.1 fl (6.2-12.0); Monocyte# 0.45 X10^3/uL; Monocyte% 8.1 % (0-10); NRBC Flagged by Analyzer 0 % (0-5); Neutrophil # 4.08 X10^3/uL (2.7-7.7); Platelet Count 100 K/mm3 (150-450); RBC Distribution Width CV 13.1 % (11.6-14.6); RBC Distribution Width SD 47.5 fl (35.1-43.9); Red Blood Count 3.22 M/mm3 (4.6-6.2); White Blood Count 5.6 K/mm3 (4.4-11.0)
[2020-01-11 07:37] LABS: Prothrombin Time (Protime)PT. 12.2 SECONDS (11.7-14.9)
[2020-01-11 07:38] LABS: Partial Thromboplast Time 27.1 Seconds (24.1-36.2)
[2020-01-11 07:39] LABS: Anion Gap 7 (5-15); BUN 26 mg/dL (7-18); BUN/Creat Ratio 16.7 RATIO (10-20); Calcium,Total 8.7 mg/dL (8.5-10.1); Chloride 109 mmol/L (98-107); Creatinine, Serum 1.56 mg/dL (0.70-1.30); EST Glomerular Filtration Rate 46 mL/min (>60); Est Glom Filt Rate - Afr Amer 56 mL/min (>60); Estimated Creatinine Clearance 46.24 ml/min; Glucose 116 mg/dL (74-106); Potassium 4.3 mmol/L (3.5-5.1); Sodium Level 138 mmol/L (136-145)
--- NOTE | 2020-01-11 11:52 | PCM.HP.BLA ---
Problem List (1) Atherosclerosis of [place] coronary artery of [place] heart without angina pectoris Status: Chronic (2) Hyperlipidemia Status: Chronic Qualifiers: (3) Acute CHF Status: Resolved Qualifiers: History and Physical Date of Admission: 01/11/20 [facility] [address] [place] [address] OFFICE VISIT Date of Service: 01/06/20 MR#: [id number] Acct: [id number] Name: HUONG BATES Rep #: [id number] : 1945 Provider: AUGUSTIN Borrego Age/Sex: 74/M Location: [facility] Status: Signed HPI HPI History of Present Illness Surgical H&P: Yes Details: This is a 74-year-old male who presents to the office today for a cardiovascular outpatient follow-up. He has a history of coronary artery disease, hyperlipidemia, and rectal cancer status post colostomy and resection. Patient was evaluated at [facility] in September 2019 for midsternal chest pain. He underwent a nuclear stress test on 09/26/2019 that was considered to be abnormal. He underwent a heart catheterization on 09/27/2019 that showed double vessel coronary artery disease of the LAD and PL branch of the RCA. Patient was started on dual antiplatelet therapy and it was recommend he undergo a staged procedure after ensuring tolerating dual antiplatelet therapy. Patient presents today to evaluate tolerating Aspirin and Plavix therapy. He denies chest, arm, jaw, or neck discomfort. His exercise tolerance is stable. He denies symptoms of CHF, palpitations, dizziness, near syncope, or syncopal episodes. He denies claudication issues. He denies orthopnea, PND, fever, chills, blood in urine, blood in stool, myalgia, or unexplainable fatigue. He states lightheadedness with quick position changes. He states feeling weak in that he can't start the chain saw. He states lower extremity edema with right greater than left. He follows with Garcia Vidal MD, PhD in regards to colorectal surgery. 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 Is patient in pain?: No Allergies No Known Allergies Allergy (Verified 01/06/20 15:05) Medications Acetaminophen [Tylenol Extra Strength] 650 mg PO PRN PRN 03/09/19 [History Confirmed 01/06/20] Levothyroxine [Synthroid] 50 mcg PO DAILY 03/09/19 [History Confirmed 01/06/20] Pravastatin [Pravachol] 40 mg PO QHS 03/09/19 [History Confirmed 01/06/20] Cyanocobalamin [Vitamin B12] 1,000 mcg IM Q30D 04/06/19 [History Confirmed 01/06/20] Loperamide [Imodium] 2 mg PO Q6H PRN PRN 09/25/19 [History Confirmed 01/06/20] Ondansetron HCl [Zofran] 8 mg PO DAILY 09/25/19 [History Confirmed 01/06/20] Aspirin [Aspirin, Baby] 81 mg PO DAILY@0800 tab.chew 09/27/19 [Rx Confirmed 01/06/20] Furosemide [Lasix] 40 mg PO DAILY #30 tab 09/27/19 [Rx Confirmed 01/06/20] Tamsulosin HCl [Flomax] 0.4 mg PO DAILY@1730 #30 cap 09/27/19 [Rx Confirmed 01/06/20] carvedilol 3.125 mg tablet 3.125 mg PO BID #180 tab 10/24/19 [Rx Confirmed 01/06/20] clopidogrel 75 mg tablet 75 mg PO DAILY #90 tab 10/24/19 [Rx Confirmed 01/06/20] ferrous sulfate 325 mg (65 mg iron) tablet 325 mg PO BID 10/24/19 [History Confirmed 01/06/20] finasteride 5 mg tablet 5 mg PO DAILY 10/24/19 [History Confirmed 01/06/20] isosorbide mononitrate 30 mg tablet,extended release 24 hr 30 mg PO DAILY #90 tab 10/24/19 [Rx Confirmed 01/06/20] potassium chloride 10 mEq tablet,extended release 10 meq PO DAILY #60 tab 10/24/19 [Rx Confirmed 01/06/20] [facility] Medical History (Updated 12/17/19 @ 00:00 by Kiera Kilgore) Pericardial effusion (Acute) Hyperlipidemia (Chronic) Atherosclerosis of [place] coronary artery of [place] heart without angina pectoris (Chronic) Acute CHF (Resolved) Colon cancer (Chronic) Constipation (Chronic) Depression (Chronic) Hallux limitus of right foot (Chronic) Hyperlipidemia (Chronic) Hypothyroidism (Chronic) Nausea and vomiting (Chronic) Right foot ulcer (Chronic) Cellulitis of right foot (Resolved) Chest pain (Resolved) 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 (Resolved) Hypokalemia (Resolved) Intraoperative ureteral injury (Resolved) Localized edema (Resolved) SBO (small bowel obstruction) (Resolved) Rectal cancer (Ruled-out) Surgical History (Updated 10/24/19 @ 09:11 by Simran Menendez) History of left heart catheterization (Chronic 09/27/19) History of hernia repair (Chronic) History of ileostomy (Chronic) History of partial colectomy (Chronic) History of ureter repair (Resolved) Social History (Updated 01/06/20 @ 15:51 by Huber Borrego LAUNDRY WASHER-C) Smoking Status: Former smoker how long ago did patient quit smokin years ago alcohol intake: never substance use type: does not use caffeine: Yes Type: coffee Number of servings: 1 ROS Const Const: Positive for weakness; negative for fatigue, headache(s), frequent falls, difficulty sleeping or excessive sweating Eyes Eyes: Negative for loss of peripheral vision, transient loss of vision, blurry vision, double vision or tunnel vision ENT ENT: Negative for headache(s) or balance problems Cardio Chest Pain: No Palpitations: No Edema: Bilateral (Occasional mild; right greater than left) Muscle aches with walking: None Resp Respiratory: Negative for SOB with activity, SOB at rest, SOB orthopnea\SOB lying down, Cough or paroxysmal nocturnal dyspnea GI GI: Negative nausea, vomiting, heartburn or black,tarry stools : Negative for hematuria Musc Musc: Positive for muscle weakness; negative for muscle aches/ myalgia, joint pain or balance problems Skin Skin: Negative non-healing lesions, rash or unusual bruising Neuro Neuro: Positive for weakness; negative for frequent falls, headache(s), blurry vision or double vision Abbe Hematologic/Lymphatic: Negative for easy bleeding or easy bruising Endo Endo: Negative for fatigue or excessive sweating Psych Psych: Negative for anxiety or depression Allergy Allergy/Immunology: Negative for rash Cardiology Exam Const Appearance: cooperative, healthy appearing, comfortable and no acute distress Nutritional Appearance: well nourished and overweight Orientation: alert, awake and oriented x3 Head Head: normal to inspection Ears: hearing grossly normal bilaterally Nose: external nose normal Face and Sinus: face symmetric Mouth: oral mucosae normal Eyes General: appearance normal, both eyes and all related structures Eyelids: eyelids normal EOM: EOM intact bilaterally Neck Neck: normal visual inspection and no JVD Carotids: normal carotid upstroke Chest Chest inspection: normal inspection of the chest, symmetric chest movement and normal respiratory effort; negative cough Auscultation: Bilateral: Clear to Auscultation Cardio Rate: regular rate Rhythm: regular rhythm Heart sounds: S1 normal and S2 normal; negative rub, gallop or murmur GI GI: normal to inspection Neuro General: alert, awake, oriented x3 and CN's II-XI intact bilaterally Skin Skin: no rashes or lesions noted Extremities Pulses: Normal: Right Posterior Tibial Pulse, Left Posterior Tibial Pulse, Right Radial Pulse, Left Radial Pulse Lower Extremity Edema: None: Bilateral Psych Psychological: normal affect Assessment & Plan 1. Atherosclerosis of [place] coronary artery of [place] heart without angina pectoris I25.10 Plan Patient underwent heart catheterization on 09/27/2019 that revealed double vessel coronary artery disease of LAD and PL branch of RCA. Mid LAD was noted to have 75% stenosis and PL branch of RCA was noted to have 75% stenosis. Patient did have collateral flow from right to left. He was started on Aspirin and Plavix therapy. Due to his underlying anemia, it was recommended to begin therapy and proceed with intervention on a staged basis. Patient's echocardiogram during his hospitalization September 2019 showed a preserved ejection fraction of 65% and stage I diastolic dysfunction. His hemoglobin in October 2019 was noted be 10.1, which was improved from previous. He is currently following with Dr. Monson, Oncologist, at [facility]. He will proceed with LHC and stenting unless change in hemoglobin. Hopefully after stenting and cardiac rehab his weakness improved along in conjunction with with improvement in hemoglobin. Orders Orders: 12 Lead EKG performed by [facility] 2. Hyperlipidemia, unspecified hyperlipidemia type E78.5 Plan Lipid panel from 09/26/2019 showed cholesterol: 119, HDL: 38, LDL: 45, and triglycerides: 180. At this time, he will continue current statin medication. Plan Detail Other Orders Orders: 12 Lead EKG performed by [facility] Z98.890 Additional Comments Patient will proceed with heart catheterization with Dr. Cohn on 01/11/2020. He will present at approximately 7:30 AM for 4 hours of hydration prior to heart catheterization. Thank you for allowing us to participate in the patients plan of care, if you have any questions please do not hesitate to call. This note was generated using a voice recognition system and there may be incorrect words, spelling or punctuation that were not noted when reviewing the office note prior to saving. Follow Up 2 Weeks (LAUNDRY WASHER/PA) Coding Level of Care Code Off vis,est,level 3 Diagnoses Atherosclerosis of [place] coronary artery of [place] heart without angina pectoris I25.10 Hyperlipidemia, unspecified hyperlipidemia type E78.5 ??Hyperlipidemia type: unspecified Coding Level of Care Code Off vis,est,level 3 Diagnoses Atherosclerosis of [place] coronary artery of [place] heart without angina pectoris I25.10 Hyperlipidemia, unspecified hyperlipidemia type E78.5 ??Hyperlipidemia type: unspecified Supplemental Info Supplemental Information Heart catheterization from 09/27/2019: CONCLUSIONS Normal LV size, wall motion,and systolic function LVEF: by LV gram 60 % Elevated Left Ventricular End Diastolic Pressure 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 Non obstructive coronary arteries RECOMMENDATIONS Staged percutaneous intervention vs Medical Therapy Manual sheath removal Additional evaluation for anemia; trial of DAPT to determine if pt is able to endure sales contracts analyst DAPT. Pt most likely not a surgical candidate due to colon cancer diagnosis. Start Coreg and Imdur for anginal symptoms. If pt is able to tolerate DAPT and has no further anemia, would consider PCI to LAD with long sheath, followed by PCI of PL branch of RCA +/- mid RCA if dye allotment not surpassed. CORONARY ANGIOGRAPHY DOMINANCE: Right Dominant LEFT HEART ASSESSMENT Left Ventricular Ejection Fraction: by LV Gram 60 % Anterior Hypokinesis - Trivial Normal Left Ventricular systolic function LVEDP: 16 mmHg LEFT MAIN: 30 ostial % Stenosis, 30 distal % Stenosis LEFT ANTERIOR DESCENDING ARTERY: PROX LAD: Mild calcification MID LAD: 75 % Stenosis, 75 % Stenosis CIRCUMFLEX ARTERY: PROX CIRC: Mild luminal irregularities less than 30% RIGHT CORONARY ARTERY: MID RCA: Moderate calcification, 60 % Stenosis RT PLV: 75 % Stenosis RT PDA: Ostial - Mild luminal irregularities less than 30% COLLATERAL FLOW: Collateral flow from Right to Left Echocardiogram from 09/25/2019: Interpretation Summary The estimated ejection fraction is 65 %. Stage 1 diastolic dysfunction. The left atrium is mildly enlarged. Trivial mitral valve insufficiency. Unable to estimate RV systolic pressure due to insufficient tricuspid regurgitant envelope. There is no comparison study available. Labs LDL Cholesterol 45 mg/dL (0-130) 09/26/19 HDL Cholesterol 38 mg/dL (40-) L 09/26/19 Triglycerides 180 mg/dL (-199) 09/26/19 VLDL Cholesterol 36 mg/dL (5-40) 09/26/19 Diagnostics Electrocardiogram 01/06/20 Echocardiogram 12/16/19 Stress Test Nuclear Medicine 09/26/19 Stress Test 09/26/19 Cardiac Catheterization 09/27/19 Chest X-Ray 09/25/19 Venous Doppler Study 09/25/19 01/06/20 [id number] <Electronically signed by Huber RUFFIN> Date Huber RUFFIN Cosigner Signature: Date (if applicable) CC: Dr. Bertrand Gardner MD ~ Interventional cardiology addendum: Patient seen and examined prior to procedure. The risk/benefits of the procedure were thoroughly explained to the patient including specific attention to lack of onsite surgical backup, and the patient agrees to proceed. We will proceed with intervention of his distal right coronary artery/posterior lateral branch and possible mid right coronary artery first. Upon review of the films, the patient has diffuse mild to moderate calcification throughout his LAD system, and would recommend holding on intervention of this vessel unless or until the patient has worsening symptoms.
--- NOTE | 2020-01-11 13:11 | CL.I_ITS ---
Patient Name: HUONG BATES Study Date: 01/11/2020 Performing: Bertin Cohn MD Ht: 73 inches 185 cm : 1945 Wt: 200.9 lbs 91 kg Age: 74 Gender: male BSA: 2.15 PROCEDURE(S) PERFORMED [id number] W OR WO PTCA, SINGLE CORONARY ARTERY [id number] W OR WO PTCA, EACH ADD'L ARTERY, SAME MAJOR CLINICAL PROFILE AND CO-MORBIDITIES Indications: Stable Known CAD Heart Failure: None Stress/Imaging Date: 09/26/2019 Stress Test with SPECT MPI: Indeterminant Angina Classification Anginal Classification w/in 2 Weeks: Anginal Equivalent Dyspnea CAD Presentations: Other: Dyspnea and fatigue Comorbidities/Risk Factors: Hypertension Dyslipidemia CONCLUSIONS Successful PTCA/JANES proximal PL branch with a 2.25 x 24 Promus Synergy, post dilated with a 2.5 x 8 N C Balloon; 85%-->0%, no dissection. Pt had mild angina during balloon inflation. Successful PTCA/JANES mid RCA with a 4.0 x 16 Promus Synergy, post dilated with a 4.0 x 8 NC balloon; 7 5%-->0%, no dissection. RECOMMENDATIONS Highly recommend quitting all tobacco products Follow up with primary wholesaler Risk factor modification ASA Indefinitley Plavix for at least 12 months Routine post interventional care Refer for Outpatient Cardiac Rehab Manual sheath removal per protocol Follow up with Dr. Cohn Successful Mynx Closure of LFA. Medical management of mid and ostial PDA as well as mid LAD unless or until pt has true exertional an ginal symptoms. DESCRIPTION OF PROCEDURE The patient arrived to the procedure lab. The risks and benefits of the procedure as well as a full d escription of our services here and current unavailability of surgical backup were fully explained to the patient and/or their significant other prior to the catheterization. The Timeout was completed, verifying the correct patient and procedure. The patient's procedural site was prepped and draped in the usual fashion. Local anesthetic was given subcutaneously to left groin region with Lidocaine 2%. Using a modified Seldinger technique, arterial access was obtained via the left femoral artery, a 6Fr sheath was inserted.. The images were reviewed and options discussed. A decision was then made to pr oceed with an Intervention, IVUS or other adjunct procedure. AL 1 Guide catheter was inserted and engaged into the RCA. BMW Guide wire was advanced to the RCA . #2 BMW Guide wire was advanced to the Right PDA. 2.0 x 12 Emerge Balloon catheter was inserted. Ba lloon catheter was advanced across lesion in the Prox PL branch proximal PTCA balloon inflated at 6 atms for 14 secs. PTCA balloon inflated at 6 atms for 8 secs. PTCA balloon inflated at 10 atms for 16 secs. 2.25 x 24 Synergy Drug Eluting stent was advanced across the lesion in the Posterior Lateral branch proximal Angiogram performed post stent deployment. 2.5 x 8 NC Emerge Balloon catheter was ins erted post stent. Angiogram performed post balloon dilatation. 2.0 x 12 Emerge Balloon catheter was a dvanced across lesion in the right coronary, mid. PTCA balloon inflated at 8 atms for 10 secs. Angiog sandra performed post balloon dilatation. 4.0 x 16 Synergy Drug Eluting stent was advanced across the [place] in the right coronary, mid. 4.0 x 8 NC Emerge Balloon catheter was inserted post stent. Angiogram performed post balloon dilatation. The arterial sheath was pulled and a Mynx closur e device was deployed for hemostasis INTERVENTION INFORMATION LESION SITE: RPL (1st) Lesion Complexity: High/C, lesion at bifurcation: No, thrombus present: No, lesion length: 24 mm, cul prit lesion: Yes Pre Stenosis: 85 % Pre intervention MATEUS flow: 3 PROCEDURE: Drug Eluting Stent with pre and post dilatation Post Stenosis: 0 % Post intervention MATEUS flow: 3 Lesion Devices: Lemus .014 BMW [place] Straight 190cm Medtronic 6 Fr AL1.0 100cm Guide Catheter Louie Sci EMERGE MR 2.00x12 BALLOON Louie Sci Synergy MR JANES 2.25x24 Louie Sci NC EMERGE MR 2.50x08 BALLOON LESION SITE: RCA (Mid) Lesion Complexity: Non-High/Non-C, lesion at bifurcation: No, thrombus present: No, culprit lesion: N o Pre Stenosis: 75 % Pre intervention MATEUS flow: 3 PROCEDURE: Drug Eluting Stent with pre and post dilatation Post Stenosis: 0 % Post intervention MATEUS flow: 3 Lesion Devices: Medtronic 6 Fr AL1.0 100cm Guide Catheter Lemus .014 BMW [place] Straight 190cm Louie Sci EMERGE MR 2.00x12 BALLOON Louie Sci Synergy MR JANES 4.00x16 Louie Sci NC EMERGE MR 4.00x08 BALLOON COMPLICATIONS No Complications PROCEDURE MEDICATIONS Oxygen: 2 L/min via nasal cannula Heparin 6000 unit(s) IV 01/11/2020 12:09:07 Nitro 200 mcg IC 01/11/2020 12:11:33 Nitro 200 mcg IC 01/11/2020 12:11:33 Nitro 200 mcg IC 01/11/2020 12:20:12 IV Bolus: .9 NaCl 400 ml total 01/11/2020 12:58:58 SUMMARY OF HEMODYNAMIC DATA Time AIR REST ECG 07:57:22 AO 183/68 (111) SA 12:10:25 AO 183/69 (112) 12:10:34 Signed By Bertin Cohn MD On 01/11/2020 13:10:50 Bertin Cohn MD
--- NOTE | 2020-01-11 13:23 | EKG12_ITS ---
Test Reason : POST PCI Blood Pressure : / mmHG Vent. Rate : 047 BPM Atrial Rate : 047 BPM P-R Int : 284 ms QRS Dur : 134 ms QT Int : 454 ms P-R-T Axes : 055 -28 018 degrees QTc Int : 401 ms Marked sinus bradycardia with marked sinus arrhythmia with 1st degree A-V block Right bundle branch block Abnormal ECG Confirmed by ISABEL MARTINEZ, ANDREW ([id number]), editor in chief NANDA HOPKINS ([id number]) on 01/18/2020 1:13:01 PM Referred By: Bertin Cohn Confirmed By:ANDREW HALL MD
[2020-01-11] MEDS: 0.9% Normal Saline 1,000 ML 150 ML IV (13:29)
[2020-01-11] MEDS: Morphine 4 MG/ML Syringe IV (13:41)
[2020-01-11 13:55] LABS: ACT Activated Clotting Time 175 sec (74-137)
--- NOTE | 2020-01-11 14:32 | CRPHASE1_ITS ---
Patient Communication PHII Cardiac Rehab Discussed with Patient:: Yes Guide to Cardiac Rehab Given to Patient:: Yes Cardiac Rehab Facility Choice List Given to Patient:: Yes - pt chooses [facility] Choice Program [facility] CR PHII:: Communication Given to CR, Refer to [facility] Associate Justice:: Bertin Cohn Phase II Cardiac Rehab:: Yes Sessions:: 36 sessions - 3 days/wk, 12 weeks Risk Factors/Lifestyle Hx Dyslipidemia: Yes Height: 6 ft 1 in Weight:: 90.718 kg BMI: 26.4 Family History: Family History (Last Updated 10/24/19 @ 09:12 by Simran Menendez) Other Adopted Issues Affecting Care:: Hearing Knowledge of Condition:: Yes Learning Preferences: Verbal, Written, Audio/Visual, Demonstration Hospital Course Cardiac Cath Date:: 01/11/20 Medical/Surgical History Dyslipidemia:: Yes Cardiac Rehabilitation Info Cardiac Rehabilitation Program Information: Cardiac Rehabilitation is important for patients like you who are recovering from a heart problem. Cardiac rehabilitation programs are recognized as integral to the continued care of the patient with coronary heart disease. The cardiac rehabilitation program is designed to optimize a patient's physical, psychological, and social functioning. Health care mgr work in cardiac rehabilitation programs and assist you with getting the treatments you need to get stronger and healthier - like exercise, healthy eating habits, and medications. Cardiac rehabilitation has been show to help people with heart problems live longer and have better life enjoyment than people who do not go to cardiac rehabilitation. Please contact the Cardiac Rehabilitation Program at [facility] at in two weeks if you have not heard from them.
--- NOTE | 2020-01-11 14:35 | CRPH1.INSTRU ---
General Education CAD and cardiac anatomy and function:: Patient communicates acknowledgment Explanation of diagnoses and procedures:: Patient communicates acknowledgment Sign/Symptoms of [place]:: Patient communicates acknowledgment Antiplatelet therapy: Patient communicates acknowledgment Proper use of NTG-SL: Not instructed Emergency procedures and activation of EMS: Patient communicates acknowledgment Compliance of all prescribed medications: Patient communicates acknowledgment Smoking Nicotine/Smoking Response Code:: Patient communicates acknowledgment Dyslipidemia Dyslipidemia Response Code:: Patient communicates acknowledgment Overweight/Obesity Patient Overweight/Obesity Risk Factors Are:: BMI Normal [24-29 & > 65 years old] Overweight/Obesity:: Patient communicates acknowledgment Hypertension Hypertension:: Patient communicates acknowledgment Heart Disease Heart Disease Response Code:: Patient communicates acknowledgment Diabetes Diabetes:: Patient communicates acknowledgment Metabolic Syndrome Metabolic Syndrome Response Code:: Patient communicates acknowledgment Sedentary Sedentary Response Code:: Patient communicates acknowledgment Stress Stress Response Code:: Patient communicates acknowledgment
[2020-01-11] MEDS: Ferrous Sulfate 325 MG Tablet PO (18:27)
[2020-01-11] MEDS: Tamsulosin HCl 0.4 MG Capsule PO (18:27)
[2020-01-11] MEDS: Carvedilol 3.125 MG TABLET PO (20:22)
[2020-01-11] MEDS: Pravastatin 40 MG Tablet PO (20:22)
[2020-01-12] VITALS (12 sets, daily range): BP systolic 90–147; BP diastolic 41–94; PULSE 54–82; RESP 13–23; TEMP 36.6–36.9; O2SAT 100
[2020-01-12 04:43] LABS: Hematocrit 30.6 % (40-54); Hemoglobin 10.1 g/dL (13.0-16.5); Mean Corpuscular Hgb 32.6 pg (27.0-32.0); Mean Corpuscular Volume 98.7 fL (80-94); Mean Platelet Vol. 9.5 fl (6.2-12.0); POSITIVE COUNT YES; Platelet Count 80 K/mm3 (150-450); RBC Distribution Width CV 13.2 % (11.6-14.6); RBC Distribution Width SD 47.2 fl (35.1-43.9); White Blood Count 5.4 K/mm3 (4.4-11.0)
[2020-01-12 05:02] LABS: ALB/GLOB Ratio 0.7 RATIO (0.9-2.4); AST(SGOT) 21 U/L (15-37); Alanine Aminotransfer ALT/SGPT 23 U/L (16-61); Albumin, Serum 2.6 g/dL (3.2-5.0); Alkaline Phosphatase 99 U/L (45-117); Anion Gap 8 (5-15); BUN 21 mg/dL (7-18); Calcium,Total 8.2 mg/dL (8.5-10.1); Chloride 109 mmol/L (98-107); Creatinine, Serum 1.31 mg/dL (0.70-1.30); EST Glomerular Filtration Rate 57 mL/min (>60); Est Glom Filt Rate - Afr Amer 69 mL/min (>60); Estimated Creatinine Clearance 55.06 ml/min; Globulin 3.6 g/dL (2.2-4.2); Glucose 110 mg/dL (74-106); Potassium 4.2 mmol/L (3.5-5.1); Protein, Total 6.2 g/dL (6.4-8.2); Sodium Level 139 mmol/L (136-145)
--- NOTE | 2020-01-12 08:04 | PCM.DC.CCA ---
Discharge Diet: Low fat/ Low Cholesterol Discharge Activity: Return to Normal Activity May shower in (days): 1 - No tub baths for 5 days May resume sexual activity in: 1-2 weeks Lifting Restrictions: Do not lift anything greater than 10 pounds for 3 days Call your doctor if your incision/area has: Continuous Slow Oozing, Sudden Increased Bleeding, Increased Pain/ Swelling, Increased Redness, Foul Smelling Discharge, Swelling at the incision site Call your doctor if you observe: Fever of 101 or Higher, Shortness of breath, Chest pain Remove Dressing in (days):: 1 Cleanse incision/area with: Soap & Water Additional Instructions: You will continue with Aspirin and Plavix therapy. He will remain on Plavix for at least 1 year consistently. If anyone asks you to stop your Plavix, please call the [facility] at [phone]. Please continue to monitor for signs of bleeding. It is prudent to continue to have your hemoglobin and platelet count monitored routinely to ensure stability with Plavix therapy. Please continue to follow with Oncologist, Dr. Monson. You are scheduled for an office appointment to evaluate overall progress on 01/25/2020 at 11 AM with Huber Nagel Nurse Practitioner. If you have any questions or concerns please call the [facility] Office at [phone]. Allergies/Adverse Reactions: Allergies No Known Allergies Allergy (Verified 01/06/20 15:05) Medications to take at Discharge Acetaminophen [Tylenol Extra Strength] 650 mg PO PRN PRN 03/09/19 Levothyroxine [Synthroid] 50 mcg PO DAILY 03/09/19 Pravastatin [Pravachol] 40 mg PO QHS 03/09/19 Cyanocobalamin [Vitamin B12] 1,000 mcg IM Q30D 04/06/19 Loperamide [Imodium] 2 mg PO Q6H PRN PRN 09/25/19 Ondansetron HCl [Zofran] 8 mg PO DAILY 09/25/19 Aspirin [Aspirin, Baby] 81 mg PO DAILY@0800 tab.chew 09/27/19 Furosemide [Lasix] 40 mg PO DAILY #30 tab 09/27/19 Tamsulosin HCl [Flomax] 0.4 mg PO DAILY@1730 #30 cap 09/27/19 carvedilol 3.125 mg tablet 3.125 mg PO BID #180 tab 10/24/19 clopidogrel 75 mg tablet 75 mg PO DAILY #90 tab 10/24/19 ferrous sulfate 325 mg (65 mg iron) tablet 325 mg PO BID 10/24/19 finasteride 5 mg tablet 5 mg PO DAILY 10/24/19 isosorbide mononitrate 30 mg tablet,extended release 24 hr 30 mg PO DAILY #90 tab 10/24/19 potassium chloride 10 mEq tablet,extended release 10 meq PO DAILY #60 tab 10/24/19 Primary Care Physician: Bertrand Gardner MD [Primary Care Provider] - Test Results: Test results from this visit will be discussed in further detail at your follow-up appointment, if applicable. Please Follow Up With: Huber Borrego When: 01/25/2020 at 11:00 AM Proposed Discharge Date: 01/12/20 Cardiac Rehabilitation Info Cardiac Rehabilitation Program Information: Cardiac Rehabilitation is important for patients like you who are recovering from a heart problem. Cardiac rehabilitation programs are recognized as integral to the continued care of the patient with coronary heart disease. The cardiac rehabilitation program is designed to optimize a patient's physical, psychological, and social functioning. Health caregiver services home work in cardiac rehabilitation programs and assist you with getting the treatments you need to get stronger and healthier - like exercise, healthy eating habits, and medications. Cardiac rehabilitation has been show to help people with heart problems live longer and have better life enjoyment than people who do not go to cardiac rehabilitation. Please contact the Cardiac Rehabilitation Program at [facility] at in two weeks if you have not heard from them.
--- NOTE | 2020-01-12 08:11 | PCM.PN.BLA ---
Progress Note Aspirin at discharge? Yes, 81 mg p.o. daily Antiplatelet therapy at discharge? Yes, Plavix 75 mg p.o. daily GINA/ARB at discharge? No, chronic kidney disease Statin at discharge? Yes, pravastatin 40 mg p.o. daily Beta-rehana at discharge? Yes, carvedilol 3.125 mg p.o. twice daily STROKE Vital Signs/Narrative: Vital Signs Pulse Resp BP Pulse Ox 01/12/20 06:00 54 L 14 137/68 H 100 01/12/20 05:00 59 L 16 139/94 H 100
--- NOTE | 2020-01-12 09:09 | PN.CARD_ITS ---
Subjectve: Patient doing very well this morning, and feels much better. No 24-hour events. Telemetry negative. EKG shows normal sinus rhythm with first-degree AV block, right bundle branch block, no acute changes. Hemoglobin and creatinine are within nominal limits. Objective: Vital Signs Temp Pulse Resp BP Pulse Ox 98 F 54 L 14 137/68 H 100 01/12/20 04:00 01/12/20 06:00 01/12/20 06:00 01/12/20 06:00 01/12/20 06:00 Oxygen Flow Rate (L/min) 2 Oxygen Delivery Method Room Air Weight: 201 lb 11.567 oz Body Mass Index (BMI) 26.4 Intake and Output for Last 24 Hours 01/10/20 01/11/20 01/12/20 23:59 23:59 23:59 Intake Total 2215 / 2215 60 / 60 Output Total 750 / 750 450 / 450 Balance 1465 / 1465 -390 / -390 General: Awake, Alert, Oriented x 3 HEENT: PERRL, EOMI, Sclera Non Icteric Neck: Supple, Good ROM, No Lymph Node Enlargement Lungs: Clear to auscultation Cardiovascular: Regular Rhythm, Normal S1, Normal S2, No Murmurs, No Rubs, No Gallops Vascular: No Carotid Bruits, Normal Femoral Pulses, Normal Radial Pulses, Normal Dorsalis Pedal Pulse, Normal Posterior Tibial Pulses Abdomen: Bowel Sounds Present, Soft, Non Tender, No HSM, No Organomegaly Extremities: No Cyanosis, No Clubbing, No edema Neurological: No Focal Motor or Sensory Deficit 01/12/20 04:35: WBC 5.4, RBC 3.10 L, Hgb 10.1 L, Hct 30.6 L, MCV 98.7 H, MCH 32.6 H, MCHC 33.0, Plt Count 80 L, MPV 9.5 01/12/20 04:35: Sodium 139, Potassium 4.2, Chloride 109 H, Carbon Dioxide 22.0, Anion Gap 8, BUN 21 H, Creatinine 1.31 H, Est GFR (MDRD) Af Amer 69, Est GFR (MDRD) Non-Af 57 L, BUN/Creatinine Ratio 16.0, Glucose 110 H, Calcium 8.2 L, Total Bilirubin 0.30 Rhythm: EKG: ECHO: Stress Test: Cardiac Cath: PCI: CT Surgery: Holter monitor: EPS: PPM: CXR: Chest CT Scan: Medical Necessity - Tobacco Use Smoking Status: Former smoker Assessment/Plan 1. Coronary artery disease: Patient has chronic renal insufficiency, and no anginal symptoms. He underwent elective angioplasty and stenting of his posterior lateral branch and mid RCA with an excellent result. We left his LAD and PDA for medical management at this time given his lack of overt anginal symptoms. His main issues was dyspnea on exertion, and the patient reports this morning that he feels much better after his angioplasty. The patient will continue his baby aspirin, Plavix, antihypertensive medications, Imdur, Coreg, and Lasix. He will be enrolled in cardiac rehab. If the patient has no overt symptoms subsequent to this, he may require elective intervention of his LAD going forward. 2. Hyperlipidemia: Continue Pravachol. 3. Patient will be discharged home and follow-up with Dr. Cohn going forward. Inpatient E&M: [id number] [facility] Hosp L2
[2020-01-12] MEDS: Ferrous Sulfate 325 MG Tablet PO (09:23)
[2020-01-12] MEDS: Aspirin 81 MG TAB.CHEW PO (09:23)
[2020-01-12] MEDS: Isosorbide Mononitrate 30 MG Tablet PO (09:24)
[2020-01-12] MEDS: Furosemide 40 MG Tablet PO (09:24)
[2020-01-12] MEDS: Clopidogrel Bisulfate 75 MG Tablet PO (09:24)
[2020-01-12] MEDS: Carvedilol 3.125 MG TABLET PO (09:24)
[2020-01-12] MEDS: Finasteride 5 MG Tablet PO (09:25)
[2020-01-12] MEDS: Ondansetron 8 MG Tablet PO (09:25)
--- NOTE | 2020-01-12 09:44 | NURSING ---
0945 Dr. Mcdaniels present, begin TDC placement HR 108 R 16 BP 147/97 SpO2 100 0950 HR 111 R 16 BP 134/105 SpO2 100 0955 HR 106 R 16 BP 139/91 SpO2 100 1000 HR 107 R 16 BP 135/86 SpO2 100 TDC placed RIJ
--- NOTE | 2020-01-12 10:00 | EKG12_ITS ---
Test Reason : AM EKG Blood Pressure : / mmHG Vent. Rate : 057 BPM Atrial Rate : 057 BPM P-R Int : 272 ms QRS Dur : 132 ms QT Int : 440 ms P-R-T Axes : 005 -33 001 degrees QTc Int : 428 ms Sinus bradycardia with 1st degree A-V block Left axis deviation Right bundle branch block Abnormal ECG Confirmed by ISABEL MARTINEZ, ANDREW ([id number]), purchasing expeditor NANDA HOPKINS ([id number]) on 01/18/2020 1:17:27 PM Referred By: Bertin Cohn Confirmed By:ANDREW HALL MD
== END 2020-01-12 11:35 | disposition home or self-care (01) ==
LOC: CLSP 07:16 → ICU 01-12 07:42
PROVIDERS: Nurse Practitioner Family; PCP Internal Medicine; Referring Provider Internal Medicine Cardiovascular Disease; Visit Provider Internal Medicine Cardiovascular Disease
DX: I25.10 Atherosclerotic heart disease of native coronary artery without angina pectoris (principal); E78.5 Hyperlipidemia, unspecified; F32.9 Major depressive disorder, single episode, unspecified; E03.9 Hypothyroidism, unspecified; N18.9 Chronic kidney disease, unspecified; Z87.891 Personal history of nicotine dependence; Z79.82 Long term (current) use of aspirin; Z79.899 Other long term (current) drug therapy
CPT/HCPCS: 36415; 80048; 80053; 85025; 85027; 85347; 85610; 85730; 92928; 92929; 93005; C1760; J7030; J7040; Q9967; C1725; C1769; C1874; C1887; C1894; C9600; C9601

== ENCOUNTER → 2021-01-29 06:56 | Outpatient (CLI) | payer MEDICARE, SELFPAY ==
[2020-01-11 14:34] VITALS: BMI 26.4
[2021-01-07 13:47] VITALS: BMI 30.5
--- NOTE | 2021-01-29 08:41 | STRESSREP ---
Stress Test Report Date: 01-29-2021 Procedure: Pharmacologic stress nuclear imaging study Indications: CAD; CHF; preoperative cardiovascular evaluation Consent: Per the patient Procedure: The patient underwent pharmacologic (Regadenoson 0.4mg ) evaluation with a peak heart rate of 67 beats per minute (46%predicted maximal heart rate) and a peak blood pressure of 162/94 mmHg. The baseline ECG demonstrated sinus bradycardia; right bundle branch block. The peak pharmacologic ECG demonstrated no obvious ECG changes. There was an isolated PVC pretest and during recovery. There was no complaint of chest discomfort during pharmacologic infusion or recovery. The examination was discontinued secondary to completion of protocol. Impression: 1. Pharmacologic (Regadenoson) evaluation 2. Peak pharmacologic ECG with continued sinus rhythm with a right bundle branch block pattern with no obvious ECG changes. 3. There was an isolated PVC pretest and during recovery. 4. Nuclear images pending Myocardial perfusion imaging study: Technique: The patient was injected with 14.5 millicuries of technetium 99m Cardiolite and subsequently rest SPECT Cardiolite nuclear imaging was obtained in the horizontal long, vertical long, and short axis views. The patient underwent pharmacologic (Regadenoson) evaluation with a peak heart rate of 67 beats per minute (46% percent predicted maximal heart rate) and a peak blood pressure of 162/94 mmHg. The patient was injected with 44.5 millicuries of technetium 99m Cardiolite and subsequently stress SPECT Cardiolite nuclear imaging was obtained in the horizontal long, vertical long, and short axis views. A gated Cardiolite study at peak stress was obtained. Interpretation: Rest and stress SPECT Cardiolite nuclear imaging status post realignment, normalization, and attenuation correction demonstrate relative uniform tracer uptake and myocardial perfusion appearing within normal limits. There is end systolic thickening and brightening. The gated Cardiolite study demonstrates myocardial thickening and inward wall motion. The reported LVEF is 57%. Impression: 1. Rest and stress SPECT Cardiolite nuclear imaging demonstrate relative uniform tracer uptake and myocardial perfusion appearing within normal limits. 2. The gated Cardiolite study reports an LVEF of 57%. This note was generated with [employer] software. It may contain incorrect words, spelling, and punctuation that were not noted in checking the note before signing.
--- NOTE | 2021-01-29 08:44 | STRESSREP_ITS ---
Stress Test Report Date: 01-29-2021 Procedure: Exercise tolerance test/imaging study Indications: Abnormal ECG; shortness of breath/dyspnea with exertion Consent: Per the patient Procedure: The patient exercised on a Andrea protocol for 7 minutes and 31 seconds completing Stage II and 1 minute and 31 seconds of Stage III achieving a peak heart rate of 137 bpm (91% predicted maximal heart rate) with a peak blood pressure 170/80 mmHg and a peak MET capacity of 9 METs. The baseline ECG demonstrated sinus rhythm. The peak exercise ECG demonstrated no obvious ECG changes. There was a rare PVC during exercise and a rare PAC during recovery. The functional capacity was considered good. There was no complaint of chest discomfort during exercise or recovery. The examination was discontinued secondary to dyspnea and hip discomfort. Impression: 1. Technically adequate (percent predicted maximal heart rate greater than 85%) exercise tolerance test 2. Peak exercise ECG demonstrated no obvious ECG changes 3. There was a rare PVC during exercise and a rare PAC during recovery 4. Nuclear images pending Myocardial perfusion imaging study: Technique: The patient was injected with 14.5 mCi of technetium 99m Cardiolite and subsequently rest SPECT Cardiolite nuclear imaging was obtained in the horizontal long, vertical long, and short axis views. The patient exercised on a Andrea protocol for 7 minutes and 31 seconds completing Stage II and 1 minute and 31 seconds of Stage III achieving a peak heart rate of 137 bpm (91% predicted maximal heart rate) with a peak blood pressure 170/80 mmHg and a peak MET capacity of 9 METs. The patient was injected with 44.5 mCi of technetium 99m Cardiolite and subsequently stress SPECT Cardiolite nuclear imaging was obtained in the horizontal long, vertical long, and short axis views. A gated Cardiolite study at peak stress was obtained. Interpretation: Rest and stress SPECT Cardiolite nuclear imaging status post realignment, normalization, and attenuation correction, demonstrates the appearance of relative uniform tracer uptake and myocardial perfusion appearing within normal limits. There is end systolic thickening and brightening. The gated Cardiolite study demonstrates myocardial thickening and inward wall motion. The reported LVEF is 57%. Impression: 1. Rest and stress SPECT Cardiolite nuclear imaging demonstrate relative uniform tracer uptake and myocardial perfusion appearing within normal limits. 2. The gated Cardiolite study reports an LVEF of 57%. This note was generated with [employer] software. It may contain incorrect words, spelling, and punctuation that were not noted in checking the note before signing.
== END ==
PROVIDERS: PCP Internal Medicine; Referring Provider Internal Medicine Cardiovascular Disease; Visit Provider Internal Medicine Cardiovascular Disease
DX: Z95.5 Presence of coronary angioplasty implant and graft (principal)
CPT/HCPCS: 78452; 93017; A9500; A4216; J2785

== ENCOUNTER 2022-05-02 09:41 | Emergency (ER) | payer MEDICARE, SELFPAY ==
[2020-01-11 14:34] VITALS: BMI 26.4
[2022-05-02 09:43] VITALS: BP 199/96; PULSE 70; RESP 16; TEMP 36.7; O2SAT 100; BMI 29.7
[2022-05-02 10:02] VITALS: BP 187/88; PULSE 70; RESP 27; O2SAT 98
--- NOTE | 2022-05-02 10:26 | EX.ED.DYSGE1 ---
HPI History of Present Illness Chief Complaint: Hypertension Informant: patient and spouse/S.O. Onset/Context/Timing Onset: Today Current Severity: Mild Maximum Severity: Mild Narrative Narrative: 76-year-old male history of CHF, CAD, hypertension for which he was recently restarted on lisinopril. History of colon cancer with resection and a colostomy bag. Today his blood pressure was elevated 214/111 at home and then 216/93. They called his primary care physician's office and 1 evaluated. Last night he has had some nausea and vomiting about 5 times total that is since resolved. He denies any headache, chest pain or shortness of breath. He denies any fever or dysuria. He denies any abdominal pain. 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 Colon cancer Constipation Depression Hallux limitus of right foot Hyperlipidemia Hyperlipidemia Hypokalemia Hypothyroidism Intraoperative ureteral injury Localized edema Nausea and vomiting Pericardial effusion Rectal cancer Right foot ulcer SBO (small bowel obstruction) Home Medications acetaminophen 500 mg tablet 650 mg PO PRN PRN Pain 03/09/19 [History Last Taken Unknown] levothyroxine 50 mcg tablet 50 mcg PO DAILY thyroid 03/09/19 [History Last Taken 01/11/20] pravastatin 40 mg tablet 40 mg PO QHS cholesterol 03/09/19 [History Last Taken Unknown] cyanocobalamin (vitamin B-12) 1,000 mcg/mL injection solution 1,000 mcg IM Q30D vitamin 04/06/19 [History Last Taken Unknown] ondansetron HCl 8 mg tablet 8 mg PO DAILY nausea 09/25/19 [History Last Taken Unknown] aspirin 81 mg chewable tablet 81 mg PO DAILY@0800 09/27/19 [Rx Last Taken 01/11/20] furosemide 40 mg tablet 40 mg PO DAILY #30 tabs 09/27/19 [Rx Last Taken Unknown] tamsulosin 0.4 mg capsule 0.4 mg PO DAILY@1730 #30 caps 09/27/19 [Rx Last Taken Unknown] carvedilol 3.125 mg tablet 3.125 mg PO BID #180 tabs 10/24/19 [Rx Last Taken 01/11/20] ferrous sulfate 325 mg (65 mg iron) tablet 325 mg PO BID 10/24/19 [History Last Taken Unknown] finasteride 5 mg tablet 5 mg PO DAILY 10/24/19 [History Last Taken Unknown] isosorbide mononitrate 30 mg tablet,extended release 24 hr 30 mg PO DAILY #90 tabs 10/24/19 [Rx Last Taken 01/11/20] potassium chloride 10 mEq tablet,extended release 10 meq PO DAILY #60 tabs 10/24/19 [Rx Last Taken Unknown] ascorbic acid (vitamin C) 1,000 mg tablet 1 g PO DAILY 01/07/21 [History Last Taken Unknown] cholecalciferol (vitamin D3) 125 mcg (5,000 unit) tablet 125 mcg PO DAILY 01/07/21 [History Last Taken Unknown] nystatin 100,000 unit/gram topical powder 1 applic topical DAILY 08/22/21 [History Last Taken Unknown] Allergy/AdvReac Type Severity Reaction Status Date / Time No Known Allergies Allergy Verified 05/02/22 09:42 Family History Other Adopted Surgical History History of hernia repair History of ileostomy History of left heart catheterization (09/27/19) History of partial colectomy History of ureter repair Stented coronary artery (01/11/20) Social History Smoking Status: Former smoker how long ago did patient quit smokin years ago alcohol intake: never substance use type: does not use caffeine: Yes Type: coffee Number of servings: 1 ROS ROS ED ROS Narrative Nausea and vomiting. Review of Systems ROS Unobtainable: Denies due to encephalopathy Constitutional Constitutional ED: Denies chills Eyes Eyes: Denies blurry vision ENT ENT ED: Denies ear pain Cardiovascular Cardiovascular: Denies chest pain Respiratory/Chest Respiratory/Chest: Denies cough Gastrointestinal Gastrointestinal: Reports nausea and vomiting; Denies abdominal pain, constipation, diarrhea or melena Genitourinary Genitourinary ED: Denies dysuria Musculoskeletal Musculoskeletal: Denies arthralgias Integumentary Denies abscess Neurologic Neurologic: Denies headache(s) Psychiatric Psychiatric: Denies anxiety Endocrine Endocrinology: Denies cold intolerance Hematologic/Lymphatic Hematologic/Lymphatic: Reports none; Denies easy bruising Allergic/Immunologic Allergic/Immunologic ED: Denies mouth swelling EXAM Physical Exam Narrative Exam Narrative: 76 male no acute distress vital signs stable afebrile. Currently his blood pressure 187/88. Pulse ox 90% on room air. States he is feeling better. His nausea is resolved. Denies any headache or chest pain. at bedside. H EENT exam unremarkable atraumatic. Pupils round reactive light. No facial droop. Normal speech. Neck nontender. Lungs clear to auscultation bilaterally. Heart regular rate and rhythm rate about 70. Chest were nontender. Abdomen soft nontender. Moving all 4 extremities. Normal motor strength. 5-5 guard museum. Dorsi plantarflexion intact. Back nontender. Neurologically is awake and alert with no focal motor deficits. Answering questions following commands. Const Vital Signs: 05/02/22 09:43 05/02/22 10:02 05/02/22 10:02 Temperature 98.0 F Temperature Source Temporal Pulse Rate 70 70 Respiratory Rate 16 27 H Respiratory Effort Normal Non-Labored Respiratory Pattern Tachypnea Blood Pressure 199/96 H 187/88 H Blood Pressure Mean 130 121 Pulse Ox 100 98 Oxygen Delivery Method Room Air Room Air 05/02/22 10:32 05/02/22 11:33 Temperature Temperature Source Pulse Rate 76 74 Respiratory Rate 27 H 21 H Respiratory Effort Respiratory Pattern Blood Pressure 189/74 H 204/98 H Blood Pressure Mean 112 133 Pulse Ox 97 98 Oxygen Delivery Method Room Air Room Air Positive well nourished, well developed and unkempt; Negative for obese, cachectic or contractures General Appearance ED: unkempt, well developed and NAD; Negative for cachectic, contractures, cyanotic or diaphoretic Nutritional Appearance: Negative for cachectic or obese HEENT Reports moist mucous membranes; Denies dry mucous membranes Negative for trauma or tenderness Mouth ED: No dry mucous membranes Mouth: No dry mucous membranes Eyes PERRL and EOMs intact bilaterally General Eye ED: Negative for pale conjunctiva or scleral icterus Neck no lymphadenopathy, supple and no JVD General: Negative for tenderness Chest Wall inspection of chest normal and palpation of chest normal Chest: Negative for other Resp normal respiratory effort and clear to auscultation bilaterally Effort and Inspection: Negative for retractions or pain with movement Auscultation: Negative for rales, rhonchi or wheezes Cardio regular rate, regular rhythm, S1 normal heart sound, S2 normal heart sound and no murmurs Palpation: Negative for palpable S3 Rate: Negative for bradycardia Rhythm: Negative for abnormal rhythm GI normal to inspection, nondistended, normoactive bowel sounds, non-tender, non-distended and no masses; Negative for hepatosplenomegaly Inspection: Negative for abdominal distention Auscultation: normoactive bowel sounds Palpation: soft; Negative for tender, guarding, mass or rebound tenderness present Back/Spine no CVA tenderness General Back: Negative for CVA tenderness Cervical Spine: Negative for cervical spine tenderness Thoracic Spine / Upper Back: Negative for thoracic spinal tenderness Lumbar Spine / Lower Back: Negative for lumbar spinal tenderness Extremity normal to inspection General Extremety ED: Negative for edema or tenderness General Extremity: Negative for edema Neuro oriented x3, CN's II-XII intact bilaterally and no sensory deficits noted Sensorium / Orientation: alert; Negative for orientation impaired or lethargic Sensory Exam: No sensory level loss detected Motor Exam: strength 5/5 throughout Psych mental status grossly normal Appearance: unkempt Attitude: No agitated Mood & Affect: Negative for depressed or anxious Skin no rashes or lesions noted and no wounds General Skin Exam: Negative for elasticity normal Lesions: No lesion noted Rashes: No rashes noted Trauma: Negative for abrasion Wounds: Negative for wounds noted MDM MDM MDM Narrative Medical decision making narrative: 76-year-old male had nausea and vomiting last night and today. Feeling better. Blood pressure was elevated they called her primary care physician when it evaluated. Denies any complaints currently. His exam is benign. He will be reassessed. Patient doing well at 12:35 PM. He is resting comfortably. To be discharged home. Use his home blood pressure medications. Log his blood pressure daily and follow-up with his primary care physician. Lab Data Attestation: I reviewed the patient's lab results. Lab results narrative: CBC White count 8.9. H&H 13.3 and 39. Platelets are low at 100,000. Electrolytes show a gap of 6 BUN and creatinine are 15 and 1.32. Glucose 129. Compared to prior labs to the patient's baseline. Labs: Laboratory Results - last 24 hr 05/02/22 05/02/22 10:00 10:00 WBC 8.9 RBC 4.05 L Hgb 13.3 Hct 39.3 L MCV 97.0 H MCH 32.8 H MCHC 33.8 RDW Std Deviation 45.0 H RDW Coeff of Azael 12.8 Plt Count 100 L MPV 10.6 Immature Gran % (Auto) 0.600 Neut % (Auto) 80.1 H Lymph % (Auto) 12.0 L Hancock % (Auto) 6.7 Eos % (Auto) 0.4 Baso % (Auto) 0.2 Absolute Neuts (auto) 7.1 Absolute Lymphs (auto) 1.07 Nucleated RBC % 0 Sodium 137 Potassium 3.9 Chloride 102 Carbon Dioxide 29.0 Anion Gap 6 BUN 15 Creatinine 1.32 H Estim Creat Clear Calc 52.96 Est GFR (MDRD) Af Amer 68 Est GFR (MDRD) Non-Af 56 L BUN/Creatinine Ratio 11.4 Glucose 129 H Calcium 8.8 Discharge Plan Triage Chief Complaint: Hypertension ED Provider: Jw Herrera Dx/Rx/DC Orders Prescriptions: No Action ferrous sulfate 325 mg (65 mg iron) tablet 325 mg PO BID finasteride 5 mg tablet 5 mg PO DAILY carvedilol 3.125 mg tablet 3.125 mg PO BID Qty: 180 3RF isosorbide mononitrate 30 mg tablet extended release 24 hr 30 mg PO DAILY Qty: 90 3RF potassium chloride 10 mEq tablet extended release 10 meq PO DAILY Qty: 60 0RF ascorbic acid (vitamin C) 1,000 mg tablet 1 g PO DAILY cholecalciferol (vitamin D3) 125 mcg (5,000 unit) tablet 125 mcg PO DAILY nystatin 100,000 unit/gram powder 1 applic topical DAILY pravastatin 40 MG tablet 40 mg PO QHS acetaminophen 500 MG tablet 650 mg PO PRN PRN (Reason: Pain) levothyroxine 50 MCG tablet 50 mcg PO DAILY cyanocobalamin (vitamin B-12) 1,000 MCG/ML solution 1,000 mcg IM Q30D ondansetron HCl 8 MG tablet 8 mg PO DAILY furosemide 40 MG tablet 40 mg PO DAILY Qty: 30 0RF tamsulosin 0.4 MG capsule 0.4 mg PO DAILY@1730 Qty: 30 0RF aspirin 81 MG tablet,chewable 81 mg PO DAILY@0800 0RF Primary Care Provider: Bertrand Gardner Referrals: Bertrand Gardner MD [Primary Care Provider] -
[2022-05-02 10:32] VITALS: BP 189/74; PULSE 76; RESP 27; O2SAT 97
[2022-05-02 10:53] LABS: Anion Gap 6 (5-15); BUN 15 mg/dL (7-18); BUN/Creat Ratio 11.4 RATIO (10-20); Calcium,Total 8.8 mg/dL (8.5-10.1); Chloride 102 mmol/L (98-107); Creatinine, Serum 1.32 mg/dL (0.70-1.30); EST Glomerular Filtration Rate 56 mL/min (>60); Est Glom Filt Rate - Afr Amer 68 mL/min (>60); Estimated Creatinine Clearance 52.96 ml/min; Glucose 129 mg/dL (74-106); Potassium 3.9 mmol/L (3.5-5.1); Sodium Level 137 mmol/L (136-145)
[2022-05-02 11:01] LABS: Absolute Lymphocyte Count 1.07 X10^3/uL (0.83-4.51); Absolute Neutrophil Count 7.1 X10^3/uL (2.0-7.7); Basophil# 0.02 X10^3/uL; Basophil% 0.2 % (0-1); Eosinophil# 0.04 X10^3/uL; Eosinophils% 0.4 % (0-5); Hematocrit 39.3 % (40-54); Hemoglobin 13.3 g/dL (13.0-16.5); Lymphocyte # 1.07 X10^3/ul (0.83-4.51); Mean Corp Hgb Conc 33.8 g/dL (32-36); Mean Corpuscular Hgb 32.8 pg (27.0-32.0); Mean Platelet Vol. 10.6 fl (6.2-12.0); Monocyte% 6.7 % (0-10); NRBC Flagged by Analyzer 0 % (0-5); Neutrophil # 7.13 X10^3/uL (2.7-7.7); Neutrophil % 80.1 % (47-70); Platelet Count 100 K/mm3 (150-450); RBC Distribution Width CV 12.8 % (11.6-14.6); Red Blood Count 4.05 M/mm3 (4.6-6.2); White Blood Count 8.9 K/mm3 (4.4-11.0)
[2022-05-02 11:33] VITALS: BP 204/98; PULSE 74; RESP 21; O2SAT 98
[2022-05-02 13:00] VITALS: BP 216/93; PULSE 70; RESP 16; O2SAT 97
--- NOTE | 2022-05-02 13:01 | ED.RN ---
Pts is upset about pts blood pressure. Per BP was higher than before he came in. Pt and have been very anxious and watching the BP monitor. Dr Herrera is aware and still wants pt to be DC'd. was advised to take his BP in the morning and at night only. She was also advised not to keep repeating the BP again and again if it is high.
== END 2022-05-02 13:06 | disposition home or self-care (01) ==
PROVIDERS: Emergency Provider Emergency Medicine; PCP Internal Medicine; Visit Provider Emergency Medicine
DX: I11.0 Hypertensive heart disease with heart failure (principal); I50.9 Heart failure, unspecified; I25.10 Atherosclerotic heart disease of native coronary artery without angina pectoris; Z85.038 Personal history of other malignant neoplasm of large intestine; E78.5 Hyperlipidemia, unspecified; E03.9 Hypothyroidism, unspecified; Z87.19 Personal history of other diseases of the digestive system; Z85.048 Personal history of other malignant neoplasm of rectum, rectosigmoid junction, and anus; Z79.82 Long term (current) use of aspirin; Z79.899 Other long term (current) drug therapy; F32.A Depression, unspecified; Z87.891 Personal history of nicotine dependence
CPT/HCPCS: 80048; 85025; 99283; A4216

== ENCOUNTER → 2023-05-22 | Outpatient (CLI) | payer MEDICARE, SELFPAY ==
[2020-01-11 14:34] VITALS: BMI 26.4
--- NOTE | 2023-05-22 13:13 | CT_ITS ---
STUDY: CT PELVIS WITHOUT CONTRAST REASON FOR EXAM: Male, 77 years old. Pelvic/groin pain -- oral only-inlcude scrotum RADIATION DOSAGE (If Supplied By Facility): CTDIvol = ( 15.98 ) mGy, DLP = ( 778.36 ) mGycm TECHNIQUE: Transaxial imaging of the pelvis was performed with oral contrast, and without intravenous administration of contrast material. Individualized dose optimization techniques were used for this CT. COMPARISON: Comparison is made with prior outside examination dated October 08, 2021. FINDINGS: Normal urinary bladder. Normal visualized small intestine. A colostomy is seen in the left side of the midline of the abdomen. There is no pelvic fluid. There is no pelvic mass lesion or lymphadenopathy. There is diffuse atherosclerotic calcification of the pelvic arteries. Bilateral inguinal hernias containing nondilated small bowel loops more prominent on the left side. There are diffuse degenerative changes of the visualized lumbar spine. CT/Pelvis without IV Contrast IMPRESSION: Moderate-sized bilateral inguinal hernias containing nondilated small bowel loops more prominent on the left side. The hernia extends into the left hemiscrotum. Left anterior abdominal wall colostomy. Electronically Signed: Syd Ortega MD at 14:02 EDT ,
== END | disposition home or self-care (01) ==
LOC: CT 13:12
PROVIDERS: PCP Internal Medicine; Referring Provider Surgery; Visit Provider Surgery
DX: R10.2 Pelvic and perineal pain (principal)
CPT/HCPCS: 72192

== ENCOUNTER 2023-06-11 08:02 | Day surgery (SDC) | payer MEDICARE, SELFPAY ==
[2020-01-11 14:34] VITALS: BMI 26.4
--- NOTE | 2023-06-04 13:24 | EKG12_ITS ---
Test Reason : PRE OP Blood Pressure : / mmHG Vent. Rate : 062 BPM Atrial Rate : 062 BPM P-R Int : 280 ms QRS Dur : 144 ms QT Int : 428 ms P-R-T Axes : 006 -14 007 degrees QTc Int : 434 ms Sinus rhythm with 1st degree A-V block Right bundle branch block Abnormal ECG Confirmed by LIO MARTINEZ, JUAN RAMON ([id number]), map editor LENO CARRERA ([id number]) on 06/15/2023 8:06:23 AM Referred By: Blair Gillis Confirmed By:SAUMYA VACA MD
[2023-06-04 14:08] LABS: Hematocrit 31.9 % (40-54); Hemoglobin 9.8 g/dL (13.0-16.5); Mean Corp Hgb Conc 30.7 g/dL (32-36); Mean Corpuscular Hgb 30.4 pg (27.0-32.0); Mean Corpuscular Volume 99.1 fL (80-94); Mean Platelet Vol. 10.5 fl (6.2-12.0); Platelet Count 101 K/mm3 (150-450); RBC Distribution Width CV 12.8 % (11.6-14.6); Red Blood Count 3.22 M/mm3 (4.6-6.2)
[2023-06-04 14:19] LABS: Prothrombin Time (Protime)PT. 13.4 SECONDS (11.7-14.9)
[2023-06-04 14:20] LABS: Partial Thromboplast Time 25.4 Seconds (24.1-36.2)
[2023-06-04 14:44] LABS: Anion Gap 3 (5-15); BUN 27 mg/dL (7-18); BUN/Creat Ratio 14.2 RATIO (10-20); Calcium,Total 8.7 mg/dL (8.5-10.1); Chloride 107 mmol/L (98-107); EST Glomerular Filtration Rate 37 mL/min (>60); Est Glom Filt Rate - Afr Amer 44 mL/min (>60); Glucose 145 mg/dL (74-106); Potassium 4.4 mmol/L (3.5-5.1); Sodium Level 139 mmol/L (136-145)
[2023-06-04 14:50] LABS: AST(SGOT) 13 U/L (15-37); Alanine Aminotransfer ALT/SGPT 20 U/L (16-61); Alkaline Phosphatase 59 U/L (45-117); Bilirubin, Direct 0.07 mg/dL (0.00-0.30); Thyroid Stim Hormone (TSH) 1.92 uIU/mL (0.358-3.74)
--- NOTE | 2023-06-11 | HERN_PTH ---
PATIENT: HUONG BATES LOC: [facility] [place] U#:[id number] AGE/SX: 77/M ROOM: RE06/11/[address]: Dr. Blair Gillis MD : 1945 BED: DIS: 06/11/2023 SPEC #: [id number] RECD: 06/11/23 14:50 STATUS: LALITA RECarmela #: [id number] ELMER: 06/11/23 00:[address]: Blair Gillis DEPT: SURGICAL PATHOLOGY RECD BY: Ventura Salas ENTERED: 06/12/23 09:00 SP TYPE: Hernia OTHR DR: Dr. Bertrand Gardner MD Tissues: HERNIA Procedures: Surgery Specimen Level II HEADER OPERATION: Left open inguinal hernia repair with mesh PRE-OP DIAGNOSIS: Bilateral inguinal hernia TISSUE SUBMITTED: Left inguinal hernia sac MICROSCOPIC DIAGNOSIS Left inguinal hernia sac, herniorrhaphy: Fibrosis and mild chronic inflammation. AM:sahil 06/16/2023 MICROSCOPIC DESCRIPTION Slides are reviewed. GROSS DESCRIPTION Received in fixative is one container labeled with the patient's name and designated left inguinal hernia sac. The specimen consists of an irregular piece of alvarez-white to yellow soft tissue measuring 9.0 x 2.0 x 0.7 cm. No mass lesion is identified. Inventory Specialist sections are submitted in one cassette. / SJ:rg 06/12/2023 TC:3 [facility]: [id number]
[2023-06-11 08:35] VITALS: BP 122/60; PULSE 63; RESP 18; TEMP 36.7; O2SAT 98; BMI 30.3
[2023-06-11] MEDS: Lactated Ringers 1,000 ML 15 ML IV (08:56)
--- NOTE | 2023-06-11 10:59 | HP.PCM_ITS ---
History and Physical Date of Admission: 06/11/23 Visit Reasons: DISCUSS AFTER SURGERY CARE Chief Complaint: discuss after surgery care Retention Manager Required: No Accompanied by: Is patient in pain?: No Allergies No Known Allergies Allergy (Verified 06/09/23 13:57) Medications acetaminophen 500 mg tablet 650 mg PO PRN PRN Pain 03/09/19 [History Confirmed 06/09/23] levothyroxine 50 mcg tablet 50 mcg PO DAILY thyroid 03/09/19 [History Confirmed 06/09/23] cyanocobalamin (vitamin B-12) 1,000 mcg/mL injection solution 1,000 mcg IM Q30D vitamin 04/06/19 [History Confirmed 06/09/23] aspirin 81 mg chewable tablet 81 mg PO DAILY@0800 09/27/19 [Rx Confirmed 06/09/23] furosemide 40 mg tablet 40 mg PO DAILY #30 tabs 09/27/19 [Rx Confirmed 06/09/23] tamsulosin 0.4 mg capsule 0.4 mg PO DAILY@1730 #30 caps 09/27/19 [Rx Confirmed 06/09/23] carvedilol 3.125 mg tablet 3.125 mg PO BID #180 tabs 10/24/19 [Rx Confirmed 06/09/23] ferrous sulfate 325 mg (65 mg iron) tablet 325 mg PO BID 10/24/19 [History Confirmed 06/09/23] finasteride 5 mg tablet 5 mg PO DAILY 10/24/19 [History Confirmed 06/09/23] isosorbide mononitrate 30 mg tablet,extended release 24 hr 30 mg PO DAILY #90 tabs 10/24/19 [Rx Confirmed 06/09/23] ascorbic acid (vitamin C) 1,000 mg tablet 1 g PO DAILY 01/07/21 [History Confirmed 06/09/23] ondansetron 4 mg disintegrating tablet 4 mg PO Q6H PRN nausea and vomiting #7 tabs 05/02/22 [Rx Confirmed 06/09/23] fenofibrate nanocrystallized 145 mg tablet 145 mg PO DAILY 04/27/23 [History Confirmed 06/09/23] lisinopril 10 mg tablet 10 mg PO DAILY 04/27/23 [History Confirmed 06/09/23] potassium chloride 10 mEq tablet,extended release(part/cryst) 10 meq PO DAILY 0 04/27/23 [History Confirmed 06/09/23] rosuvastatin 40 mg tablet 40 mg PO DAILY 04/27/23 [History Confirmed 06/09/23] cholecalciferol (vitamin D3) 125 mcg (5,000 unit) tablet 250 mcg PO DAILY 04/28/23 [History Confirmed 06/09/23] [facility] Medical History Acute CHF Arthritis Atherosclerosis of [place] coronary artery of [place] heart without angina pectoris Cancer Cardiology follow-up encounter Cellulitis of right foot Chest pain 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 Colon cancer Constipation Depression Easy bruising Former smoker Hallux limitus of right foot High cholesterol History of echocardiogram History of stress test Hyperlipidemia Hyperlipidemia Hypokalemia Hypothyroidism Inguinal hernia of left side without obstruction or gangrene Intraoperative ureteral injury Localized edema Loss of hearing Low iron Nausea and vomiting Pericardial effusion Prostate disease Rectal cancer Right foot ulcer SBO (small bowel obstruction) Sciatic leg pain Thyroid disease Uses wheelchair Wears glasses Wears hearing aid Wears partial dentures Surgical History History of cardiac catheterization History of colonoscopy History of coronary artery stent placement History of hernia repair History of ileostomy History of left heart catheterization (09/27/19) History of partial colectomy History of ureter repair Stented coronary artery (01/11/20) Family History Other Adopted Social History Smoking Status: Former smoker how long ago did patient quit smokin years ago alcohol intake: never substance use type: does not use caffeine: Yes Type: coffee Number of servings: 1 HPI HPI Surgical H&P: Yes HPI: Patient is a 77 y/o M I am following for an update history and physical for an upcoming elective left inguinal hernia repair with mesh and possible orchiectomy with Dr. Gillis. Patient denies any recent hospitalizations or illnesses. Patient's notes he has nausea and can be combative following anesthesia. Patient denies any increased pain at the hernia site. He notes he has to have surgery completed as the hernia causes discomfort even with sitting. Patient states he has multiple cardiac stents placed in 2019. He is maintained on a daily aspirin. Patient's previous history per Dr. Gillis: 77-year-old gentleman is being referred by Dr. Bertrand Gardner for surgical consultation regarding a left inguinal hernia and a written copy of my surgical consult recommendations will return to him. The patient has a history December 07, [address] Vásquez of a laparoscopic-assisted low anterior resection followed by colostomy formation and treatment of rectal cancer there was a left ureteral injury. The patient was referred to [facility]. Since that time he has had 2 separate hospitalizations at the [facility] for small bowel obstruction. Per Dr. Bertin Cohn January 11, 2020 the patient had PTCA with stenting of the proximal PL branch and of the mid RCA. States he has had 3 separate left abdomen stoma placements. That he has had some type of ventral hernia. He had extensive care done at the [facility]. He notes left groin bulging progressively getting worse over the past month. He does not recall any colon surgery. He did have imaging done at the [facility] per Dr. Plaza Ermias lung oncology on October 08, 2021 which did not demonstrate any evidence of disease and the patient by his words were instructed that he was clear of disease. CAT scan done 10/08/2021 shows mild bilateral hydronephrosis more prominent on the right. There is evidence of right inguinal hernia at that time with some small bowel involvement. No mass or adenopathy. The patient's concern however is regarding the left groin currently. He states that both sides slightly diminished when he is supine. He has never had to manually reduce the area. Nocturia x1 He denies history of myocardial infarction or stroke or DVT. He is noted to be borderline diabetic. He has nocturia x1 and is on tamsulosin therapy. ROS General General: Yes weight change, fatigue, colon cancer and weakness; No appetite or breast cancer HEENT HEENT: No difficulty swallowing, eye injury, eye surgery, swollen glands or hoarseness Endo Endocrine: Yes thyroid disease; No diabetes mellitus, thyroid cancer, Hair loss, heat intolerance or cold intolerance Skin Skin: No rash or changing moles Breast Breast: No left breast lump, right breast lump, nipple discharge, breast pain, abnormal mammogram, abnormal US or breast enlargement Musc Musculoskeletal: Yes back problems and arthritis; No rheumatoid arthritis, gout or joint pain Cardio Cardiovascular: Yes heart disease, high blood pressure and heart stent; No murmur, pacemaker, atrial fibrillation, heart attack, palpitations, shortness of breat with exertion or chest pain Psych Psychiatric: Yes anxiety; No depression or hearing voices Resp Respiratory: No shortness of breath, No sleep apnea, No cough, No COPD, No asthma, No emphysema and No wheezing Gastro Gastrointestinal: No abdominal pain, No nausea or vomiting, No diarrhea, No constipation, No blood in stool, No acid reflux, No hemorrhoids, No ulcers, No gallbladder problem and No black,tarry stools Abbe Hematologic: No blood thinners, No blood disorders, No bleeding, No anemia and No blood clots Additional Details: Baby aspirin daily Neuro Neurologic: No system reviewed and no additional complaints, except as documented, No as per HPI, No abnormal gait, No abnormal hearing, No abnormal movements, No abnormal speech, No behavioral changes, No burning sensations, No confusion, No convulsions, No disequilibrium, No dizziness, No localized weakness, No frequent falls, No headache(s), No lack of coordination, No loss of vision, No memory loss, No numbness, No other visual disturbances, No radicular pain, No restless legs, No sensory deficit, No syncope, No tingling, No tremor(s), Yes weakness and No other (Walks with cane) Exam Const General: cooperative, comfortable and no acute distress Other: Patient is very hard of hearing [facility] Head: normal to inspection Eyes General: appearance normal, both eyes and all related structures Neck Neck: normal visual inspection Neck mass: No Chest Chest palpation & inspection: normal inspection of the chest Resp Effort & Inspection: normal respiratory effort Auscultation: clear to auscultation bilaterally Cardio Rate: regular rate Rhythm: regular rhythm GI Other: Left mid abdomen- colostomy intact. Well healed midline abdominal incision. Other: Left groin- significantly large inguinal hernia with palpable bowel involvement. Partially reducible. Right groin- large inguinal with palpable bowel involvement. Reducible. No mass bilateral testicles Musc Cervical Spine: normal cervical lordosis Skin General: no rashes or lesions noted Neuro General: no focal motor deficits and CN's II-XI intact bilaterally Extrem General: normal to inspection Psych Appearance: grossly normal Affect: normal affect Assessment and Plan Assessment and Plan (1) Bilateral inguinal hernia: Status: Acute Qualifiers: Obstruction and gangrene presence: without obstruction or gangrene Recurrence: non-recurrent Qualified Code(s): K40.20 - Bilateral inguinal hernia, without obstruction or gangrene, not specified as recurrent Plan: Dr. Gillis will plan to perform an open left inguinal hernia repair with mesh and possible orchiectomy. Procedure details, risks and benefits have been explained and reviewed. Patient and his , with daughter on speaker phone, had numerous questions that were answered. Patient verbally understands and agrees with the plan. Patient will have a staged hernia repair. An open right inguinal hernia repair with mesh will be performed in 3 to 6 months following recovery of this current scheduled procedure. Patient will need to hold his aspirin for 3 days prior to the procedure. Patient's procedure will be completed under general anesthesia. POst-opertaive instructions were provided to the patient and his . I have examined the patient and the H&P has been reviewed. There are no clinical changes since date of exam. Blair Gillis M.D., F.A.C.S.
--- NOTE | 2023-06-11 11:01 | DCINST_ITS ---
Discharge Instructions Procedure General Surgery Diet Discharge Diet: Light diet - advance as tolerated (if you have questions about your diet instructions, please talk to you doctor.) Activity Discharge Activity: May Not Drive (for 3-5 days or while taking narcotic pain medicine.) May shower in (days): 1 Lifting Restrictions: 10 pounds Dressing / Incision Call your doctor if your incision/area has: Continuous Slow Oozing, Sudden Increased Bleeding, Increased Pain/ Swelling, Increased Redness and Foul Smelling Discharge Call your doctor if you observe: Fever of 101 or Higher Suture Line Care: Avoid Pulling/Pushing and Avoid Pinching/Bending Additional Dressing/Incision Instructions:: Change or remove dressing in 4 days. Leave steri-strips in place for 1 week. Follow Up Care Please Follow Up With: Blair Gillis MD When: Call [phone] to make an appointment to be seen in about 10 days. Test Results: Test results from this visit will be discussed in further detail at your follow- up appointment, if applicable. Discharge Plan Admission Attending Provider: Blair Gillis Primary Care Provider: Bertrand Gardner Discharge Orders/Prescriptions Prescriptions: No Action ferrous sulfate 325 mg (65 mg iron) tablet 325 mg PO BID finasteride 5 mg tablet 5 mg PO DAILY carvedilol 3.125 mg tablet 3.125 mg PO BID Qty: 180 3RF isosorbide mononitrate 30 mg tablet extended release 24 hr 30 mg PO DAILY Qty: 90 3RF ascorbic acid (vitamin C) 1,000 mg tablet 1 g PO DAILY lisinopril 10 mg tablet 10 mg PO DAILY rosuvastatin 40 mg tablet 40 mg PO DAILY fenofibrate nanocrystallized 145 mg tablet 145 mg PO DAILY potassium chloride 10 mEq tablet,ER particles/crystals 10 meq PO DAILY acetaminophen 500 MG tablet 650 mg PO PRN PRN (Reason: Pain) levothyroxine 50 MCG tablet 50 mcg PO DAILY cyanocobalamin (vitamin B-12) 1,000 MCG/ML solution 1,000 mcg IM Q30D furosemide 40 MG tablet 40 mg PO DAILY Qty: 30 0RF tamsulosin 0.4 MG capsule 0.4 mg PO DAILY@1730 Qty: 30 0RF aspirin 81 MG tablet,chewable 81 mg PO DAILY@0800 0RF ondansetron 4 mg tablet,disintegrating 4 mg PO Q6H PRN (Reason: nausea and vomiting) Qty: 7 0RF cholecalciferol (vitamin D3) 125 mcg (5,000 unit) tablet 250 mcg PO DAILY Other Ambulatory Orders: 12 Lead EKG (Routine) Timeframe: [id number] Location: None Selected Ordered By: Dr. Blair Gillis Referrals / Follow Up: Bertrand Gardner MD [Primary Care Provider] - Disposition Disposition (needs filled in before D/C Order can be placed): Home, Self Care
[2023-06-11] MEDS: Cefazolin 2 GM in 0.9% Normal Saline (100mL Bag) 100 ML IV (11:02)
[2023-06-11] MEDS: Bupivacaine Mpf 0.5% 30 ML VIAL (12:21)
--- NOTE | 2023-06-11 12:22 | OP.PCM_ITS ---
Report of Operation Date of Procedure: 06/11/23 Pre-Operative Diagnosis: Large indirect left inguinal hernia Post-Operative Diagnosis: Same Surgery/Procedure Performed:: Left inguinal herniorrhaphy with Bard PerFix plug mesh repair, extra-large Reference [id number], lot [id number], expiry date 11/28/2025 Description of Surgical Findings:: 77-year-old gentleman was taken to the operating room. He was placed upon the table. Underwent general anesthesia. 2 g of Ancef were given intravenously. The left groin was sterilely prepped and draped. 0.5% Marcaine was used as a local acetic a total of 30 cc was used. Local was instilled. A transverse incision was made in the left groin sharp dissection carried down through the subtenons tissue significant layer of fibrofatty tissue had to be transgressed until the external oblique was encountered. The external ring was not identified the external oblique was incised the ilioinguinal nerve was identified and protected circumferential control stained of the cord structures and a Frandy drain was placed. Then dissection was formed through the cremasterics fibers. Indirect sac was identified. This was dissected free circumferentially and then distally for quite an extent and that it appeared that the sac continued to extend. I elected to transect the sac at that point with electrocautery. Hemostasis was intact. Palpation revealed that the sac extended all the way down into the scrotum. I did not make any attempt to try to remove the remnants as I felt that the trauma would be nonbeneficial. Dissected the sac to the internal ring. I ligated it there with a 2-0 Vicryl li gature. A portion of the sac was excised and submitted to specimen. The internal ring was quite dilated. The peritoneum bulging there from and I was able to get that cleaned and reduced. On this occasion I felt that doing a Emery approach would require imbricating too much tissue. I placed an extra-large Bard PerFix plug. I carefully secured that circumferentially were possible with interrupted 3-0 Ethibond. [place] that I had good positioning of the mesh with a good internal fixation. I placed the apron cover overlying. The ileal inguinal nerve was protected with the cord structures. The apron covers approximately cell laterally with interrupted 3-0 Ethibond. The mesh appeared to cover the direct and indirect. Nicely and then I secured it to the pubic tubercle aponeurosis of the internal/external bleak and shelving edge of Poupart's with multiple interrupted 3-0 Ethibond sutures. I felt that at the completion I had good coverage. The subcutaneous tissues were approximated up to 3-0 Vicryl subdermal sutures. Skin edges proximal antiseptic of 4 Monocryl. Steri-Strips Telfa OpSite dressings applied. Sponge and instrument and needle counts were reported to the surgeon to be correct. Specimens hernia sac. Drains none. Blood loss minimal. The patient was taken the recovery room in satisfied condition without apparent complication Blair Gillis M.D., F.A.C.S. Surgeon: Blair Gillis Type of Anesthesia: General and Local Anesthesiologist: Abhilash Pablo
[2023-06-11 12:39] VITALS: BP 122/60; BP 98/53; PULSE 51; RESP 16; TEMP 36.3; O2SAT 95
[2023-06-11 12:45] VITALS: BP 104/56; BP 122/60; PULSE 53; RESP 18; O2SAT 95
[2023-06-11 13:00] VITALS: BP 114/55; BP 122/60; PULSE 57; RESP 16; O2SAT 94
[2023-06-11 13:15] VITALS: BP 122/60; BP 138/62; PULSE 57; RESP 16; TEMP 36.3; O2SAT 95
[2023-06-11] MEDS: HYDROcodone Bitartrate/Apap 5/325 Tablet PO (14:35)
[2023-06-11 15:05] VITALS: BP 122/60; BP 157/65; PULSE 55; RESP 18; TEMP 36.1; O2SAT 100
== END 2023-06-11 15:25 | disposition home or self-care (01) ==
LOC: SDC 08:05 → AC 08:05
PROVIDERS: Anesthesiology; PCP Internal Medicine; Referring Provider Surgery; Visit Provider Surgery
PROC: (CPT 49505; principal; 2023-06-11 10:20)
DX: K40.20 Bilateral inguinal hernia, without obstruction or gangrene, not specified as recurrent (principal); Z93.3 Colostomy status; R73.03 Prediabetes; E78.5 Hyperlipidemia, unspecified; Z87.891 Personal history of nicotine dependence; I25.10 Atherosclerotic heart disease of native coronary artery without angina pectoris; I10 Essential (primary) hypertension; E03.9 Hypothyroidism, unspecified; Z85.048 Personal history of other malignant neoplasm of rectum, rectosigmoid junction, and anus; Z95.5 Presence of coronary angioplasty implant and graft; R23.3 Spontaneous ecchymoses
CPT/HCPCS: 49505; 00830; 36415; 80048; 80076; 84443; 85027; 85610; 85730; 88302; 93005; J7120; C1781; J2405

== ENCOUNTER 2023-10-08 08:03 | Day surgery (SDC) | payer MEDICARE, SELFPAY ==
[2020-01-11 14:34] VITALS: BMI 26.4
--- NOTE | 2023-09-24 11:43 | EKG12_ITS ---
Test Reason : PRE-OP Blood Pressure : / mmHG Vent. Rate : 056 BPM Atrial Rate : 056 BPM P-R Int : 306 ms QRS Dur : 132 ms QT Int : 438 ms P-R-T Axes : 077 -24 -07 degrees QTc Int : 422 ms Sinus bradycardia with 1st degree A-V block Right bundle branch block Abnormal ECG Confirmed by MARIA C MARTINEZ, BONNY ([id number]), news videotape editor LENO CARRERA ([id number]) on 09/25/2023 6:49:16 AM Referred By: Blair Gillis Confirmed By:BONNY LOMBARDI MD
[2023-09-24 12:08] LABS: Hematocrit 36.2 % (40-54); Hemoglobin 11.4 g/dL (13.0-16.5); Mean Corp Hgb Conc 31.5 g/dL (32-36); Mean Corpuscular Hgb 30.2 pg (27.0-32.0); Mean Platelet Vol. 10.5 fl (6.2-12.0); POSITIVE COUNT YES; Platelet Count 90 K/mm3 (150-450); RBC Distribution Width CV 13.6 % (11.6-14.6); RBC Distribution Width SD 47.7 fl (35.1-43.9); Red Blood Count 3.77 M/mm3 (4.6-6.2); White Blood Count 5.2 K/mm3 (4.4-11.0)
[2023-09-24 12:34] LABS: Anion Gap 3 (5-15); BUN 30 mg/dL (7-18); BUN/Creat Ratio 13.8 RATIO (10-20); Calcium,Total 8.8 mg/dL (8.5-10.1); Chloride 109 mmol/L (98-107); Creatinine, Serum 2.18 mg/dL (0.70-1.30); EST Glomerular Filtration Rate 31 mL/min (>60); Est Glom Filt Rate - Afr Amer 38 mL/min (>60); Glucose 124 mg/dL (74-106); Potassium 4.3 mmol/L (3.5-5.1); Sodium Level 139 mmol/L (136-145)
[2023-09-24 12:36] LABS: Thyroid Stim Hormone (TSH) 1.93 uIU/mL (0.358-3.74)
[2023-10-08] VITALS (8 sets, daily range): BP systolic 110–146; BP diastolic 41–94; PULSE 55–66; RESP 16–18; TEMP 36.1–36.7; O2SAT 93–98; BMI 30.8
--- NOTE | 2023-10-08 | HERN_PTH ---
PATHOLOGY RESULTS PATIENT: HUONG BATES LOC: [facility] [place] U#:[id number] AGE/SX: 78/M ROOM: RE10/08/[address]: Dr. Blair Gillis MD : 1945 BED: DIS: 10/08/2023 SPEC #: [id number] RECD: 10/08/23 13:43 STATUS: LALITA RECarmela #: [id number] ELMER: 10/08/23 00:[address]: Blair Gillis DEPT: SURGICAL PATHOLOGY RECD BY: Ventura Salas ENTERED: 10/08/23 13:43 SP TYPE: Hernia OTHR DR: Dr. Bertrand Gardner MD Tissues: HERNIA Procedures: Surgery Specimen Level II HEADER OPERATION: Hernia, open right inguinal with mesh PRE-OP DIAGNOSIS: Right inguinal hernia TISSUE SUBMITTED: Right hernia sac and contents MICROSCOPIC DIAGNOSIS Right inguinal hernia sac, herniorrhaphy: Fibrosis, reactive mesothelium and associated mild chronic inflammation. Mature adipose tissue with no pathologic change. AM:sahil 10/09/2023 MICROSCOPIC DESCRIPTION Slides are reviewed. GROSS DESCRIPTION Received in fixative is one container labeled with the patient's name and designated Right hernia sac and contents. The specimen consists of a piece of fibrous tissue consistent with hernia sac measuring 5.0 cm in length and 5.0 cm in diameter. A piece of adipose tissue is also noted measuring 11.0 x 2.0 x 0.8 cm. No mass lesion is identified. Clam Picker sections are submitted in two cassettes as follows: 1 - piece of tissue consistent with hernia sac, 2 - adipose tissue. / HOWRAD:sahil 10/08/2023 TC:3 CPT: 50189
[2023-10-08] MEDS: Lactated Ringers 1,000 ML 15 ML IV (08:33)
--- NOTE | 2023-10-08 08:38 | HP.PCM_ITS ---
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 Accompanied by: Is patient in pain?: No Allergies No Known Allergies Allergy (Verified 09/07/23 12:57) Medications acetaminophen 500 mg tablet 650 mg PO PRN PRN Pain 03/09/19 [History Confirmed 09/07/23] levothyroxine 50 mcg tablet 50 mcg PO DAILY thyroid 03/09/19 [History Confirmed 09/07/23] cyanocobalamin (vitamin B-12) 1,000 mcg/mL injection solution 1,000 mcg IM Q30D vitamin 04/06/19 [History Confirmed 09/07/23] aspirin 81 mg chewable tablet 81 mg PO DAILY@0800 09/27/19 [Rx Confirmed 09/07/23] furosemide 40 mg tablet 40 mg PO DAILY #30 tabs 09/27/19 [Rx Confirmed 09/07/23] tamsulosin 0.4 mg capsule 0.4 mg PO DAILY@1730 #30 caps 09/27/19 [Rx Confirmed 09/07/23] carvedilol 3.125 mg tablet 3.125 mg PO BID #180 tabs 10/24/19 [Rx Confirmed 09/07/23] ferrous sulfate 325 mg (65 mg iron) tablet 325 mg PO BID 10/24/19 [History Confirmed 09/07/23] finasteride 5 mg tablet 5 mg PO DAILY 10/24/19 [History Confirmed 09/07/23] isosorbide mononitrate 30 mg tablet,extended release 24 hr 30 mg PO DAILY #90 tabs 10/24/19 [Rx Confirmed 09/07/23] ascorbic acid (vitamin C) 1,000 mg tablet 1 g PO DAILY 01/07/21 [History Confirmed 09/07/23] ondansetron 4 mg disintegrating tablet 4 mg PO Q6H PRN nausea and vomiting #7 tabs 05/02/22 [Rx Confirmed 09/07/23] fenofibrate nanocrystallized 145 mg tablet 145 mg PO DAILY 04/27/23 [History Confirmed 09/07/23] lisinopril 10 mg tablet 10 mg PO DAILY 04/27/23 [History Confirmed 09/07/23] potassium chloride 10 mEq tablet,extended release(part/cryst) 10 meq PO DAILY 04/27/23 [History Confirmed 09/07/23] rosuvastatin 40 mg tablet 40 mg PO DAILY 04/27/23 [History Confirmed 09/07/23] cholecalciferol (vitamin D3) 125 mcg (5,000 unit) tablet 250 mcg PO DAILY 04/28/23 [History Confirmed 09/07/23] FORMERLY [facility], [facility] Medical History Acute CHF Arthritis Atherosclerosis of [place] coronary artery of [place] heart without angina pectoris Cancer Cardiology follow-up encounter Cellulitis of right foot Chest pain 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 Colon cancer Constipation Depression Easy bruising Former smoker Hallux limitus of right foot High cholesterol History of echocardiogram History of stress test Hyperlipidemia Hyperlipidemia Hypokalemia Hypothyroidism Inguinal hernia of left side without obstruction or gangrene Intraoperative ureteral injury Localized edema Loss of hearing Low iron Nausea and vomiting Pericardial effusion Prostate disease Rectal cancer Right foot ulcer SBO (small bowel obstruction) Sciatic leg pain Thyroid disease Uses wheelchair Wears glasses Wears hearing aid Wears partial dentures Surgical History History of cardiac catheterization History of colonoscopy History of coronary artery stent placement History of hernia repair History of ileostomy History of left heart catheterization (09/27/19) History of partial colectomy History of ureter repair Stented coronary artery (01/11/20) Family History Other Adopted Social History Smoking Status: Former smoker how long ago did patient quit smokin years ago alcohol intake: never substance use type: does not use caffeine: Yes Type: coffee Number of servings: 1 HPI HPI HPI: 78-year-old gentleman. On June 11, 2023 I assisted him with a extra-large Marlex plug and patch that I performed for him. The patient had a very large inguinal hernia XX extended for significant degree degree and had to be transected the internal ring was grossly dilated in the inguinal floor quite attenuated. This was the reason for the plug and patch. He was seen back in the office and was making good progress. On a separate note unrelated to that previous surgery he presents now wanting direction regarding a right inguinal hernia. He has a history of becoming combative after surgery as well as nauseated. He has a history of multiple coronary stents and is on low-dose aspirin therapy. In [facility] Dr. Purdy performed laparoscopic assisted low anterior resection with colostomy formation. This was in treatment of rectal cancer. The patient had left ureteral injury at that time and was referred to [facility]. Additionally has had 2 separate hospitalizations at the [facility] for small bowel obstruction. Previous CT scan done October 08, 2021 demonstrates bilateral hydronephrosis more prominent on the right than the left. There is evidence of a right inguinal hernia at that time with small bowel involvement. The patient's previous appointment was because of symptomatic pain in the left groin area and a known left inguinal hernia. I had even discussed with the patient that time potential need for left orchiectomy. His care is complicated by the fact that he has a left lower quadrant permanent stoma in place. He presents today in quite a good mood. He has no particular complaints. He states although he did have some swelling in the left groin postoperatively but that subsequently has resolved. He only has some mild residual tenderness. He is quite pleased with the results of the surgery. States that he has had no leg swelling these had no respiratory issues ROS General General: Yes weight change, fatigue, colon cancer and weakness; No appetite or breast cancer HEENT HEENT: No difficulty swallowing, eye injury, eye surgery, swollen glands or hoarseness Endo Endocrine: Yes thyroid disease; No diabetes mellitus, thyroid cancer, Hair loss, heat intolerance or cold intolerance Skin Skin: No rash or changing moles Breast Breast: No left breast lump, right breast lump, nipple discharge, breast pain, abnormal mammogram, abnormal US or breast enlargement Musc Musculoskeletal: Yes back problems and arthritis; No rheumatoid arthritis, gout or joint pain Cardio Cardiovascular: Yes heart disease, high blood pressure and heart stent; No murmur, pacemaker, atrial fibrillation, heart attack, palpitations, shortness of breat with exertion or chest pain Psych Psychiatric: Yes anxiety; No depression or hearing voices Resp Respiratory: No shortness of breath, No sleep apnea, No cough, No COPD, No asthma, No emphysema and No wheezing Gastro Gastrointestinal: No abdominal pain, No nausea or vomiting, No diarrhea, No constipation, No blood in stool, No acid reflux, No hemorrhoids, No ulcers, No gallbladder problem and No black,tarry stools Abbe Hematologic: No blood thinners, No blood disorders, No bleeding, No anemia and No blood clots Additional Details: Baby aspirin daily Neuro Neurologic: No system reviewed and no additional complaints, except as documented, No as per HPI, No abnormal gait, No abnormal hearing, No abnormal movements, No abnormal speech, No behavioral changes, No burning sensations, No confusion, No convulsions, No disequilibrium, No dizziness, No localized weakness, No frequent falls, No headache(s), No lack of coordination, No loss of vision, No memory loss, No numbness, No other visual disturbances, No radicular pain, No restless legs, No sensory deficit, No syncope, No tingling, No tremor(s), Yes weakness and No other (Walks with cane) Exam Const General: cooperative, comfortable and no acute distress Nutritional Appearance: obese HENMT Head: normal to inspection Eyes General: appearance normal, both eyes and all related structures Neck Neck: normal visual inspection Chest Chest palpation & inspection: normal inspection of the chest Resp Effort & Inspection: normal respiratory effort Auscultation: clear to auscultation bilaterally Cardio Rate: regular rate Rhythm: regular rhythm GI Palpation: soft and no hepatosplenomegaly Other: Permanent stoma with stoma bag left lower quadrant Other: Nicely healed transverse left groin incision. Nontender. Solid and intact. Testicles descended. Right groin with obvious hernia consistent with small bowel within the hernia extending all the way down to the testicle in the scrotum, reducible Skin General: no rashes or lesions noted Neuro General: patient alert and patient awake Extrem General: no calf tenderness Psych Appearance: grossly normal Assessment and Plan Assessment and Plan (1) Inguinal hernia of right side without obstruction or gangrene: Status: Acute Plan: I recommended the patient a right inguinal hernia repair with mesh. We have discussed the technique, benefit, risk, alternatives. Because of the extensiveness of his previous left inguinal hernia. He did require general anesthetic for that and he has quite a sizable hernia on the right so I am expecting the same. He has had an opportunity to ask and have questions an swered. We will schedule procedure at his discretion. I appreciate the ongoing opportunity of assisting with the surgical care. Copy: Dr. Bertrand Gillis M.D., F.A.C.S I have examined the patient and the H&P has been reviewed. There are no clinical changes since date of exam. Blair Gillis M.D., F.A.C.S.
--- NOTE | 2023-10-08 08:39 | DCINST_ITS ---
Discharge Instructions Procedure General Surgery Diet Discharge Diet: Light diet - advance as tolerated (if you have questions about your diet instructions, please talk to you doctor.) Activity Discharge Activity: May Not Drive (for 3-5 days or while taking narcotic pain medicine.) May shower in (days): 1 Lifting Restrictions: 10 pounds Dressing / Incision Call your doctor if your incision/area has: Continuous Slow Oozing, Sudden Increased Bleeding, Increased Pain/ Swelling, Increased Redness and Foul Smelling Discharge Call your doctor if you observe: Fever of 101 or Higher Suture Line Care: Avoid Pulling/Pushing and Avoid Pinching/Bending Additional Dressing/Incision Instructions:: Change or remove dressing in 4 days. Leave steri-strips in place for 1 week. Follow Up Care Please Follow Up With: Blair Gillis MD When: Call [phone] to make an appointment to be seen in about 10 days. Test Results: Test results from this visit will be discussed in further detail at your follow- up appointment, if applicable. Discharge Plan Admission Attending Provider: Blair Gillis Primary Care Provider: Bertrand Gardner Discharge Orders/Prescriptions Prescriptions: No Action ferrous sulfate 325 mg (65 mg iron) tablet 325 mg PO DAILY finasteride 5 mg tablet 5 mg PO DAILY carvedilol 3.125 mg tablet 3.125 mg PO BID Qty: 180 3RF isosorbide mononitrate 30 mg tablet extended release 24 hr 30 mg PO DAILY Qty: 90 3RF ascorbic acid (vitamin C) 1,000 mg tablet 1 g PO DAILY lisinopril 10 mg tablet 10 mg PO DAILY rosuvastatin 40 mg tablet 40 mg PO DAILY fenofibrate nanocrystallized 145 mg tablet 145 mg PO DAILY potassium chloride 10 mEq tablet,ER particles/crystals 10 meq PO DAILY acetaminophen 500 MG tablet 650 mg PO PRN PRN (Reason: Pain) levothyroxine 50 MCG tablet 50 mcg PO DAILY cyanocobalamin (vitamin B-12) 1,000 MCG/ML solution 1,000 mcg IM Q30D furosemide 40 MG tablet 40 mg PO DAILY Qty: 30 0RF tamsulosin 0.4 MG capsule 0.4 mg PO DAILY@1730 Qty: 30 0RF aspirin 81 MG tablet,chewable 81 mg PO DAILY@0800 0RF cholecalciferol (vitamin D3) 125 mcg (5,000 unit) tablet 10,000 unit PO DAILY Other Ambulatory Orders: 12 Lead EKG (Routine) Timeframe: [id number] Location: None Selected Ordered By: Dr. Tobin Sullivan Referrals / Follow Up: Bertrand Gardner MD [Primary Care Provider] - Disposition Disposition (needs filled in before D/C Order can be placed): Home, Self Care
[2023-10-08] MEDS: Cefazolin 2 GM in 0.9% Normal Saline (100mL Bag) 100 ML IV (09:18)
--- NOTE | 2023-10-08 10:52 | PCM.OPRPT ---
Report of Operation Date of Procedure: 10/08/23 Pre-Operative Diagnosis: Symptomatic right inguinal hernia Post-Operative Diagnosis: Large indirect right inguinal hernia with small bowel involvement Surgery/Procedure Performed:: Marlex mesh plug extra-large right inguinal hernia pair with additional on my cover mesh Description of Surgical Findings:: Timeout informed consent was obtained. 78-year-old gentleman sent to the operating placed on the table underwent general anesthesia. Ancef 2 g given diffusely. The right groin was sterilely prepped and draped. Ioban draping was used. 0.5% Marcaine was used as local aesthetic. Throughout the procedure a total of 50 cc was used. Skin was Javier size transverse incision was made the right groin sharp dissection carried down through the subcu tissue hemostasis was obtained with electrocautery and 3-0 Vicryl ligatures were needed immediately a hernia sac was encountered. There was ultimately multiple loops of small bowel that were adherent to the peritoneal lining these had to be sharply dissected free then I was able to identify the sac carefully freed from its adhesions to the cremasterics fibers however this was a very extensive dissection within the skeletonizing the cord. Large stack was identified he was told there is no small bowel emanating so I then ligated it the sac in the midportion with a 3-0 Vicryl the specimen was sent for pathology after fully dissection laterally and medially this defect medial to lateral to the cord structures. Significant amount of loss of tissue so I placed an extra-large Bard plug and then I tediously secured that to the aponeurosis of the internal/external bleak and shelving edge of the Poupart's. Note that he had good reduction I put a Yasmin cover that came with the device secured to the pubic tubercle and laterally healing around the remnants of the cord vascular supply and vas deferens. Secured at the area with 3-0 Ethibond and secured it to the plug as well I then another Bard mesh keyhole apron cover placed that so that the apex was laterally underneath the external oblique and again secured that to the Dr. Brenner Ventralex oblique the shelving edge of Poupart's secured to itself the medial nail to the cord structures and I secured it to the previously placed mesh. Excellent coverage of the entire abdominal area was achieved. The anal nerve had been protected with the cord structures during the dissection. The external bleak was closed with simple sutures of 3-0 Vicryl. Subcutaneous tissues approximate the same. Skin edges recommend subicular 4 Monocryl. Steri-Strips Telfa OpSite dressings applied. Sponge and instrument counts were reported the surgeon to be correct. Specimens hernia sac. Drains none Blood loss minimal. Blair Gillis M.D., F.A.C.S. Surgeon: Blair Gillis Type of Anesthesia: General and Local Anesthesiologist: Kristin Pablo
[2023-10-08] MEDS: Bupivacaine Mpf 0.5% 30 ML VIAL (10:55)
== END 2023-10-08 13:45 | disposition home or self-care (01) ==
LOC: SDC 08:04 → AC 08:04
PROVIDERS: Anesthesiology; PCP Internal Medicine; Referring Provider Surgery; Visit Provider Surgery
PROC: (CPT 49505; principal; 2023-10-08 11:00)
DX: K40.90 Unilateral inguinal hernia, without obstruction or gangrene, not specified as recurrent (principal); C80.1 Malignant (primary) neoplasm, unspecified; E78.5 Hyperlipidemia, unspecified; Z95.5 Presence of coronary angioplasty implant and graft; I25.10 Atherosclerotic heart disease of native coronary artery without angina pectoris; Z87.891 Personal history of nicotine dependence; E03.9 Hypothyroidism, unspecified; K59.00 Constipation, unspecified; I10 Essential (primary) hypertension; I45.10 Unspecified right bundle-branch block; Z90.49 Acquired absence of other specified parts of digestive tract
CPT/HCPCS: 49505; 00830; 36415; 80048; 84443; 85027; 88302; 93005; J7120; C1781; J2405

== ENCOUNTER → 2023-11-04 | Outpatient (CLI) | payer MEDICARE, SELFPAY ==
[2020-01-11 14:34] VITALS: BMI 26.4
--- NOTE | 2023-11-04 14:14 | RAD_ITS ---
INDICATION: Shortness of breath, hx of CHF -- -- PT UNABLE TO HOLD BREATH FOR IMAGES EXAMINATION/TECHNIQUE: X-RAY - XR Chest 2 Views COMPARISON: Prior study dated: 09/25/2019 FINDINGS: LINES/DEVICES: None. LUNGS: No consolidation, edema or effusion. No pneumothorax. MEDIASTINUM AND CARDIOVASCULAR STRUCTURES: Cardiac silhouette not enlarged. Central airways and mediastinal contour are unremarkable. BONES AND SOFT TISSUES: Degenerative changes of the thoracic spine and increased kyphosis. RAD/Chest PA and Lateral IMPRESSION: No radiographic evidence of acute cardiopulmonary disease. Electronically Signed: Sumeet Pnenington MD at 9:27 EDT ,
[2023-11-04 15:02] LABS: Absolute Lymphocyte Count 0.92 X10^3/uL (0.83-4.51); Absolute Neutrophil Count 4.3 X10^3/uL (2.0-7.7); Basophil# 0.02 X10^3/uL; Basophil% 0.3 % (0-1); Eosinophil# 0.23 X10^3/uL; Eosinophils% 3.8 % (0-5); Hematocrit 31.3 % (40-54); Hemoglobin 9.8 g/dL (13.0-16.5); Lymphocyte # 0.92 X10^3/ul (0.83-4.51); Lymphocyte % 15.3 % (19-41); Mean Corp Hgb Conc 31.3 g/dL (32-36); Mean Corpuscular Hgb 30.2 pg (27.0-32.0); Mean Corpuscular Volume 96.6 fL (80-94); Monocyte# 0.49 X10^3/uL; Monocyte% 8.1 % (0-10); NRBC Flagged by Analyzer 0 % (0-5); Neutrophil # 4.34 X10^3/uL (2.7-7.7); Platelet Count 148 K/mm3 (150-450); RBC Distribution Width CV 13.5 % (11.6-14.6); RBC Distribution Width SD 47.8 fl (35.1-43.9); Red Blood Count 3.24 M/mm3 (4.6-6.2)
[2023-11-04 15:30] LABS: Anion Gap 3 (5-15); BUN 26 mg/dL (7-18); BUN/Creat Ratio 12.7 RATIO (10-20); Calcium,Total 8.5 mg/dL (8.5-10.1); Chloride 108 mmol/L (98-107); Creatinine, Serum 2.05 mg/dL (0.70-1.30); EST Glomerular Filtration Rate 33 mL/min (>60); Est Glom Filt Rate - Afr Amer 41 mL/min (>60); Glucose 145 mg/dL (74-106); Potassium 4.2 mmol/L (3.5-5.1); Sodium Level 139 mmol/L (136-145)
== END | disposition home or self-care (01) ==
LOC: RAD 14:14
PROVIDERS: PCP Internal Medicine; Referring Provider Nurse Practitioner Gerontology; Visit Provider Nurse Practitioner Gerontology
DX: N28.9 Disorder of kidney and ureter, unspecified (principal); R06.09 Other forms of dyspnea; R06.02 Shortness of breath; R60.0 Localized edema
CPT/HCPCS: 36415; 71046; 80048; 83880; 85025

== ENCOUNTER → 2023-11-11 | Outpatient (CLI) | payer MEDICARE, SELFPAY ==
[2020-01-11 14:34] VITALS: BMI 26.4
[2023-11-11 13:28] LABS: Absolute Neutrophil Count 3.7 X10^3/uL (2.0-7.7); Basophil# 0.02 X10^3/uL; Basophil% 0.4 % (0-1); Eosinophil# 0.22 X10^3/uL; Eosinophils% 4.1 % (0-5); Hematocrit 32.3 % (40-54); Hemoglobin 10.2 g/dL (13.0-16.5); Lymphocyte % 18.5 % (19-41); Mean Corp Hgb Conc 31.6 g/dL (32-36); Mean Corpuscular Hgb 30.8 pg (27.0-32.0); Mean Corpuscular Volume 97.6 fL (80-94); Mean Platelet Vol. 10.2 fl (6.2-12.0); Monocyte# 0.46 X10^3/uL; Monocyte% 8.5 % (0-10); NRBC Flagged by Analyzer 0 % (0-5); Neutrophil # 3.69 X10^3/uL (2.7-7.7); Neutrophil % 68.1 % (47-70); Platelet Count 111 K/mm3 (150-450); RBC Distribution Width CV 13.6 % (11.6-14.6); RBC Distribution Width SD 48.8 fl (35.1-43.9); Red Blood Count 3.31 M/mm3 (4.6-6.2); White Blood Count 5.4 K/mm3 (4.4-11.0)
[2023-11-11 14:00] LABS: Anion Gap 3 (5-15); BUN 27 mg/dL (7-18); BUN/Creat Ratio 12.5 RATIO (10-20); Chloride 109 mmol/L (98-107); Creatinine, Serum 2.16 mg/dL (0.70-1.30); EST Glomerular Filtration Rate 32 mL/min (>60); Est Glom Filt Rate - Afr Amer 38 mL/min (>60); Glucose 138 mg/dL (74-106); Potassium 4.8 mmol/L (3.5-5.1); Sodium Level 138 mmol/L (136-145)
== END | disposition home or self-care (01) ==
LOC: LAB 12:57
PROVIDERS: PCP Internal Medicine; Referring Provider Nurse Practitioner Gerontology; Visit Provider Nurse Practitioner Gerontology
DX: R06.09 Other forms of dyspnea (principal)
CPT/HCPCS: 36415; 80048; 85025

== ENCOUNTER → 2023-12-11 | Outpatient (CLI) | payer MEDICARE, SELFPAY ==
[2020-01-11 14:34] VITALS: BMI 26.4
--- NOTE | 2023-12-11 12:42 | ECHOD_ITS ---
Reason For Study: DYSPNEA Procedure This was a 2D Doppler, Color Flow transthoracic echocardiogram. The study was technically difficult. Study ended short at patient request. Exam performed in department. Left Ventricle Normal LV size. Mild concentric left ventricular hypertrophy. The left ventricular ejection fraction is 65 %. Unable to assess diastolic function based on available data. Right Ventricle Normal right ventricle. Atria The left atrium is severely enlarged. The right atrium is not well visualized. Mitral Valve Trivial mitral valve insufficiency. Tricuspid Valve Trivial tricuspid valve insufficiency. Unable to estimate RV systolic pressure due to insufficient tricuspid regurgitant envelope. Aortic Valve Trisinus/trileaflet aortic valve. Aortic sclerosis, no stenosis. Trivial aortic valve insufficiency. Pulmonic Valve The pulmonic valve is not well visualized. Trivial pulmonic valve insufficiency. Great Vessels Mildly dilated aortic root. Pericardium/Pleural No pericardial effusion. MMode/2D Measurements & Calculations LVIDd: 6.0 cm IVSd: 1.1 cm LVOT diam: 1.9 cm LVIDs: 2.9 cm LVPWd: 1.4 cm LVOT area: 2.9 cm2 FS: 52.5 % Ao root diam: 4.1 cm LAV(MOD-bp): 47.3 ml LA A4 area: 18.2 cm2 LAV(MOD-bp) Indexed: 21.5 ml/m2 LAV(MOD-sp2): 44.7 ml LAV(MOD-sp4): 47.2 ml RA A4 area: 14.5 cm2 Time Measurements MV dec time: 0.49 sec Doppler Measurements & Calculations MV E max mesfin: 56.8 cm/sec Lat Peak E' Mesfin: 11.5 cm/sec Med Peak E' Mesfin: 6.3 cm/sec MV A max mesfin: 65.7 cm/sec E/E' lat: 4.9 E/E' med: 9.1 MV E/A: 0.87 MV V2 max: 74.5 cm/sec MV dec slope: 116.6 cm/sec2 Ao V2 max: 158.7 cm/sec MV max P.2 mmHg Ao max P.1 mmHg MV V2 mean: 44.0 cm/sec Ao V2 mean: 106.7 cm/sec MV mean P.92 mmHg Ao mean P.3 mmHg MV V2 VTI: 26.3 cm Ao V2 VTI: 37.8 cm MVA(VTI): 3.7 cm2 AV (velocity ratio): 0.88 SRINI(I,D): 2.6 cm2 SRINI(V,D): 2.5 cm2 LV V1 max: 134.3 cm/sec SV(LVOT): 97.2 ml PA V2 max: 112.7 cm/sec LV V1 max P.2 mmHg LV V1 mean P.2 mmHg LV V1 mean: 96.5 cm/sec LV V1 VTI: 33.4 cm ECHO/Echo Complete Interpretation Summary The study was technically difficult. Mild concentric left ventricular hypertrophy. The left ventricular ejection fraction is 65 %. The left atrium is severely enlarged. Aortic sclerosis, no stenosis. Mildly dilated aortic root. Ordering Physician: Emily Leon Referring Physician: Emily Leon Performed By: Polina Monroy and Student
== END | disposition home or self-care (01) ==
LOC: CVS 12:40
PROVIDERS: PCP Internal Medicine; Referring Provider Nurse Practitioner Gerontology; Visit Provider Nurse Practitioner Gerontology
DX: R06.09 Other forms of dyspnea (principal)
CPT/HCPCS: 93306

== ENCOUNTER → 2024-02-11 | Outpatient (CLI) | payer MEDICARE, SELFPAY ==
[2020-01-11 14:34] VITALS: BMI 26.4
[2024-02-11 11:05] LABS: AST(SGOT) 15 U/L (15-37); Alanine Aminotransfer ALT/SGPT 16 U/L (16-61); Albumin, Serum 3.3 g/dL (3.2-5.0); Alkaline Phosphatase 49 U/L (45-117); Anion Gap 4 (5-15); BUN 32 mg/dL (7-18); BUN/Creat Ratio 21.6 RATIO (10-20); Bilirubin, Direct 0.13 mg/dL (0.00-0.30); Calcium,Total 9.1 mg/dL (8.5-10.1); Chloride 107 mmol/L (98-107); Cholesterol 170 mg/dL (200); Creatinine, Serum 1.48 mg/dL (0.70-1.30); EST Glomerular Filtration Rate 49 mL/min (>60); Est Glom Filt Rate - Afr Amer 59 mL/min (>60); Globulin 3.2 g/dL (2.2-4.2); Glucose 116 mg/dL (74-106); High Density Lipoprotein 39 mg/dL; Potassium 3.8 mmol/L (3.5-5.1); Protein, Total 6.5 g/dL (6.4-8.2); Sodium Level 137 mmol/L (136-145); Triglycerides 210 mg/dL; Very Low Density Lipoprotein 42 mg/dL (5-40)
== END | disposition home or self-care (01) ==
LOC: LAB 08:30
PROVIDERS: PCP Internal Medicine; Referring Provider Internal Medicine Cardiovascular Disease; Visit Provider Internal Medicine Cardiovascular Disease
DX: E78.5 Hyperlipidemia, unspecified (principal); I25.10 Atherosclerotic heart disease of native coronary artery without angina pectoris; N28.9 Disorder of kidney and ureter, unspecified; R06.09 Other forms of dyspnea; R06.02 Shortness of breath; R60.0 Localized edema
CPT/HCPCS: 36415; 80048; 80061; 80076

== ENCOUNTER → 2024-08-15 | Outpatient (CLI) | payer MEDICARE, SELFPAY ==
[2020-01-11 14:34] VITALS: BMI 26.4
[2024-08-15 10:52] LABS: AST(SGOT) 12 U/L (15-37); Alanine Aminotransfer ALT/SGPT 14 U/L (16-61); Albumin, Serum 3.2 g/dL (3.2-5.0); Alkaline Phosphatase 50 U/L (45-117); Bilirubin, Direct 0.16 mg/dL (0.00-0.30); Cholesterol 142 mg/dL (200); Globulin 3.1 g/dL (2.2-4.2); High Density Lipoprotein 39 mg/dL; Protein, Total 6.3 g/dL (6.4-8.2); Triglycerides 184 mg/dL; Very Low Density Lipoprotein 37 mg/dL (5-40)
== END | disposition home or self-care (01) ==
PROVIDERS: PCP Internal Medicine; Referring Provider Physician Assistant Medical; Visit Provider Physician Assistant Medical
DX: E78.00 Pure hypercholesterolemia, unspecified (principal)

== ENCOUNTER → 2025-02-13 | Outpatient (CLI) | payer MEDICARE, SELFPAY ==
[2020-01-11 14:34] VITALS: BMI 26.4
[2025-02-13 09:34] LABS: AST(SGOT) 15 U/L (<=37); Alanine Aminotransfer ALT/SGPT 9 U/L (<=46); Albumin, Serum 4.0 g/dL (3.4-4.8); Alkaline Phosphatase 53 U/L (40-129); Bilirubin, Direct 0.21 mg/dL (0.00-0.30); Cholesterol 151 mg/dL (<=200); Globulin 2.5 g/dL (2.2-4.2); Low Density Lipoprotein Calc. 75 mg/dL; Triglycerides 208 mg/dL; Very Low Density Lipoprotein 42 mg/dL (5-40); cholesterol:hdl ratio screen 4.42
== END | disposition home or self-care (01) ==
PROVIDERS: PCP Nurse Practitioner Acute Care; Referring Provider Physician Assistant Medical; Visit Provider Physician Assistant Medical
DX: E78.00 Pure hypercholesterolemia, unspecified (principal)
CPT/HCPCS: 36415; 80061; 80076

== ENCOUNTER → 2025-07-19 | Outpatient (CLI) | payer MEDICARE, SELFPAY ==
[2020-01-11 14:34] VITALS: BMI 26.4
--- OUTSIDE RECORDS SUMMARY | 2025-07-19 10:10 | XMS RPT_ITS | CCD ---
Author Organization [facility] Care Team Providers Care Client Experience Specialist Name Role Phone Jj MARTINEZ, Chaitanya Primary Care Provider Shaista MARTINEZ, Je Mclain Unavailable Abdullahi MARTINEZ MD, Mari Unavailable Yomaira RN, Elle Unavailable Unavailable Lalit MARTINEZ, Bertin Castillo Unavailable [phone] Chaitanya Gardner Primary Care Provider Dr. Chaitanya Gardner Referring Provider Edward DISPATCH ASSOCIATE, DISPATCH ASSOCIATE-C Emily Attending Provider Dr. Chaitanya Gardner Primary Care Provider Dr. Chaitanya Gardner Referring Provider [phone] Salima DISPATCH ASSOCIATE, DISPATCH ASSOCIATE-C Huber Padron Attending Provider Dr. Blair Gillis Attending Provider [phone] JOSSELIN Hale Attending Provider Dr. Blair Gillis Referring Provider Dr. Blair Gillis Other Provider Dr. Chaitanya Gardner Primary Care Provider Dr. Blair Gillis Attending Provider Dr. Chaitanya Gardner Referring Provider JOSSELIN Hale Attending Provider Dr. Dakota Miranda Attending Provider Dr. Tobin Sullivan Referring Provider Dr. Chaitanya Gardner Primary Care Provider Dr. Chaitanya Gardner Referring Provider Dr. Blair Gillis Attending Provider Dr. Dakota Miranda Attending Provider Dr. Tobin Sullivan Referring Provider Dr. Blair Gillis Referring Provider Dr. Blair Gillis Other Provider Gilbert BHATIA PA-C Bhakti Attending Provider Edward DAI, DISPATCH ASSOCIATE-C Emily Attending Provider Jj MARTINEZ, Dr. Thurston Primary Care Provider Jj MARTINEZ, Dr. Thurston Referring Provider Dr. Daryl Thomas DO Attending Provider Dr. Dakota Miranda MD Attending Provider Ryanne [facility] Bárbara Suresh Attending Provider Bárbara Suresh Referring Provider Salima DAI-CHuber Attending Provider Dakota Miranda Attending Unavailable Latouf, Butros Primary Care Unavailable Daryl Thomas Attending Unavailable Latouf, Butros Referring Unavailable Latouf, Butros Primary Care Unavailable November Primary Care Unavailable Huber Borrego NP Attending Unavailable Latouf, Butros Referring Unavailable Owen De León Attending Unavailable Latouf, Butros Primary Care Unavailable Latouf, Butros Referring Unavailable Bárbara Suresh Attending Unavail able Bárbara Suresh Referring Unavail able Latouf, Butros Primary Care Unavailable Bárbara Suresh Attending Unavail able Bárbara Suresh Referring Unavail able November Primary Care Unavailable Daryl Thomas Attending Unavailable Latouf, Butros Primary Care Unavailable Latouf, Butros Referring Unavailable LATOUF, CHAITANYA MARTINEZ Admitting Unavailable LATOUF, BUTOSEAS MARTINEZ Primary Care Unavailable LATOUF, BUTOSEAS MD Consulting Unavailable LATOUF, BUTOSEAS MARTINEZ Attending Unavailable PROVIDER, UNKNOWN Consulting Unavailable PROVIDER, UNKNOWN Consulting Unavailable PROVIDER, UNKNOWN Consulting Unavailable LATOUF, BUTOSEAS MARTINEZ Attending Unavailable LATOUF, CHAITANYA MARTINEZ Admitting Unavailable LATOUF, BUTOSEAS MARTINEZ Primary Care Unavailable LATOUF, BUTOSAES MD Consulting Unavailable PROVIDER, UNKNOWN Consulting Unavailable PROVIDER, UNKNOWN Consulting Unavailable PROVIDER, UNKNOWN Consulting Unavailable LATOUF, BUTOSEAS MARTINEZ Attending Unavailable LATOUF, BUTOSEAS MARTINEZ Admitting Unavailable LATOUF, BUTOSEAS MARTINEZ Primary Care Unavailable LATOUF, BUTROS MD Consulting Unavailable PROVIDER, UNKNOWN Consulting Unavailable PROVIDER, UNKNOWN Consulting Unavailable PROVIDER, UNKNOWN Consulting Unavailable MONA RAYMUNDO DPM Admitting Unavailable MONA RAYMUNDO DPM Primary Care Unavailable MONA RAYMUNDO DPM Attending Unavailable Latouf , Chaitanya Primary Care Provider [phone] Je Noonan MD Unavailable Abdullahi MARTINEZ, Mari Unavailable Bertin Cohn MD Unavailable LATOUF, BUTROS Primary Care Unavailable TESTRAKE, NEFTALY Referring Unavailable TESTRAKE, NEFTALY Referring Unavailable LATOUF, BUTROS Primary Care Unavailable TESTRAKE, NEFTALY Referring Unavailable LATOUF, BUTROS Primary Care Unavailable TESTRAKE, NEFTALY Attending Unavailable LATOUF, BUTROS Primary Care Unavailable TESTRAKE, NEFTALY Referring Unavailable LATOUF, BUTROS Primary Care Unavailable TESTRAKE, NEFTALY Referring Unavailable LATOUF, BUTROS Primary Care Unavailable TESTRAKE, NEFTALY Attending Unavailable LATOUF, BUTROS Primary Care Unavailable LATOUF, BUTROS Primary Care Unavailable TESTRAKE, NEFTALY Attending Unavailable LATOUF, BUTROS Primary Care Unavailable TESTRAKE, NEFTALY Attending Unavailable LATOUF, BUTROS Primary Care Unavailable TESTRAKE, NEFTALY Referring Unavailable Medications Current Medications Medication Drug Class(es) Dates Sig (Normalized) Sig (Original) acetaminophen 500 mg oral tablet (13 sources) Start: 03-09-2019 Acetaminophen 500 MG tablet Active 650 mg PO NEEDED as needed for Pain March 09, 2019 12:00am Start: 03-09-2019 Acetaminophen Active 650 MG PO NEEDED March 09, 2019 12:00am take 1 tablet by yakov th every eight hours as needed acetaminophen (TYLENOL 8 HOUR) 650 mg CR tablet Take 650 mg by mouth every 8 hours as needed. Active Comment on above: Take 650 mg by mouth every 8 hours as needed. ascorbic acid 1000 mg oral tablet (13 sources) Vitamin C Start: 01-07-2021 take 1 g by mouth once daily Ascorbic Acid (Vitamin C) 1,000 mg tablet Active 1 g PO DAILY January 07, 2021 12:00am Start: 01-07-2021 take 1 g by mouth once daily A scorbic Acid (Vitamin C) Active 1 GM PO DAILY January 07, 2021 12:00am Comment on above: Take 1,000 mg by yakov th once daily. aspirin 81 mg chewable tablet (13 sources) Platelet Aggregation Inhibitor, Nonsteroidal Anti-inflammatory Drug Start: take 1 tablet by mouth once daily Aspirin 81 MG tablet,chewable Active 81 mg PO DAILY@0800 0 September 27, 2019 1:00am Comment on above: Take 81 mg by mouth once daily. carvedilol 3.125 mg oral tablet (20 sources) alpha-Adrenergic Abi, beta-Adrenergic Abi Start: End: take 1 tablet by mouth twice daily Carvedilol 3.125 mg tablet Active 3.125 mg PO TWICE A DAY 180 October 24, 2019 10:05am Comment on above: Take 3.125 mg by yakov th twice daily with meals. cholecalciferol 0.125 mg oral tablet (15 sources) Vitamin D Start: take 1 tablet by mouth once daily Cholecalciferol (Vitamin D3) 125 mcg (5,000 unit) tablet Active 52848 U PO DAILY April 28, 2023 9:25am Start: 04-28-2023 take 250 ug by mouth once daily Cholecalciferol (Vitamin D3) Active 250 MCG PO DAILY April 28, 2023 8:25am Start: 01-07-2021 End: 04-28-2023 take 1 tablet by mouth once daily Cholecalciferol (Vitamin D3) 125 mcg (5,000 unit) tablet Discontinued 125 ug PO DAILY January 07, 2021 12:00am April 28, 2023 9:25am doxycycline hyclate 100 mg oral capsule (2 sources) Tetracycline-class Drug Start: 04-05-2025 take 1 capsule by mouth every twelve hours doxycycline hyclate (VIBRAMYCIN) 100 mg capsule TAKE 1 CAPSULE BY MOUTH EVERY 12 HOURS FOR 14 DAYS 04/05/2025 Active fenofibrate 145 mg oral tablet (7 sources) Peroxisome Proliferator Receptor alpha Agonist Start: 04-27-2023 take 1 tablet by mouth once daily Fenofibrate Nanocrystallized 145 mg tablet Active 145 mg PO DAILY April 27, 2023 12:00am ferrous sulfate 325 mg oral tablet (14 sources) Start: 10-24-2019 take 1 tablet by mouth twice daily Ferrous Sulfate 325 mg (65 mg iron) tablet Active 325 mg PO TWICE A DAY February 27, 2025 2:24pm Start: 10-24-2019 End: 02-27-2025 take 1 tablet by mouth once daily Ferrous Sulfate 325 mg (65 mg iron) tablet Discontinued 325 mg PO DAILY October 24, 2019 12:00am February 27, 2025 2:25pm Comment on above: Take 325 mg by mouth twice daily. finasteride 5 mg oral tablet (13 sources) 5-alpha Reductase Inhibitor Start: 10-24-2019 take 1 tablet by mouth once daily Finasteride 5 mg tablet Active 5 mg PO DAILY October 24, 2019 12:00am Comment on above: Take 5 mg by mouth o nce daily. furosemide 40 mg oral tablet (20 sources) Loop Diuretic Start: 09-27-2019 take 1 tablet by mouth once daily Furosemide 40 MG tablet Active 40 mg PO DAILY 30 0 September 27, 2019 1:00am Start: 09-25-2019 End: 09-27-2019 take 1 tablet by mouth once daily Furosemide 20 MG tablet Discontinued 20 mg PO DAILY September 25, 2019 1:00am September 27, 2019 2:57pm Comment on above: Take 40 mg by mouth once daily. 24 hr isosorbide mononitrate 30 mg extended release oral tablet (20 sources) Nitrate Vasodilator Start: 09-27-19 End: 10-24-19 take 1 tablet by mouth once daily, then take 1 tablet by mouth every twenty-four hours Isosorbide Mononitrate 30 mg tablet extended release 24 hr Active 30 mg PO DAILY 90 3 October 24, 2019 10:06am Comment on above: Take 30 mg by mouth once daily. levothyroxine sodium 0.05 mg oral tablet (13 sources) l-Thyroxine Start: 08-20-19 take 1 tablet by mouth once daily levothyroxine (SYNTHROID) 50 mcg tablet Take 50 mcg by mouth once daily. 08/20/2018 Active Comment on above: Take 50 mcg by mouth once daily. lisinopril 5 mg oral tablet (10 sources) Angiotensin Converting Enzyme Inhibitor Start: 08-29-19 take 1 tablet by mouth once daily Lisinopril 5 mg tablet Active 5 mg PO daily 90 3 August 29, 2024 1:00am Start: 04-27-2023 End: 08-29-2024 take 1 tablet by mouth once daily Lisinopril 10 mg tablet Discontinued 10 mg PO DAILY April 27, 2023 12:00am August 29, 2024 4:58pm nystatin 100 unt/mg topical powder (16 sources) Polyene Antifungal Start: 11-23-2024 Nystatin 10 0,000 unit/gram powder Active 1 NMA TOPICAL daily November 23, 2024 12:00am Start: 08-22-2021 End: 04-27-2023 Nystatin 100,000 unit/gram p owder Discontinued 1 NMA TOPICAL DAILY August 22, 2021 1:00am April 27, 2023 1:16pm Start: 08-22-2021 End: 04-27-2023 Nystatin Discontinued 1 APPL IC TOPICAL DAILY August 22, 2021 1:00am April 27, 2023 1:16pm Start: 02-29-2020 nystatin (MYCO STATIN) powder Apply 1 application to affected area three times daily. 60 g 11 02/29/2020 Active Comment on above: Apply 1 application to affected area three times daily. ondansetron 4 mg oral tablet (6 sources) Serotonin-3 Receptor Antagonist Start: 5 take 1 tablet by mouth four times daily as needed Ondansetron Hcl 4 mg tablet Active 4 mg PO 4 TIMES DAILY as needed November 23, 2024 12:00am Start: 05-02-2022 take 4 mg by mouth e very six hours Ondansetron Active 4 MG PO EVERY 6 HOURS May 01, 2022 11:00pm Start: 09-25-2019 take 8 mg by mouth once daily Ondansetron Hcl Active 8 MG PO DAILY September 25, 2019 1:00am microencapsulated potassium chloride 10 meq extended release oral tablet (20 sources) Start: 04-27-2023 take 1 tablet by mouth once daily Potassium Chloride 10 mEq tablet,ER particles/crystals Active 10 meq PO DAILY April 27, 2023 12:00am Start: 10-24-2019 End: 04-27-2023 take 1 tablet by mouth once daily Potassium Chloride 10 mEq tablet extended release Discontinued 10 meq PO DAILY 60 0 October 24, 2019 3:32pm April 27, 2023 1:14pm Start: 09-27-2019 End: 10-24-2019 take 2 tablets by mouth once daily Potassium Chloride 10 MEQ tablet extended release Discontinued 20 meq PO DAILY 60 0 September 27, 2019 1:00am October 24, 2019 3:32pm Start: 09-27-2019 End: 10-24-2019 take 20 mEq by mouth once daily Potassium Chloride Dis continued 20 MEQ PO DAILY 60 September 27, 2019 1:00am October 24, 2019 3:32pm Comment on above: Take 10 mEq by mouth once daily. pravastatin sodium 40 mg oral tablet (13 sources) HMG-CoA Reductase Inhibitor Start: End: take 1 tablet by mouth once daily pravastatin (PRAVACHOL) 40 mg tablet Take 40 mg by mouth once daily. 08/20/2018 Active Comment on above: Take 40 mg by mouth once daily. rosuvastatin calcium 40 mg oral tablet (14 sources) HMG-CoA Reductase Inhibitor Start: End: take 1 tablet by mouth once daily Rosuvastatin 40 mg tablet Active 40 mg PO DAILY April 27, 2023 12:00am tamsulosin hydrochloride 0.4 mg oral capsule (13 sources) alpha-Adrenergic Abi Start: take 1 capsule by mouth once daily at bedtime tamsulosin ER (FLOMAX) 0.4 mg cap Take 1 capsule by mouth daily at bedtime. 30 capsule 11 06/28/2019 Active Comment on above: Take [address] [facility] daily at bedtime. vitamin b12 1 mg/ml injectable solution (13 sources) Vitamin B12 Start: inject 1000 ug by intramuscular injection every 30 days Cyanocobalamin (Vitamin B-12) 1,000 MCG/ML solution Active 1000 ug IM Q30D April 06, 2019 12:00am vitamin Start: 04-06-2019 inject 1000 ug by in tramuscular injection every 30 days Cyanocobalamin (Vitamin B-12) Active 1000 MCG IM Q30D April 06, 2019 12:00am Start: 08-20-2018 inject 1000 ug by in tramuscular injection every month cyanocobalamin 1,000 mcg/mL soln Inject 1,000 mcg intramuscularly once every month. 11 08/20/2018 Active Comment on above: Inject 1,000 mcg int ramuscularly once every month. Completed/Discontinued Medications Medication Drug Class(es) Dates Sig (Normalized) Sig (Original) acetaminophen 325 mg / HYDROcodone bitartrate 5 mg oral tablet (7 sources) Opioid Agonist Start: 06-11-2023 End: 09-07-2023 Hydrocodone-Acetami nophen 5-325 mg tablet Discontinued 1 {tbl} PO EVERY 6 HOURS as needed for pain 10 3 June 11, 2023 September 07, 2023 1:57pm Bilateral inguinal hernia Start: 06-11-2023 End: 09-07-2023 take 1 tablet by mouth every six hours Hydrocodone-Acetaminophen Discontinued 1 TABLET PO EVERY 6 HOURS 10 3 June 11, 2023 September 07, 2023 1:57pm amoxicillin 500 mg / clavulanate 125 mg oral tablet (8 sources) Penicillin-class Antibacterial Start: 09-25-2019 End: 10-24-2019 Amoxicillin-Pot Clavulanate 500-125 mg tablet Discontinued 1 {tbl} PO THREE TIMES A DAY September 25, 2019 1:00am October 24, 2019 9:06am infection Start: 09-25-2019 End: 10-24-2019 take 1 tablet by mouth three times daily Amoxicillin-Pot Clavulanate Discontinued 1 TABLET PO THREE TIMES A DAY September 25, 2019 1:00am October 24, 2019 9:06am clopidogrel 75 mg oral tablet (16 sources) [id number] Platelet Inhibitor Start: 09-27-2019 End: 02-20-2022 take 1 tablet by mouth once daily Clopidogrel 75 mg tablet Discontinued 75 mg PO DAILY 90 3 October 24, 2019 10:07am February 20, 2022 2:53pm loperamide hydrochloride 2 mg oral capsule (8 sources) Opioid Agonist Start: 09-25-2019 End: 08-22-2021 take 1 capsule by mouth every six hours as needed for diarrhea Loperamide 2 MG capsule Discontinued 2 mg PO EVERY 6 HOURS NEEDED as needed for Diarrhea September 25, 2019 1:00am August 22, 2021 4:27pm Problems Active Problems Problem Classification Problem Date Documented Da te Episodic/Chronic Abdominal hernia (20 sources) Left inguinal hernia ; Translations: [Unilateral inguinal hernia, without obstruction or gangrene, not specified as recurrent] 05-04-2023 Episodic Comment on above: s/p open left inguin al hernia repair with mesh Acquired foot deformities (5 sources) Hammer toe; Translations: [Other hammer toe(s) (acquired), right foot] Onset: 04-11-2025 04-11-2025 Chronic Acute and unspecified renal failure (5 sources) Renal failure syndrome; Translations: [Unspecified kidney failure] Onset: 07-20-2019 07-20-2019 Chronic Cancer of colon (8 sources) History of malignant neoplasm of colon; Translations: [Personal history of other malignant neoplasm of large intestine] 05-10-2022 Episodic Cancer of rectum and anus (6 sources) Malignant tumor of rectum; Translations: [Malignant neoplasm of rectum] Onset: 08-24-2018 05-02-2021 Chronic Chronic kidney disease (3 sources) Chronic kidney disease; Translations: [Chronic kidney disease, stage 3b] Onset: 07-20-2019 Chronic ulcer of skin (11 sources) Ulcer of big toe; Translations: [Non-pressure chronic ulcer of other part of right foot with fat layer exposed] Onset: 04-11-2025 01-11-2020 Chronic Coagulation and hemorrhagic disorders (8 sources) Platelet count below reference range; Translations: [Thrombocytopenia, unspecified] Onset: 08-24-2018 08-24-2018 Chronic Congestive heart failure; nonhypertensive (8 sources) Acute congestive heart failure; Translations: [Heart failure, unspecified] 01-11-2020 Chronic Coronary atherosclerosis and other heart disease (20 sources) Coronary atherosclerosis; Translations: [Atherosclerotic heart disease of [place] coronary artery without angina pectoris] Onset: 11-23-2019 05-02-2021 Chronic Comment on above: 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 Cohn; Deficiency and other anemia (5 sources) Anemia co-occurrent and due to chronic kidney disease stage 3; Translations: [Anemia due to stage 3a chronic kidney disease (HCC)] Onset: 03-25-2022 Chronic Diabetes mellitus with complications (2 sources) Type 2 diabetes mellitus with unspecified complications; Translations: [Type 2 diabetes mellitus with unspecified complications] Onset: 05-20-2024 Chronic Diabetes mellitus without complication (6 sources) Type 2 diabetes mellitus without complication; Translations: [Type 2 diabetes mellitus without complications] Onset: 11-23-2019 05-02-2021 Chronic Disorders of lipid metabolism (20 sources) Mixed hyperlipidemia; Translations: [Mixed hyperlipidemia] Onset: 11-23-2019 05-02-2021 Chronic Essential hypertension (19 sources) Essential hypertension; Translations: [Essential (primary) hypertension] Onset: 08-24-2018 05-02-2021 Chronic Genitourinary symptoms and ill-defined conditions (1 source) Nocturia; Translations: [Nocturia] Onset: 06-02-2025 Episodic Hyperplasia of prostate (6 sources) Benign prostatic hyperplasia; Translations: [Benign prostatic hyperplasia without lower urinary tract symptoms] Onset: 08-24-2018 08-24-2018 Chronic Infective arthritis and osteomyelitis (except that caused by tuberculosis or sexually transmitted disease) (1 source) Osteomyelitis, unspecified; Translations: [Osteomyelitis of toe (HCC)] Onset: 06-09-2025 Chronic Mycoses (1 source) Tinea unguium; Translations: [Onychomycosis] Onset: 06-09-2025 Episodic Nutritional deficiencies (7 sources) Deficiency of macronutrients; Translations: [Unspecified severe protein-calorie malnutrition] Onset: 06-14-2019 06-23-2019 Chronic Other circulatory disease (2 sources) Abnormal peripheral pulse; Translations: [Other specified symptoms and signs involving the circulatory and respiratory systems] 04-11-2025 Episodic Other circulatory disease (1 source) Other specified symptoms and signs involving the circulatory and respiratory systems; Translations: [Diminished pulses in lower extremity] Onset: 04-24-2025 Episodic Other connective tissue disease (8 sources) Other bursitis of elbow, right elbow; Translations: [Bursitis of right elbow] 11-23-2024 Episodic Other diseases of bladder and urethra (5 sources) Bladder outlet obstruction; Translations: [Bladder-neck obstruction] Onset: 10-17-2020 05-02-2021 Chronic Other diseases of kidney and ureters (6 sources) Renal impairment; Translations: [Disorder of kidney and ureter, unspecified] 11-04-2023 Episodic Other gastrointestinal disorders (5 sources) Ileostomy present; Translations: [Encounter for attention to ileostomy] Onset: 06-07-2019 05-02-2021 Chronic Other gastrointestinal disorders (5 sources) Malabsorption - iron; Translations: [Intestinal malabsorption, unspecified] Onset: 07-20-2019 07-20-2019 Chronic Other gastrointestinal disorders (5 sources) Colostomy present; Translations: [Colostomy status] Onset: 04-22-2021 05-02-2021 Chronic Other gastrointestinal disorders (16 sources) Ileostomy bag changed; Translations: [Encounter for attention to ileostomy] 07-05-2019 Chronic Other lower respiratory disease (8 sources) Dyspnea on exertion; Translations: [Other forms of dyspnea] 11-04-2023 Episodic Other lower respiratory disease (5 sources) Dyspnea; Translations: [Shortness of breath] 11-04-2023 Episodic Other lower respiratory disease (2 sources) Other forms of dyspnea; Translations: [Other respiratory abnormalities] 11-05-2023 Episodic Other nutritional; endocrine; and metabolic disorders (5 sources) Obese class I; Translations: [Obesity, unspecified] Onset: 04-22-2021 05-02-2021 Chronic Residual codes; unclassified (5 sources) Bilateral lower limb edema; Translations: [Localized edema] 11-04-2023 Episodic Skin and subcutaneous tissue infections (8 sources) Cellulitis of foot; Translations: [Cellulitis of right lower limb] 01-11-2020 Episodic Thyroid disorders (7 sources) Hypothyroidism; Translations: [Hypothyroidism, unspecified] Onset: 08-24-2018 05-02-2021 Chronic Unclassified (2 sources) Ulcer of toe of right foot, with fat layer exposed (HCC) 04-11-2025 Past or Other Problems Problem Classification Problem Date Documented Da te Episodic/Chronic Complications of surgical procedures or medical care (8 sources) Complication of surgical procedure; Translations: [Other intraoperative complications of genitourinary system] Onset: 12-16-2018 Resolved: 05-02-2021 06-23-2019 Episodic Coronary atherosclerosis and other heart disease (11 sources) Stented coronary artery; Translations: [Presence of coronary angioplasty implant and graft] Onset: 01-11-2020 Episodic Comment on above: 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 Cohn Deficiency and other anemia (5 sources) Anemia; Translations: [Anemia, unspecified] Onset: 08-24-2018 08-24-2018 Episodic Deficiency and other anemia (2 sources) Anemia, unspecified; Translations: [Anemia, unspecified] Onset: 08-24-2018 Episodic Fluid and electrolyte disorders (14 sources) Dehydration; Translations: [Dehydration] Onset: 07-20-2019 Resolved: 05-02-2021 04-07-2019 Episodic Other diseases of kidney and ureters (5 sources) Stricture of ureter; Translations: [Crossing vessel and stricture of ureter without hydronephrosis] Onset: 09-06-2019 09-06-2019 Episodic Other diseases of kidney and ureters (1 source) Disorder of kidney and ureter, unspecified; Translations: [Disorder of kidney and ureter, unspecified] Onset: 08-29-2024 Episodic Other gastrointestinal disorders (3 sources) High output ileostomy; Translations: [Other specified symptoms and signs involving the digestive system and abdomen] Onset: 06-16-2019 Resolved: 06-23-2019 06-23-2019 Episodic Other nervous system disorders (5 sources) Postoperative pain ; Translations: [Other acute postprocedural pain] Onset: 06-07-2019 05-02-2021 Episodic Other non-traumatic joint disorders (1 source) Pain in right elbow; Translations: [Pain in right elbow] Onset: 11-23-2024 Episodic Other nutritional; endocrine; and metabolic disorders (3 sources) Hypomagnesemia; Translations: [Hypomagnesemia] Onset: 04-25-2021 Resolved: 05-02-2021 05-02-2021 Chronic Other nutritional; endocrine; and metabolic disorders (3 sources) Hypophosphatemia; Translations: [Other disorders of phosphorus metabolism] Onset: 04-26-2021 Resolved: 05-02-2021 05-02-2021 Chronic Other screening for suspected conditions (not mental disorders or infectious disease) (11 sources) Raised prostate specific antigen; Translations: [Elevated prostate specific antigen [PSA]] Onset: 08-24-2018 Resolved: 06-23-2019 08-24-2018 Episodic Marie-; endo-; and myocarditis; cardiomyopathy (except that caused by tuberculosis or sexually transmitted disease) (13 sources) Pericardial effusion; Translations: [Pericardial effusion (noninflammatory)] Onset: 11-23-2019 11-23-2019 Episodic Residual codes; unclassified (5 sources) Postoperative state; Translations: [Other specified postprocedural states] Onset: 06-07-2019 06-23-2019 Episodic Residual codes; unclassified (5 sources) Delirium; Translations: [Disorientation, unspecified] Onset: 06-07-2019 06-23-2019 Episodic Residual codes; unclassified (8 sources) History of cardiac catheterization; Translations: [Other specified postprocedural states] Onset: 09-27-2019 01-11-2020 Episodic Comment on above: LVEF: by LV gram 60 %; Elevated Left Ventricular End Diastolic Pressure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 If pt is able to tolerate DAPT and has no further anemia, would consider PCI to LAD with long sheath, followed by PCI of PL branch of RCA +/- mid RCA if dye alotment not surpassed. 09/27/2019 Unclassified (16 sources) Ostomy patient problem; Translations: [Complication of ostomy] 07-04-2019 Results Test Name Value Interpretation Reference Range Facility [facility] 06-09-2025 CNOV Office Visit (PODIWS ) -- HUONG BATES ([id number]) 1945 M Date Time Provider Department 06/09/25 1:00 PM [facility] P[facility]WS During your visit today, we recorded the following information about you: Lisa Ochoa LPN 06/10/2025 6:53 AM Signed AMB ROOMING INTAKE FLOWSHEET DATA Patient presents with: Right 2nd Toe - Established Patient, Follow Up, Pain, Swelling, Ulcer Patient states they noticed wound on Thursday06/06/2025. CARIDAD Christensen Matthew 06/09/2025 1:42 PM Signed We discussed the care of your right second toe, which has a pre-ulcerative callus and a small ulceration: - You have been taking Augmentin (amoxicillin-clavulanic acid) since May 25, as recommended by infectious disease for possible early bone infection seen on your x-ray. - I trimmed your thickened toenails and filed down the callus today to help prevent further problems. - Please continue to clean the area with soap and water, dry it thoroughly, apply a small piece of Yanet daily, and cover it with 1 or 2 layers of gauze. - Continue using the small foam pad to keep pressure off the toe during the day. - If the area becomes too moist or you notice the skin turning white, please stop using any toe caps or pads that may be causing this. - After the ulcer heals, you may use the gel toe cap during the day if it is comfortable. - We discussed that this issue may continue to recur due to the shape and contracture of your toe, and that surgical options such as partial toe amputation are available but not currently planned. We discussed your vascular disease: - Your circulation studies show decreased blood flow to both feet, which affects your ability to heal wounds. - I have already reached out to a vascular surgeon about your case, but you are not planning to pursue surgery at this time. We discussed ongoing nail and foot care: - I recommend continuing regular nail trimming and callus care every 3 months, as you meet the criteria due to your vascular disease and decreased sensation. - I performed nail trimming and callus removal today. Follow-up: - I would like to see you back in about one month to check on your toe and foot care. - If you have any concerns before then, please contact our office. Lisa Ochoa LPN 06/10/2025 6:53 AM Signed Per Huong Grant was wound was dressed with yanet, non adherent and 2 in roll. instructed/educated in its application, wear, and care. All questions were answered, and patient was able to demonstrate competence with the necessary skills to utilize the above equipment. CARIDAD Christensen Matthew 06/10/2025 6:53 AM Signed Subjective The patient is an 79-year-old male with PAD and chronic right second toe ulceration, presenting for follow-up. He is accompanied by his daughter, who provides additional history. The patient has a history of chronic callus formation and ulceration at the tip of the right second toe, attributed to pressure from a long second toe with distal interphalangeal joint contracture. He has previously tried topical creams without significant improvement. He is currently using a foam pad to offload pressure, but has not tolerated a crescent-shaped pad in the past due to displacement during sleep. A right second toe x-ray on 04/27 showed periostitis at the distal phalanx concerning for early osteomyelitis. He was started on Augmentin on 05/25 following e-consultation with infectious disease, who recommended a 6-week course. He has also used topical antibiotics, Yanet, Aquacel, and advanced Vaseline. Vascular studies demonstrated PAD with right BILL 0.76 and 0.73, right toe pressure 0.4, left BILL 0.96, and left toe pressure 0.51. He and his are not interested in surgical intervention at this time due to concerns about wound healing. Musculoskeletal: (+) right second toe pain Neurological: (+) diminished vibration sensation right foot Objective There were no vitals taken for this visit. - Cardiovascular: Dorsalis pedis and posterior tibial pulses faintly palpable left; nonpalpable right. Capillary refill time delayed in the right hallux, immediate in the left hallux. - Skin: Skin temperature warm bilaterally. Hair growth absent on both feet. No erythema noted. Moderate swelling present in both feet. Toenails 1-5 bilaterally are yellow, thickened, incurvated, and elongated. Pre-ulcerative callus on the tip of the right second toe; toe does not appear grossly infected. Remnant of dry blood at the tip of the toe just beneath the nail plate. Remaining skin appears well-hydrated. callus was debrided to the right 2nd toe and there is 3 mm superficial ulceration without infection present. - Neurological: Protective sensation mostly intact in both feet. Vibratory sensation slightly diminished in the right foot. - M (more content not included)... Normal [facility] HUONG BATES ([id number]) 1945 M Date Time Provider Department 06/06/25 [facility] LINETTE During your visit today, we recorded the following information about you: Eugenia Henry LPN 06/06/2025 8:30 AM Addendum Patients calling in stating she noticed what looks like a calus on her husbands toe but it has blood underneath like the previous one did and it not sure if its just a calus or if it is infected. Patient is still on the antibiotics but was told to call if she had concerns about anything. Patient denies pain. I did suggest sending a picture via [employer] if they are able. is requesting a call back. CARIDAD Mccall Amelia, LPN 06/07/2025 8:57 AM Signed Patient was scheduled for 06/09/2025 Lisa Ochoa LPN Allergies As of Date: 06/06/2025 (No Known Allergies) Date Reviewed: 05/23/2025 Reviewed by: Lisa Ochoa LPN - Fully Assessed Reason for Visit: Patient Question [1477] Prescriptions as of 06/07/2025 - amoxicillin-clavulanate potassium (AUGMENTIN) 875-125 mg per tablet Take 1 tablet by mouth every 12 hours. - doxycycline hyclate (VIBRAMYCIN) 100 mg capsule Take 1 capsule by mouth two times a day. - doxycycline hyclate (VIBRAMYCIN) 100 mg capsule TAKE 1 CAPSULE BY MOUTH EVERY 12 HOURS FOR 14 DAYS - Ascorbic Acid (VITAMIN C) 1,000 mg tablet Take 1,000 mg by mouth once daily. - nystatin (MYCOSTATIN) powder Apply 1 application to affected area three times daily. - isosorbide mononitrate ER (IMDUR) 30 mg 24 hr tablet Take 30 mg by mouth once daily. - furosemide (LASIX) 40 mg tablet Take 40 mg by mouth once daily. - carvedilol (COREG) 3.125 mg tablet Take 3.125 mg by mouth twice daily with meals. - aspirin 81 mg chewable tablet Take 81 mg by mouth once daily. - ferrous sulfate 325 mg (65 mg iron) tablet Take 325 mg by mouth twice daily. - finasteride (PROSCAR) 5 mg tablet Take 5 mg by mouth once daily. - potassium chloride (K-TAB) 10 mEq tablet Take 10 mEq by mouth once daily. - tamsulosin ER (FLOMAX) 0.4 mg cap Take 1 capsule by mouth daily at bedtime. - levothyroxine (SYNTHROID) 50 mcg tablet Take 50 mcg by mouth once daily. - pravastatin (PRAVACHOL) 40 mg tablet Take 40 mg by mouth once daily. - acetaminophen (TYLENOL 8 HOUR) 650 mg CR tablet Take 650 mg by mouth every 8 hours as needed. - cyanocobalamin 1,000 mcg/mL soln Inject 1,000 mcg intramuscularly once every month. Problem List As Of Date 06/06/2025 Noted Resolved Benign prostatic hyperplasia without lower urin*08/24/2018 Rectal cancer (HCC) [C20] 08/24/2018 Anemia [D64.9] 08/24/2018 Essential hypertension [I10] 08/24/2018 Hypothyroidism [E03.9] 08/24/2018 Elevated prostate specific antigen (PSA) [R97.2*08/24/2018 Thrombocytopenia (HCC) [D69.6] 08/24/2018 Intraoperative ureteral injury [N99.81] 12/16/2018 Post-op pain [G89.18] 06/07/2019 Post-operative state [Z98.890] 06/07/2019 Attention to ileostomy (HCC) [Z43.2] 06/07/2019 Delirium [R41.0] 06/07/2019 Severe protein-calorie malnutrition (HCC) [E43] 06/14/2019 Increased ileostomy output (HCC) [R19.8, Z93.2] 06/16/2019 06/23/2019 Elevated serum creatinine [R79.89] 06/16/2019 06/23/2019 Renal failure [N19] 07/20/2019 Hyponatremia [E87.1] 07/20/2019 05/02/2021 Iron malabsorption [K90.9] 07/20/2019 Ureteral stricture [N13.5] 09/06/2019 Coronary artery disease involving seldovia nelson*11/23/2019 Mixed hyperlipidemia [E78.2] 11/23/2019 Pericardial effusion [I31.39] 11/23/2019 Controlled type 2 diabetes mellitus without com*11/23/2019 Bladder outlet obstruction [N32.0] 10/17/[address] (HCC) [Z93.3] 04/22/2021 Obesity, Class I, BMI 30-34.9 [E66.811] 04/22/2021 Hypomagnesemia [E83.42] 04/25/2021 05/02/2021 Hypophosphataemia [E83.39] 04/26/2021 05/02/2021 Hypokalemia [E87.6] 04/26/2021 05/02/2021 Ileus following gastrointestinal surgery (HCC) *04/26/2021 05/02/2021 Anemia due to stage 3a chronic kidney disease (*03/25/2022 Encounter Status:Closed by LISA OCHOA on 06/07/25 Normal [facility] ALBUMIN/CREATININE RATIO, UR INEon 06-02-2025 Albumin DL <= 20 mg/L (U) [Mass/Vol] 18.4 mg/L Normal [facility] Comment on above: Order Comment: Speci men Type: URINE SPECIMENOrdering Facility: [facility] Address: [address] [place] [address], [place] [address] Performed By: #### U ACR ####[facility] LABCLIA [id number] [place] [id number] [place] Albumin/Creatinine (U) [Mass ratio] 20 mg/g Normal <30 [facility] Comment on above: Order Comment: Speci men Type: URINE SPECIMENOrdering Facility: [facility] Address: [address] [place] [address], [place] [address] Result Comment: Adul t Male and Female Nephrotic Criteria: <30 mg/g is considered normal to mildly increased 30-300 mg/g is considered moderately increased >300 mg/g is considered severely increased KDIGO. (2013). KDIGO 2012 Clinical Practice Guideline for the Evaluation and Management of Chronic Kidney Disease. Official Journal of the International Society of Nephrology, 3(1), 1-150. Performed By: #### U ACR ####[facility] LABCLIA [id number] [place] [address] [place] Creatinine (U) [Mass/Vol] 91.5 mg/dL Normal 20.0-300.0 [facility] Comment on above: Order Comment: Speci men Type: URINE SPECIMENOrdering Facility: [facility] Address: [address] [place] [address] Performed By: #### U ACR ####[facility] LABCLIA [id number] [place] [id number] [facility] Bacteria Ur Culton Bacteria identified Cx Nom (U) CULTURE, URINE: No growth (<1,000 CFU/ml) Normal [facility] Comment on above: Performed By: #### 6 30-4 ####[facility] LABCLIA [id number] [place] [address] [place] CBC panel Auto (Bld)on 06-02 Erythrocyte distribution width (RBC) [Ratio] 12.5 % Normal 11.5-15.0 [facility] Comment on above: Order Comment: Speci men Type: BLOOD SPECIMENOrdering Facility: [facility] Address: [address] [place] [address] Performed By: #### 5 8410-2 ####[facility] HOSPITALWYVETTELIA [id number] [place] [address] [place] Hematocrit (Bld) [Volume fraction] 34.1 % Low 39.0-51.0 [facility] Comment on above: Order Comment: Speci men Type: BLOOD SPECIMENOrdering Facility: [facility] Address: [address] [place] [address] Performed By: #### 5 8410-2 ####[facility] HOSPITALTOWNCLIA [id number] [place] [address] [place] Hemoglobin (Bld) [Mass/Vol] 11.4 g/dL Low 13.0-17.0 [facility] Comment on above: Order Comment: Speci men Type: BLOOD SPECIMENOrdering Facility: [facility] Address: [address] [place] [address] Performed By: #### 5 8410-2 ####[facility] MILLTOWNCLIA [id number] [place] [address] [place] MCH (RBC) [Entitic mass] 32.0 pg Normal 26.0-34.0 [facility] Comment on above: Order Comment: Speci men Type: BLOOD SPECIMENOrdering Facility: [facility] Address: [address] [place] [address] Performed By: #### 5 8410-2 ####[facility] HOSPITALNOE [id number] [place] [address] [place] MCHC (RBC) [Mass/Vol] 33.4 g/dL Normal 30.5-36.0 [facility] Comment on above: Order Comment: Speci men Type: BLOOD SPECIMENOrdering Facility: [facility] Address: [address] [place] [address] Performed By: #### 5 8410-2 ####[facility] HOSPITALROSSY [id number] [place] [address] [place] MCV (RBC) [Entitic vol] 95.8 fL Normal 80.0-100.0 [facility] Comment on above: Order Comment: Speci men Type: BLOOD SPECIMENOrdering Facility: [facility] Address: [address] [place] [address] Performed By: #### 5 8410-2 ####[facility] RAPHAELNOE [id number] [place] [address] [place] Nucleated RBC (Bld) [#/Vol] 10*3/uL Normal <0.01 [facility] Comment on above: Order Comment: Speci men Type: BLOOD SPECIMENOrdering Facility: [facility] Address: [address] [place] [address] Performed By: #### 5 8410-2 ####[facility]ITALMARKNCLIDeepali [id number] [place] [address] [place] Platelet mean volume (Bld) [Entitic vol] 9.7 fL Normal 9.0-12.7 [facility] Comment on above: Order Comment: Speci men Type: BLOOD SPECIMENOrdering Facility: [facility] Address: [address] [place] [address] Performed By: #### 5 8410-2 ####[facility] HOSPITALROSSY [id number] [place] [address] [place] Platelets (Bld) [#/Vol] 92 10*3/uL Low 150-400 [facility] Comment on above: Order Comment: Speci men Type: BLOOD SPECIMENOrdering Facility: [facility] Address: [address] [place] [address] Result Comment: No c lot detected. Performed By: #### 5 8410-2 ####[facility] HOSPITALKISHOR [id number] [place] [address] [place] RBC (Bld) [#/Vol] 3.56 10*6/uL Low 4.20-6.00 [facility] Comment on above: Order Comment: Speci men Type: BLOOD SPECIMENOrdering Facility: [facility] Address: [address] [place] [address] Performed By: #### 5 8410-2 ####[facility] HOSPITALKISHOR [id number] [place] [address] [place] WBC (Bld) [#/Vol] 5.73 10*3/uL Normal 3.70-11.00 [facility] Comment on above: Order Comment: Speci men Type: BLOOD SPECIMENOrdering Facility: [facility] Address: [address] [place] [address] Performed By: #### 5 8410-2 ####[facility] HOSPITALJOHNLIDeepali [id number] [place] [address] [place] Comprehensive metabolic 2000 panelon 10-31-2025 Albumin [Mass/Vol] 3.9 g/dL Normal 3.9-4.9 [facility] Comment on above: Order Comment: Speci men Type: BLOOD SPECIMENOrdering Facility: [facility] Address: [address] [place] [address] Performed By: #### 2 4323-8 ####[facility] SHARI MILLTOWNCLIA [id number] [place] [address] [place] ALP [Catalytic activity/Vol] 58 U/L Normal 38-113 [facility] Comment on above: Order Comment: Speci men Type: BLOOD SPECIMENOrdering Facility: [facility] Address: [address] [place] [address] Performed By: #### 2 4323-8 ####[facility] HOSPITALWNCLIA [id number] [place] [address] [place] ALT [Catalytic activity/Vol] 9 U/L Low 10-54 [facility] Comment on above: Order Comment: Speci men Type: BLOOD SPECIMENOrdering Facility: [facility] Address: [address] [place] [address] Performed By: #### 2 4323-8 ####[facility] HOSPITALWNCLIA [id number] [place] [address] [place] Anion gap [Moles/Vol] 11 mmol/L Normal 8-15 [facility] Comment on above: Order Comment: Speci men Type: BLOOD SPECIMENOrdering Facility: [facility] Address: [address] [place] [address] Performed By: #### 2 4323-8 ####[facility] MILLTOWNCLIA [id number] [place] [address] [place] AST [Catalytic activity/Vol] 14 U/L Normal 14-40 [facility] Comment on above: Order Comment: Speci men Type: BLOOD SPECIMENOrdering Facility: [facility] Address: [address] [place], [place] [id number] Performed By: #### 2 4323-8 ####[facility] SH[facility] MILLTOWNCLIA [id number] [place] [address] [place] Bilirubin [Mass/Vol] 0.3 mg/dL Normal 0.2-1.3 [place] Comment on above: Order Comment: Speci men Type: BLOOD SPECIMENOrdering Facility: [facility] Address: [address] [place] [address] Performed By: #### 2 4323-8 ####[facility] MILLTOWNCLIA [id number] [place] [address] [place] Calcium [Mass/Vol] 9.1 mg/dL Normal 8.5-10.2 [facility] Comment on above: Order Comment: Speci men Type: BLOOD SPECIMENOrdering Facility: [facility] Address: [address] [place] [address] Performed By: #### 2 4323-8 ####[facility] MILLTOWNCLIA [id number] [place] [address] [place] Chloride [Moles/Vol] 104 mmol/L Normal 98-107 [place] Comment on above: Order Comment: Speci men Type: BLOOD SPECIMENOrdering Facility: [facility] Address: [address] [place] [address] Performed By: #### 2 4323-8 ####[facility] MILLTOWNCLIA [id number] [place] [address] [place] CO2 [Moles/Vol] 23 mmol/L Normal 22-30 [facility] Comment on above: Order Comment: Speci men Type: BLOOD SPECIMENOrdering Facility: [facility] Address: [address] [place] [address] Performed By: #### 2 4323-8 ####[facility] MILLTOWNCLIA [id number] [place] [address] [place] Creatinine [Mass/Vol] 1.32 mg/dL High 0.73-1.22 [facility] Comment on above: Order Comment: Katy orourke Type: BLOOD SPECIMENOrdering Facility: [facility] Address: [address] [place] [address] Performed By: #### 2 4323-8 ####[facility] [id number] [place] [address] [place] eGFRcr SerPlBld CKD-EPI 2020 55 mL/min/1.73m??? Low >=60 [facility] Comment on above: Order Comment: Katy orourke Type: BLOOD SPECIMENOrdering Facility: [facility] Address: [address] [place] [address] Result Comment: Kezia mated Glomerular Filtration Rate (eGFR) is calculated using the 2020 CKD-EPI creatinine equation. This equation utilizes serum creatinine, sex, and age as parameters. The creatinine assay has traceable calibration to isotope dilution-mass spectrometry. Refer to KDIGO guidelines for clinical interpretation. In patients with unstable renal function, e.g. those with acute kidney injury, the eGFR may not accurately reflect actual GFR. Performed By: #### 2 4323-8 ####[facility] [id number] [place] [address] [place] Glucose [Mass/Vol] 89 mg/dL Normal 74-99 [facility] Comment on above: Order Comment: Katy orourke Type: BLOOD SPECIMENOrdering Facility: [facility] Address: [address] [place] [address] Result Comment: The [place] Diabetes Association (ADA) provides guidance for cutoff values for fasting glucose and random glucose. The ADA defines fasting as no caloric intake for at least 8 hours. Fasting plasma glucose results between 100 to 125 mg/dL indicate increased risk for diabetes (prediabetes). Fasting plasma glucose results greater than or equal to 126 mg/dL meet the criteria for diagnosis of diabetes. In the absence of unequivocal hyperglycemia, results should be confirmed by repeat testing. In a patient with classic symptoms of hyperglycemia or hyperglycemic crisis, random plasma glucose results greater than or equal to 200 mg/dL meet the criteria for diagnosis of diabetes. Reference: Standards of Medical Care in Diabetes 2016, [place] Diabetes Association. Diabetes Care. 2016.39(Suppl 1). Performed By: #### 2 4323-8 ####[facility] HOSPITALYVETTELIDeepali [id number] [place] [address] [place] Potassium [Moles/Vol] 4.3 mmol/L Normal 3.7-5.1 [facility] Comment on above: Order Comment: Speci men Type: BLOOD SPECIMENOrdering Facility: [facility] Address: [address] [place] [address] Performed By: #### 2 4323-8 ####[facility] [id number] [place] [address] [place] Protein [Mass/Vol] 5.8 g/dL Low 6.3-8.0 [facility] Comment on above: Order Comment: Speci men Type: BLOOD SPECIMENOrdering Facility: [facility] Address: [address] [place] [address] Performed By: #### 2 4323-8 ####[facility] [id number] [place] [address] [place] Sodium [Moles/Vol] 138 mmol/L Normal 136-144 [facility] Comment on above: Order Comment: Speci men Type: BLOOD SPECIMENOrdering Facility: [facility] Address: [address] [place] [address] Performed By: #### 2 4323-8 ####[facility] [id number] [place] [address] [place] Urea nitrogen [Mass/Vol] 25 mg/dL High 9-24 [facility] Comment on above: Order Comment: Speci men Type: BLOOD SPECIMENOrdering Facility: [facility] Address: [address] [place] [address] Performed By: #### 2 4323-8 ####[facility] SHAR[facility] CENTERKISHOR [id number] [place] [address] [place] HbA1c (Bld)on 06-02-2025 Average glucose Estimated from glycated hemoglobin (Bld) [Mass/Vol] 111 mg/dL Normal [facility] Comment on above: Order Comment: Speci men Type: BLOOD SPECIMEN Ordering Facility: [facility] Address: [address] [place] [address] Result Comment: eAG: (Estimated average glucose) is a calculated value from HgbA1c and is patient accounting representative of the average blood glucose level in the last 2-3 month period. Performed By: #### 5 5454-3 #### [facility] CLIA [id number] [address] [place] [address] [place] HbA1c (Bld) [Mass fraction] 5.5 % Normal 4.3-5.6 [facility] Comment on above: Order Comment: Katy orourke Type: BLOOD SPECIMEN Ordering Facility: [facility] Address: [address] [place] [address] Result Comment: [place] Diabetes Association guidelines indicate that patients with HgbA1c in the range 5.7-6.4% are at increased risk for development of diabetes, and intervention by lifestyle modification may be beneficial. HgbA1c greater or equal to 6.5% is considered diagnostic of diabetes. Performed By: #### 5 5454-3 #### [facility] CLIA [id number] [address] [place], [place] [id number] [place] Lipid 1996 panelon 5 Cholesterol [Mass/Vol] 154 mg/dL Normal <200 [facility] Comment on above: Order Comment: Katy men Type: BLOOD SPECIMENOrdering Facility: [facility] Address: [address] [place] [address] Result Comment: <200 mg/dL, Desirable 200-239 mg/dL, Borderline high >239 mg/dL, High Performed By: #### 2 4331-1 ####[facility] LABCLIA [id number] [address] [id number] [place] [address] [place] [place]#### 2132-9, TSHRF ####[facility] LABCLIA [id number] [address] STATES [facility] Cholesterol in HDL [Mass/Vol] 34 mg/dL Low >39 [facility] Comment on above: Order Comment: Speci men Type: BLOOD SPECIMENOrdering Facility: [facility] Address: [address] [place] [address] Result Comment: 40-5 9 mg/dL, Acceptable >59 mg/dL, High: Negative risk factor for coronary heart disease <40 mg/dL, Low: Positive risk factor for coronary heart disease Performed By: #### 2 4331-1 ####[facility]CLIA [id number] [address] [id number] [address] OF [place]#### 2132-9, TSHRF ####[facility]CLIA [id number] [address] Cholesterol in LDL [Mass/Vol] 84 mg/dL Normal <100 [facility] Comment on above: Order Comment: Speci men Type: BLOOD SPECIMENOrdering Facility: [facility] Address: [address] [place] [address] Result Comment: <100 mg/dL, Optimal 100-129 mg/dL, Near optimal/above optimal 130-159 mg/dL, Borderline high 160-189 mg/dL, High >189 mg/dL, Very high Secondary prevention optimal LDL Cholesterol levels are recommended to be <70 mg/dL LDL cholesterol is calculated using the Pal-NIH equation. Performed By: #### 2 4331-1 ####[facility]CLIA [id number] [address] [id number] [place] [address] [place]#### 2132-9, TSHRF ####[facility]CLIA [id number] [place] [address] [place] Cholesterol in LDL/Cholesterol in HDL [Mass ratio] 2.47 {ratio} Normal <2.54 [facility] Comment on above: Order Comment: Speci men Type: BLOOD SPECIMENOrdering Facility: [facility] Address: [address] [place] [address], [place] [address] Result Comment: Refe renbrie: 1. National Cholesterol Education Program ATP III Guideline At-A-Glance Quick Desk Reference: National Heart, Lung, and Blood [place]. National Institutes of Health. 2001: NIH Publication No. 01-3305. 2. An International Atherosclerosis Society position paper: global recommendations for the management of dyslipidemia: executive summary, Atherosclerosis. 2014: 232(2):410-413. Performed By: #### 2 4331-1 ####[facility]CLIA [id number] [address] [id number] [place] [address] [place]#### 2132-9, TSHRF ####[facility]CLIA [id number] [place] [address] [place] Cholesterol in VLDL [Mass/Vol] 33 mg/dL High <30 [facility] Comment on above: Order Comment: Speci men Type: BLOOD SPECIMENOrdering Facility: [facility] Address: [address] [place] [address], [place] [address] Performed By: #### 2 4331-1 ####[facility]CLIA [id number] [address] [id number] [place] [address] [place]#### 2132-9, TSHRF ####[facility]CLIA [id number] [place] [address] [place] Cholesterol non HDL [Mass/Vol] 120 mg/dL Normal <130 [facility] Comment on above: Order Comment: Speci men Type: BLOOD SPECIMENOrdering Facility: [facility] Address: [address] [place] [address] Result Comment: <130 mg/dL, Optimal 130-159 mg/dL, Near optimal/above optimal 160-189 mg/dL, Borderline high 190-219 mg/dL, High >219 mg/dL, Very high Secondary prevention optimal non HDL Cholesterol levels are recommended to be <100 mg/dL Performed By: #### 2 4331-1 ####[facility]CLIA [id number] [address] [id number] [place] [address] [place]#### 2132-9, TSHRF ####[facility]CLIA [id number] [place] [address] [place] Cholesterol.total/Cho lesterol in HDL [Mass ratio] 4.53 {ratio} Normal <5.10 [facility] Comment on above: Order Comment: Speci men Type: BLOOD SPECIMENOrdering Facility: [facility] Address: [address] [place] [address], [place] [address] Performed By: #### 2 4331-1 ####[facility]CLIA [id number] [address] [id number] [place] [address] [place]#### 2132-9, TSHRF ####[facility]CLIA [id number] [place] [id number] [place] FASTING TIME 12 hrs Normal [facility] Comment on above: Order Comment: Speci men Type: BLOOD SPECIMENOrdering Facility: [facility] Address: [address] [place] [address] Performed By: #### 2 4331-1 ####[facility]CLIA [id number] [address] [id number] [place] [address] [place]#### 2132-9, TSHRF ####[facility]CLIA [id number] [place] [address] [place] Triglyceride [Mass/Vol] 210 mg/dL High <150 [facility] Comment on above: Order Comment: Speci men Type: BLOOD SPECIMENOrdering Facility: [facility] Address: [address] [place] [address] Result Comment: <150 mg/dL, Normal 150-199 mg/dL, Borderline high 200-499 mg/dL, High >499 mg/dL, Very high Performed By: #### 2 4331-1 ####[facility]IA [id number] [address] [id number] [place] [address] [place]#### 2132-9, TSHRF ####[facility]CLIA [id number] [place] [address] [place] PSA/PROSTATE SPECIFIC ANTIGE N SCREENINGon 06-02-2025 Prostate specific Ag [Mass/Vol] 0.39 ng/mL Normal <2.60 [facility] Comment on above: Order Comment: Speci men Type: BLOOD SPECIMEN Ordering Facility: [facility] Address: [address] [place] [address] Result Comment: Tota l PSA test methodology used is the Electrochemiluminescence Immunoassay by [employer]. Total PSA values by differing methodologies cannot be interchanged. Performed By: #### 5 5454-3 #### [facility] CLIA [id number] [place] [address] [place] TSH W/REFLEX FT4on TSH Qn 2.670 m[IU]/L Normal 0.270-4.200 [facility] Comment on above: Order Comment: Speci men Type: BLOOD SPECIMENOrdering Facility: [facility] Address: [address] [place] [address] Performed By: #### 2 4331-1 ####[facility]CLIA [id number] [address] STATES OF [facility] DORAL [id number] [place] [address] [place]#### 2132-9, TSHRF ####[facility]CLIA [id number] [place] [address] [place] URINALYSIS, REFLEX MICROSCOP ICon 06-02-2025 Bilirubin Ql (U) Negative Normal Negative [facility] Comment on above: Order Comment: Speci men Type: URINE SPECIMENOrdering Facility: [facility] Address: [address] [place] [address] Performed By: #### L [id number] ####[facility]CLIA [id number] [place] [address] [place] Clarity (Unsp spec) Clear Normal Clear [facility] Comment on above: Order Comment: Speci men Type: URINE SPECIMENOrdering Facility: [facility] Address: [address] [place] [address] Performed By: #### L [id number] ####[facility]CLIA [id number] [address] STATES OF [facility] Color (U) Yellow Normal Yellow [facility] Comment on above: Order Comment: Speci men Type: URINE SPECIMENOrdering Facility: [facility] Address: [address] [place] [address] Performed By: #### L [id number] ####[facility]CLIA [id number] [place] [address] [place] Glucose Test strip (U) [Mass/Vol] Negative Normal Negative [facility] Comment on above: Order Comment: Speci men Type: URINE SPECIMENOrdering Facility: [facility] Address: [address] [place] [address] Performed By: #### L [id number] ####[facility]CLIA [id number] [place] [id number] [place] Hemoglobin Ql (U) Negative Normal Negative [facility] Comment on above: Order Comment: Speci men Type: URINE SPECIMENOrdering Facility: [facility] Address: [address] [place] [address] Performed By: #### L [id number] ####[facility]CLIA [id number] [place] [address] [facility] Ketones Ql (U) Negative Normal Negative [facility] Comment on above: Order Comment: Speci men Type: URINE SPECIMENOrdering Facility: [facility] Address: [address] [place] [address] Performed By: #### L [id number] ####[facility]CLIA [id number] [place] [id number] [facility] Leukocyte esterase Test strip Ql (U) Negative Normal Negative [facility] Comment on above: Order Comment: Speci men Type: URINE SPECIMENOrdering Facility: [facility] Address: [address] [place] [address] Performed By: #### L [id number] ####[facility]CLIA [id number] [place] [id number] [place] Nitrite Ql (U) Negative Normal Negative [facility] Comment on above: Order Comment: Speci men Type: URINE SPECIMENOrdering Facility: [facility] Address: [address] [place], [place] [id number] Performed By: #### L [id number] ####[facility] LABCLIA [id number] [place] [address] [place] pH (U) 5.5 [pH] Normal 5.0-8.0 [facility] Comment on above: Order Comment: Speci men Type: URINE SPECIMENOrdering Facility: [facility] Address: [address] [place] [address] Performed By: #### L [id number] ####[facility]CLIA [id number] [place] [address] [place] Protein (U) [Mass/Vol] Negative Normal Negative [facility] Comment on above: Order Comment: Speci men Type: URINE SPECIMENOrdering Facility: [facility] Address: [address] [place] [address] Performed By: #### L [id number] ####[facility]CLIA [id number] [place] [address] [place] Specific gravity (U) [Rel density] 1.020 Normal 1.005-1.030 [facility] Comment on above: Order Comment: Speci men Type: URINE SPECIMENOrdering Facility: [facility] Address: [address] [place] [address] Performed By: #### L [id number] ####[facility]CLIA [id number] [place] [address] [place] Urobilinogen Ql (U) 0.2 EU/dL Normal 0.2-1.0 EU/dL [facility] Comment on above: Order Comment: Speci men Type: URINE SPECIMENOrdering Facility: [facility] Address: [address] [place] [address] Performed By: #### L [id number] ####[facility]CLIA [id number] [place] [id number] [place] Vit B12 [facility]2 025 Cobalamin (Vitamin B12) [Mass/Vol] 551 pg/mL Normal 232-1245 [facility] Comment on above: Order Comment: Speci men Type: BLOOD SPECIMENOrdering Facility: [facility] Address: [address] [place] [address] [address], [place] [id number] Performed By: #### 2 4331-1 ####[facility] LABCLIA [id number] [place] [id number] [place] [facility] [id number] [place] [address] [place]#### 2132-9, [facility] ####[facility] LABCLIA [id number] [place] [id number] [facility] CNOVon 05-23-2025 CNOV Office Visit (PODIWS ) -- HUONG BATES ([id number]) 1945 M Date Time Provider Department 05/23/25 2:00 PM NEFTALY CAMPBELL PODIWS During your visit today, we recorded the following information about you: Lisa Ochoa LPN 05/24/2025 7:43 AM Signed AMB ROOMING INTAKE FLOWSHEET DATA Pain Pain Level: 6 Pain Location: Leg-Right Description: Sore Duration Units: Weeks Frequency: Intermittent Intervention/Comfort measure: Reposition, Relaxation Patient presents with: Right 2nd Toe - Established Patient, Follow Up, Ulcer, Pain, Swelling CARIDAD Christensen Matthew 05/23/2025 2:14 PM Signed We discussed your right second toe wound and vascular disease: - Your wound is stable and almost healed, with no signs of active infection today. - The x-rays show changes at the tip of your second toe, which are suspicious for early or chronic osteomyelitis (bone infection). - Your vascular studies show decreased blood flow to your right foot and toe, which may affect healing. - We discussed options including seeing a vascular surgeon to evaluate your circulation and discuss possible treatments, such as an angiogram to look for and possibly treat blockages in your leg. - You do not want surgery at this time, so we will continue to monitor your toe closely. - You do not need to keep a dressing on the toe anymore. Please keep a pad underneath the toe to prevent rubbing. - Continue to keep a close watch on your toe, and let us know if anything changes. Follow-up: - We will see you back in about one month to check on your toe. If it is doing well, we may extend the time between visits to every 5 or 6 weeks. - When you return, we can trim your toenails if needed. Neftaly Campbell 05/24/2025 7:43 AM Signed Subjective The patient is an 79-year-old male with PAD presenting for follow-up of a chronic wound on the right second toe. He is accompanied by a caregiver who provides additional history. The patient was last seen at the end of April for a wound on the right second toe, which was stable at that time with no clinical signs of infection. X-ray from 04/27 showed a small irregularity at the tip of the toe, raising concern for osteomyelitis. Vascular studies on 04/24 showed BILL of 0.76 (normal >0.9) and toe pressure of 0.40 (normal >0.7), consistent with PAD. The wound measured 2 mm x 2 mm after callus debridement. The patient and caregiver report that the wound initially appeared to be improving, but today it looks more swollen. The caregiver notes that Yanet dressings consistently show a spot of blood when removed. She also observed peeling of the foot today that was not present at home. She washes the patient's feet by hand and has been managing the wound care. The patient denies calf pain. The patient has been under the care of Dr. Mona Raymundo. They have elected to pursue care here. They are not interested in amputation. Musculoskeletal: (+) right second toe swelling, (-) calf pain Skin: (+) right second toe erythema, (+) right foot desquamation Objective There were no vitals taken for this visit. - Cardiovascular: Dorsalis pedis and posterior tibial pulses non-palpable on the right foot; capillary refill time delayed to the right hallux. - Skin: Skin temperature warm to cool from proximal to distal; callus noted on the tip of the right second toe, less diffuse than previously observed; no local signs of redness, drainage, or infection. - Neurological: Protective sensation absent to the forefoot and bilateral lower extremities. Imaging: - X-ray right second toe: Periostitis at the second toe, suspicious for early osteomyelitis. - X-ray right second toe: Small irregularity at the distal phalanx tip; changes concerning for chronic osteomyelitis. Tests AND Prior Procedures: - Noninvasive vascular studies (right lower extremity): - BILL: 0.76 - Toe-brachial index: 0.40 - PVRs: Toe pressure borderline for healing; waveforms pulsatile. Bacterial wound culture: 03/30/25 Many Staphylococcus aureus Abnormal Many skin denisse Assessment AND Plan # Ulcer of toe of right foot, with fat layer exposed (HCC) (L97.512) # Hammertoe of right foot (M20.41) # Diminished pulses in lower extremity (R09.89) Chronic ulcer on the right second toe with prior X-ray findings from April 27 showing small irregularity at the tip of the toe, raising concern for osteomyelitis. Vascular studies from April 24 showed BILL of 0.76 and toe pressure of 0.40, indicating peripheral vascular disease. Recent X-ray showed periostitis at the second toe, suspicious for early osteomyelitis. Vascular surgeon Dr. Erasto Velásquez via sharing of chart noted toe pressure is borderline for healing, but waveforms are still pulsatile, which is reassuring. Physical exam today shows non-palpable dorsalis (more content not included)... Normal [facility] ALBUMIN/CREATININE RATIO, UR INEon 05-08-2025 Albumin DL <= 20 mg/L (U) [Mass/Vol] mg/dL Normal [facility] Comment on above: Order Comment: Speci men Type: URINE SPECIMENOrdering Facility: [facility] Address: [address] [place] [address], [place] [id number] Performed By: #### U ACR ####[facility] LABCLIA [id number] [place] [address] [place] Albumin/Creatinine (U) [Mass ratio] <11 Normal <30 [facility] Comment on above: Order Comment: Speci men Type: URINE SPECIMENOrdering Facility: [facility] Address: [address] [place] [address], [place] [id number] Result Comment: Adul t Male and Female Nephrotic Criteria: <30 mg/g is considered normal to mildly increased 30-300 mg/g is considered moderately increased >300 mg/g is considered severely increased KDIGO. (2013). KDIGO 2012 Clinical Practice Guideline for the Evaluation and Management of Chronic Kidney Disease. Official Journal of the International Society of Nephrology, 3(1), 1-150. Performed By: #### U ACR ####[facility] LABCLIA [id number] [address] STATES OF [facility] Creatinine (U) [Mass/Vol] 109.0 mg/dL Normal 20.0-300.0 [facility] Comment on above: Order Comment: Speci men Type: URINE SPECIMENOrdering Facility: [facility] Address: [address] [place] [address] Performed By: #### U ACR ####[facility] LABCLIA [id number] [address] [place] CBC panel Auto (Bld)on 05-08 Erythrocyte distribution width (RBC) [Ratio] 12.2 % Normal 11.5-15.0 [facility] Comment on above: Order Comment: Speci men Type: BLOOD SPECIMEN Ordering Facility: [facility] Address: [address] [place] [address] Performed By: #### 5 8410-2 #### [facility] CLIA [id number] [address] [place] [address] [place] Hematocrit (Bld) [Volume fraction] 36.0 % Low 39.0-51.0 [facility] Comment on above: Order Comment: Speci men Type: BLOOD SPECIMEN Ordering Facility: [facility] Address: [address] [place] [address] Performed By: #### 5 8410-2 #### [facility] CLIA [id number] [address] [place] [address] [place] Hemoglobin (Bld) [Mass/Vol] 12.1 g/dL Low 13.0-17.0 [facility] Comment on above: Order Comment: Speci men Type: BLOOD SPECIMEN Ordering Facility: [facility] Address: [address] [place] [address] Performed By: #### 5 8410-2 #### [facility] CLIA [id number] [address] [place] [address] [place] MCH (RBC) [Entitic mass] 31.8 pg Normal 26.0-34.0 [facility] Comment on above: Order Comment: Speci men Type: BLOOD SPECIMEN Ordering Facility: [facility] Address: [address] [place] [address] Performed By: #### 5 8410-2 #### [facility] CLIA [id number] [address] [place] [address] [place] MCHC (RBC) [Mass/Vol] 33.6 g/dL Normal 30.5-36.0 [facility] Comment on above: Order Comment: Speci men Type: BLOOD SPECIMEN Ordering Facility: [facility] Address: [address] [place] [address] Performed By: #### 5 8410-2 #### [facility] CLIA [id number] [address] [place] [address] [place] MCV (RBC) [Entitic vol] 94.7 fL Normal 80.0-100.0 [facility] Comment on above: Order Comment: Speci men Type: BLOOD SPECIMEN Ordering Facility: [facility] Address: [address] [place] [address] Performed By: #### 5 8410-2 #### [facility] CLIA [id number] [address] [place] [address] [place] Nucleated RBC (Bld) [#/Vol] 10*3/uL Normal <0.01 [facility] Comment on above: Order Comment: Speci men Type: BLOOD SPECIMEN Ordering Facility: [facility] Address: [address] [place] [address] Performed By: #### 5 8410-2 #### [facility] CLIA [id number] [address] [place] [address] [place] Platelet mean volume (Bld) [Entitic vol] 10.3 fL Normal 9.0-12.7 [facility] Comment on above: Order Comment: Speci men Type: BLOOD SPECIMEN Ordering Facility: [facility] Address: [address] [place] [address] Performed By: #### 5 8410-2 #### [facility] CLIA [id number] [address] [place] [address] [place] Platelets (Bld) [#/Vol] 80 10*3/uL Low 150-400 [facility] Comment on above: Order Comment: Speci men Type: BLOOD SPECIMEN Ordering Facility: [facility] Address: [address] [place] [address] Result Comment: No c lot detected. Performed By: #### 5 8410-2 #### [facility] CLIA [id number] [address] [place] [address] [place] RBC (Bld) [#/Vol] 3.80 10*6/uL Low 4.20-6.00 [facility] Comment on above: Order Comment: Speci men Type: BLOOD SPECIMEN Ordering Facility: [facility] Address: [address] [place] [address] Performed By: #### 5 8410-2 #### [facility] CLIA [id number] [address] [place] [address] [place] WBC (Bld) [#/Vol] 5.65 10*3/uL Normal 3.70-11.00 [facility] Comment on above: Order Comment: Speci men Type: BLOOD SPECIMEN Ordering Facility: [facility] Address: [address] [place] [address] Performed By: #### 5 8410-2 #### [facility] CLIA [id number] [place] [address] [place] Comprehensive metabolic 2000 panelon 05-08-2025 Albumin [Mass/Vol] 3.9 g/dL Normal 3.9-4.9 [facility] Comment on above: Order Comment: Speci men Type: BLOOD SPECIMENOrdering Facility: [facility] Address: [address] [place] [address] Performed By: #### 2 4323-8 ####[facility] MILLWNCLIA [id number] [place] [address] [place] ALP [Catalytic activity/Vol] 51 U/L Normal 38-113 [facility] Comment on above: Order Comment: Speci men Type: BLOOD SPECIMENOrdering Facility: [facility] Address: [address] [place] [address] Performed By: #### 2 4323-8 ####[facility] [id number] [place] [address] [place] ALT [Catalytic activity/Vol] 10 U/L Normal 10-54 [facility] Comment on above: Order Comment: Speci men Type: BLOOD SPECIMENOrdering Facility: [facility] Address: [address] [place] [address] Performed By: #### 2 4323-8 ####[facility] MILLTOWNCLIA [id number] [place] [address] [place] Anion gap [Moles/Vol] 12 mmol/L Normal 8-15 [facility] Comment on above: Order Comment: Speci men Type: BLOOD SPECIMENOrdering Facility: [facility] Address: [address] [place] [address] Performed By: #### 2 4323-8 ####[facility] MILLTOWNCLIA [id number] [place] [address] [place] AST [Catalytic activity/Vol] 12 U/L Low 14-40 [facility] Comment on above: Order Comment: Speci men Type: BLOOD SPECIMENOrdering Facility: [facility] Address: [address] [place] [address] Performed By: #### 2 4323-8 ####[facility]I MILLTOWNCLIA [id number] [place] [address] [place] Bilirubin [Mass/Vol] 0.5 mg/dL Normal 0.2-1.3 [place] Comment on above: Order Comment: Speci men Type: BLOOD SPECIMENOrdering Facility: [facility] Address: [address] [place] [address] Performed By: #### 2 4323-8 ####[facility] MILLTOWYVETTELIA [id number] [place] [address] [place] Calcium [Mass/Vol] 9.2 mg/dL Normal 8.5-10.2 [facility] Comment on above: Order Comment: Speci men Type: BLOOD SPECIMENOrdering Facility: [facility] Address: [address] [place] [address] Performed By: #### 2 4323-8 ####[facility] MILLTOWNCLIA [id number] [place] [address] [place] Chloride [Moles/Vol] 102 mmol/L Normal 98-107 [place] Comment on above: Order Comment: Speci men Type: BLOOD SPECIMENOrdering Facility: [facility] Address: [address] [place] [address] Performed By: #### 2 4323-8 ####[facility] MILLTOWNCLIA [id number] [place] [address] [place] CO2 [Moles/Vol] 22 mmol/L Normal 22-30 [facility] Comment on above: Order Comment: Speci men Type: BLOOD SPECIMENOrdering Facility: [facility] Address: [address] [place] [address] Performed By: #### 2 4323-8 ####[facility] RAPHAELROSSY [id number] [place] [address] [place] Creatinine [Mass/Vol] 1.53 mg/dL High 0.73-1.22 [facility] Comment on above: Order Comment: Speci men Type: BLOOD SPECIMENOrdering Facility: [facility] Address: [address] [place] [address] Performed By: #### 2 4323-8 ####[facility] [id number] [place] [address] [place] eGFRcr SerPlBld CKD-EPI 2020 46 mL/min/1.73m??? Low >=60 [facility] Comment on above: Order Comment: Speci men Type: BLOOD SPECIMENOrdering Facility: [facility] Address: [address] [place] [address] Result Comment: Kezia mated Glomerular Filtration Rate (eGFR) is calculated using the 2020 CKD-EPI creatinine equation. This equation utilizes serum creatinine, sex, and age as parameters. The creatinine assay has traceable calibration to isotope dilution-mass spectrometry. Refer to KDIGO guidelines for clinical interpretation. In patients with unstable renal function, e.g. those with acute kidney injury, the eGFR may not accurately reflect actual GFR. Performed By: #### 2 4323-8 ####[facility]ITAL[facility]CLIA [id number] [place] [address] [place] Glucose [Mass/Vol] 108 mg/dL High 74-99 [facility] Comment on above: Order Comment: Speci men Type: BLOOD SPECIMENOrdering Facility: [facility] Address: [address] [place] [address] Result Comment: The [place] Diabetes Association (ADA) provides guidance for cutoff values for fasting glucose and random glucose. The ADA defines fasting as no caloric intake for at least 8 hours. Fasting plasma glucose results between 100 to 125 mg/dL indicate increased risk for diabetes (prediabetes). Fasting plasma glucose results greater than or equal to 126 mg/dL meet the criteria for diagnosis of diabetes. In the absence of unequivocal hyperglycemia, results should be confirmed by repeat testing. In a patient with classic symptoms of hyperglycemia or hyperglycemic crisis, random plasma glucose results greater than or equal to 200 mg/dL meet the criteria for diagnosis of diabetes. Reference: Standards of Medical Care in Diabetes 2016, [place] Diabetes Association. Diabetes Care. 2016.39(Suppl 1). Performed By: #### 2 4323-8 ####[facility] MILLTOWNCLIA [id number] [place] [address] [place] Potassium [Moles/Vol] 4.2 mmol/L Normal 3.7-5.1 [facility] Comment on above: Order Comment: Speci men Type: BLOOD SPECIMENOrdering Facility: [facility] Address: [address] [place] [address] Performed By: #### 2 4323-8 ####[facility] MILLTOWNCLIA [id number] [place] [address] [place] Protein [Mass/Vol] 6.4 g/dL Normal 6.3-8.0 [facility] Comment on above: Order Comment: Speci men Type: BLOOD SPECIMENOrdering Facility: [facility] Address: [address] [place] [address] Performed By: #### 2 4323-8 ####[facility] MILLTOWNCLIA [id number] [place] [address] [place] Sodium [Moles/Vol] 136 mmol/L Normal 136-144 [facility] Comment on above: Order Comment: Speci men Type: BLOOD SPECIMENOrdering Facility: [facility] Address: [address] [place] [address] Performed By: #### 2 4323-8 ####[facility] MILLTOWNCLIA [id number] [place] [address] [place] Urea nitrogen [Mass/Vol] 31 mg/dL High 9-24 [facility] Comment on above: Order Comment: Katy orourke Type: BLOOD SPECIMENOrdering Facility: [facility] Address: [address] [place] [address] Performed By: #### 2 4323-8 ####[facility] [id number] [place] [address] [place] HbA1c (Bld)on 05-08-2025 Average glucose Estimated from glycated hemoglobin (Bld) [Mass/Vol] 117 mg/dL Normal [facility] Comment on above: Order Comment: Katy orourke Type: BLOOD SPECIMEN [facility]ing [facility] Address: [address] [place] [address] Result Comment: eAG: (Estimated average glucose) is a calculated value from HgbA1c and is patient accounting representative of the average blood glucose level in the last 2-3 month period. Performed By: #### 5 5454-3 #### [facility] CLIA [id number] [address] [place] [address] [place] HbA1c (Bld) [Mass fraction] 5.7 % High 4.3-5.6 [facility] Comment on above: Order Comment: Katy orourke Type: BLOOD SPECIMEN [facility]ing Facility: [facility] Address: [address] [place] [address] Result Comment: Amer [place] Diabetes Association guidelines indicate that patients with HgbA1c in the range 5.7-6.4% are at increased risk for development of diabetes, and intervention by lifestyle modification may be beneficial. HgbA1c greater or equal to 6.5% is considered diagnostic of diabetes. Performed By: #### 5 5454-3 #### [facility] CLIA [id number] [place] [id number] [place] Lipid 1996 panelon Cholesterol [Mass/Vol] 146 mg/dL Normal <200 [facility] Comment on above: Order Comment: Speci men Type: BLOOD SPECIMENOrdering Facility: [facility] Address: [address] [place] [address] Result Comment: <200 mg/dL, Desirable 200-239 mg/dL, Borderline high >239 mg/dL, High Performed By: #### T SHRF ####[facility] LABCLIA [id number] [facility] [place] [place] [address] [place]#### 64559-3 ####[facility] LABCLIA [id number] [facility] AVENUEMISSION BAY CAMPUSK [address], [facility] [place] [facility] [id number] [address] [place] Cholesterol in HDL [Mass/Vol] 38 mg/dL Low >39 [facility] Comment on above: Order Comment: Speci men Type: BLOOD SPECIMENOrdering Facility: [facility] Address: [address] [place] [address] Result Comment: 40-5 9 mg/dL, Acceptable >59 mg/dL, High: Negative risk factor for coronary heart disease <40 mg/dL, Low: Positive risk factor for coronary heart disease Performed By: #### T SHRF ####[facility] LABCLIA [id number] [facility] [place] [id number] [place]#### 43993-1 ####[facility] LABCLIA [id number] [facility] [place] [id number] [place] [facility] [id number] [address] [place] Cholesterol in LDL [Mass/Vol] 77 mg/dL Normal <100 [facility] Comment on above: Order Comment: Speci men Type: BLOOD SPECIMENOrdering Facility: [facility] Address: [address] [place] [address] Result Comment: <100 mg/dL, Optimal 100-129 mg/dL, Near optimal/above optimal 130-159 mg/dL, Borderline high 160-189 mg/dL, High >189 mg/dL, Very high Secondary prevention optimal LDL Cholesterol levels are recommended to be <70 mg/dL LDL cholesterol is calculated using the Pal-NIH equation. Performed By: #### T [facility] ####[facility] LABCLIA [id number] [place] [id number] [facility]#### 80511-3 ####[facility] LABCLIA [id number] [place] 3274395 [facility] [id number] [place] [address] [place] Cholesterol in LDL/Cholesterol in HDL [Mass ratio] 2.03 {ratio} Normal <2.54 [facility] Comment on above: Order Comment: Speci men Type: BLOOD SPECIMENOrdering Facility: [facility] Address: [address] [place] [address], [place] [address] Result Comment: Refe rence: 1. National Cholesterol Education Program ATP III Guideline At-A-Glance Quick Desk Reference: National Heart, Lung, and Blood [place]. National Institutes of Health. 2001: NIH Publication No. 01-3305. 2. An International Atherosclerosis Society position paper: global recommendations for the management of dyslipidemia: executive summary, Atherosclerosis. 2014: 232(2):410-413. Performed By: #### T [facility] ####[facility] LABCLIA [id number] [place] 3274395 [facility]#### 81466-9 ####[facility] LABIA [id number] [place] 3274395 [facility] [id number] [address] STATES [facility] Cholesterol in VLDL [Mass/Vol] 28 mg/dL Normal <30 [facility] Comment on above: Order Comment: Speci men Type: BLOOD SPECIMENOrdering Facility: [facility] Address: [address] [place] [address] Performed By: #### T SHRF ####[facility] LABCLIA [id number] [place] [address] [place] [facility] OF [place]#### 43174-3 ####[facility] LABCLIA [id number] [facility] [address], [facility] DORAL [id number] [place], [place] [id number] [place] [address] OF [place] Cholesterol non HDL [Mass/Vol] 108 mg/dL Normal <130 [facility] Comment on above: Order Comment: Speci men Type: BLOOD SPECIMENOrdering Facility: [facility] Address: [address] [place] [address] Result Comment: <130 mg/dL, Optimal 130-159 mg/dL, Near optimal/above optimal 160-189 mg/dL, Borderline high 190-219 mg/dL, High >219 mg/dL, Very high Secondary prevention optimal non HDL Cholesterol levels are recommended to be <100 mg/dL Performed By: #### T SHRF ####[facility] LABCLIA [id number] [address] STATES [place]#### 25156-1 ####[facility] LABCLIA [id number] [place] [id number] [place] AMERICAHCA [facility] [id number] [place] [address] [place] Cholesterol.total/Cho lesterol in HDL [Mass ratio] 3.84 {ratio} Normal <5.10 [facility] Comment on above: Order Comment: Speci men Type: BLOOD SPECIMENOrdering Facility: [facility] Address: [address] [place] [address] Performed By: #### T SHRF ####[facility] LABCLIA [id number] [facility] [address] [place] [address] [place]#### 41946-9 ####[facility] LABCLIA [id number] EUCD [facility] [id number], [place] [address] [place] AMERICAHCA [facility] [id number] [place] [address] [place] FASTING TIME 12 hrs Normal [facility] Comment on above: Order Comment: Speci men Type: BLOOD SPECIMENOrdering Facility: [facility] Address: [address] [place] [address] Performed By: #### T SHRF ####[facility] LABCLIA [id number] [facility] [address] [place] [address] [place]#### 15325-3 ####[facility] LABCLIA [id number] [facility] [address] [place] [address] [place] AMERICAH[facility] [id number] [place] [address] [place] Triglyceride [Mass/Vol] 181 mg/dL High <150 [facility] Comment on above: Order Comment: Speci men Type: BLOOD SPECIMENOrdering Facility: [facility] Address: [address] [place] [address] Result Comment: <150 mg/dL, Normal 150-199 mg/dL, Borderline high 200-499 mg/dL, High >499 mg/dL, Very high Performed By: #### T SHRF ####[facility] LABCLIA [id number] [facility] [address] [place] [address] [place]#### 04182-5 ####[facility] LABCLIA [id number] [facility] [address] [place] [address] [place] [facility] [id number] [place] [address] [place] PSA/PROSTATE SPECIFIC ANTIGE N SCREENINGon 05-08-2025 Prostate specific Ag [Mass/Vol] 0.39 ng/mL Normal <2.60 [facility] Comment on above: Order Comment: Speci men Type: BLOOD SPECIMEN [facility] Address: [address] [place] [address] Result Comment: Tota l PSA test methodology used is the Electrochemiluminescence Immunoassay by [employer]. Total PSA values by differing methodologies cannot be interchanged. Performed By: #### 5 5454-3 #### [facility] CLIA [id number] [address] [place] [address] [place] TSH W/REFLEX FT4on TSH Qn 2.270 m[IU]/L Normal 0.270-4.200 [facility] Comment on above: Order Comment: Speci men Type: BLOOD SPECIMENOrdering Facility: [facility] Address: [address] [place] [address] Performed By: #### T SHRF ####[facility] LABCLIA [id number] [place] [address] [place]#### 49284-0 ####[facility] LABCLIA [id number] [place] [id number] [place] [facility] DORAL [id number] [place] [address] [place] Urinalysis complete panel (U )on 05-08-2025 Bacteria LM.HPF (Urine sed) [#/Area] Negative Normal Negative [facility] Comment on above: Order Comment: Speci men Type: URINE SPECIMENOrdering Facility: [facility] Address: [address] [place] [address] Performed By: #### 2 4356-8 ####[facility] LABCLIA [id number] [place] [id number] [place] Bilirubin Ql (U) Negative Normal Negative [facility] Comment on above: Order Comment: Speci men Type: URINE SPECIMENOrdering Facility: [facility] Address: [address] [place] [address] Performed By: #### 2 4356-8 ####[facility] LABCLIA [id number] [facility] [address] [place] [address] [place] Clarity (Unsp spec) Clear Normal Clear [facility] Comment on above: Order Comment: Speci men Type: URINE SPECIMENOrdering Facility: [facility] Address: [address] [place] [address] Performed By: #### 2 4356-8 ####[facility] LABCLIA [id number] [address] [place] [address] [place] Color (U) Yellow Normal Yellow [facility] Comment on above: Order Comment: Speci men Type: URINE SPECIMENOrdering Facility: [facility] Address: [address] [place] [address] Performed By: #### 2 4356-8 ####[facility] LABCLIA [id number] [address] [place] [address] [place] Epithelial cells LM.HPF (Urine sed) [#/Area] None Seen Normal [facility] Comment on above: Order Comment: Speci men Type: URINE SPECIMENOrdering Facility: [facility] Address: [address] [place] [address] Performed By: #### 2 4356-8 ####[facility] LABCLIA [id number] [facility] [address] [place] [address] [place] Glucose Test strip (U) [Mass/Vol] Negative Normal Negative [facility] Comment on above: Order Comment: Speci men Type: URINE SPECIMENOrdering Facility: [facility] Address: [address] [place] [address] Performed By: #### 2 4356-8 ####[facility] LABCLIA [id number] [facility] [address] [place] [address] [place] Hemoglobin Ql (U) Negative Normal Negative [facility] Comment on above: Order Comment: Speci men Type: URINE SPECIMENOrdering Facility: [facility] Address: [address] [place] [address] Performed By: #### 2 4356-8 ####[facility] LABCLIA [id number] [address] [id number], [place] [address] [place] Hyaline casts (Urine sed) [#/Area] 1-3 /LPF Abnormal 0 /LPF [facility] Comment on above: Order Comment: Speci men Type: URINE SPECIMENOrdering Facility: [facility] Address: [address] [place] [address] Performed By: #### 2 4356-8 ####[facility] LABCLIA [id number] [address] AVENUEDESK [address], [facility] [place] Ketones Ql (U) Negative Normal Negative [facility] Comment on above: Order Comment: Speci men Type: URINE SPECIMENOrdering Facility: [facility] Address: [address] [place] [address] Performed By: #### 2 4356-8 ####[facility] LABCLIA [id number] [facility] [address] [place] [address] [place] Leukocyte esterase Test strip Ql (U) Negative Normal Negative [facility] Comment on above: Order Comment: Speci men Type: URINE SPECIMENOrdering Facility: [facility] Address: [address] [place] [address] Performed By: #### 2 4356-8 ####[facility] LABCLIA [id number] [address] AV[address]EDES[address] [place] [address] [place] Nitrite Ql (U) Negative Normal Negative [facility] Comment on above: Order Comment: Speci men Type: URINE SPECIMENOrdering Facility: [facility] Address: [address] [place] [address] Performed By: #### 2 4356-8 ####[facility] LABCLIA [id number] [address] [place] [address] [place] pH (U) 6.0 [pH] Normal 5.0-8.0 [facility] Comment on above: Order Comment: Speci men Type: URINE SPECIMENOrdering Facility: [facility] Address: [address] [place] [address] Performed By: #### 2 4356-8 ####[facility] LABCLIA [id number] [address] [place] [address] [place] Protein (U) [Mass/Vol] Negative Normal Negative [facility] Comment on above: Order Comment: Speci men Type: URINE SPECIMENOrdering Facility: [facility] Address: [address] [place] [address] Performed By: #### 2 4356-8 ####[facility] LABCLIA [id number] [address], [facility] [place] RBC LM.HPF (Urine sed) [#/Area] 0-2 /HPF Normal 0-2 /HPF [facility] Comment on above: Order Comment: Speci men Type: URINE SPECIMENOrdering Facility: [facility] Address: [address] [place] [address] Performed By: #### 2 4356-8 ####[facility] LABCLIA [id number] [place] [id number] [place] Specific gravity (U) [Rel density] 1.021 Normal 1.005-1.030 [facility] Comment on above: Order Comment: Speci men Type: URINE SPECIMENOrdering Facility: [facility] Address: [address] [place] [address] Performed By: #### 2 4356-8 ####[facility] LABCLIA [id number] [address] [place] [address] [place] Urobilinogen Ql (U) 0.2 EU/dL Normal 0.2-1.0 EU/dL [facility] Comment on above: Order Comment: Speci men Type: URINE SPECIMENOrdering Facility: [facility] Address: [address] [place] [address], [place] [address] Performed By: #### 2 4356-8 ####[facility] LABCLIA [id number] [place] [address] [place] WBC LM.HPF (Urine sed) [#/Area] 0-5 /HPF Normal 0-5 /HPF [facility] Comment on above: Order Comment: Speci men Type: URINE SPECIMENOrdering Facility: [facility] Address: [address] [place] [address] Performed By: #### 2 4356-8 ####[facility] LABCLIA [id number] [address] [place] CNOVon 04-27-2025 CNOV Office Visit (PODIWS ) -- HUONG BATES ([id number]) 1945 M Date Time Provider Department 04/27/25 1:45 PM NEFTALY CAMPBELL PODIWS During your visit today, we recorded the following information about you: Lisa Ochoa LPN 04/27/2025 2:44 PM Signed AMB ROOMING INTAKE FLOWSHEET DATA Pain Pain Level: 3 Description: Aching Duration Units: Days Frequency: Intermittent Intervention/Comfort measure: Relaxation Patient presents with: Right 2nd Toe - Ulcer, Established Patient, Follow Up CARIDAD Christensen Matthew 04/27/2025 2:17 PM Signed We discussed your right second toe ulceration: - The wound appears stable with no redness or drainage, but there is some dry skin around it. The current size is 2 mm by 2 mm, which is similar to the previous measurement. - Continue cleaning the wound daily with soap and water, drying it thoroughly, and applying Yanet to the wound. Cover it with gauze and secure it. Use the pad provided to reduce pressure on the toe. - Finish the current course of doxycycline. Once completed, no further antibiotics are planned unless signs of infection develop. - A repeat x-ray of the toe was ordered today to evaluate for possible bone infection. If the x-ray shows changes, we will discuss further options. - I will reach out to a vascular surgeon to review your circulation studies and assess whether you would be a candidate for amputation if needed. However, based on your circulation, it is likely they will determine that healing after surgery would be high risk. - For now, we will continue with the current wound care plan and monitor the situation. We discussed your circulation: - Circulation studies show reduced blood flow to your right foot and toe, which may be contributing to delayed healing. - If further intervention is needed, vascular surgery options such as angiogram or bypass may be considered, but these would only be pursued if necessary and after careful discussion. Follow-Up: - Please monitor the wound for any signs of infection, such as increased redness, swelling, warmth, or drainage. If these occur, contact me immediately. - Your next follow-up appointment is in 3 weeks to reassess the wound and review the x-ray results. - If you have any concerns or issues before then, you can contact me directly at [phone], through [employer], or by calling the office. Neftaly Campbell 04/27/2025 2:44 PM Signed Subjective The patient is a 79-year-old male, with a history of a second toe ulceration, presenting for follow-up. The patient has been experiencing an ulceration on the second toe of the right foot for over 3 months. Initially managed by another gold charmer with debridement and doxycycline, the patient was referred for x-rays and circulation studies. The patient has been applying Yanet to the wound and using a pad to reduce pressure. The patient reports improvement in the wound's appearance, noting reduced erythema and depth. The patient denies pain unless the toe is traumatized. The patient denies having any metal implants in his body. Ears/Nose/Mouth/Throat: (+) hearing difficulty Musculoskeletal: (+) right second toe pain with manipulation Skin: (+) right second toe ulcer Objective There were no vitals taken for this visit. - Cardiovascular: Dorsalis pedis and posterior tibial pulses non-palpable bilaterally; capillary refill time <5 seconds; skin temperature warm to cool from proximal to distal; decreased hair growth on both feet. - Skin: Right second toe with pinpoint opening to distal tuft; no drainage or erythema; no local signs of infection; dry skin around marie-wound. Following debridement,there is a noninfected ulceration that measures 2 mm x 2 mm - Musculoskeletal: Long second toe on right foot; rigid contracture noted at second distal interphalangeal joint. - Neurological: Protective sensation intact bilaterally. Tests (04/24/2025) Noninvasive vascular studies: - Right dorsalis pedis BILL: 0.76 - Right posterior tibial BILL: 0.73 - Right toe pressure: 0.40 - Left dorsalis pedis BILL: 0.96 - Left posterior tibial BILL: 0.86 - Left toe pressure: 0.51 Imaging (04/11/2025) Right Foot X-ray: - Osteoarthritis of the first metatarsophalangeal joint - Curling deformity of the second toe - Irregular distal phalanx suspicious for osteomyelitis Assessment AND Plan # Ulcer of toe of right foot, with fat layer exposed (HCC) (L97.512) # Diminished pulses in lower extremity (R09.89) Chronic, non-healing ulcer of the right second toe with possible underlying osteomyelitis; wound is stable with no clinical signs of infection. X-ray from 04/11/2025 shows irregularity at the distal tuft of the right second toe, raising suspicion for chronic osteomyelitis. Vascular studies from 04/24/2025 show diminished perfusion (right BILL (more content not included)... Normal [facility] XR TOE 3V AP/LAT/OBL RTon XR TOE 3V AP/LAT/OBL RT * * *Final Report* * * DATE OF EXAM: Apr 27 2025 3:09PM [id number] - XR TOE 3V AP/LAT/OBL RT / PROCEDURE REASON: multiple diagnoses * * * * Physician Interpretation * * * * EXAMINATION / TECHNIQUE: XR TOE 3V AP/LAT/OBL RT HISTORY: Right 2nd toe ulceration Chronic wound Evaluate for any cortical changes that would be worse than April 11 study that would indicate osteomyelitis Ulcer of toe of right foot, with fat layer exposed (HCC) Hammertoe of right foot Diminished pulses in lower extremity COMPARISON: 04/11/2025. RESULT: See impression IMPRESSION: There is some periostitis at the second digit distal phalanx tuft suspicious for early osteomyelitis. No new osseous erosion. Bony alignment is unchanged. No acute fracture. Cosmetics Presser: ELIE Transcribe Date/Time: May 03 2025 6:12A Dictated by : LORNA LUCIO MD This examination was interpreted and the report reviewed and electronically signed by: LORNA LUCIO MD on May 03 2025 6:12AM EST [id number] Normal [facility] PVR LEG SUSAN VAS LABon 2024 PVR LEG SUSAN VAS LAB Non-Invasive Vascula r Laboratory [facility] Lower Extremity Arterial Physiology Study Bilateral/Complete Date of service/time: 04/24/2025 1:24:21 PM Name: HUONG BATES Date of : 1945 Age: 79 years Gender: M Clinical Indication Decreased pulses. TECHNIQUE -------- An arterial physiological examination was performed, including measurement of blood pressures using continuous wave Doppler and recording of plethysmographic with or without Doppler waveforms at the below-mentioned limb segments. FINDINGS -------- RIGHT SIDE AT REST Right Doppler Waveforms Dorsalis pedis: Monophasic. Post tibial: Monophasic. Right Pressures Brachial: 132 mmHg High thigh: 255 mmHg Low thigh: 255 mmHg Calf: 124 mmHg Ankle dorsalis pedis: 100 mmHg BILL: 0.76 Ankle posterior tibial: 97 mmHg BILL: 0.73 Digit: 53 mmHg Right PVR Waveforms High thigh: Mildly dampened. Low thigh: Mildly dampened. Calf: Mildly dampened. Ankle: Mildly dampened. Transmetatarsal: Mildly dampened. Digit: Mildly dampened. LEFT SIDE AT REST Left Doppler Waveforms Dorsalis pedis: Multiphasic. Post tibial: Multiphasic. Left Pressures Brachial: 126 mmHg High thigh: 153 mmHg Low thigh: 164 mmHg Calf: 109 mmHg Ankle dorsalis pedis: 127 mmHg BILL: 0.96 Ankle posterior tibial: 114 mmHg BILL: 0.86 Digit: 67 mmHg Left PVR Waveforms High thigh: Mildly dampened. Low thigh: Mildly dampened. Calf: Mildly dampened. Ankle: Mildly dampened. Transmetatarsal: Mildly dampened. Digit: Mildly dampened. IMPRESSION RIGHT SIDE Resting right ankle brachial index: 0.76 Right toe brachial index: 0.40 Abnormal ankle brachial index at rest diagnostic of peripheral artery disease. Abnormal toe brachial index at rest is evidence of peripheral artery disease. Right ankle: Mild disease at rest. Right distal superficial femoral and/or popliteal disease. Right small vessel disease. LEFT SIDE Resting left ankle brachial index: 0.96 Left toe brachial index: 0.51 Abnormal toe brachial index at rest is evidence of peripheral artery disease. Borderline abnormal ankle brachial index at rest. Left ankle: Borderline abnormal at rest. Left distal superficial femoral and/or popliteal disease. Technologist: Tiffany Torres RVT Ordering physician: NEFTALY CAMPBELL Interpreting physician: Gerardo Fierro MD, ЮЛИЯ Final CC [employer] [facility] Image : [id number] See Link below for Image [facility]ENWSTR[facility] -- HUONG BATES ([id number]) 1945 M Date Time Provider Department 04/17/25 NEFTALY CAMPBELL During your visit today, we recorded the following information about you: Briseida Cam MA 04/17/2025 1:15 PM Signed Patients phones to ask if she should refill his antibiotics. He will run out on Thursday but here is a refill available. states she feels there is no improvement in the wound at this time. She states she needs to know smith as she will need to make arrangements to pick this up. She also requests a review of xray results. MARYAM Boyer Amelia, LPN 04/17/2025 2:20 PM Signed Spoke with patient she would like to have patient take antibiotics for 1 more week. She asks if she could have prescription called in for 1 week due to cost as prior was order for 2 week. Patient states there is no drainage but still red around wound. CARIDAD Christensen Amanda, RN 04/21/2025 4:44 PM Signed Neftaly Campbell [facility] Podiatry Pool18 hours ago (10:28 PM) Please call patient to inform him that the read does have question of possible infection but it is not definitive. Options include repeating xray in 2 weeks vs obtaining mri. Have him follow-up and we can discuss I will call in the antibiotic to his pharmacy Neftaly Campbell DPM Allergies As of Date: 04/17/2025 (No Known Allergies) Date Reviewed: 04/11/2025 Reviewed by: Lisa Ochoa LPN - Fully Assessed Reason for Visit: Patient Question [5966] Cmt: Antibiotics and xray results Prescriptions as of 04/24/2025 - doxycycline hyclate (VIBRAMYCIN) 100 mg capsule Take 1 capsule by mouth two times a day. - doxycycline hyclate (VIBRAMYCIN) 100 mg capsule TAKE 1 CAPSULE BY MOUTH EVERY 12 HOURS FOR 14 DAYS - Ascorbic Acid (VITAMIN C) 1,000 mg tablet Take 1,000 mg by mouth once daily. - nystatin (MYCOSTATIN) powder Apply 1 application to affected area three times daily. - isosorbide mononitrate ER (IMDUR) 30 mg 24 hr tablet Take 30 mg by mouth once daily. - furosemide (LASIX) 40 mg tablet Take 40 mg by mouth once daily. - carvedilol (COREG) 3.125 mg tablet Take 3.125 mg by mouth twice daily with meals. - aspirin 81 mg chewable tablet Take 81 mg by mouth once daily. - ferrous sulfate 325 mg (65 mg iron) tablet Take 325 mg by mouth twice daily. - finasteride (PROSCAR) 5 mg tablet Take 5 mg by mouth once daily. - potassium chloride (K-TAB) 10 mEq tablet Take 10 mEq by mouth once daily. - tamsulosin ER (FLOMAX) 0.4 mg cap Take 1 capsule by mouth daily at bedtime. - levothyroxine (SYNTHROID) 50 mcg tablet Take 50 mcg by mouth once daily. - pravastatin (PRAVACHOL) 40 mg tablet Take 40 mg by mouth once daily. - acetaminophen (TYLENOL 8 HOUR) 650 mg CR tablet Take 650 mg by mouth every 8 hours as needed. - cyanocobalamin 1,000 mcg/mL soln Inject 1,000 mcg intramuscularly once every month. 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.2] 06/07/2019 Delirium [R41.0] 06/07/2019 Severe protein-calorie malnutrition (HCC) [E43] 06/14/2019 Increased ileostomy output (HCC) [R19.8, Z93.2] 06/16/2019 06/23/2019 Elevated serum creatinine [R79.89] 06/16/2019 06/23/2019 Renal failure [N19] 07/20/2019 Hyponatremia [E87.1] 07/20/2019 05/02/2021 Iron malabsorption [K90.9] 07/20/2019 Ureteral stricture [N13.5] 09/06/2019 Coronary artery disease involving seldovia nelson*11/23/2019 Mixed hyperlipidemia [E78.2] 11/23/2019 Pericardial effusion [I31.39] 11/23/2019 Controlled type 2 diabetes mellitus without com*11/23/2019 Bladder outlet obstruction [N32.0] 10/17/[address] (HCC) [Z93.3] 04/22/2021 Obesity, Class I, BMI 30-34.9 [E66.811] 04/22/2021 Hypomagnesemia [E83.42] 04/25/2021 05/02/2021 Hypophosphataemia [E83.39] 04/26/2021 05/02/2021 Hypokalemia [E87.6] 04/26/2021 05/02/2021 Ileus following gastrointestinal surgery (HCC) *04/26/2021 05/02/2021 Anemia due to stage 3a chronic kidney disease (*03/25/2022 Encounter Status:Closed by BRSIEIDA CAM on 04/20/25 [facility] CNOVon 04-11-2025 CNOV Office Visit (PODIWS ) -- HUONG BATES ([id number]) 1945 M Date Time Provider Department 04/11/25 9:00 AM NEFTALY CAMPBELL PODIWS During your visit today, we recorded the following information about you: Lisa Ochoa LPN 04/11/2025 10:27 AM Signed AMB ROOMING INTAKE FLOWSHEET DATA Risk Screening Do you have concerns about personal safety or safety in the home?: No Patient presents with: Right 2nd Toe - New, Ulcer Patient has been seeing another gold charmer since January. CARIDAD Christensen Matthew 04/11/2025 9:38 AM Signed We discussed your right second toe wound: - The wound has been present since January and is located on the bottom of your right second toe. It appears swollen and red, with some drainage and marie-wound callus formation. - I believe the wound is caused by pressure from your long second toe and its rigid hammer toe deformity, which increases pressure on the bottom of the toe. - To promote healing, it is essential to reduce pressure on the wound and ensure adequate blood flow to the area. We discussed your current treatment plan: - Continue taking Doxycycline 100 mg twice daily with food. This antibiotic is effective against the staph infection identified in your wound culture. - Clean the wound daily with soap and water, then dry it thoroughly. - Apply a small piece of Yanet (Premogran) dressing to the wound, cover it with gauze, and secure it. - Use the pad I provided to place under your toe to help relieve pressure. Do not pull the strap too tight. - Avoid applying lotion directly to the wound. You may use Eucerin or Vaseline Intensive Care lotion on the rest of your feet to address dry skin and scaling. We discussed additional evaluations: - I ordered an x-ray of your right second toe to check for any underlying bone infection. Please complete this today. - I also ordered vascular studies with toe pressures to assess blood flow to your feet. This will be done today as well. We discussed footwear: - Continue wearing your orthopedic shoes with a wide toe box. - I do not recommend a surgical shoe at this time due to concerns about your balance and fall risk. Follow-up: - Please schedule a follow-up appointment with me in 2 weeks to review the results of your x-ray and vascular studies and to assess the progress of your wound healing. If you notice increased redness, swelling, drainage, or pain in your toe, or if you develop a fever, please contact our office immediately. Neftaly Campbell 04/11/2025 10:27 AM Signed Subjective The patient is a 79-year-old male, with a history of borderline diabetes, presenting for evaluation of a wound on the plantar surface of the right second toe. The wound has been present since January and is believed to have been caused by pressure from old boots. The patient has been under the care of another gold charmer, Dr. Raymundo, and has been seen every 2 weeks since January. He has been on three rounds of antibiotics: cephalexin, amoxicillin, and currently doxycycline BID, which was started on 04/05 and is prescribed for 14 days. Despite treatment, the wound appears worse today, with increased swelling and erythema noted by the patient's caregiver. A wound culture taken on 03/30 showed staphylococcus aureus. No x-rays have been performed. The patient is not diabetic but is on the borderline and is not on any blood thinners, though he does take a baby aspirin. He is a nonsmoker. The patient has been using orthopedic shoes with a wide toe box and has been applying Neosporin to the wound. He has also been using padded gauze pads to offload pressure from the wound, but these have not been effective. The patient is scheduled to see Dr. Raymundo again in a week. Musculoskeletal: (+) right second toe swelling, (+) right second toe pain Skin: (+) right second toe ulcer, (+) right second toe erythema PAST MEDICAL HISTORY Diagnosis Date Acute intestinal obstruction ([facility]) 2019 Anemia Arthritis Ascending aorta dilation Blockage of coronary artery of heart ([facility]) penidn cardiac cath once COVID eases CAD (coronary artery disease) 01/11/2020 s/p PCI x2 Hyperlipidemia Hypertension Hyponatremia 07/20/2019 Hypothyroidism Iron malabsorption (HCC) 07/20/2019 Malignant neoplasm of rectum ([facility]) 2018 Toe infection Urinary retention Current Outpatient Medications Medication Sig Dispense Refill doxycycline hyclate (VIBRAMYCIN) 100 mg capsule TAKE 1 CAPSULE BY MOUTH EVERY 12 HOURS FOR 14 DAYS Ascorbic Acid (VITAMIN C) 1,000 mg tablet Take 1,000 mg by mouth once daily. nystatin (MYCOSTATIN) powder Apply 1 application to affected area three times daily. 60 g 11 isosorbide mononitrate ER (IMDUR) 30 mg 24 hr tablet Take 30 mg by mouth once daily. furosemide (LASIX) 40 mg tablet Take 40 mg by mouth once daily. carvedilol (COREG) 3.125 mg tab (more content not included)... Normal [facility] XR TOE 3V AP/LAT/OBL RTon XR TOE 3V AP/LAT/OBL RT * * *Final Report* * * DATE OF EXAM: Apr 11 2025 10:15AM [id number] - XR TOE 3V AP/LAT/OBL RT / PROCEDURE REASON: multiple diagnoses * * * * Physician Interpretation * * * * EXAMINATION: XR TOE 3V AP/LAT/OBL RT TECHNOLOGIST PROVIDED HISTORY: RIGHT 2ND TOE ULCERATION, DISTAL TUFT X 4 MONTHS CLINICAL INFORMATION: 79 years old Male with Ulcer of toe of right foot, with fat layer exposed. Hammertoe of right foot. Right 2nd toe Ulceration of right 2nd toe distal tuft x 4 month Xray to evaluate for any cortical destruction of distal phalanx to suggest osteomyelitis. Pic in epic. TECHNIQUE: XR TOE 3V AP/LAT/OBL RT Laterality: RIGHT Number of different views (projections): 3 COMPARISON: None RESULT: Shallow ulceration tuft of the 2nd toe with overlying dressing material. Questionable subtle blunting of the tuft of the 2nd toe with possible periosteal reaction. Severe degenerative change 1st MTP joint with [id number] contact. Moderate scattered degenerative changes in the midfoot and interphalangeal joints. IMPRESSION: Shallow ulceration tuft of the RIGHT 2nd toe with questionable findings of osteomyelitis tuft of the 2nd toe distal phalanx. This could be further evaluated with MRI. Cosmetics Presser: PSCB Transcribe Date/Time: Apr 17 2025 2:52P Dictated by : NILSON CASTELLON DO This examination was interpreted and the report reviewed and electronically signed by: NILSON CASTELLON DO on Apr 17 2025 2:58PM EST [id number] [facility] HUONG [facility] ([id number]) 1945 M Date Time Provider Department 04/05/25 NEFTALY CAMPBELL During your visit today, we recorded the following information about you: Mitzi Leavitt 04/05/2025 10:59 AM Signed Patient called to schedule apt with Dr Campbell for a staff infection on toe (Next available apt is May 04 w/ Adrian) Please advise Can be reached at [phone] Lilibeth Casillas RN 04/05/2025 5:01 PM Signed Patient's daughter called back in. Reports that the patient had a wound culture done on 03/30/25 and showed Staph. Patient need established with new gold charmer. Previous one left the country. Patient is not currently on antibiotics and has been dealing with issues for months. Suggested that the patient be seen at urgent care so treatment of infection is not delayed while they wait for an appointment with Dr. Campbell. Daughter would like a call back to see if there was any way to get him in as soon as possible. Lilibeth Casillas RN BACTERIAL CULTURE AND GRAM STAIN, ABSCESS AND WOUND (AEROBIC CULTURE) (03/30/2025 4:00 PM) Lisa Ochoa LPN 04/06/2025 10:38 AM Signed Patient is scheduled for 04/11/2025. Lisa Ochoa LPN Allergies As of Date: 04/05/2025 (No Known Allergies) Date Reviewed: 03/24/2022 Reviewed by: Mitzi Escobar Ma, MA - Fully Assessed Reason for Visit: Appointment [186] Cmt: Staff infection Prescriptions as of 04/06/2025 - Ascorbic Acid (VITAMIN C) 1,000 mg tablet Take 1,000 mg by mouth once daily. - nystatin (MYCOSTATIN) powder Apply 1 application to affected area three times daily. - isosorbide mononitrate ER (IMDUR) 30 mg 24 hr tablet Take 30 mg by mouth once daily. - furosemide (LASIX) 40 mg tablet Take 40 mg by mouth once daily. - carvedilol (COREG) 3.125 mg tablet Take 3.125 mg by mouth twice daily with meals. - aspirin 81 mg chewable tablet Take 81 mg by mouth once daily. - ferrous sulfate 325 mg (65 mg iron) tablet Take 325 mg by mouth twice daily. - finasteride (PROSCAR) 5 mg tablet Take 5 mg by mouth once daily. - potassium chloride (K-TAB) 10 mEq tablet Take 10 mEq by mouth once daily. - tamsulosin ER (FLOMAX) 0.4 mg cap Take 1 capsule by mouth daily at bedtime. - levothyroxine (SYNTHROID) 50 mcg tablet Take 50 mcg by mouth once daily. - pravastatin (PRAVACHOL) 40 mg tablet Take 40 mg by mouth once daily. - acetaminophen (TYLENOL 8 HOUR) 650 mg CR tablet Take 650 mg by mouth every 8 hours as needed. - cyanocobalamin 1,000 mcg/mL soln Inject 1,000 mcg intramuscularly once every month. Problem List As Of Date 04/05/2025 Noted Resolved Benign prostatic hyperplasia without lower urin*08/24/2018 Rectal cancer (HCC) [C20] 08/24/2018 Anemia [D64.9] 08/24/2018 Essential hypertension [I10] 08/24/2018 Hypothyroidism [E03.9] 08/24/2018 Elevated prostate specific antigen (PSA) [R97.2*08/24/2018 Thrombocytopenia (HCC) [D69.6] 08/24/2018 Intraoperative ureteral injury [N99.81] 12/16/2018 Post-op pain [G89.18] 06/07/2019 Post-operative state [Z98.890] 06/07/2019 Attention to ileostomy (HCC) [Z43.2] 06/07/2019 Delirium [R41.0] 06/07/2019 Severe protein-calorie malnutrition (HCC) [E43] 06/14/2019 Increased ileostomy output (HCC) [R19.8, Z93.2] 06/16/2019 06/23/2019 Elevated serum creatinine [R79.89] 06/16/2019 06/23/2019 Renal failure [N19] 07/20/2019 Hyponatremia [E87.1] 07/20/2019 05/02/2021 Iron malabsorption [K90.9] 07/20/2019 Ureteral stricture [N13.5] 09/06/2019 Coronary artery disease involving seldovia nelson*11/23/2019 Mixed hyperlipidemia [E78.2] 11/23/2019 Pericardial effusion [I31.39] 11/23/2019 Controlled type 2 diabetes mellitus without com*11/23/2019 Bladder outlet obstruction [N32.0] 10/17/[address] (HCC) [Z93.3] 04/22/2021 Obesity, Class I, BMI 30-34.9 [E66.811] 04/22/2021 Hypomagnesemia [E83.42] 04/25/2021 05/02/2021 Hypophosphataemia [E83.39] 04/26/2021 05/02/2021 Hypokalemia [E87.6] 04/26/2021 05/02/2021 Ileus following gastrointestinal surgery (HCC) *04/26/2021 05/02/2021 Anemia due to stage 3a chronic kidney disease (*03/25/2022 Encounter Status:Closed by LISA OCHOA on 04/06/25 Normal [facility] BACTERIAL WOUND CULTURE [CCL ]on 04-04-2025 BACTERIAL WOUND CULTURE [CCL] Normal [facility] Comment on above: Result Comment: _CUL TURE WOUND [CCL]_ SEE SCANNED REPORT Performed By: #### [id number] #### [facility],[address] [place], [place] [id number] Bacteria Wnd Culton 03-30-20 25 Bacteria identified Cx Nom (Wound) ORGANISM ID: 1 Many Staphylococcus aureus ORGANISM ID: 2 Many skin denisse GRAM STAIN: Moderate Gram positive cocci Few Polymorphonuclear leukocytes ORGANISM ID: 1 (STAPHYLOCOCCUS AUREUS) ANTIBIOTIC INTERPRETATION MARLON STATUS REFERENCE RANGE Oxacillin S 0.5 F Susceptible <=2 , Resistant >2 Oxacillin-susceptible staphylococci are susceptible to other penicilllinase-stable penicillins, beta-lactam/beta-lactamase inhibitor combinations, anti-staphylococcal cephems, and carbapenems. Erythromycin R F Clindamycin R F Inducible clindamycin resistance detected. Trimeth sulfameth S <=10 F Susceptible <=40 , Resistant >40 Vancomycin S <=0.5 F Susceptible <=2 , Intermediate >2 , Resistant >8 Rifampin S <=0.5 F Susceptible <=1 , Intermediate >1 , Resistant >2 Rifampin should not be used alone for antimicrobial therapy. Tetracycline S <=1 F Susceptible <=4 , Intermediate >4 , Resistant >8 Doxycycline S <=0.5 F Susceptible <=4 , Intermediate >4 , Resistant >8 Abnormal [facility] Comment on above: Performed By: #### 6 [id number] ####[facility] [id number] [address] [place] [id number] [place] Cardiology Visit Reporton Cardiology Visit Report [facility] [address] [place], [place] [address] OFFICE VISIT Date of Service: 02/27/25 MR#: [id number] Acct: [id number] Name: HUONG BATES Rep #: [id number] : 1945 Provider: AUGUSTIN edwards Age/Sex: 79/M Location: [facility] Status: Signed HPI HPI History of Present Illness Details: This pleasant gentleman with history of CAD status post drug-eluting stents to the RCA and right posterior lateral ventricular branch is here for follow-up visit. He denies chest, arm, jaw, or neck discomfort. He denies palpitations. He denies bilateral lower extremity edema with right worse than left, but support member states she notes it. He denies claudication. He denies shortness of breath with activity, but support member notes patient taking more moments with rest. He denies shortness of breath at rest, orthopnea, or PND. He denies chronic cough. He denies significant, sudden weight gain. He denies lightheadedness, dizziness, near-syncope, or syncope. He denies blood in urine, blood in stool, or epistaxis. He denies fever with chills. He denies myalgia. He states fatigue. His exercise level has remained stable. Intake Vital Signs 08/29/24 08:46 02/27/25 14:30 Height 6 ft 1 in 6 ft 1 in Weight: 220 lb BMI 29.0 BP 123/71 H Blood Pressure Location Lt brachial Position Sitting Respiration 16 Pulse 55 L Pulse Source Monitor Pulse Oximetry (%) 99 Oxygen Delivery Method room air Intake Visit Reasons: 6 M FU [employer] Counselor Required: No Is patient in pain?: No Allergies No Known Allergies Allergy (Verified 02/27/25 14:22) Medications ???Medication ???Instructions ???Recorded ???Confirmed ???Type acetaminophen 500 mg tablet 650 mg PO PRN PRN Pain 03/09/19 History levothyroxine 50 mcg tablet 50 mcg PO DAILY thyroid 03/09/19 0 02/27/25 History cyanocobalamin (vitamin B-12) 1,000 mcg IM Q30D vitamin 04/06/19 02/27/25 History 1,000 mcg/mL injection solution aspirin 81 mg chewable tablet 81 mg PO DAILY@0800 09/27/1902/27 Rx furosemide 40 mg tablet 40 mg PO DAILY #30 tabs 09/27/19 0 02/27/25 Rx tamsulosin 0.4 mg capsule 0.4 mg PO DAILY@1730 #30 caps 09/0402/27/25 Rx carvedilol 3.125 mg tablet 3.125 mg PO BID #180 tabs 10/24/19 02/27/25 Rx finasteride 5 mg tablet 5 mg PO DAILY 10/24/19 02/27/25 Hi story isosorbide mononitrate 30 mg 30 mg PO DAILY #90 tabs 10/24/19 0 02/27/25 Rx tablet,extended release 24 hr ascorbic acid (vitamin C) 1,000 mg 1 g PO DAILY 01/07/21 02/27/25 H istory tablet fenofibrate nanocrystallized 145 145 mg PO DAILY 04/27/23 02/27/25 History mg tablet potassium chloride 10 mEq 10 meq PO DAILY 04/27/23 02/27/25 History tablet,extended release(part/cryst) rosuvastatin 40 mg tablet 40 mg PO DAILY 04/27/23 02/27/25 H istory cholecalciferol (vitamin D3) 125 10,000 unit PO DAILY 04/28/2302/01 History mcg (5,000 unit) tablet lisinopril 5 mg tablet 5 mg PO QDAY #90 tabs 08/29/24 Rx nystatin 100,000 unit/gram topical 1 applic topical QDAY 11/23/24 0 02/27/25 History powder ondansetron HCl 4 mg tablet 4 mg PO 4X/DAY PRN 11/23/24 History ferrous sulfate 325 mg (65 mg 325 mg PO BID 02/27/25 02/27/25 Hi story iron) tablet Ejection fraction %: 65 Have you fallen in the past year?: No PFSH Medical History Preoperative cardiovascular examination Bilateral inguinal hernia Inguinal hernia of right side without obstruction or gangrene Edema of both legs Shortness of breath Dyspnea on minimal exertion Renal insufficiency Easy bruising Thyroid disease Arthritis Uses wheelchair Prostate disease Low iron High cholesterol Sciatic leg pain Wears hearing aid Loss of hearing Wears glasses Wears partial dentures Cancer Former smoker History of stress test History of echocardiogram Cardiology follow-up encounter Inguinal hernia of left side without obstruction or gangrene Pericardial effusion Hyperlipidemia Atherosclerosis of [place] coronary artery of [place] heart without angina pectoris Colon cancer Localized edema 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 Hallux limitus of right foot Cellulitis of right foot Right foot ulcer Acute CHF Chest pain Hypokalemia SBO (small bowel obstruction) Hyperlipidemia Depression Hypothyroidism Nausea and vomiting Constipation Intraoperative ureteral injury Rectal cancer Surgical History History of cataract surgery History of colonoscopy History of coronary artery stent placement History of cardiac catheterization Stented coronary artery (01/11/20) History of ure (more content not included)... Normal [facility] Bilirubin directOrdered By: Bárbara Nj on 02-13-2025 Bilirubin.direct [Mass/Vol] 0.21 mg/dL 0.00-0.30 [facility] Bilirubin, totalOrdered By: Bárbara Nj on 02-13-2025 Bilirubin [Mass/Vol] 0.45 mg/dL 0.00-1.30 [facility] Calculated very low density lipoprotein (VLDL) cholesterol measurementOrdered By: Bárbara Nj on 02-13-2025 Calculated very low density lipoprotein (VLDL) cholesterol measurement 42 mg/dL High 5-40 [facility] LDL calc ser/plasOrdered By: Bárbara Nj on 02-13-2025 Cholesterol in LDL [Mass/Vol] 75 mg/dL [facility] Comment on above: Amwjaqnawv=708-599 m g/dL & Higher Yxlt=483 mg/dL or greater Laboratory - Chemistry and C hemistry - challengeOrdered By: Bárbara Nj on 02-13-2025 AST [Catalytic activity/Vol] 15 U/L <38 [facility] Lipid Profileon 02-13-2025 CHOL:HDL 4.42 Normal [facility] Comment on above: Performed By: #### L 500.3400, L500.4100 #### [facility] [address] [place], [address] Cholesterol [Mass/Vol] 151 mg/dL Normal <=200 [facility] Comment on above: Result Comment: Chol esterol level, Desirable <200 mg/dL Borderline high cholesterol 200-239 mg/dL High cholesterol >=240 mg/dL Recommendations of the NCEP Adult Treatment Panel for the following risk-cutoff thresholds for the [place] population. Performed By: #### L 500.3400, L500.4100 #### [facility] [address] [place], [address] Cholesterol in HDL [Mass/Vol] 34 mg/dL Low [facility] Comment on above: Result Comment: Christen onal Cholesterol Education Program (NCEP) guidelines: <40 mg/dL: Low HDL-cholesterol (major risk factor for CHD) >= 60 mg/dL: High HDL-cholesterol (negative risk factor for CHD) HDL-cholesterol is affected by a number of factors, e.g. smoking, exercise, hormones, sex and age. Performed By: #### L 500.3400, L500.4100 #### [facility] [address] [place], [address] Cholesterol in LDL [Mass/Vol] 75 mg/dL Normal [facility] Comment on above: Result Comment: Bord ywwsxb=566-507 mg/dL Higher Rzsa=679 mg/dL or greater Performed By: #### L 500.3400, L500.4100 #### [facility] [address] [place], [address] Cholesterol in VLDL [Mass/Vol] 42 mg/dL High 5-40 [facility] Comment on above: Performed By: #### L 500.3400, L500.4100 #### [facility] [address] [place], [address] Triglyceride [Mass/Vol] 208 mg/dL High [facility] Comment on above: Result Comment: The drugs N-Acetylcysteine and Metamizole may falsely depress this assay. Normal range: <150 mg/dL Borderline High: 150-199 mg/dL High: 200-499 mg/dL Very High: >500 mg/dL Performed By: #### L 500.3400, L500.4100 #### [facility] [address] [place], [address] Liver Profileon 02-13-2025 Albumin [Mass/Vol] 4.0 g/dL Normal 3.4-4.8 [facility] Comment on above: Performed By: #### L 500.3400, L500.4100 #### [facility] [address] [place], [address] ALK PHOS 53 U/L Normal 40-129 [facility] Comment on above: Performed By: #### L 500.3400, L500.4100 #### [facility] [address] [place], [address] ALT [Catalytic activity/Vol] 9 U/L Normal <=46 [facility] Comment on above: Performed By: #### L 500.3400, L500.4100 #### [facility] [address] [place], [address] AST [Catalytic activity/Vol] 15 U/L Normal <=37 [facility] Comment on above: Performed By: #### L 500.3400, L500.4100 #### [facility] [address] [place], [address] Bilirubin [Mass/Vol] 0.45 mg/dL Normal 0.00-1.30 [facility] Comment on above: Performed By: #### L 500.3400, L500.4100 #### [facility] [address] [place], [address] Bilirubin.direct [Mass/Vol] 0.21 mg/dL Normal 0.00-0.30 [facility] Comment on above: Performed By: #### L 500.3400, L500.4100 #### [facility] [address] [place], [address] Globulin (S) [Mass/Vol] 2.5 g/dL Normal 2.2-4.2 [facility] Comment on above: Performed By: #### L 500.3400, L500.4100 #### [facility] [address] [place], [address] T PROT 6.5 g/dL Normal 5.9-8.4 [facility] Comment on above: Performed By: #### L 500.3400, L500.4100 #### [facility] [address] [place], [address] Screening total cholesterol/ high density lipoprotein (HDL) cholesterol ratioOrdered By: Bárbara Nj on 02-13-2025 Cholesterol.total/Cho lesterol in HDL [Mass ratio] 4.42 {ratio} [facility] Serum globulin measurementOr dered By: Bárbara Nj on 02-13-2025 Globulin (S) [Mass/Vol] 2.5 g/dL 2.2-4.2 [facility] Serum or plasma alanine zheng otransferase (ALT) measurementOrdered By: Bárbara Nj on 02-13-2025 ALT [Catalytic activity/Vol] 9 U/L <47 [facility] Serum or plasma albumin luisito urement (mass/volume)Ordered By: Bárbara Nj on 02-13-2025 Albumin [Mass/Vol] 4.0 g/dL 3.4-4.8 [facility] Serum or plasma alkaline artur sphatase measurementOrdered By: Bárbara Nj on 02-13-2025 ALP [Catalytic activity/Vol] 53 U/L 40-129 [facility] Serum or plasma cholesterol in HDL measurement (mass/volume)Ordered By: Bárbara Nj on 02-13-2025 Cholesterol in HDL [Mass/Vol] 34 mg/dL Low >40 [facility] Comment on above: National Cholesterol Education Program (NCEP) guidelines:<40 mg/dL: Low HDL-cholesterol (major risk factor for CHD)>= 60 mg/dL: High HDL-cholesterol (negative risk factor for CHD)HDL-cholesterol is affected by a number of factors, e.g. smoking, exercise, hormones, sex and age. Serum or plasma cholesterol measurement (mass/volume)Ordered By: Bárbara Nj on 02-13-2025 Cholesterol [Mass/Vol] 151 mg/dL <201 [facility] Comment on above: Cholesterol level, D esirable <200 mg/dLBorderline high cholesterol 200-239 mg/dLHigh cholesterol >=240 mg/dLRecommendations of the NCEP Adult Treatment Panel for the following risk-cutoff thresholds for the [place] population. Total proteinOrdered By: Marlon Nj on 02-13-2025 Protein [Mass/Vol] 6.5 g/dL 5.9-8.4 [facility] Triglycerides measurementOrd ered By: Bárbara Nj on 02-13-2025 Triglyceride [Mass/Vol] 208 mg/dL High <199 [facility] Comment on above: The drugs N-Acetylcy steine and Metamizole may falsely depress this assay. Normal range: <150 mg/dLBorderline High: 150-199 mg/dLHigh: 200-499 mg/dLVery High: >500 mg/dL Orthopedic Visit Reporton Orthopedic Visit Report [facility] [address] [place] [address] OFFICE VISIT Date of Service: 12/28/24 MR#: [id number] Acct: [id number] Name: HUONG BATES Ash Rep #: [id number] : 1945 Provider: Dr. Daryl carranza DO Age/Sex: 79/M Location: [facility] [place] Status: Signed Intake Vital Signs 08/29/24 08:46 Height 6 ft 1 in Weight: 226 lb BMI 29.8 BP 104/58 L Blood Pressure Location Lt brachial Position Sitting Respiration 16 Pulse 68 Pulse Source NIBP Intake Visit Reasons: right elbow Chief Complaint: Right Elbow Pain Accompanied by: Is patient in pain?: Yes Allergies No Known Allergies Allergy (Verified 12/28/24 13:05) Medications ???Medication ???Instructions ???Recorded ???Confirmed ???Type acetaminophen 500 mg tablet 650 mg PO PRN PRN Pain 03/09/19 History levothyroxine 50 mcg tablet 50 mcg PO DAILY thyroid 03/09/19 0 12/28/24 History cyanocobalamin (vitamin B-12) 1,000 mcg IM Q30D vitamin 04/06/19 12/28/24 History 1,000 mcg/mL injection solution aspirin 81 mg chewable tablet 81 mg PO DAILY@0800 09/27/1912/28 Rx furosemide 40 mg tablet 40 mg PO DAILY #30 tabs 09/27/19 0 12/28/24 Rx tamsulosin 0.4 mg capsule 0.4 mg PO DAILY@1730 #30 caps 09/0412/28/24 Rx carvedilol 3.125 mg tablet 3.125 mg PO BID #180 tabs 10/24/19 12/28/24 Rx ferrous sulfate 325 mg (65 mg 325 mg PO DAILY 10/24/19 12/28/24 History iron) tablet finasteride 5 mg tablet 5 mg PO DAILY 10/24/19 12/28/24 Hi story isosorbide mononitrate 30 mg 30 mg PO DAILY #90 tabs 10/24/19 0 12/28/24 Rx tablet,extended release 24 hr ascorbic acid (vitamin C) 1,000 mg 1 g PO DAILY 01/07/21 12/28/24 H istory tablet fenofibrate nanocrystallized 145 145 mg PO DAILY 04/27/23 12/28/24 History mg tablet potassium chloride 10 mEq 10 meq PO DAILY 04/27/23 12/28/24 History tablet,extended release(part/cryst) rosuvastatin 40 mg tablet 40 mg PO DAILY 04/27/23 12/28/24 H istory cholecalciferol (vitamin D3) 125 10,000 unit PO DAILY 04/28/2312/02 History mcg (5,000 unit) tablet lisinopril 5 mg tablet 5 mg PO QDAY #90 tabs 08/29/24 Rx nystatin 100,000 unit/gram topical 1 applic topical QDAY 11/23/24 0 12/28/24 History powder ondansetron HCl 4 mg tablet 4 mg PO 4X/DAY PRN 11/23/24 History Have you fallen in the past year?: No PFSH Medical History Preoperative cardiovascular examination Bilateral inguinal hernia Inguinal hernia of right side without obstruction or gangrene Edema of both legs Shortness of breath Dyspnea on minimal exertion Renal insufficiency Easy bruising Thyroid disease Arthritis Uses wheelchair Prostate disease Low iron High cholesterol Sciatic leg pain Wears hearing aid Loss of hearing Wears glasses Wears partial dentures Cancer Former smoker History of stress test History of echocardiogram Cardiology follow-up encounter Inguinal hernia of left side without obstruction or gangrene Pericardial effusion Hyperlipidemia Atherosclerosis of [place] coronary artery of [place] heart without angina pectoris Colon cancer Localized edema 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 Hallux limitus of right foot Cellulitis of right foot Right foot ulcer Acute CHF Chest pain Hypokalemia SBO (small bowel obstruction) Hyperlipidemia Depression Hypothyroidism Nausea and vomiting Constipation Intraoperative ureteral injury Rectal cancer Surgical History History of cataract surgery History of colonoscopy History of coronary artery stent placement History of cardiac catheterization Stented coronary artery (01/11/20) History of ureter repair History of partial colectomy History of ileostomy History of hernia repair History of left heart catheterization (09/27/19) Family History Other Adopted Social History Smoking Status: Former smoker how long ago did patient quit smokin years ago alcohol intake: never substance use type: does not use caffeine: Yes Type: coffee Number of servings: 1 HPI right elbow Details: This documentation accurately reflects the service provided and the decisions made by me, Dr. Daryl Thomas, DO 12/28/24 0757. Part of today???s visit was documented by Judi Lomeli ATC, acting as scribe. HUONG BATES is a 79 year old M here today for right elbow pain. Patient was seen on 11/23/2024 and had bursitis in the elbow and had it drained and a steroid injection. Patient's states they noticed the next morni (more content not included)... Normal [facility] Elbow min 3 Viewson 11-24-19 Elbow min 3 Views [facility] [address] [place] [address] Elbow min 3 Views MR#: [id number] Acct: [id number] Name: HUONG BATES Rep #: [id number] : 1945 M 79 From: Jelani Rosario MD PCP: Dr. Chaitanya Gardner MD Status: DEP AMB Study: Elbow min 3 Views Date of Exam: 11/23/24 Exam# [id number] Ordering Dr: Daryl Thomas DO EXAM: Right elbow three views CLINICAL HISTORY: Pain, bursitis COMPARISON: None TECHNIQUE: Three views of the right elbow FINDINGS: Prominent soft tissue swelling is noted at the olecranon consistent with the history of bursitis. There is a 0.7 cm corticated osteochondral fragment in the anterior joint space. No acute fracture or dislocation is identified. Mineralization is normal. RAD/Elbow min 3 Views IMPRESSION: Prominent soft tissue swelling is noted at the olecranon consistent with the history of bursitis. Reading Location: [facility] CC: Dr. Chaitanya Gardner MD; Dr. Daryl Thomas DO Cosmetics Presser: Signed Normal [facility] Orthopedic Visit Reporton Orthopedic Visit Report [facility] [address] [place] [address] [address] [place] [address] OFFICE VISIT Date of Service: 11/23/24 MR#: [id number] Acct: [id number] Name: HUONG BATES Rep #: [id number] : 1945 Provider: Dr. Daryl carranza DO Age/Sex: 79/M Location: [facility] [place] Status: Signed Intake Vital Signs 08/29/24 08:46 Height 6 ft 1 in Weight: 226 lb BMI 29.8 BP 104/58 L Blood Pressure Location Lt brachial Position Sitting Respiration 16 Pulse 68 Pulse Source NIBP Intake Visit Reasons: RIGHT ELBOW Chief Complaint: Right Elbow Pain Accompanied by: Is patient in pain?: No Allergies No Known Allergies Allergy (Verified 11/23/24 13:52) Medications ???Medication ???Instructions ???Recorded ???Confirmed ???Type acetaminophen 500 mg tablet 650 mg PO PRN PRN Pain 03/09/19 History levothyroxine 50 mcg tablet 50 mcg PO DAILY thyroid 03/09/19 0 11/23/24 History cyanocobalamin (vitamin B-12) 1,000 mcg IM Q30D vitamin 04/06/19 11/23/24 History 1,000 mcg/mL injection solution aspirin 81 mg chewable tablet 81 mg PO DAILY@0800 09/27/1911/23 Rx furosemide 40 mg tablet 40 mg PO DAILY #30 tabs 09/27/19 0 11/23/24 Rx tamsulosin 0.4 mg capsule 0.4 mg PO DAILY@1730 #30 caps 09/0411/23/24 Rx carvedilol 3.125 mg tablet 3.125 mg PO BID #180 tabs 10/24/19 11/23/24 Rx ferrous sulfate 325 mg (65 mg 325 mg PO DAILY 10/24/19 11/23/24 History iron) tablet finasteride 5 mg tablet 5 mg PO DAILY 10/24/19 11/23/24 Hi story isosorbide mononitrate 30 mg 30 mg PO DAILY #90 tabs 10/24/19 0 11/23/24 Rx tablet,extended release 24 hr ascorbic acid (vitamin C) 1,000 mg 1 g PO DAILY 01/07/21 11/23/24 H istory tablet fenofibrate nanocrystallized 145 145 mg PO DAILY 04/27/23 11/23/24 History mg tablet potassium chloride 10 mEq 10 meq PO DAILY 04/27/23 11/23/24 History tablet,extended release(part/cryst) rosuvastatin 40 mg tablet 40 mg PO DAILY 04/27/23 11/23/24 H istory cholecalciferol (vitamin D3) 125 10,000 unit PO DAILY 04/28/2311/02 History mcg (5,000 unit) tablet lisinopril 5 mg tablet 5 mg PO QDAY #90 tabs 08/29/24 Rx nystatin 100,000 unit/gram topical 1 applic topical QDAY 11/23/24 0 11/23/24 History powder ondansetron HCl 4 mg tablet 4 mg PO 4X/DAY PRN 11/23/24 History Have you fallen in the past year?: No PFSH Medical History Preoperative cardiovascular examination Bilateral inguinal hernia Inguinal hernia of right side without obstruction or gangrene Edema of both legs Shortness of breath Dyspnea on minimal exertion Renal insufficiency Easy bruising Thyroid disease Arthritis Uses wheelchair Prostate disease Low iron High cholesterol Sciatic leg pain Wears hearing aid Loss of hearing Wears glasses Wears partial dentures Cancer Former smoker History of stress test History of echocardiogram Cardiology follow-up encounter Inguinal hernia of left side without obstruction or gangrene Pericardial effusion Hyperlipidemia Atherosclerosis of [place] coronary artery of [place] heart without angina pectoris Colon cancer Localized edema 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 Hallux limitus of right foot Cellulitis of right foot Right foot ulcer Acute CHF Chest pain Hypokalemia SBO (small bowel obstruction) Hyperlipidemia Depression Hypothyroidism Nausea and vomiting Constipation Intraoperative ureteral injury Rectal cancer Surgical History History of cataract surgery History of colonoscopy History of coronary artery stent placement History of cardiac catheterization Stented coronary artery (01/11/20) History of ureter repair History of partial colectomy History of ileostomy History of hernia repair History of left heart catheterization (09/27/19) Family History Other Adopted Social History Smoking Status: Former smoker how long ago did patient quit smokin years ago alcohol intake: never substance use type: does not use caffeine: Yes Type: coffee Number of servings: 1 HPI RIGHT ELBOW Details: This documentation accurately reflects the service provided and the decisions made by me, Dr. Daryl Thomas, DO 11/23/24 0815. Part of today???s visit was documented by Judi Lomeli ATC, acting as scribe. HUONG BATES is a 79 year old M medical history significant for but not limited to coronary artery disease, pericardial effusion, congestive heart failure, renal insufficiency, lower extremity edema, anemia, insulin-dep (more content not included)... Normal [facility] 25(OH)D3 [facility] 2024 25-hydroxyvitamin D3 [Mass/Vol] 51.5 ng/mL Normal 31.0-80.0 [facility] Comment on above: Order Comment: Speci men Type: BLOOD SPECIMEN Ordering Facility: [facility] Address: [address] [place] [address] Result Comment: Clas sification of 25 [place] Vitamin D status: Deficiency/Insufficiency: < or = 30 ng/ml. Sufficiency/Optimal Levels: 31-80 ng/mL Toxicity: > 100 ng/mL. Test performed by chemiluminescent immunoassay. Performed By: #### 5 5454-3 #### [facility] CLIA [id number] [address] [place] [address] [place] ALBUMIN/CREATININE RATIO, UR INEon 11-03-2024 Albumin DL <= 20 mg/L (U) [Mass/Vol] 21.1 mg/L Normal [facility] Comment on above: Order Comment: Speci men Type: URINE SPECIMENOrdering Facility: [facility] Address: [address] [place], [place] [address] Performed By: #### U ACR ####[facility] [id number] [place] [address] [place] Albumin/Creatinine (U) [Mass ratio] 17 mg/g Normal <30 [facility] Comment on above: Order Comment: Speci men Type: URINE SPECIMENOrdering Facility: [facility] Address: [address] [place], [place] [address] Result Comment: Adul t Male and Female Nephrotic Criteria: <30 mg/g is considered normal to mildly increased 30-300 mg/g is considered moderately increased >300 mg/g is considered severely increased KDIGO. (2013). KDIGO 2012 Clinical Practice Guideline for the Evaluation and Management of Chronic Kidney Disease. Official Journal of the International Society of Nephrology, 3(1), 1-150. Performed By: #### U ACR ####[facility] [id number] [place] [address] [place] Creatinine (U) [Mass/Vol] 122.5 mg/dL Normal 20.0-300.0 [facility] Comment on above: Order Comment: Speci men Type: URINE SPECIMENOrdering Facility: [facility] Address: [address] [place] [address] Performed By: #### U ACR ####[facility] [id number] [place] [id number] [place] CBC W Auto Differential pane l (Bld)on 11-03-2024 Basophils (Bld) [#/Vol] 10*3/uL Normal <0.11 [facility] Comment on above: Order Comment: Speci men Type: BLOOD SPECIMENOrdering Facility: [facility] Address: [address] [place] [address] Performed By: #### 5 7021-8 ####[facility] [id number] [place] [address] [place] Basophils/100 WBC (Bld) 0.4 % Normal [facility] Comment on above: Order Comment: Speci men Type: BLOOD SPECIMENOrdering Facility: [facility] Address: [address] [place] [address] Performed By: #### 5 7021-8 ####[facility] [id number] [place] [address] [place] Differential cell count method Nom (Bld) Auto Normal [facility] Comment on above: Order Comment: Speci men Type: BLOOD SPECIMENOrdering Facility: [facility] Address: [address] [place] [address] Performed By: #### 5 7021-8 ####[facility] HOSPITALWNCLIA [id number] [place] [address] [place] Eosinophils (Bld) [#/Vol] 0.16 10*3/uL Normal <0.46 [facility] Comment on above: Order Comment: Speci men Type: BLOOD SPECIMENOrdering Facility: [facility] Address: [address] [place] [address] Performed By: #### 5 7021-8 ####[facility] HOSPITALWYVETTELIA [id number] [place] [address] [place] Eosinophils/100 WBC (Bld) 3.0 % Normal [facility] Comment on above: Order Comment: Speci men Type: BLOOD SPECIMENOrdering Facility: [facility] Address: [address] [place] [address] Performed By: #### 5 7021-8 ####[facility] HOSPITALKISHOR [id number] [place] [address] [place] Erythrocyte distribution width (RBC) [Ratio] 12.5 % Normal 11.5-15.0 [facility] Comment on above: Order Comment: Speci men Type: BLOOD SPECIMENOrdering Facility: [facility] Address: [address] [place] [address] Performed By: #### 5 7021-8 ####[facility] HOSPITALCIARAA [id number] [place] [address] [place] Hematocrit (Bld) [Volume fraction] 34.7 % Low 39.0-51.0 [facility] Comment on above: Order Comment: Speci men Type: BLOOD SPECIMENOrdering Facility: [facility] Address: [address] [place] [address] Performed By: #### 5 7021-8 ####[facility] HOSPITALCIARAA [id number] [place] [address] [place] Hemoglobin (Bld) [Mass/Vol] 11.2 g/dL Low 13.0-17.0 [facility] Comment on above: Order Comment: Speci men Type: BLOOD SPECIMENOrdering Facility: [facility] Address: [address] [place] [address] Performed By: #### 5 7021-8 ####[facility] SYSTEMROSELYN CLEVELANDMARIANNEDeepali [id number] [place] [address] [place] Immature granulocytes (Bld) [#/Vol] 10*3/uL Normal <0.10 [facility] Comment on above: Order Comment: Speci men Type: BLOOD SPECIMENOrdering Facility: [facility] Address: [address] [place] [address] Performed By: #### 5 7021-8 ####[facility] MARCYCIARAA [id number] [place] [address] [place] Immature granulocytes/100 WBC (Bld) 0.2 % Normal [facility] Comment on above: Order Comment: Speci men Type: BLOOD SPECIMENOrdering Facility: [facility] Address: [address] [place] [address] Performed By: #### 5 7021-8 ####[facility] HOSPITALKISHOR [id number] [place] [address] [place] Lymphocytes (Bld) [#/Vol] 1.07 10*3/uL Normal 1.00-4.00 [facility] Comment on above: Order Comment: Speci men Type: BLOOD SPECIMENOrdering Facility: [facility] Address: [address] [place] [address] Performed By: #### 5 7021-8 ####[facility] HOSPITALALEXANDERWYVETTELIA [id number] [place] [address] [place] Lymphocytes/100 WBC (Bld) 20.3 % Normal [facility] Comment on above: Order Comment: Speci men Type: BLOOD SPECIMENOrdering Facility: [facility] Address: [address] [place] [address] Performed By: #### 5 7021-8 ####[facility] HOSPITALWNCLIA [id number] [place] [address] [place] MCH (RBC) [Entitic mass] 31.2 pg Normal 26.0-34.0 [facility] Comment on above: Order Comment: Speci men Type: BLOOD SPECIMENOrdering Facility: [facility] Address: [address] [place] [address] Performed By: #### 5 7021-8 ####[facility] HOSPITALCIARAA [id number] [place] [address] [place] MCHC (RBC) [Mass/Vol] 32.3 g/dL Normal 30.5-36.0 [facility] Comment on above: Order Comment: Speci men Type: BLOOD SPECIMENOrdering Facility: [facility] Address: [address] [place] [address] Performed By: #### 5 7021-8 ####[facility] HAMILTONLI [id number] [place] [address] [place] MCV (RBC) [Entitic vol] 96.7 fL Normal 80.0-100.0 [facility] Comment on above: Order Comment: Speci men Type: BLOOD SPECIMENOrdering Facility: [facility] Address: [address] [place] [address] Performed By: #### 5 7021-8 ####[facility] HAMILTONMARIANNEA [id number] [place] [address] [place] Monocytes (Bld) [#/Vol] 0.50 10*3/uL Normal <0.87 [facility] Comment on above: Order Comment: Speci men Type: BLOOD SPECIMENOrdering Facility: [facility] Address: [address] [place] [address] Performed By: #### 5 7021-8 ####[facility] HOSPITALYVETTELIA [id number] [place] [address] [place] Monocytes/100 WBC (Bld) 9.5 % Normal [facility] Comment on above: Order Comment: Speci men Type: BLOOD SPECIMENOrdering Facility: [facility] Address: [address] [place] [address] Performed By: #### 5 7021-8 ####[facility] MILLTOWNCLIA [id number] [place] [address] [place] Neutrophils (Bld) [#/Vol] 3.51 10*3/uL Normal 1.45-7.50 [facility] Comment on above: Order Comment: Speci men Type: BLOOD SPECIMENOrdering Facility: [facility] Address: [address] [place] [address] Performed By: #### 5 7021-8 ####[facility] HOSPITALYVETTELIA [id number] [place] [address] [place] Neutrophils/100 WBC (Bld) 66.6 % Normal [facility] Comment on above: Order Comment: Speci men Type: BLOOD SPECIMENOrdering Facility: [facility] Address: [address] [place] [address] Performed By: #### 5 7021-8 ####[facility] RAPHAELALEXANDERWNCLIA [id number] [place] [address] [place] Nucleated RBC (Bld) [#/Vol] 10*3/uL Normal <0.01 [facility] Comment on above: Order Comment: Speci men Type: BLOOD SPECIMENOrdering Facility: [facility] Address: [address] [place] [address] Performed By: #### 5 7021-8 ####[facility] MILLWNCLIA [id number] [place] [address] [place] Nucleated RBC/100 WBC (Bld) [Ratio] 0.0 /100 WBC Normal [facility] Comment on above: Order Comment: Speci men Type: BLOOD SPECIMENOrdering Facility: [facility] Address: [address] [place] [address] Performed By: #### 5 7021-8 ####[facility] RAPHAELALEXANDERMikeNCLIDeepali [id number] [place] [address] [place] Platelet mean volume (Bld) [Entitic vol] 11.2 fL Normal 9.0-12.7 [facility] Comment on above: Order Comment: Speci men Type: BLOOD SPECIMENOrdering Facility: [facility] Address: [address] [place] [address] Performed By: #### 5 7021-8 ####[facility] HOSPITALNOE [id number] [place] [address] [place] Platelets (Bld) [#/Vol] 95 10*3/uL Low 150-400 [facility] Comment on above: Order Comment: Speci men Type: BLOOD SPECIMENOrdering Facility: [facility] Address: [address] [place] [address] Result Comment: No c lot detected. Performed By: #### 5 7021-8 ####[facility] HOSPITALKISHOR [id number] [place] [address] [place] RBC (Bld) [#/Vol] 3.59 10*6/uL Low 4.20-6.00 [facility] Comment on above: Order Comment: Speci men Type: BLOOD SPECIMENOrdering Facility: [facility] Address: [address] [place] [address] Performed By: #### 5 7021-8 ####[facility] HOSPITALKISHOR [id number] [place] [address] [place] WBC (Bld) [#/Vol] 5.27 10*3/uL Normal 3.70-11.00 [facility] Comment on above: Order Comment: Speci men Type: BLOOD SPECIMENOrdering Facility: [facility] Address: [address] [place] [address] Performed By: #### 5 7021-8 ####[facility] HOSPITALKISHOR [id number] [place] [address] [place] Comprehensive metabolic 2000 panelon 11-03-2024 Albumin [Mass/Vol] 3.7 g/dL Low 3.9-4.9 [facility] Comment on above: Order Comment: Speci men Type: BLOOD SPECIMENOrdering Facility: [facility] Address: [address] [place] [address] Performed By: #### 2 4323-8 ####[facility] LABCLIA [id number] [address] [address] [place] ALP [Catalytic activity/Vol] 46 U/L Normal 38-113 [facility] Comment on above: Order Comment: Speci men Type: BLOOD SPECIMENOrdering Facility: [facility] Address: [address] [place] [address] Performed By: #### 2 4323-8 ####[facility] LABCLIA [id number] [address] [address] [place] ALT [Catalytic activity/Vol] 7 U/L Low 10-54 [facility] Comment on above: Order Comment: Speci men Type: BLOOD SPECIMENOrdering Facility: [facility] Address: [address] [place] [address] Performed By: #### 2 4323-8 ####[facility] LABCLIA [id number] [facility]ITALD [address] [address] [place] Anion gap [Moles/Vol] 11 mmol/L Normal 8-15 [facility] Comment on above: Order Comment: Speci men Type: BLOOD SPECIMENOrdering Facility: [facility] Address: [address] [place] [address] Performed By: #### 2 4323-8 ####[facility] LABCLIA [id number] [place] AVENUEMISSION B[facility] CAMPUSK [address] [place] [address] [place] AST [Catalytic activity/Vol] 14 U/L Normal 14-40 [facility] Comment on above: Order Comment: Speci men Type: BLOOD SPECIMENOrdering Facility: [facility] Address: [address] [place] [address] Performed By: #### 2 4323-8 ####[facility] LABCLIA [id number] [place] AVENUEMISS[facility] B[facility] CAMPUSK [place] [id number] [place] Bilirubin [Mass/Vol] 0.4 mg/dL Normal 0.2-1.3 [place] Comment on above: Order Comment: Speci men Type: BLOOD SPECIMENOrdering Facility: [facility] Address: [address] [place] [address] Performed By: #### 2 4323-8 ####[facility] LABCLIA [id number] [facility] HOSPITALLID [facility]OSPITALK [place] [id number] [place] Calcium [Mass/Vol] 9.5 mg/dL Normal 8.5-10.2 [facility] Comment on above: Order Comment: Speci men Type: BLOOD SPECIMENOrdering Facility: [facility] Address: [address] [place] [address] Performed By: #### 2 4323-8 ####[facility] LABCLIA [id number] [facility] HOSPITALLID AVENUEMISSION BAY CAMPUSK [place] [id number] [place] Chloride [Moles/Vol] 104 mmol/L Normal 98-107 [place] Comment on above: Order Comment: Speci men Type: BLOOD SPECIMENOrdering Facility: [facility] Address: [address] [place] [address] Performed By: #### 2 4323-8 ####[facility] LABCLIA [id number] [place] [facility]OSPITALK [address] [place] [address] [place] CO2 [Moles/Vol] 23 mmol/L Normal 22-30 [facility] Comment on above: Order Comment: Speci men Type: BLOOD SPECIMENOrdering Facility: [facility] Address: [address] [place] [address] Performed By: #### 2 4323-8 ####[facility] LABCLIA [id number] [address] [place] [address] [place] Creatinine [Mass/Vol] 1.67 mg/dL High 0.73-1.22 [facility] Comment on above: Order Comment: Speci men Type: BLOOD SPECIMENOrdering Facility: [facility] Address: [address] [place] [address] Performed By: #### 2 4323-8 ####[facility] LABCLIA [id number] [address] [address] [place] Creatinine and Glomerular filtration rate.predicted panel (S/P/Bld) 41 mL/min/1.73m??? Low >=60 [facility] Comment on above: Order Comment: Speci men Type: BLOOD SPECIMENOrdering Facility: [facility] Address: [address] [place] [address] Result Comment: Kezia mated Glomerular Filtration Rate (eGFR) is calculated using the 2020 CKD-EPI creatinine equation. This equation utilizes serum creatinine, sex, and age as parameters. The creatinine assay has traceable calibration to isotope dilution-mass spectrometry. Refer to KDIGO guidelines for clinical interpretation. In patients with unstable renal function, e.g. those with acute kidney injury, the eGFR may not accurately reflect actual GFR. Performed By: #### 2 4323-8 ####[facility] LABCLIA [id number] [address] [place] [address] [place] Glucose [Mass/Vol] 115 mg/dL High 74-99 [facility] Comment on above: Order Comment: Speci men Type: BLOOD SPECIMENOrdering Facility: [facility] Address: [address] [place] [address] Result Comment: The [place] Diabetes Association (ADA) provides guidance for cutoff values for fasting glucose and random glucose. The ADA defines fasting as no caloric intake for at least 8 hours. Fasting plasma glucose results between 100 to 125 mg/dL indicate increased risk for diabetes (prediabetes). Fasting plasma glucose results greater than or equal to 126 mg/dL meet the criteria for diagnosis of diabetes. In the absence of unequivocal hyperglycemia, results should be confirmed by repeat testing. In a patient with classic symptoms of hyperglycemia or hyperglycemic crisis, random plasma glucose results greater than or equal to 200 mg/dL meet the criteria for diagnosis of diabetes. Reference: Standards of Medical Care in Diabetes 2016, [place] Diabetes Association. Diabetes Care. 2016.39(Suppl 1). Performed By: #### 2 4323-8 ####[facility] LABCLIA [id number] [place] AVENUEDESK [address] [address] [place] Potassium [Moles/Vol] 4.3 mmol/L Normal 3.7-5.1 [facility] Comment on above: Order Comment: Speci men Type: BLOOD SPECIMENOrdering Facility: [facility] Address: [address] [place] [address] Performed By: #### 2 4323-8 ####[facility] LABCLIA [id number] [facility]ITALD AVENUEMISSION BAY CAMPUSK [address] [address] [place] Protein [Mass/Vol] 6.4 g/dL Normal 6.3-8.0 [facility] Comment on above: Order Comment: Speci men Type: BLOOD SPECIMENOrdering Facility: [facility] Address: [address] [place] [address] Performed By: #### 2 4323-8 ####[facility] LABCLIA [id number] [place] AVENUEDESK [address] [place] [address] [place] Sodium [Moles/Vol] 138 mmol/L Normal 136-144 [facility] Comment on above: Order Comment: Speci men Type: BLOOD SPECIMENOrdering Facility: [facility] Address: [address] [place] [address] Performed By: #### 2 4323-8 ####[facility] LABCLIA [id number] [place] [address] [place] Urea nitrogen [Mass/Vol] 31 mg/dL High 9-24 [facility] Comment on above: Order Comment: Speci men Type: BLOOD SPECIMENOrdering Facility: [facility] Address: [address] [place] [address] Performed By: #### 2 4323-8 ####[facility] LABCLIA [id number] [place] [address] [place] Ferritin SerPl-mCncon 2024 Ferritin [Mass/Vol] 553.0 ng/mL Normal 30.3-565.7 [place] Comment on above: Order Comment: Speci men Type: BLOOD SPECIMEN [facility] Address: [address] [place] [address] Performed By: #### 5 5454-3 #### [facility] LAB CLIA [id number] [address] [place] Folate SerPl-mCncon 11-04-19 Folate [Mass/Vol] 10.4 ng/mL Normal >4.7 [facility] Comment on above: Order Comment: Speci men Type: BLOOD SPECIMEN Ordering Facility[facility] Address: [address] [place] [address] Performed By: #### 5 5454-3 #### [facility] CLIA [id number] [address] [place] [id number] [place] HbA1c (Bld)on 11-03-2024 Average glucose Estimated from glycated hemoglobin (Bld) [Mass/Vol] 111 mg/dL Normal [facility] Comment on above: Order Comment: Speci men Type: BLOOD SPECIMEN [facility]ing [facility] Address: [address] [place] [address] Result Comment: eAG: (Estimated average glucose) is a calculated value from HgbA1c and is patient accounting representative of the average blood glucose level in the last 2-3 month period. Performed By: #### 5 5454-3 #### [facility] CLIA [id number] [address] [place] HbA1c (Bld) [Mass fraction] 5.5 % Normal 4.3-5.6 [facility] Comment on above: Order Comment: Speci men Type: BLOOD SPECIMEN [facility]ing Facility[facility] Address: [address] [place] [address], [place] [address] Result Comment: [place] Diabetes Association guidelines indicate that patients with HgbA1c in the range 5.7-6.4% are at increased risk for development of diabetes, and intervention by lifestyle modification may be beneficial. HgbA1c greater or equal to 6.5% is considered diagnostic of diabetes. Performed By: #### 5 5454-3 #### [facility] CLIA [id number] [address] [place] [id number] [place] Iron and Iron binding capaci ty panelon 11-03-2024 Iron [Mass/Vol] 34 ug/dL Low 41-186 [facility] Comment on above: Order Comment: Speci men Type: BLOOD SPECIMENOrdering Facility: [facility] Address: [address] [place] [address], [place] [address] Performed By: #### 5 0190-8, 3024-7, 3016-3 ####[facility] LABCLIA [id number] [address] [address] [place]#### 120[address]-9 ####[facility] LABCLIA [id number] [address] [address] [place] AMERICAHCA [facility] [id number] [place] [address] [place] Iron binding capacity [Mass/Vol] 309 ug/dL Normal 232-386 [facility] Comment on above: Order Comment: Speci men Type: BLOOD SPECIMENOrdering Facility: [facility] Address: [address] [place] [address], [place] [address] Performed By: #### 5 0190-8, 3024-7, 3016-3 ####[facility] LABCLIA [id number] [address] [place] [address] [place]#### 38[address]-6 ####[facility] LABCLIA [id number] [facility]D [address] [place] [address] [facility] [id number] [place] [address] [place] Iron/TIBC [Molar ratio] 11.0 % Low 15.0-57.0 [facility] Comment on above: Order Comment: Speci men Type: BLOOD SPECIMENOrdering Facility: [facility] Address: [address] [place] [address] Performed By: #### 5 0190-8, 7, 3 ####[facility] LABCLIA [id number] [address], [place] [address] [place]#### 270[address]-9 ####[facility] LABCLIA [id number] [address], [address] STATES OF [facility] DORAL [id number] [place] [address] [place] Lipid 1996 panelon 5 Cholesterol [Mass/Vol] 126 mg/dL Normal <200 [facility] Comment on above: Order Comment: Speci men Type: BLOOD SPECIMENOrdering Facility: [facility] Address: [address] [place] [address] Result Comment: <200 mg/dL, Desirable 200-239 mg/dL, Borderline high >239 mg/dL, High Performed By: #### 5 0190-8, 3023-7, 3015-3 ####[facility] LABCLIA [id number] [facility]D [facility] [address] [place] [address] [place]#### 904[address]-1 ####[facility] LABCLIA [id number] [facility]D [facility] [address], [facility] [id number] [address] Cholesterol in HDL [Mass/Vol] 36 mg/dL Low >39 [facility] Comment on above: Order Comment: Speci men Type: BLOOD SPECIMENOrdering Facility: [facility] Address: [address] [place] [address], [place] [address] Result Comment: 40-5 9 mg/dL, Acceptable >59 mg/dL, High: Negative risk factor for coronary heart disease <40 mg/dL, Low: Positive risk factor for coronary heart disease Performed By: #### 5 0190-8, 3023-7, 6-3 ####[facility] LABCLIA [id number] [address] [place]#### [address]-7 ####[facility] LABCLIA [id number] [facility]D [facility] [address], [facility] [place] OF [facility]AL [id number] [place] [address] [place] Cholesterol in LDL [Mass/Vol] 64 mg/dL Normal <100 [facility] Comment on above: Order Comment: Speci men Type: BLOOD SPECIMENOrdering Facility: [facility] Address: [address] [place] [address], [place] [address] Result Comment: <100 mg/dL, Optimal 100-129 mg/dL, Near optimal/above optimal 130-159 mg/dL, Borderline high 160-189 mg/dL, High >189 mg/dL, Very high Secondary prevention optimal LDL Cholesterol levels are recommended to be < 70 mg/dL Performed By: #### 5 0190-8, 3024-7, 3016-3 ####[facility] LABCLIA [id number] [facility]D [facility] [address] [place] [address] [place]#### 58[address]-9 ####[facility] LABCLIA [id number] [address] [id number] [place] [address] [place] Cholesterol in LDL/Cholesterol in HDL [Mass ratio] 1.78 {ratio} Normal <2.54 [facility] Comment on above: Order Comment: Speci men Type: BLOOD SPECIMENOrdering Facility: [facility] Address: [address] [place] [address] Result Comment: Refe rence: 1. National Cholesterol Education Program ATP III Guideline At-A-Glance Quick Desk Reference: National Heart, Lung, and Blood [place]. National Institutes of Health. 2001: NIH Publication No. 01-3305. 2. An International Atherosclerosis Society position paper: global recommendations for the management of dyslipidemia: executive summary, Atherosclerosis. 2014: 232(2):410-413. Performed By: #### 5 0190-8, 7, 3015-3 ####[facility] LABCLIA [id number] [facility] [place] [address] [place]#### [id number] ####[facility] LABCLIA [id number] [facility] [address] STATES OF [facility] [id number] [place] [address] [place] Cholesterol in VLDL [Mass/Vol] 26 mg/dL Normal <30 [facility] Comment on above: Order Comment: Speci men Type: BLOOD SPECIMENOrdering Facility: [facility] Address: [address] [place] [address], [place] [address] Performed By: #### 5 0190-8, 3023-7, 3015-3 ####[facility] LABCLIA [id number] [facility] [place] [id number] [place]#### 51173-8 ####[facility] LABCLIA [id number] [address] [place] [address] [facility] [id number] [address] [place] Cholesterol non HDL [Mass/Vol] 90 mg/dL Normal <130 [facility] Comment on above: Order Comment: Speci men Type: BLOOD SPECIMENOrdering Facility: [facility] Address: [address] [place] [address] Result Comment: <130 mg/dL, Optimal 130-159 mg/dL, Near optimal/above optimal 160-189 mg/dL, Borderline high 190-219 mg/dL, High >219 mg/dL, Very high Secondary prevention optimal non HDL Cholesterol levels are recommended to be <100 mg/dL Performed By: #### 5 0190-8, 3024-7, 3016-3 ####[facility] LABCLIA [id number] [place] [address] [place]#### 13773-2 ####[facility] LABCLIA [id number] [address], [facility] [place] [facility] [id number] [address] [place] Cholesterol.total/Cho lesterol in HDL [Mass ratio] 3.50 {ratio} Normal <5.10 [facility] Comment on above: Order Comment: Speci men Type: BLOOD SPECIMENOrdering Facility: [facility] Address: [address] [place] [address], [place] [address] Performed By: #### 5 0190-8, 3024-7, 3016-3 ####[facility] LABCLIA [id number] [address], [facility] [place]#### [id number] ####[facility] LABCLIA [id number] [facility] [address] [place] [address] [place] OF [facility] [id number] [place] [address] [place] FASTING TIME 12 hrs Normal [facility] Comment on above: Order Comment: Speci men Type: BLOOD SPECIMENOrdering Facility: [facility] Address: [address] [place] [address] Performed By: #### 5 0190-8, 3024-7, 3016-3 ####[facility] LABCLIA [id number] [facility] [address] [place]#### [id number] ####[facility] LABCLIA [id number] [facility] [facility] [address], [place] [address] [place] [facility] [id number] [place] [address] [place] Triglyceride [Mass/Vol] 130 mg/dL Normal <150 [facility] Comment on above: Order Comment: Speci men Type: BLOOD SPECIMENOrdering Facility: [facility] Address: [address] [place] [address] Result Comment: <150 mg/dL, Normal 150-199 mg/dL, Borderline high 200-499 mg/dL, High >499 mg/dL, Very high Performed By: #### 5 0190-8, 3024-7, 3016-3 ####[facility] LABCLIA [id number] [facility] [place] [id number] [place]#### 05012-2 ####[facility] LABCLIA [id number] [facility] [place] [id number] [place] [facility] [id number] [place] [address] [place] PSA/PROSTATE SPECIFIC ANTIGE N SCREENINGon 11-03-2024 Prostate specific Ag [Mass/Vol] 0.29 ng/mL Normal <2.60 [facility] Comment on above: Order Comment: Speci men Type: BLOOD SPECIMENOrdering Facility: [facility] Address: [address] [place], [place] [id number] Result Comment: Tota l PSA test methodology used is the Electrochemiluminescence Immunoassay by [employer]. Total PSA values by differing methodologies cannot be interchanged. Performed By: #### P SAS1 ####[facility] LABCLIA [id number] [address] [place] [address] [place] T4 Free SerPl-mCncon 025 Free T4 [Mass/Vol] 1.1 ng/dL Normal 0.9-1.7 [facility] Comment on above: Order Comment: Speci men Type: BLOOD SPECIMENOrdering Facility: [facility] Address: [address] [place] [address] Performed By: #### 5 0190-8, 3024-7, 3016-3 ####[facility] LABCLIA [id number] [address], [facility] [place]#### 35142-4 ####[facility] LABCLIA [id number] [facility] [address] [place] [address] [place] [facility] [id number] [place] [address] [place] TSH SerPl-aCncon 11-03-2024 TSH Qn 2.840 m[IU]/L Normal 0.270-4.200 [facility] Comment on above: Order Comment: Speci men Type: BLOOD SPECIMENOrdering Facility: [facility] Address: [address] [place] [address] Performed By: #### 5 0190-8, 3024-7, 3016-3 ####[facility] LABCLIA [id number] [address] [place] [address] [place]#### 03550-0 ####[facility] LABCLIA [id number] [facility] [place] [id number] [address] [place] [facility] [id number] [place] [address] [place] Vit [facility]12 [facility] Cobalamin (Vitamin B12) [Mass/Vol] 432 pg/mL Normal 232-1245 [facility] Comment on above: Order Comment: Speci men Type: BLOOD SPECIMEN Ordering Facility: [facility] Address: [address] [place] [address], [place] [id number] Performed By: #### 5 5454-3 #### [facility] LAB CLIA [id number] [address] [place] [address] [address] [facility] Cardiology Visit Reporton Cardiology Visit Report [facility] [address] [place] [address] OFFICE VISIT Date of Service: 08/29/24 MR#: [id number] Acct: [id number] Name: HUONG BATES Rep #: [id number] : 1945 Provider: Dr. Owen De León MD Age/Sex: 79/M Location: [facility] Status: Signed HPI HPI History of Present Illness Details: This pleasant gentleman with history of CAD status post drug-eluting stents to the RCA and right posterior lateral ventricular branch is here for follow-up visit. Denies any complaints. No chest pains or shortness of breath. No orthopnea or PND. No ankle edema. Denies any lightheadedness or dizziness. No syncope or presyncope. Intake Vital Signs 02/15/24 13:04 08/29/24 08:46 Height 6 ft 1 in 6 ft 1 in Weight: 226 lb 226 lb BMI 29.8 29.8 BP 114/66 104/58 L Blood Pressure Location Lt brachial Lt brachial Position Sitting Sitting Respiration 18 16 Pulse 55 L 68 Pulse Source Monitor NIBP Pulse Oximetry (%) 98 Oxygen Delivery Method room air Intake Visit Reasons: 6 M FU [employer] Counselor Required: No Accompanied by: Is patient in pain?: No Allergies No Known Allergies Allergy (Verified 08/29/24 13:46) Medications ???Medication ???Instructions ???Recorded ???Confirmed ???Type acetaminophen 500 mg tablet 650 mg PO PRN PRN Pain 03/09/19 08/29/24 History levothyroxine 50 mcg tablet 50 mcg PO DAILY thyroid 03/09/19 08/29/24 History cyanocobalamin (vitamin B-12) 1,000 mcg IM Q30D vitamin 04/06/19 08/29/24 History 1,000 mcg/mL injection solution aspirin 81 mg chewable tablet 81 mg PO DAILY@0800 09/27/19 08/29/24 Rx furosemide 40 mg tablet 40 mg PO DAILY #30 tabs 09/27/19 08/29/24 Rx tamsulosin 0.4 mg capsule 0.4 mg PO DAILY@1730 #30 caps 09/27/19 08/29/24 Rx carvedilol 3.125 mg tablet 3.125 mg PO BID #180 tabs 10/24/19 08/29/24 Rx ferrous sulfate 325 mg (65 mg 325 mg PO DAILY 10/24/19 08/29/24 History iron) tablet finasteride 5 mg tablet 5 mg PO DAILY 10/24/19 08/29/24 History isosorbide mononitrate 30 mg 30 mg PO DAILY #90 tabs 10/24/19 08/29/24 Rx tablet,extended release 24 hr ascorbic acid (vitamin C) 1,000 mg 1 g PO DAILY 01/07/21 08/29/24 History tablet fenofibrate nanocrystallized 145 145 mg PO DAILY 04/27/23 08/29/24 History mg tablet lisinopril 10 mg tablet 10 mg PO DAILY 04/27/23 08/29/24 History potassium chloride 10 mEq 10 meq PO DAILY 04/27/23 08/29/24 History tablet,extended release(part/cryst) rosuvastatin 40 mg tablet 40 mg PO DAILY 04/27/23 08/29/24 History cholecalciferol (vitamin D3) 125 10,000 unit PO DAILY 04/28/23 08/29/24 History mcg (5,000 unit) tablet Ejection fraction %: 65 Have you fallen in the past year?: No PFSH Medical History (Updated 08/29/24 @ 13:48 by Bertin Logan RN) Preoperative cardiovascular examination Bilateral inguinal hernia Inguinal hernia of right side without obstruction or gangrene Edema of both legs Shortness of breath Dyspnea on minimal exertion Renal insufficiency Easy bruising Thyroid disease Arthritis Uses wheelchair Prostate disease Low iron High cholesterol Sciatic leg pain Wears hearing aid Loss of hearing Wears glasses Wears partial dentures Cancer Former smoker History of stress test History of echocardiogram Cardiology follow-up encounter Inguinal hernia of left side without obstruction or gangrene Pericardial effusion Hyperlipidemia Atherosclerosis of [place] coronary artery of [place] heart without angina pectoris Colon cancer Localized edema 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 Hallux limitus of right foot Cellulitis of right foot Right foot ulcer Acute CHF Chest pain Hypokalemia SBO (small bowel obstruction) Hyperlipidemia Depression Hypothyroidism Nausea and vomiting Constipation Intraoperative ureteral injury Rectal cancer Surgical History (Updated 08/29/24 @ 13:48 by Bertin Logan RN) History of cataract surgery History of colonoscopy History of coronary artery stent placement History of cardiac catheterization Stented coronary artery (01/11/20) History of ureter repair History of partial colectomy History of ileostomy History of hernia repair History of left heart catheterization (09/27/19) Family History Other Adopted Social History Smoking Status: Former smoker how long ago did patient quit smokin years ago alcohol intake: never substance use type: does not use caffeine: Yes Type: coffee Number of servings: 1 ROS Const Const: Positive for fatigue (fatigues quickly); Negative for weakness, headache(s) or weight gain ENT ENT: Negative for (more content not included)... Normal [facility] Lipid Profileon 08-15-2024 Cholesterol [Mass/Vol] 142 mg/dL Normal 200 [facility] Comment on above: Result Comment: <200 mg/dL Desirable 200-240 mg/dL Borderline >240 mg/dL High Risk Performed By: #### L 500.2529, L500.7638 #### [facility] [place], [address] Cholesterol in HDL [Mass/Vol] 39 mg/dL Low [facility] Comment on above: Result Comment: The drugs N-Acetylcysteine and Metamizole may falsely depress this assay. Reference Range HDL <40 mg/dL Low HDL Cholesterol HDL >or= 60 mg/dL High HDL Cholesterol Performed By: #### L 500.4100, L500.3400 #### [facility] [address] [place], [address] Cholesterol in LDL [Mass/Vol] 66 mg/dL Normal 0-130 [facility] Comment on above: Performed By: #### L 500.4100, L500.3400 #### [facility] [address] [place], [address] Cholesterol in VLDL [Mass/Vol] 37 mg/dL Normal 5-40 [facility] Comment on above: Performed By: #### L 500.4100, L500.3400 #### [facility] [address] [place], [address] Triglyceride [Mass/Vol] 184 mg/dL Normal [facility] Comment on above: Result Comment: The drugs N-Acetylcysteine and Metamizole may falsely depress this assay. Serum Triglycerides Reference Interval Normal <150 mg/dL Borderline high 150 - 199 mg/dL High 200 - 499 mg/dL Very High > or = 500 mg/dL Performed By: #### L 500.4100, L500.3400 #### [facility] [address] [place], [address] Liver Profileon 08-15-2024 Albumin [Mass/Vol] 3.2 g/dL Normal 3.2-5.0 [facility] Comment on above: Performed By: #### L 500.4100, L500.3400 #### [facility] [address] [place], [address] ALK P 50 U/L Normal 45-117 [facility] Comment on above: Performed By: #### L 500.4100, L500.3400 #### [facility] [address] [place], [address] ALT [Catalytic activity/Vol] 14 U/L Low 16-61 [facility] Comment on above: Performed By: #### L 500.4100, L500.3400 #### [facility] [address] [place], [address] AST [Catalytic activity/Vol] 12 U/L Low 15-37 [facility] Comment on above: Performed By: #### L 500.4100, L500.3400 #### [facility] [address] [place], [address] Bilirubin [Mass/Vol] 0.50 mg/dL Normal 0.20-1.00 [facility] Comment on above: Result Comment: For patients on eltrombopag therapy, use of Dimension [place] TBIL is not recommended. Performed By: #### L 500.4100, L500.3400 #### [facility] [address] [place], [address] Bilirubin.direct [Mass/Vol] 0.16 mg/dL Normal 0.00-0.30 [facility] Comment on above: Performed By: #### L 500.4100, L500.3400 #### [facility] [address] [place], [address] Globulin (S) [Mass/Vol] 3.1 g/dL Normal 2.2-4.2 [facility] Comment on above: Performed By: #### L 500.4100, L500.3400 #### [facility] [address] [place], [address] T PROT 6.3 g/dL Low 6.4-8.2 [facility] Comment on above: Performed By: #### L 500.4100, L500.3400 #### [facility] [address] [place], [address] Absolute lymphocyte countOrd ered By: Emily Leon on 11-11-2023 Lymphocytes Auto (Unsp spec) [#/Vol] 1.00 10*3/uL 0.83-4.51 [facility] Automated lymphocyte count a s percentage of total leukocytesOrdered By: Emily Leon on 11-11-2023 Lymphocytes/100 WBC Auto (Unsp spec) 18.5 % 19-41 [facility] Basophil percentageOrdered B y: Emily Leon on 11-11-2023 Basophils/100 WBC (Bld) 0.4 % 0-1 [facility] Chloride [Moles/Vol] 109 mmol/L 98-107 [facility] Eosinophils/100 WBC (Bld) 4.1 % 0-5 [facility] Glucose [Mass/Vol] 138 mg/dL 74-106 [facility] Comment on above: Fasting Glucose resu lt greater than or equal to 126 mg/dL suggests DIABETES MELLITUS per A.D.A. criteria. Hemoglobin (Bld) [Mass/Vol] 10.2 g/dL 13.0-16.5 [facility] Monocytes/100 WBC (Bld) 8.5 % 0-10 [facility] Neutrophils (Bld) [#/Vol] 3.7 10*3/uL 2.0-7.7 [facility] Neutrophils/100 WBC (Bld) 68.1 % 47-70 [facility] Potassium [Moles/Vol] 4.8 mmol/L 3.5-5.[address] [facility] Sodium [Moles/Vol] 138 mmol/L 136-145 [facility] WBC (Bld) [#/Vol] 5.4 10*3/uL 4.4-11.0 [facility] Determination of erythrocyte mean corpuscular volume (MCV)Ordered By: Emily Leon on 11-11-2023 MCV (RBC) [Entitic vol] 97.6 fL 80-94 [facility] Erythrocyte distribution wid th ratioOrdered By: Emily Leon on 11-11-2023 Erythrocyte distribution width (RBC) [Ratio] 13.6 % 11.6-14.6 [facility] Erythrocyte distribution wid th standard deviationOrdered By: Emily Leon on 11-11-2023 Erythrocyte distribution width (RBC) [Entitic vol] 48.8 fL 35.1-43.9 [facility] Hematocrit Auto (Bld) [Volum e fraction]Ordered By: Emily Leon on 11-11-2023 Hematocrit (Bld) [Volume fraction] 32.3 % 40-54 [facility] Immature granulocytes/100 WB C Auto (Bld)Ordered By: Emily Leon on 11-11-2023 Immature granulocytes/100 WBC (Bld) 0.400 % 0.0-0.9 [facility] Comment on above: IG% - Immature Granu locytes (promyelocytes, myelocytes and metamyelocytes) > 1% indicates that a LEFT SHIFT is Present. Laboratory - Chemistry and C hemistry - challengeOrdered By: Emily Leon on 11-11-2023 CO2 [Moles/Vol] 26.0 mmol/L 21.0-32.0 [facility] Urea nitrogen/Creatinine [Mass ratio] 12.5 mg/mg 10-20 [facility] Laboratory - Hematology and Cell countsOrdered By: Emily Leon on 11-11-2023 MCH (RBC) [Entitic mass] 30.8 pg 27.0-32.0 [facility] MCHC (RBC) [Mass/Vol] 31.6 g/dL 32-[address] [facility] Nucleated RBC/100 WBC (Bld) [Ratio] 0 % 0-5 [facility] Platelet mean volume (Bld) [Entitic vol] 10.2 fL 6.2-12.0 [facility] Platelets (Bld) [#/Vol] 111 10*3/uL 150-450 [facility] No Panel InformationOrdered By: Emily Leon on 11-11-2023 Estimated GFR (MDRD) Amer 38 mL/min >60 [facility] Comment on above: GFR Calc Estimated GFR (MDRD) Non-Af Amer 32 mL/min >60 [facility] Comment on above: Non- GFR Calc RBC Auto (Bld) [#/Vol]Ordere d By: Emily Leon on 11-11-2023 RBC (Bld) [#/Vol] 3.31 10*6/uL 4.6-6.2 [facility] Serum or plasma calcium luisito urement (mass/volume)Ordered By: Emily Leon on 11-11-2023 Calcium [Mass/Vol] 9.0 mg/dL 8.5-10.1 [facility] Serum or plasma creatinine m easurement (mass/volume)Ordered By: Emily Leon on 11-11-2023 Creatinine [Mass/Vol] 2.16 mg/dL 0.70-1.[address] [facility] Comment on above: The validity of the calculated GFR & GFRAA in patients over 70 years has not been determined. Clinical correlation is essential. Serum or plasma urea nitroge n measurement (mass/volume)Ordered By: Emily Leon on 11-11-2023 Urea nitrogen [Mass/Vol] 27 mg/dL 7-18 [facility] Thin prep Papanicolaou smear with manual screeningOrdered By: Emily Leon on 11-11-2023 Thin prep Papanicolaou smear with manual screening 3 5-15 [facility] Absolute lymphocyte countOrd ered By: Emily Leon on 11-04-2023 Lymphocytes Auto (Unsp spec) [#/Vol] 0.92 10*3/uL 0.83-4.51 [facility] Automated lymphocyte count a s percentage of total leukocytesOrdered By: Emily Leon on 11-04-2023 Lymphocytes/100 WBC Auto (Unsp spec) 15.3 % 19-41 [facility] Basophil percentageOrdered B y: Emily Leon on 11-04-2023 Basophils/100 WBC (Bld) 0.3 % 0-1 [facility] Chloride [Moles/Vol] 108 mmol/L 98-107 [facility] Eosinophils/100 WBC (Bld) 3.8 % 0-5 [facility] Glucose [Mass/Vol] 145 mg/dL 74-106 [facility] Comment on above: Fasting Glucose resu lt greater than or equal to 126 mg/dL suggests DIABETES MELLITUS per A.D.A. criteria. Hemoglobin (Bld) [Mass/Vol] 9.8 g/dL 13.0-16.5 [facility] Monocytes/100 WBC (Bld) 8.1 % 0-10 [facility] Neutrophils (Bld) [#/Vol] 4.3 10*3/uL 2.0-7.7 [facility] Neutrophils/100 WBC (Bld) 72.0 % 47-70 [facility] Potassium [Moles/Vol] 4.2 mmol/L 3.5-5.[address] [facility] Sodium [Moles/Vol] 139 mmol/L 136-145 [facility] WBC (Bld) [#/Vol] 6.0 10*3/uL 4.4-11.0 [facility] Determination of erythrocyte mean corpuscular volume (MCV)Ordered By: Emily Leon on 11-04-2023 MCV (RBC) [Entitic vol] 96.6 fL 80-94 [facility] Erythrocyte distribution wid th ratioOrdered By: Emily Leon on 11-04-2023 Erythrocyte distribution width (RBC) [Ratio] 13.5 % 11.6-14.6 [facility] Erythrocyte distribution wid th standard deviationOrdered By: Emily Leon on 11-04-2023 Erythrocyte distribution width (RBC) [Entitic vol] 47.8 fL 35.1-43.9 [facility] Hematocrit Auto (Bld) [Volum e fraction]Ordered By: Emily Leon on 11-04-2023 Hematocrit (Bld) [Volume fraction] 31.3 % 40-54 [facility] Immature granulocytes/100 WB C Auto (Bld)Ordered By: Emily Leon on 11-04-2023 Immature granulocytes/100 WBC (Bld) 0.500 % 0.0-0.9 [facility] Comment on above: IG% - Immature Granu locytes (promyelocytes, myelocytes and metamyelocytes) > 1% indicates that a LEFT SHIFT is Present. Laboratory - Chemistry and C hemistry - challengeOrdered By: Emily Leon on 11-04-2023 CO2 [Moles/Vol] 28.0 mmol/L 21.0-32.0 [facility] Natriuretic peptide B (Bld) [Mass/Vol] 104.0 pg/mL 0-100 [facility] Urea nitrogen/Creatinine [Mass ratio] 12.7 mg/mg 10-20 [facility] Laboratory - Hematology and Cell countsOrdered By: Emily Leon on 11-04-2023 MCH (RBC) [Entitic mass] 30.2 pg 27.0-32.0 [facility] MCHC (RBC) [Mass/Vol] 31.3 g/dL 32-[address] [facility] Nucleated RBC/100 WBC (Bld) [Ratio] 0 % 0-5 [facility] Platelet mean volume (Bld) [Entitic vol] 10.0 fL 6.2-12.0 [facility] Platelets (Bld) [#/Vol] 148 10*3/uL 150-450 [facility] No Panel InformationOrdered By: Emily Leon on 11-04-2023 Estimated GFR (MDRD) Amer 41 mL/min >60 [facility] Comment on above: GFR Calc Estimated GFR (MDRD) Non-Af Amer 33 mL/min >60 [facility] Comment on above: Non- GFR Calc RBC Auto (Bld) [#/Vol]Ordere d By: Emily Leon on 11-04-2023 RBC (Bld) [#/Vol] 3.24 10*6/uL 4.6-6.2 [facility] Serum or plasma calcium luisito urement (mass/volume)Ordered By: Emily Leon on 11-04-2023 Calcium [Mass/Vol] 8.5 mg/dL 8.5-10.1 [facility] Serum or plasma creatinine m easurement (mass/volume)Ordered By: Emily Leon on 11-04-2023 Creatinine [Mass/Vol] 2.05 mg/dL 0.70-1.[address] [facility] Comment on above: The validity of the calculated GFR & GFRAA in patients over 70 years has not been determined. Clinical correlation is essential. Serum or plasma urea nitroge n measurement (mass/volume)Ordered By: Emily Leon on 11-04-2023 Urea nitrogen [Mass/Vol] 26 mg/dL 7-18 [facility] Thin prep Papanicolaou smear with manual screeningOrdered By: Emily Leon on 11-04-2023 Thin prep Papanicolaou smear with manual screening 3 5-15 [facility] Basophil percentageOrdered B y: Blair Gillis on 09-24-2023 Chloride [Moles/Vol] 109 mmol/L 98-107 [facility] Glucose [Mass/Vol] 124 mg/dL 74-106 [facility] Comment on above: Fasting Glucose resu lt from 100 to 125 mg/dL suggests IMPAIRED HOMEOSTASIS per A.D.A. criteria. Hemoglobin (Bld) [Mass/Vol] 11.4 g/dL 13.0-16.5 [facility] Potassium [Moles/Vol] 4.3 mmol/L 3.5-5.[address] [facility] Sodium [Moles/Vol] 139 mmol/L 136-145 [facility] WBC (Bld) [#/Vol] 5.2 10*3/uL 4.4-11.0 [facility] Determination of erythrocyte mean corpuscular volume (MCV)Ordered By: Blair Gillis on 09-24-2023 MCV (RBC) [Entitic vol] 96.0 fL 80-94 [facility] Erythrocyte distribution wid th ratioOrdered By: Blair Gillis on 09-24-2023 Erythrocyte distribution width (RBC) [Ratio] 13.6 % 11.6-14.6 [facility] Erythrocyte distribution wid th standard deviationOrdered By: Blair Gillis on 09-24-2023 Erythrocyte distribution width (RBC) [Entitic vol] 47.7 fL 35.1-43.9 [facility] Hematocrit Auto (Bld) [Volum e fraction]Ordered By: Blair Gillis on 09-24-2023 Hematocrit (Bld) [Volume fraction] 36.2 % 40-54 [facility] Laboratory - Chemistry and C hemistry - challengeOrdered By: Blair Gillis on 09-24-2023 CO2 [Moles/Vol] 27.0 mmol/L 21.0-32.0 [facility] Urea nitrogen/Creatinine [Mass ratio] 13.8 mg/mg 10-20 [facility] Laboratory - Hematology and Cell countsOrdered By: Blair Gillis on 09-24-2023 MCH (RBC) [Entitic mass] 30.2 pg 27.0-32.0 [facility] MCHC (RBC) [Mass/Vol] 31.5 g/dL 32-[address] [facility] Platelet mean volume (Bld) [Entitic vol] 10.5 fL 6.2-12.0 [facility] Platelets (Bld) [#/Vol] 90 10*3/uL 150-450 [facility] No Panel InformationOrdered By: Blair Gillis on 09-24-2023 Estimated GFR (MDRD) Amer 38 mL/min >60 [facility] Comment on above: GFR Calc Estimated GFR (MDRD) Non-Af Amer 31 mL/min >60 [facility] Comment on above: Non- GFR Calc RBC Auto (Bld) [#/Vol]Ordere d By: Blair Gillis on 09-24-2023 RBC (Bld) [#/Vol] 3.77 10*6/uL 4.6-6.2 [facility] [place] Serum or plasma calcium luisito urement (mass/volume)Ordered By: Blair Gillis on 09-24-2023 Calcium [Mass/Vol] 8.8 mg/dL 8.5-10.1 [facility] Serum or plasma creatinine m easurement (mass/volume)Ordered By: Blair Gillis on 09-24-2023 Creatinine [Mass/Vol] 2.18 mg/dL 0.70-1.[address] [facility] Comment on above: The validity of the calculated GFR & GFRAA in patients over 70 years has not been determined. Clinical correlation is essential. Serum or plasma thyroid stim ulating hormone (TSH) measurement (units/volume)Ordered By: Tobin Sullivan on 09-24-2023 TSH Qn 1.93 uIU/mL 0.358-3.74 [facility] Serum or plasma urea nitroge n measurement (mass/volume)Ordered By: Blair Gillis on 09-24-2023 Urea nitrogen [Mass/Vol] 30 mg/dL 7-18 [facility] Thin prep Papanicolaou smear with manual screeningOrdered By: Blair Gillis on 09-24-2023 Thin prep Papanicolaou smear with manual screening 3 5-15 [facility] Basophil percentageOrdered B y: Tobin Sullivan on 06-04-2023 Bilirubin [Mass/Vol] 0.30 mg/dL 0.20-1.00 [facility] Comment on above: For patients on eltr ombopag therapy, use of Dimension [place] TBIL is not recommended. Protein [Mass/Vol] 6.0 g/dL 6.4-8.2 [facility] Basophil percentageOrdered B y: Blair Gillis on 06-04-2023 Chloride [Moles/Vol] 107 mmol/L 98-107 [facility] Glucose [Mass/Vol] 145 mg/dL 74-106 [facility] Comment on above: Fasting Glucose resu lt greater than or equal to 126 mg/dL suggests DIABETES MELLITUS per A.D.A. criteria. Potassium [Moles/Vol] 4.4 mmol/L 3.5-5.[address] [facility] Sodium [Moles/Vol] 139 mmol/L 136-145 [facility] WBC (Bld) [#/Vol] 5.0 10*3/uL 4.4-11.0 [facility] Blood erythrocytes count (nu mber/volume)Ordered By: Blair Gillis on 06-04-2023 RBC (Bld) [#/Vol] 3.22 10*6/uL 4.6-6.2 [facility] [place] Blood hemoglobin measurement (mass/volume)Ordered By: Blair Gillis on 06-04-2023 Hemoglobin (Bld) [Mass/Vol] 9.8 g/dL 13.0-16.5 [facility] Blood platelet mean volumeOr dered By: Blair Gillis on 06-04-2023 Platelet mean volume (Bld) [Entitic vol] 10.5 fL 6.2-12.0 [facility] Determination of erythrocyte mean corpuscular volume (MCV)Ordered By: Blair Gillis on 06-04-2023 MCV (RBC) [Entitic vol] 99.1 fL 80-94 [facility] Direct bilirubinOrdered By: Tobin Sullivan on 06-04-2023 Bilirubin.direct [Mass/Vol] 0.07 mg/dL 0.00-0.30 [facility] Hematocrit Auto (Bld) [Volum e fraction]Ordered By: Blair Gillis on 06-04-2023 Hematocrit (Bld) [Volume fraction] 31.9 % 40-54 [facility] INR in Blood by Coagulation assayOrdered By: Tobin Sullivan on 06-04-2023 INR Coag (Bld) [Relative time] 1.0 {INR} [facility] Laboratory - Chemistry and C hemistry - challengeOrdered By: Tobin Sullivan on 06-04-2023 ALP [Catalytic activity/Vol] 59 U/L 45-117 [facility] ALT [Catalytic activity/Vol] 20 U/L 16-61 [facility] Globulin (S) [Mass/Vol] 3.0 g/dL 2.2-4.2 [facility] Laboratory - Chemistry and C hemistry - challengeOrdered By: Blair Gillis on 06-04-2023 CO2 [Moles/Vol] 29.0 mmol/L 21.0-32.0 [facility] Urea nitrogen/Creatinine [Mass ratio] 14.2 mg/mg 10-20 [facility] Laboratory - CoagulationOrde red By: Tobin Sullivan on 06-04-2023 aPTT Coag (Bld) [Time] 25.4 s 24.1-36.2 [facility] PT Coag (PPP) [Time] 13.4 s 11.7-14.9 [facility] Laboratory - Hematology and Cell countsOrdered By: Blair Gillis on 06-04-2023 Erythrocyte distribution width (RBC) [Entitic vol] 46.0 fL 35.1-43.9 [facility] Erythrocyte distribution width (RBC) [Ratio] 12.8 % 11.6-14.6 [facility] MCH (RBC) [Entitic mass] 30.4 pg 27.0-32.0 [facility] MCHC Auto (RBC) [Mass/Vol]Or dered By: Blair Gillis on 06-04-2023 MCHC (RBC) [Mass/Vol] 30.7 g/dL 32-[address] [facility] No Panel InformationOrdered By: Blair Gillis on 06-04-2023 Estimated GFR (MDRD) Amer 44 mL/min >60 [facility] Comment on above: GFR Calc Estimated GFR (MDRD) Non-Af Amer 37 mL/min >60 [facility] Comment on above: Non- GFR Calc No Panel InformationOrdered By: Tobin Sullivan on 06-04-2023 Thyroid Stimulating Hormone (TSH) 1.92 uIU/mL 0.358-3.74 [facility] Platelets bldOrdered By: Raoul Gillis on 06-04-2023 Platelets (Bld) [#/Vol] 101 10*3/uL 150-450 [facility] Serum or plasma albumin luisito urement (mass/volume)Ordered By: Tobin Sullivan on 06-04-2023 Albumin [Mass/Vol] 3.0 g/dL 3.2-5.0 [facility] Serum or plasma calcium luisito urement (mass/volume)Ordered By: Blair Gillis on 06-04-2023 Calcium [Mass/Vol] 8.7 mg/dL 8.5-10.1 [facility] Serum or plasma creatinine m easurement (mass/volume)Ordered By: Blair Gillis on 06-04-2023 Creatinine [Mass/Vol] 1.90 mg/dL 0.70-1.[address] [facility] Comment on above: The validity of the calculated GFR & GFRAA in patients over 70 years has not been determined. Clinical correlation is essential. Serum or plasma urea nitroge n measurement (mass/volume)Ordered By: Blair Gillis on 06-04-2023 Urea nitrogen [Mass/Vol] 27 mg/dL 7-18 [facility] Thin prep Papanicolaou smear with manual screeningOrdered By: Tobin Sullivan on 06-04-2023 Thin prep Papanicolaou smear with manual screening 13 U/L 15-37 [facility] Thin prep Papanicolaou smear with manual screeningOrdered By: Blair Gillis on 06-04-2023 Thin prep Papanicolaou smear with manual screening 3 5-15 [facility] Absolute lymphocyte counton 05-02-2022 Lymphocytes Auto (Unsp spec) [#/Vol] 1.07 10*3/uL 0.83-4.51 [facility] Work Phone: Basophil percentageon 2021 Basophils/100 WBC (Bld) 0.2 % 0-1 [facility] Work Phone: Chloride [Moles/Vol] 102 mmol/L 98-107 [facility] Work Phone: Eosinophils/100 WBC (Bld) 0.4 % 0-5 [facility] Work Phone: Glucose [Mass/Vol] 129 mg/dL 74-106 [facility] Work Phone: Comment on above: Fasting Glucose resu lt greater than or equal to 126 mg/dL suggests DIABETES MELLITUS per A.D.A. criteria. Neutrophils (Bld) [#/Vol] 7.1 10*3/uL 2.0-7.7 [facility] Work Phone: Neutrophils/100 WBC (Bld) 80.1 % 47-70 [facility] Work Phone: Potassium [Moles/Vol] 3.9 mmol/L 3.5-5.1 [facility] Work Phone: Sodium [Moles/Vol] 137 mmol/L 136-145 [facility] Work Phone: WBC (Bld) [#/Vol] 8.9 10*3/uL 4.4-11.0 [facility] Work Phone: Blood erythrocytes count (nu mber/volume)on 05-02-2022 RBC (Bld) [#/Vol] 4.05 10*6/uL 4.6-6.2 [facility] [place] Work Phone: [phone] Blood hemoglobin measurement (mass/volume)on 05-02-2022 Hemoglobin (Bld) [Mass/Vol] 13.3 g/dL 13.0-16.5 [facility] Work Phone: Blood lymphocytes/100 leukoc yteson 05-02-2022 Lymphocytes/100 WBC (Bld) 12.0 % 19-41 [facility] Work Phone: Blood monocytes/100 leukocyt eson 05-02-2022 Monocytes/100 WBC (Bld) 6.7 % 0-10 [facility] Work Phone: Blood platelet mean volumeon 05-02-2022 Platelet mean volume (Bld) [Entitic vol] 10.6 fL 6.2-12.0 [facility] Work Phone: Determination of erythrocyte mean corpuscular volume (MCV)on 05-02-2022 MCV (RBC) [Entitic vol] 97.0 fL 80-94 [facility] Work Phone: Hematocrit Auto (Bld) [Volum e fraction]on 05-02-2022 Hematocrit (Bld) [Volume fraction] 39.3 % 40-54 [facility] Work Phone: [phone] Laboratory - Chemistry and C hemistry - challengeon 05-02-2022 CO2 [Moles/Vol] 29.0 mmol/L 21.0-32.0 [facility] Work Phone: [phone] Urea nitrogen/Creatinine [Mass ratio] 11.4 mg/mg 10-20 [facility] Work Phone: [phone] Laboratory - Hematology and Cell countson 05-02-2022 Erythrocyte distribution width (RBC) [Entitic vol] 45.0 fL 35.1-43.9 [facility] Work Phone: [phone] Erythrocyte distribution width (RBC) [Ratio] 12.8 % 11.6-14.6 [facility] Work Phone: [phone] Immature granulocytes/100 WBC (Bld) 0.600 % 0.0-0.9 [facility] Work Phone: [phone] Comment on above: IG% - Immature Granu locytes (promyelocytes, myelocytes and metamyelocytes) > 1% indicates that a LEFT SHIFT is Present. MCH (RBC) [Entitic mass] 32.8 pg 27.0-32.0 [facility] Work Phone: [phone] Nucleated RBC/100 WBC (Bld) [Ratio] 0 % 0-5 [facility] Work Phone: [phone] MCHC Auto (RBC) [Mass/Vol]on 05-02-2022 MCHC (RBC) [Mass/Vol] 33.8 g/dL 32-[address] [facility] Work Phone: [phone] No Panel Informationon 05-02 Estimated Creatinine Clearance Calc 52.96 ml/min [facility] Work Phone: [phone] Estimated GFR (MDRD) Amer 68 mL/min >60 [facility] Work Phone: [phone] Comment on above: GFR Calc Estimated GFR (MDRD) Non-Af Amer 56 mL/min >60 [facility] Work Phone: [phone] Comment on above: Non- GFR Calc Platelets bldon 05-02-2022 Platelets (Bld) [#/Vol] 100 10*3/uL 150-450 [facility] Work Phone: [phone] Serum or plasma calcium luisito urement (mass/volume)on 05-02-2022 Calcium [Mass/Vol] 8.8 mg/dL 8.5-10.1 [facility] Work Phone: Serum or plasma creatinine m easurement (mass/volume)on 05-02-2022 Creatinine [Mass/Vol] 1.32 mg/dL 0.70-1.[address] [facility] Work Phone: Comment on above: The validity of the calculated GFR & GFRAA in patients over 70 years has not been determined. Clinical correlation is essential. Serum or plasma urea nitroge n measurement (mass/volume)on 05-02-2022 Urea nitrogen [Mass/Vol] 15 mg/dL 7-18 [facility] Work Phone: Thin prep Papanicolaou smear with manual screeningon 05-02-2022 Thin prep Papanicolaou smear with manual screening 6 5-15 [facility] Work Phone: Hemoglobin A1con 09-25-2021 Glucose [Mass/Vol] 105 mg/dL Normal [facility] Comment on above: Performed By: #### H BA1C #### [facility] Routine Lab [address] [id number] HbA1c (Bld) [Mass fraction] 5.3 % Normal 4.3-5.6 [facility] Comment on above: Performed By: #### H BA1C #### [facility] Routine Lab [address] [address] Final Surgical Pathology Rep [facility] 12-13-2018 Final Surgical Pathology Report . Pathology Reports Accession: Collected Date/Time: Received Date/Time: Pathologist: [id number] 12/08/2018 07:10 EDT 12/10/2018 07:10 EDT BERTIN ARREGUIN MD Final Surgical Pathology Report DIAGNOSIS: A) SIGMOID COLON, SEGMENTAL RESECTION- NEGATIVE FOR TUMOR. NO LYMPH NODES ARE IDENTIFIED. 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 THE INKED MARGINS ARE FREE OF TUMOR. NO LYMPH NODES ARE IDENTIFIED. COMMENT: [facility] [id number] CLINICAL INFORMATION: RECTAL ADENOCARCINOMA SPECIMEN: A COLON, RES, TOT- SIGMOID- STITCH PROXIMAL B TISSUE- NEW DISTAL MARGIN GROSS DESCRIPTION: A. Received in formalin labeled with the patient's name is a 13 cm in length segment of colon with a small amount of attached pericolonic fat. The serosa is pink-red and smooth. There is a suture at one end marking the proximal margin. The mesorectum does not appear complete. Opening shows 2 slight abrasions, 0.2 and 0.3 cm in greatest dimension, the come to within 0.5 and 0.7 cm from the distal margin respectively closest fatty radial margins are about 1.5 cm from the lesions. There is a minute pink focus and slight thickening measuring up to 1.5 x 1.3 cm and comes to within 5 cm of the distal margin, 6 cm of the proximal margin, and 1.5 cm in the closest fatty radial margin. The remaining mucosa is alvarez and glistening with usual intestinal folds. Also received is a 3.5 x 3 x 1 cm irregular portion of tissue containing multiple wang. The attached fat is fixed in Grossing Aid for lymph node enhancement. No lymphoid tissue is grossly identified. The fat is dissected twice. RS -6 1 proximal margin 2 slight abrasions with closest distal margins (perpendicular) 3 closest fatty radial margin 4 entire slightly thickened central area 5 closest fatty radial margin to tissue in cassette 4 6 random mucosa from main segment and random from additionally received tissue B. Received in formalin labeled B is a 4.5 x 4 x 1.9 cm portion of tissue. The specimen is diffusely torn and irregular. Black tattooing is identified no mucosal lesions are identified. Sectioning shows focal yellow chalky cut surfaces. An attempt at inking the margins is made but not reliable. The attached fat is fixed in Grossing Aid for lymph node enhancement. No lymphoid tissue is grossly identified. The fat is dissected twice. RS -5 Dictated by Karis BHATIA (ASCP) MICROSCOPIC DESCRIPTION: A-B Slides reviewed. Pathology Reports Accession: Collected Date/Time: Received Date/Time: Pathologist: [id number] 12/08/2018 07:10 EDT 12/10/2018 07:10 EDT BERTIN ARREGUIN MD Electronically Signed by Pathology Report verified by [facility] Electronically signed by BERTIN ARREGUIN Sign out Date: 12/13/2018 15:20 Performing Lab: [address] ([place]) Comment on above: Performed By: #### S PFR #### [address] [place] [address] Final Surgical Pathology Rep serge 07-26-2018 Final Surgical Pathology Report . Pathology Reports Accession: Collected Date/Time: Received Date/Time: Pathologist: [id number] 07/22/2018 08:31 EST 07/23/2018 08:31 MD BERTIN TEE Final Surgical Pathology Report DIAGNOSIS: A) ASCENDING COLON, BIOPSY -- TUBULAR ADENOMA. B) TRANSVERSE COLON, BIOPSY -- TUBULAR ADENOMA. C) RECTOSIGMOID COLON, BIOPSY -- HYPERPLASTIC POLYP. D) RECTUM, BIOPSY @ 10 CM -- INVASIVE, MODERATELY DIFFERENTIATED ADENOCARCINOMA, COLONIC TYPE. THE EXTENT OF INVASION CANNOT BE QUANTIFIED ON THE BASIS OF THIS BIOPSY. TN CLASSIFICATION pT=X pN=X COMMENT: [facility] # [id number] CLINICAL INFORMATION: HISTORY ANEMIA, MELENA, SCREENING COLON CANCER SPECIMEN: A COLON, BX- ASCENDING COLON B COLON, BX- TRANSVERSE COLON C COLON, BX- RECTO SIGMOID 20 CM D COLON, BX- RECTUM 10 CM GROSS DESCRIPTION: A. Received in formalin labeled A are 4 alvarez glistening soft tissues ranging from 0.2-0.3 cm. TS -1 B. Received in formalin labeled B are 2 alvarez glistening soft tissues, 0.3 and 0.4 cm. TS -1 C. Received in formalin labeled C is a 0.6 x 0.5 x 0.2 cm aggregate of possible alvarez tissue and alvarez-yellow debris. TS -1 D. Received in formalin labeled D are 3 alvarez glistening soft tissues ranging from 0.4-0.6 cm. TS -1 Dictated by [facility]is BHATIA ([facility] MICROSCOPIC DESCRIPTION: A-D) Slides reviewed. Electronically Signed by Pathology Report verified by [facility] Electronically signed by BERTIN ARREGUIN MD Sign out Date: 07/26/2018 09:53 Performing Lab: [address] ([place]) Comment on above: Performed By: #### S PFR #### [address] [address] Vital Signs Date Time Vital Sign Value Performing Clinician Facility 02-27-2025 14:30-0400 Body height 185.[address] Chaitanya Gardner MD Work Phone: [facility] 02-27-2025 14:30-0400 Body mass index (BMI) [Ratio] 29 kg/m2 Dr. Chaitanya Gardner MD Work Phone: [facility] 02-27-2025 14:30-0400 Body weight 99.[address] Chaitanya Gardner MD Work Phone: [facility] 02-27-2025 14:30-0400 Diastolic blood pressure 71 mm[Hg] Dr. Chaitanya Gardner MD Work Phone: [facility] 02-27-2025 14:30-0400 Heart rate 55 /min Dr. Chaitanya Gardner MD Work Phone: [phone] [place] [address] 02-27-2025 14:30-0400 Respiratory rate 16 /min Dr. Chaitanya Gardner MD Work Phone: [facility] 02-27-2025 14:30-0400 SaO2% (BldA) [Mass fraction] 99 % Dr. Chaitanya Gardner MD Work Phone: [facility] 02-27-2025 14:30-0400 Systolic blood pressure 123 mm[Hg] Dr. Chaitanya Gardner MD Work Phone: [facility] 11-05-2023 10:54-0400 Body height 185.[address] Chaitanya Gardner Work Phone: [facility] 11-05-2023 10:54-0400 Body mass index (BMI) [Ratio] 30.3 kg/m2 Dr. Chaitanya Gardner Work Phone: [facility] 11-05-2023 10:54-0400 Body weight 104.[address] Chaitanya Gardner Work Phone: [facility] 11-05-2023 10:54-0400 Diastolic blood pressure 74 mm[Hg] Dr. Chaitanya Gardner Work Phone: [facility] 11-05-2023 10:54-0400 Heart rate 59 /min Dr. Chaitanya Gardner Work Phone: [facility] 11-05-2023 10:54-0400 Respiratory rate 18 /min Dr. Chaitanya Gardner Work Phone: [facility] 11-05-2023 10:54-0400 SaO2% (BldA) [Mass fraction] 9 % Dr. Chaitanya Gardner Work Phone: [facility] 11-05-2023 10:54-0400 Systolic blood pressure 142 mm[Hg] Dr. Chaitanya Gardner Work Phone: [facility] 10-08-2023 13:20-0500 Diastolic blood pressure 72 mm[Hg] Dr. Chaitanya Gardner Work Phone: [facility] 10-08-2023 13:20-0500 Heart rate 63 /min Dr. Chaitanya Gardner Work Phone: [facility] 10-08-2023 13:20-0500 Respiratory rate 16 /min Dr. Chaitanya Gardner Work Phone: [facility] 10-08-2023 13:20-0500 SaO2% (BldA) [Mass fraction] 97 % Dr. Chaitanya Gardner Work Phone: [facility] 10-08-2023 13:20-0500 Systolic blood pressure 130 mm[Hg] Dr. Chaitanya Gardner Work Phone: [facility] 10-08-2023 12:00-0500 Body temperature 97.8 [degF] Dr. Chaitanya Gardner Work Phone: [facility] 10-08-2023 11:15-0500 Inhaled oxygen flow rate 3 L/min Dr. Chaitanya Gardner Work Phone: [facility] 10-08-2023 08:27-0500 Body height 185.[address] Chaitanya Gardner Work Phone: [facility] 10-08-2023 08:27-0500 Body mass index (BMI) [Ratio] 30.8 kg/m2 Dr. Chaitanya Gardner Work Phone: [facility] 10-08-2023 08:27-0500 Body weight [address] Chaitanya Gardner Work Phone: [facility] 09-07-2023 12:55-0500 Body temperature 97.6 [degF] Dr. Chaitanya Gardner Work Phone: [facility] 09-07-2023 12:55-0500 Diastolic blood pressure 71 mm[Hg] Dr. Chaitanya Gardner Work Phone: [facility] 09-07-2023 12:55-0500 Heart rate 52 /min Dr. Chaitanya Gardner Work Phone: [facility] 09-07-2023 12:55-0500 Respiratory rate 18 /min Dr. Chaitanya Gardner Work Phone: [facility] 09-07-2023 12:55-0500 SaO2% (BldA) [Mass fraction] 99 % Dr. Chaitanya Gardner Work Phone: [facility] 09-07-2023 12:55-0500 Systolic blood pressure 138 mm[Hg] Dr. Chaitanya Gardner Work Phone: [facility] 06-11-2023 15:05-0500 Body temperature 97 [degF] Dr. Chaitanya Gardner Work Phone: [facility] 06-11-2023 15:05-0500 Diastolic blood pressure 65 mm[Hg] Dr. Chaitanya Gardner Work Phone: [facility] 06-11-2023 15:05-0500 Heart rate 55 /min Dr. Chaitanya Gardner Work Phone: [facility] 06-11-2023 15:05-0500 Respiratory rate 18 /min Dr. Chaitanya Gardner Work Phone: [facility] 06-11-2023 15:05-0500 SaO2% (BldA) [Mass fraction] 100 % Dr. Chaitanya Gardner Work Phone: [facility] 06-11-2023 15:05-0500 Systolic blood pressure 157 mm[Hg] Dr. Chaitanya Gardner Work Phone: [facility] 06-11-2023 08:35-0500 Body height 185.[address] Chaitanya Gardner Work Phone: [facility] 06-11-2023 08:35-0500 Body mass index (BMI) [Ratio] 30.3 kg/m2 Dr. Chaitanya Gardner Work Phone: [facility] 06-11-2023 08:35-0500 Body weight 104.[address] Chaitanya Gardner Work Phone: [facility] 06-09-2023 13:56-0500 Body mass index (BMI) [Ratio] 30.7 kg/m2 Dr. Chaitanya Gardner Work Phone: [facility] 06-09-2023 13:56-0500 Body temperature 97.8 [degF] Dr. Chaitanya Gardner Work Phone: [facility] 06-09-2023 13:56-0500 Body weight 105.[address] Chaitanya Gardner Work Phone: [facility] 06-09-2023 13:56-0500 Diastolic blood pressure 72 mm[Hg] Dr. Chaitanya Gardner Work Phone: [facility] 06-09-2023 13:56-0500 Heart rate 70 /min Dr. Chaitanya Gardner Work Phone: [facility] 06-09-2023 13:56-0500 Respiratory rate 18 /min Dr. Chaitanya Gardner Work Phone: [facility] 06-09-2023 13:56-0500 SaO2% (BldA) [Mass fraction] 98 % Dr. Chaitanya Gardner Work Phone: [facility] 06-09-2023 13:56-0500 Systolic blood pressure 122 mm[Hg] Dr. Chaitanya Gardner Work Phone: [facility] 05-04-2023 12:43-0400 Body mass index (BMI) [Ratio] 30.7 kg/m2 Dr. Chaitanya Gardner Work Phone: [facility] 05-04-2023 12:43-0400 Body temperature 97.2 [degF] Dr. Chaitanya Gardner Work Phone: [facility] 05-04-2023 12:43-0400 Body weight 105.[address] Chaitanya Gardner Work Phone: [facility] 05-04-2023 12:43-0400 Diastolic blood pressure 52 mm[Hg] Dr. Chaitanya Gardner Work Phone: [facility] 05-04-2023 12:43-0400 Heart rate 76 /min Dr. Chaitanya Gardner Work Phone: [facility] 05-04-2023 12:43-0400 Respiratory rate 18 /min Dr. Chaitanya Gardner Work Phone: [facility] 05-04-2023 12:43-0400 SaO2% (BldA) [Mass fraction] 95 % Dr. Chaitanya Gardner Work Phone: [facility] 05-04-2023 12:43-0400 Systolic blood pressure 91 mm[Hg] Dr. Chaitanya Gardner Work Phone: [facility] 09-25-2023 13:12-0400 Body mass index (BMI) [Ratio] 30.7 kg/m2 Dr. Chaitanya Gardner Work Phone: [facility] 04-27-2023 13:12-0400 Body weight 105.[address] Chaitanya Gardner Work Phone: [facility] 04-27-2023 13:12-0400 Diastolic blood pressure 63 mm[Hg] Dr. Chaitanya Gardner Work Phone: [facility] 04-27-2023 13:12-0400 Heart rate 63 /min Dr. Chaitanya Gardner Work Phone: [facility] 04-27-2023 13:12-0400 Respiratory rate 18 /min Dr. Chaitanya Gardner Work Phone: [facility] 04-27-2023 13:12-0400 SaO2% (BldA) [Mass fraction] 98 % Dr. Chaitanya Gardner Work Phone: [facility] 04-27-2023 13:12-0400 Systolic blood pressure 115 mm[Hg] Dr. Chaitanya Gardner Work Phone: [facility] 05-02-2022 13:00-0400 Diastolic blood pressure 93 mm[Hg] Dr. Chaitanya Gardner Work Phone: [facility] Work Phone: 05-02-2022 13:00-0400 Heart rate 70 /min Dr. Chaitanya Gardner Work Phone: [facility] Work Phone: 05-02-2022 13:00-0400 Respiratory rate 16 /min Dr. Chaitanya Gardner Work Phone: [facility] Work Phone: 05-02-2022 13:00-0400 SaO2% (BldA) [Mass fraction] 97 % Dr. Chaitanya Gardner Work Phone: [facility] Work Phone: 05-02-2022 13:00-0400 Systolic blood pressure 216 mm[Hg] Dr. Chaitanya Gardner Work Phone: [facility] Work Phone: 05-02-2022 09:43-0400 Body height 185.[address] Chaitanya Gardner Work Phone: [facility] Work Phone: 05-02-2022 09:43-0400 Body mass index (BMI) [Ratio] 29.7 kg/m2 Dr. Chaitanya Gardner Work Phone: [facility] Work Phone: 05-02-2022 09:43-0400 Body temperature 98 [degF] Dr. Chaitanya Gardner Work Phone: [facility] Work Phone: 05-02-2022 09:43-0400 Body weight 102.[address] Chaitanya Gardner Work Phone: [facility] Work Phone: 03-24-2022 11:26-0400 Body temperature 97.59 [degF] Bola Monson MD Work Phone: [facility] 03-24-2022 11:26-0400 Body weight 110.68 kg Bola Monson MD Work Phone: [facility] 03-24-2022 11:26-0400 Diastolic blood pressure 86 mm[Hg] Bola Monson MD Work Phone: [facility] 03-24-2022 11:26-0400 Heart rate 68 /min Bola Monson MD Work Phone: [facility] 03-24-2022 11:26-0400 SaO2% (BldA) [Mass fraction] 100 % Bola Monson MD Work Phone: [facility] 03-24-2022 11:26-0400 Systolic blood pressure 156 mm[Hg] Bola Monson MD Work Phone: [facility] 02-20-2022 14:49-0400 Diastolic blood pressure 72 mm[Hg] Dr. Chaitanya Gardner Work Phone: [facility] Work Phone: 02-20-2022 14:49-0400 Heart rate 60 /min Dr. Chaitanya Gardner Work Phone: [facility] Work Phone: 02-20-2022 14:49-0400 Systolic blood pressure 140 mm[Hg] Dr. Chaitanya Gardner Work Phone: [facility] Work Phone: 02-20-2022 14:49-0400 Body mass index (BMI) [Ratio] 32.3 kg/m2 Dr. Chaitanya Gardner Work Phone: [facility] Work Phone: 02-20-2022 14:49-0400 Body weight 111.[address] Chaitanya Gardner Work Phone: [facility] Work Phone: 02-20-2022 14:49-0400 Respiratory rate 18 /min Dr. Chaitanya Gardner Work Phone: [facility] Work Phone: 02-20-2022 14:49-0400 SaO2% (BldA) [Mass fraction] 96 % Dr. Chaitanya Gardner Work Phone: [facility] Work Phone: Encounters Encounter Date Encounter Type Care Provider Facility Start: 06-09-2025 End: 06-09-2025 ambulatory CHAITANYA CARLOSKinga Facility:[facility] Start: 06-02-2025 End: 06-02-2025 ambulatory CHAITANYA GARDNER Facility:[facility] Start: 05-23-2025 End: 05-23-2025 ambulatory NEFTALY CAMPBELL Facility:[facility] Start: 05-08-2025 End: 05-08-2025 ambulatory CHAITANYA CARLOSMARCO Facility:[facility] Start: 04-27-2025 ambulatory BUTOSEAS LATMARCO Facility: [facility] Start: 04-27-2025 End: 04-27-2025 ambulatory NEFTALY CAMPBELL Facility:[facility] Start: 04-24-2025 End: 04-24-2025 ambulatory NEFTALY CAMPBELL Facility:[facility] Start: 04-11-2025 ambulatory CHAITANYA GARDNER Facility: [facility] Start: 04-11-2025 End: 04-11-2025 Subsequent hospital visit by physician Allie [facility] Shari Romero Work Phone: Radiology Comment on above: Ulcer of toe of righ t foot, with fat layer exposed (HCC) [L97.512] Start: 04-11-2025 End: 04-11-2025 Patient encounter procedure Neftaly Campbell Work Phone: Podiatry Comment on above: Ulcer of toe of righ t foot, with fat layer exposed (HCC) (Primary Dx); Hammertoe of right foot; Diminished pulses in lower extremity Start: 04-11-2025 End: 04-11-2025 ambulatory NEFTALY CAMPBELL Facility:[facility] Start: 04-05-2025 End: 04-06-2025 Telephone encounter Neftaly Campbell Work Phone: Podiatry Comment on above: Appointment (Staff i nfection) Start: 03-30-2025 End: 03-30-2025 ambulatory MONA MENDOZA [facility] Start: 02-27-2025 End: 02-27-2025 Patient encounter procedure Huber RUFFIN -[facility] Work Phone: Start: 02-27-2025 End: 02-27-[address] Chaitanya Gardner MD Work Phone: -[facility] Start: 02-13-2025 End: 02-13-[address] Chaitanya Gardner MD Work Phone: -Laboratory Start: 02-13-2025 End: 02-13-2025 Patient encounter procedure Bárbara MorleyLaboratory Work Phone: Start: 02-13-2025 End: 02-13-2025 ambulatory Bárbara BHATIA Facility:[facility] Start: 12-28-2024 End: 12-28-[address] Daryl Thomas DO -[facility] Work Phone: Start: 12-28-2024 End: 12-28-[address] Chaitanya Gardner MD Work Phone: [facility] Work Phone: Start: 11-23-2024 End: 11-23-[address] Daryl Thomas DO -[facility] Work Phone: Start: 11-23-2024 End: 11-23-2024 ambulatory Daryl Thomas Facility:[facility] Start: 11-03-2024 End: 11-03-2024 ambulatory CHAITANYA GARDNER Facility:[facility] Start: 08-29-2024 End: 08-29-2024 ambulatory Owen De León Facility:[facility] Start: 08-15-2024 End: 08-15-2024 ambulatory Bárbara BHATIA Facility:[facility] Start: 05-20-2024 [facility] Start: 04-06-2024 [facility] Start: 11-11-2023 End: 11-11-[address] Chaitanya Gardner Work Phone: [facility] Work Phone: Start: 11-11-2023 End: 11-11-[address] Chaitanya Gardner Work Phone: [facility] Work Phone: Start: 11-05-2023 End: 11-05-[address] Chaitanya Gardner Work Phone: [facility] Work Phone: Start: 11-04-2023 End: 11-04-[address] Chaitanya Gardner Work Phone: [facility] Work Phone: Start: 11-04-2023 End: 11-04-[address] Chaitanya Gardner Work Phone: [facility] Work Phone: Start: 10-22-2023 End: 10-22-[address] Chaitanya Gardner Work Phone: [facility] Work Phone: Start: 10-08-2023 Non-patient / Non-visit Dr. Rhett Gardner Work Phone: [facility] Start: 10-08-2023 End: 10-08-2023 Admission to same day surgery center Dr. Chaitanya Gardner Work Phone: [facility] Start: 10-08-2023 End: 10-08-[address] Chaitanya Gardner Work Phone: [facility] Work Phone: Start: 09-24-2023 End: 09-24-2023 Non-patient / Non-visit Dr. Chaitanya Gardner Work Phone: [facility] Work Phone: Start: 09-07-2023 End: 09-07-[address] Chaitanya Gardner Work Phone: [facility] Work Phone: Start: 06-18-2023 End: 06-18-[address] Chaitanya Gardner Work Phone: [facility] Work Phone: Start: 06-11-2023 Non-patient / Non-visit Dr. Rhett Gardner Work Phone: [facility] Start: 06-11-2023 End: 06-11-2023 Admission to same day surgery center Dr. Chaitanya Gardner Work Phone: [facility] Start: 06-11-2023 End: 06-11-[address] Chaitanya Gardner Work Phone: [facility] Work Phone: Start: 06-09-2023 End: 06-09-[address] Chaitnaya Gardner Work Phone: [facility] Work Phone: Start: 05-22-2023 End: 05-22-[address] Chaitanya Gardner Work Phone: [facility] Work Phone: Start: 05-04-2023 End: 05-04-[address] Chaitanya Gardner Work Phone: [facility] Work Phone: Start: 04-27-2023 End: 04-27-2023 Admission to same day surgery center Dr. Chaitanya Gardner Work Phone: [facility] Start: 04-27-2023 End: 04-27-[address] Chaitanya Gardner Work Phone: [facility] Work Phone: Start: 05-02-2022 End: 05-02-2022 Emergency department patient visit Dr. Chaitanya Gardner Work Phone: [facility] Start: 03-24-2022 End: 03-24-2022 ambulatory Bola Monson MD Work Phone: Hematology/Oncology Comment on above: Rectal cancer (HCC) (Primary Dx); Anemia due to stage 3a chronic kidney disease (HCC); Thrombocytopenia (HCC) Start: 03-24-2022 End: 03-24-2022 Patient encounter procedure Bola Monson MD Work Phone: [facility] Start: 02-20-2022 End: 02-20-[address] Chaitanya Gardner Work Phone: [facility] Start: 02-07-2022 Telephone encounter Bola Monson MD Work Phone: Hematology/Oncology Comment on above: Appointment Reschedu led Start: 01-07-[address] Chaitanya Gardner Work Phone: [facility] Procedures Date Procedure Procedure Detail Performing Clinician Start: 11-23-2024 Plain x-ray of elbow Dr Mariano Gardner MD Work Phone: Start: 11-04-2023 Plain chest X-ray Dr. Agustín Gardner Work Phone: Start: 10-08-2023 Repair of right ingu inal hernia using surgical mesh Dr. Chaitanya Gardner Work Phone: Start: 06-11-2023 Repair of left ingui nal hernia using surgical mesh Dr. Chaitanya Gardner Work Phone: Start: 05-22-2023 CT of pelvis without contrast Dr. Chaitanya Gardner Work Phone: Start: 03-22-2022 Adult depression screening assessment Bola Monson MD Work Phone: Start: 10-13-2021 Adult depression screening assessment Bola Monson MD Work Phone: Plan of Treatment Date Care Activity Detail Author Start: 11-03-2025 Complete blood count Hemoglobin/Hematocrit [facility] Start: 11-03-2025 Creatinine measurement Serum Creatinine [facility] Start: 11-03-2025 Hepatitis B screening Urine Albumin:Creatinine Ratio [facility] Start: 11-03-2025 Hepatitis B surface antibody level LDL Cholesterol [facility] Start: 05-05-2025 Hemoglobin A1c measurement HbA1C [facility] Start: 04-27-2025 End: 04-27-2025 Patient encounter procedure 04/27/2025 1:45 PM EDT Office Visit Podiatry [address] [place] [address] Neftaly Campbell [address] [place] [address] 2 week ulcer follow up Podiatry Comment on above: 2 week ulcer follow up Start: 04-24-2025 End: 04-24-2025 Patient encounter procedure 04/24/2025 1:30 PM EDT Office Visit Vasculary Surgery [address] [place] [address] Ulcer of toe of right foot, with fat layer exposed (HCC) [L97.512] Vasculary Surgery Comment on above: Ulcer of toe of right foot, with fat lay er exposed (HCC) [L97.512] Start: 04-11-2025 End: 04-11-2025 Patient encounter procedure 04/11/2025 9:00 AM EDT Office Visit Podiatry [address] [place] [address] Neftaly Campbell [address] [place] [address] R foot infected wound Podiatry Comment on above: R foot infected wound Start: 04-03-2025 Influenza vaccination Influenza Vaccine (#1) [facility] Start: 08-03-2024 Advance Directive Discussion Advance Directive Discussion [facility] Start: 08-03-2024 Medicare Advantage Annual Wellness Visit Medicare Advantage Annual Wellness Visit [facility] Start: 10-08-2023 Patient discharge [facility] Start: 06-11-2023 Anesthesia hernia repair lower abdomen nos ANESTH REPAIR OF HERNIA [facility] Start: 06-11-2023 Rpr 1st ingun hrna age 4 yrs/> reducible PRP I/MARCIA INIT REDUC >5 YR [facility] Start: 06-11-2023 Patient discharge [facility] Start: 03-22-2023 Adult depression screening assessment DEPRESSION SCREENING [facility] Start: 03-20-2023 HEMOGLOBIN/HEMATOCRIT HEMOGLOBIN/HEMATOCRIT [facility] Start: 03-20-2023 Hepatitis B screening URINE ALBUMIN:CREATININE RATIO [facility] Start: 03-20-2023 Hepatitis B surface antibody level LDL CHOLESTEROL [facility] Start: 03-20-2023 SERUM CREATININE SERUM CREATININE [facility] Start: 10-13-2022 Adult depression screening assessment DEPRESSION SCREENING [facility] Start: 09-20-2022 Hemoglobin A1c/Hemoglobin.total in Blood HBA1C [facility] Start: 06-10-2022 Hepatitis B surface antibody level LDL CHOLESTEROL [facility] Start: 04-03-2022 Influenza vaccination INFLUENZA (#1) [facility] Start: 11-07-2021 COVID-19 VACCINE (4 - Booster for Moderna series) COVID-19 VACCINE (4 - Booster for Moderna series) [facility] Start: 08-03-2021 ADVANCE DIRECTIVE DISCUSSION ADVANCE DIRECTIVE DISCUSSION [facility] Start: 10-18-2020 Hemoglobin A1c/Hemoglobin.total in Blood HBA1C [facility] Start: 05-07-2020 Pneumococcal Vaccine: 50+ (2 of 2 - PPSV23, PCV20, or PCV21) Pneumococcal Vaccine: 50+ (2 of 2 - PPSV23, PCV20, or PCV21) [facility] Start: 2019 RSV Vaccine (1 - 1-dose 75+ series) RSV Vaccine (1 - 1-dose 75+ series) [facility] Start: 1994 SHINGRIX VACCINE (1 of 2) SHINGRIX VACCINE (1 of 2) [facility] Start: 1963 Urine microalbumin profile [facility] Start: 1962 ANNUAL PCP TEAM CHRONIC DISEASE VISIT ANNUAL PCP TEAM CHRONIC DISEASE VISIT [facility] Start: 1962 Anxiety Screening Anxiety Screening [facility] Start: 1962 BP CONTROLLED (<130/80) BP CONTROLLED (<130/80) [facility] Start: 1962 Depression Screening Depression Screening [facility] Start: 1954 3 comp foot exam completed DIABETIC FOOT EXAM [facility] Start: 1954 Diabetic foot examination Diabetic Foot Exam [facility] Start: 1954 Glaucoma screening Dilated Retinal Exam [facility] Start: 1954 Hepatitis B screening URINE ALBUMIN:CREATININE RATIO [facility] Start: 1954 Hepatitis C antibody, confirmatory test DILATED RETINAL EXAM [facility] Start: 1950 PNEUMOCOCCAL: 65+ (1 - PCV) PNEUMOCOCCAL: 65+ (1 - PCV) [facility] Blood chemistry [facility] CBC W Auto Different ial panel - Blood [facility] Electrocardiographic procedure [facility] Electrocardiographic procedure [facility] Patient Education Hypertension Dc [facility] Work Phone: Patient referral [facility] Work Phone: [facility] End: 04-11-2026 US.doppler Extremity arteries - bilateral for physiologic artery study PVR ANK PRESS [facility] Vascular Lab Routine Ulcer of toe of right foot, with fat layer exposed (HCC) Hammertoe of right foot Diminished pulses in lower extremity 1 Occurrences starting 04/11/2025 until 04/11/2026 [facility] Comment on above: 1 Occurrences starting 04/11/2025 until 04/11/2026 End: 05-11-2026 XR Toes - right 3 Views XR TOE AP/LAT/OBL RIGHT Radiology Routine Ulcer of toe of right foot, with fat layer exposed (HCC) Hammertoe of right foot 1 Occurrences starting 04/11/2025 until 05/11/2026 [facility] Work Phone: Comment on above: 1 Occurrences starting 04/11/2025 until 05/11/2026 XR Toes - right 3 Views XR TOE A P/LAT/OBL RIGHT Radiology Routine Ulcer of toe of right foot, with fat layer exposed (HCC) Hammertoe of right foot 04/11/2025 10:15 AM EDT [facility] Immunizations Immunization Date Immunization Notes Care Provider Silvia lopez 06-05-2023 influenza virus vaccine, unspecified formulation Neftaly Campbell Work Phone: [facility] 09-26-2020 COVID-19 vaccine, fu ll dose (MODERNA) Bola Monson MD Work Phone: [facility] Work Phone: 08-29-2020 COVID-19 vaccine, fu ll dose (MODERNA) Bola Monson MD Work Phone: [facility] Work Phone: Payers Date Payer Category Payer Self-pay [id number] 2022 Medicare (Managed Care) [employer] PPO [id number] 2022 Medicare [id number] 2018 Unknown ANTHEM BLUE CROS S AND BLUE SHIELD ANTHEM MEDIBLUE ACCESS [id number] 2018-Present [id number] [place], [place] [id number] PPO [id number] 2018 Unknown ANTHEM BLUE CROS S AND BLUE SHIELD ANTHEM MEDIBLUE ACCESS [id number] 2018-Present [phone] [address] [place] [address] PPO [id number] 1944 Unknown [id number] 1944 Unknown [id number] 1944 Unknown [id number] 1944 Unknown [id number] Medicare [id number] Unknown [id number] Unknown [id number] Unknown [id number] Unknown [id number] Unknown [id number] Unknown [id number] Unknown [id number] Social History Date Type Detail Facility Start: 08-24-2018 End: 11-05-2023 Tobacco smoking status NHIS Ex-smoker [facility] End: 08-24-2011 History of tobacco use Current smoker [facility] End: 08-24-2011 History of tobacco use Pipe Smoker [facility] Start: 08-24-2018 Tobacco use and exposure Smokeless tobacco non-user [facility] Start: 10-14-2021 End: 04-11-2025 Alcohol intake Ex-drinker (finding) [facility] Start: 1945 Sex Assigned At Male C [facility] Start: 01-28-2022 End: 02-07-2022 Exposure to SARS-CoV-2 (event) Unable to assess [facility] Work Phone: Start: 05-02-2022 End: 11-05-2023 Tobacco smoking status [facility] Unknown if ever smoked [facility] Start: 09-25-2019 None [facility] Start: 09-25-2019 Spouse/ Signif icant Other [facility] Start: 09-25-2019 Non-smoker [facility] Start: 03-24-2022 End: 04-11-2025 History of Social function [facility] Start: 03-24-2022 End: 04-11-2025 Tobacco use panel [facility] Start: 08-17-2018 Adult Depression Screening Assessment 0 [facility] Start: 04-08-2019 Gender identity Identifies as male gender (finding) [facility] Start: 04-08-2019 Sexual orientation Heterosexual (carlos pineda) [facility] Medical Equipment Procedure Code Equipment Code Equipment Origin al Text Equipment Identifier Dates Repair, hernia, inguinal, with mesh insertion Extra-gynaecological surgical mesh, synthetic polymer, non-bioabsorbable [id number] FDA Start: 06-11-2023 Repair, hernia, inguinal, with mesh insertion MESH,PLUG XL [id number] FDA Start: 10-08-2023 Repair, hernia, inguinal, with mesh insertion ([id number]) Extra-gynaecological surgical mesh, synthetic polymer, non-bioabsorbable [id number] FDA Start: 10-08-2023 Repair, hernia, inguinal, with mesh insertion MESH,PLUG XL [id number] FDA Start: 10-08-2023 Repair, hernia, inguinal, with mesh insertion MESH,PLUG XL [id number] FDA Start: 10-08-2023 Repair, hernia, inguinal, with mesh insertion MESH,PLUG XL [id number] FDA Start: 10-08-2023 Repair, hernia, inguinal, with mesh insertion MESH,PLUG XL [id number] FDA Start: 10-08-2023 Expel Nephrouret eral Stent System With Twist-Loc Hub?10.3f 26cm [id number] Start: 04-18-2019 Stent Inlay Opti ma 7fr Taper [place] Polymer Phreecoat 26cm Ureteral - [id number] Start: 06-06-2019 Goals Date Patient Goal Desired Activity /State Functional Status Date Assessment Result Facility 10-08-2023 Functional status Ambulates [facility] Work Phone: 05-02-2021 Are you deaf, or do you have serious difficulty hearing No 05/02/2021 1:18 PM Santiago Siu RN No [facility] 05-02-2021 Are you blind, or do you have serious difficulty seeing, even when wearing glasses No 05/02/2021 1:18 PM Santiago Siu, SREEDHAR No [facility] 05-02-2021 Do you have serious difficulty walking or climbing stairs No 05/02/2021 1:18 PM Santiago Siu RN No [facility] 05-02-2021 Do you have difficul ty dressing or bathing No 05/02/2021 1:18 PM Santiago Siu RN No [facility] 05-02-2021 Because of a physica l, mental, or emotional condition, do you have difficulty doing errands alone such as visiting a physician's office or shopping No 05/02/2021 1:18 PM Santiago Siu RN No [facility] Mental Status Date Assessment Result Facility 10-08-2023 Cognitive function Level Of Cons ciousness Drowsy [facility] Work Phone: 10-08-2023 Cognitive function Voice/Name [facility] Work Phone: 06-11-2023 Cognitive function Touch/Shaking [facility] Work Phone: 05-02-2022 Cognitive function Level Of Cons ciousness Awake;Alert;Appropriate;Fol lows Commands [facility] Work Phone: 05-02-2021 Because of a physica l, mental, or emotional condition, do you have serious difficulty concentrating, remembering, or making decisions No 05/02/2021 1:18 PM Santiago Siu RN No [facility] Clinical Notes 01-11-2020 to 06-10-2025 Bhakti Salgado RN - 04/11/2025 10:41 AM Neftaly Art - 04/11/2025 10:26 AM Lisa Hill LPN - 04/11/2025 8:48 AM Tiesha Whitaker RT(R) - 04/11/2025 10:00 AM EDTPatient Instructions Note Date & Type Note Facility 06-10-2025 Note HNO ID: [id number] Author: NEFTALY CAMPBELL, ? Service: ? Author Type: Physician Type: Progress Notes Filed: 06/10/2025 06:53 Note Text: Subjective The patient is an 79-year-old male with PAD and chronic right second toe ulceration, presenting for follow-up. He is accompanied by his daughter, who provides additional history. The patient has a history of chronic callus formation and ulceration at the tip of the right second toe, attributed to pressure from a long second toe with distal interphalangeal joint contracture. He has previously tried topical creams without significant improvement. He is currently using a foam pad to offload pressure, but has not tolerated a crescent-shaped pad in the past due to displacement during sleep. A right second toe x-ray on 04/27 showed periostitis at the distal phalanx concerning for early osteomyelitis. He was started on Augmentin on 05/25 following e-consultation with infectious disease, who recommended a 6-week course. He has also used topical antibiotics, Yanet, Aquacel, and advanced Vaseline. Vascular studies demonstrated PAD with right BILL 0.76 and 0.73, right toe pressure 0.4, left BILL 0.96, and left toe pressure 0.51. He and his are not interested in surgical intervention at this time due to concerns about wound healing. Musculoskeletal: (+) right second toe pain Neurological: (+) diminished vibration sensation right foot Objective There were no vitals taken for this visit. - Cardiovascular: Dorsalis pedis and posterior tibial pulses faintly palpable left; nonpalpable right. Capillary refill time delayed in the right hallux, immediate in the left hallux. - Skin: Skin temperature warm bilaterally. Hair growth absent on both feet. No erythema noted. Moderate swelling present in both feet. Toenails 1-5 bilaterally are yellow, thickened, incurvated, and elongated. Pre-ulcerative callus on the tip of the right second toe; toe does not appear grossly infected. Remnant of dry blood at the tip of the toe just beneath the nail plate. Remaining skin appears well-hydrated. callus was debrided to the right 2nd toe and there is 3 mm superficial ulceration without infection present. - Neurological: Protective sensation mostly intact in both feet. Vibratory sensation slightly diminished in the right foot. - Musculoskeletal: Long second toe with slight contracture of the distal interphalangeal joint. Imaging: - April 2025 X-ray right second toe: Periostitis at the distal phalanx consistent with early osteomyelitis. - X-ray right second toe: Distal phalanx cortical irregularity/thickening suspicious for early osteomyelitis. 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 X-ray from 04/27/2025 shows periostitis consistent with early osteomyelitis. BILL and toe pressures confirm peripheral arterial disease, with right foot BILL 0.76/0.73 and toe pressure 0.4, and left foot BILL 0.96 and toe pressure 0.51. Infectious disease e-consult recommended 6 weeks of Augmentin; vascular surgery consult noted diminished pressures but possible chance of healing. - Continue Augmentin as recommended by infectious disease. - Debrided callus with tissue nippers. Debrided callus exposing ulceration that is 3 mm in diameter. debridement thru dermis was performed with tissue nippers. - Instructed patient to clean ulcer with soap and water, apply Yanet daily, and cover with gauze; advised to avoid excessive moisture and to use a gel toe cap only after ulcer heals. - Advised use of foam pad to offload pressure from the second toe; cautioned against prolonged use of gel pads to avoid moisture - Discussed risks and benefits of partial toe amputation, including potential for non-healing due to poor vascular supply; patient and family declined surgical intervention at this time. - Discussed possibility of angiography and vascular intervention prior to considering amputation; patient and family declined. - Educated patient and family on chronic nature of condition, risk of recurrent ulceration, and importance of ongoing wound care and pressure offloading. - Follow-up in 1 month to reassess ulcer healing and provide ongoing nail and callus care. # Onychomycosis (B35.1) Thickened, yellow, incurvated, and elongated toenails 1-5 bilaterally consistent with onychomycosis; poor vascular supply and neuropathy increase r (more content not included)... [facility] 06-09-2025 Note HNO ID: [id number] Author: LISA OCHOA LPN Service: ? Author Type: Licensed Nurse Type: Progress Notes Filed: 06/10/2025 06:53 Note Text: Per Dr. Campbell, Huong ramos wound was dressed with yanet, non adherent and 2 in roll. instructed/educated in its application, wear, and care. All questions were answered, and patient was able to demonstrate competence with the necessary skills to utilize the above equipment. Lisa Ochoa LPN [facility] 06-09-2025 Note HNO ID: [id number] Author: LISA OCHOA LPN Service: ? Author Type: Licensed Nurse Type: Progress Notes Filed: 06/10/2025 06:53 Note Text: AMB ROOMING INTAKE FLOWSHEET DATA Patient presents with: Right 2nd Toe - Established Patient, Follow Up, Pain, Swelling, Ulcer Patient states they noticed wound on Thursday06/06/2025. Lisa Ochoa LPN [facility] 05-24-2025 Note HNO ID: [id number] Author: DOROTHEA CHOUDHURY MD Service: ? Author Type: Physician Type: Progress Notes Filed: 05/24/2025 10:32 Note Text: Infectious Disease E-Consult Response In response to your eConsult Infectious Disease request for Huong Bates regarding: Osteomyelitis. History of present illness provided through requesting provider documentation and current treatment plan was reviewed. Based on the patient history provided, my impression is as follows: Possible osteomyelitis distal phalanx second digit Images reviewed, no surrounding soft tissue infection Plain films reviewed, compatible with a little cortical disruption I agree with you, Augmentin 875 mg p.o. twice daily for 6 weeks would be appropriate I would not embark upon IV antibiotics for this. Risk of side effects would be way higher than any senior benefits specialist appointment needs: No appointment necessary I spent a total of 10 minutes on the date of the service which included chart review, independently interpreting results (not separately reported), and completing clinical documentation. Dorothea Choudhury MD May 24, 2025 [facility] 05-24-2025 Note HNO ID: [id number] Author: NEFTALY CAMPBELL, ? Service: ? Author Type: Physician Type: Progress Notes Filed: 05/24/2025 07:43 Note Text: Subjective The patient is an 79-year-old male with PAD presenting for follow-up of a chronic wound on the right second toe. He is accompanied by a caregiver who provides additional history. The patient was last seen at the end of April for a wound on the right second toe, which was stable at that time with no clinical signs of infection. X-ray from 04/27 showed a small irregularity at the tip of the toe, raising concern for osteomyelitis. Vascular studies on 04/24 showed BILL of 0.76 (normal >0.9) and toe pressure of 0.40 (normal >0.7), consistent with PAD. The wound measured 2 mm x 2 mm after callus debridement. The patient and caregiver report that the wound initially appeared to be improving, but today it looks more swollen. The caregiver notes that Yanet dressings consistently show a spot of blood when removed. She also observed peeling of the foot today that was not present at home. She washes the patient's feet by hand and has been managing the wound care. The patient denies calf pain. The patient has been under the care of Dr. Mona Raymundo. They have elected to pursue care here. They are not interested in amputation. Musculoskeletal: (+) right second toe swelling, (-) calf pain Skin: (+) right second toe erythema, (+) right foot desquamation Objective There were no vitals taken for this visit. - Cardiovascular: Dorsalis pedis and posterior tibial pulses non-palpable on the right foot; capillary refill time delayed to the right hallux. - Skin: Skin temperature warm to cool from proximal to distal; callus noted on the tip of the right second toe, less diffuse than previously observed; no local signs of redness, drainage, or infection. - Neurological: Protective sensation absent to the forefoot and bilateral lower extremities. Imaging: - X-ray right second toe: Periostitis at the second toe, suspicious for early osteomyelitis. - X-ray right second toe: Small irregularity at the distal phalanx tip; changes concerning for chronic osteomyelitis. Tests AND Prior Procedures: - Noninvasive vascular studies (right lower extremity): - BILL: 0.76 - Toe-brachial index: 0.40 - PVRs: Toe pressure borderline for healing; waveforms pulsatile. Bacterial wound culture: 03/30/25 Many Staphylococcus aureus Abnormal Many skin denisse Assessment AND Plan # Ulcer of toe of right foot, with fat layer exposed (HCC) (L97.512) # Hammertoe of right foot (M20.41) # Diminished pulses in lower extremity (R09.89) Chronic ulcer on the right second toe with prior X-ray findings from April 27 showing small irregularity at the tip of the toe, raising concern for osteomyelitis. Vascular studies from April 24 showed BILL of 0.76 and toe pressure of 0.40, indicating peripheral vascular disease. Recent X-ray showed periostitis at the second toe, suspicious for early osteomyelitis. Vascular surgeon Dr. Erasto Velásquez via sharing of chart noted toe pressure is borderline for healing, but waveforms are still pulsatile, which is reassuring. Physical exam today shows non-palpable dorsalis pedis and posterior tibial pulses in the right foot, delayed capillary refill in the right hallux, and diminished protective sensation in the forefoot and bilateral lower extremities. - Continue to monitor the ulcer closely; advised to keep a pad under the toe to prevent rubbing. - Discussed options including angiogram to evaluate and treat vascular disease, and possible amputation of the tip of the toe if infection persists. Patient really no interested in podiatric surgery or vascular surgery - of note, he does report intermittent pain in his upper leg. I do feel this may be related to vascular insufficiency. I do feel he should consider evaluation by vascular surgery. - Patient does not want surgery at this time; will continue conservative management. - Follow-up in 4 weeks to reassess the ulcer and overall foot condition. - discussed options for osteomyelitis. options include partial toe amputation but his ability to heal is certainly questionable at best. other options include antibiotics. The only issue is we have no underlying culture other than what was on the wound back in march. Based on that, I think it would be reasonable to to do augmentin x 6 weeks. Will reach out to ID. - callus was reduced with dremmel today. Recording using [employer] software for draft documentation of the visit was discussed with the patient/authorized patient accounting representative; all questions welcomed and answered. Patient/authorized patient accounting representative agreed to proceed Neftaly Campbell DPM [facility] 05-23-2025 Note HNO ID: [id number] Author: LISA OCHOA LPN Service: ? Author Type: Licensed Nurse Type: Progress Notes Filed: 05/24/2025 07:43 Note Text: AMB ROOMING INTAKE FLOWSHEET DATA Pain Pain Level: 6 Pain Location: Leg-Right Description: Sore Duration Units: Weeks Frequency: Intermittent Intervention/Comfort measure: Reposition, Relaxation Patient presents with: Right 2nd Toe - Established Patient, Follow Up, Ulcer, Pain, Swelling Lisa Ochoa LPN [facility] 04-27-2025 Note HNO ID: [id number] Author: DULCE MARIA COREY MA Service: ? Author Type: Dealer Accounts Investigator Type: Progress Notes Filed: 04/27/2025 15:31 Note Text: Per Dr. Campbell, Huong was provided with Wound care right 2nd toe. Applied Prima to the wound, with a telfa pad, gauze and tape. has been instructed/educated application and care of wound. All questions were answered, and patient was able to demonstrate competence with the necessary skills to utilize the above equipment. Dulce Maria Corey MA [facility] 04-27-2025 Note HNO ID: [id number] Author: NEFTALY CAMPBELL, ? Service: ? Author Type: Physician Type: Progress Notes Filed: 04/27/2025 14:44 Note Text: Subjective The patient is a 79-year-old male, with a history of a second toe ulceration, presenting for follow-up. The patient has been experiencing an ulceration on the second toe of the right foot for over 3 months. Initially managed by another gold charmer with debridement and doxycycline, the patient was referred for x-rays and circulation studies. The patient has been applying Yanet to the wound and using a pad to reduce pressure. The patient reports improvement in the wound's appearance, noting reduced erythema and depth. The patient denies pain unless the toe is traumatized. The patient denies having any metal implants in his body. Ears/Nose/Mouth/Throat: (+) hearing difficulty Musculoskeletal: (+) right second toe pain with manipulation Skin: (+) right second toe ulcer Objective There were no vitals taken for this visit. - Cardiovascular: Dorsalis pedis and posterior tibial pulses non-palpable bilaterally; capillary refill time <5 seconds; skin temperature warm to cool from proximal to distal; decreased hair growth on both feet. - Skin: Right second toe with pinpoint opening to distal tuft; no drainage or erythema; no local signs of infection; dry skin around marie-wound. Following debridement,there is a noninfected ulceration that measures 2 mm x 2 mm - Musculoskeletal: Long second toe on right foot; rigid contracture noted at second distal interphalangeal joint. - Neurological: Protective sensation intact bilaterally. Tests (04/24/2025) Noninvasive vascular studies: - Right dorsalis pedis BILL: 0.76 - Right posterior tibial BILL: 0.73 - Right toe pressure: 0.40 - Left dorsalis pedis BILL: 0.96 - Left posterior tibial BILL: 0.86 - Left toe pressure: 0.51 Imaging (04/11/2025) Right Foot X-ray: - Osteoarthritis of the first metatarsophalangeal joint - Curling deformity of the second toe - Irregular distal phalanx suspicious for osteomyelitis Assessment AND Plan # Ulcer of toe of right foot, with fat layer exposed (HCC) (L97.512) # Diminished pulses in lower extremity (R09.89) Chronic, non-healing ulcer of the right second toe with possible underlying osteomyelitis; wound is stable with no clinical signs of infection. X-ray from 04/11/2025 shows irregularity at the distal tuft of the right second toe, raising suspicion for chronic osteomyelitis. Vascular studies from 04/24/2025 show diminished perfusion (right BILL 0.76, right toe pressure 0.40), indicating peripheral arterial disease and high risk for poor wound healing. - Continue daily wound care: clean with soap and water, dry thoroughly, apply Yanet dressing, and use offloading pad. I think with the current perfusion, he is at great risk of nonhealing. - Continue doxycycline for one more week, then discontinue. - I debrided the callus and nonviable tissue thru dermis with tissue nippers today. total debridement was 2 mm x 2 mm. no bleeding encountered - Repeat X-ray of the right second toe today to assess for progression of suspected osteomyelitis. - Discussed risks and benefits of surgical intervention versus conservative management; explained that amputation of the distal toe would require vascular risk assessment due to high risk of non-healing. - we discussed referral to vascular surgery. He is not really keen on any invasive operations at this time. He understands that this toe is likely not going to heal. we discussed referral to wound center for hyperbarics. - Follow-up in 3 weeks. # Hammertoe of right foot (M20.41) Rigid contracture of the right second toe contributing to ulcer formation and impaired healing. - Continue offloading pad to reduce pressure on the ulcer. Recording using [employer] software for draft documentation of the visit was discussed with the patient/authorized patient accounting representative; all questions welcomed and answered. Patient/authorized patient accounting representative agreed to proceed Neftaly Campbell DPM [facility] 04-27-2025 Note HNO ID: [id number] Author: IGNACIO SMITH RT(R) Service: ? Author Type: H[employer] Type: Progress Notes Filed: 04/27/2025 15:07 Note Text: Radiology Service Progress Note PATIENT NAME: Huong Bates DATE OF SERVICE: April 27, 2025 TIME: 2:43 PM PATIENT IDENTITY VERIFICATION COMPLETED USING TWO (2) IDENTIFIERS: Name and Date of confirmed by patient verbally. FALL SCREENING: Has the patient had 2 falls in the last year or 1 fall with injury or currently using an Ambulatory Assistive Device (Walker, Cane, Wheelchair, Crutches, etc.)? Yes, Patient High Risk for Falls What interventions were put in place to prevent falls during this visit? Offered Assistance with Transfers/Clothing and Increased Observations by Caregivers PATIENT GENDER DATA: Assigned male at PATIENT RELEVANT IMPLANT DATA REVIEWED: Yes PATIENT PRESENTS WITH AN IMPLANTABLE OR ATTACHED AURICULAR THERAPIST: No RADIOLOGY DEPARTMENT: General X-ray: Exam(s) Completed: Lower Extremity X-Ray(s): Toes, Right 2nd toe PERIPHERAL IV DATA: Not applicable SIGNED BY: RT Robert(R) April 27, 2025 2:43 PM [facility] 04-27-2025 Note HNO ID: [id number] Author: LISA OCHOA LPN Service: ? Author Type: Licensed Nurse Type: Progress Notes Filed: 04/27/2025 14:44 Note Text: AMB ROOMING INTAKE FLOWSHEET DATA Pain Pain Level: 3 Description: Aching Duration Units: Days Frequency: Intermittent Intervention/Comfort measure: Relaxation Patient presents with: Right 2nd Toe - Ulcer, Established Patient, Follow Up Lisa CARIDAD Ochoa [facility] 04-11-2025 Note HNO ID: [id number] Author: BHAKTI SALGADO RN Service: ? Author Type: Registered Nurse Type: Progress Notes Filed: 04/11/2025 10:44 Note Text: Wound dressed with yanet and gauze. Dressing supplies provided and wound care reviewed with patient and spouse. Paper copy of instructions provided. Per Dr. Campbell Huong was provided with Right hammertoe crest pad, size Large, and instructed/educated in its application, wear, and care. All questions were answered, and patient was able to demonstrate competence with the necessary skills to utilize the above equipment. Bhakti Salgado RN [facility] 04-11-2025 History of Present illness Narrative Wound dressed with yanet and gauze. Dressing supplies provided and wound care reviewed with patient and spouse. Paper copy of instructions provided. Per Dr. Campbell Huong was provided with Right hammertoe crest pad, size Large, and instructed/educated in its application, wear, and care. All questions were answered, and patient was able to demonstrate competence with the necessary skills to utilize the above equipment. Bhakti Salgado RN Subjective The patient is a 79-year-old male, with a history of borderline diabetes, presenting for evaluation of a wound on the plantar surface of the right second toe. The wound has been present since January and is believed to have been caused by pressure from old boots. The patient has been under the care of another gold charmer, Dr. Raymundo, and has been seen every 2 weeks since January. He has been on three rounds of antibiotics: cephalexin, amoxicillin, and currently doxycycline BID, which was started on 04/05 and is prescribed for 14 days. Despite treatment, the wound appears worse today, with increased swelling and erythema noted by the patient's caregiver. A wound culture taken on 03/30 showed staphylococcus aureus. No x-rays have been performed. The patient is not diabetic but is on the borderline and is not on any blood thinners, though he does take a baby aspirin. He is a nonsmoker. The patient has been using orthopedic shoes with a wide toe box and has been applying Neosporin to the wound. He has also been using padded gauze pads to offload pressure from the wound, but these have not been effective. The patient is scheduled to see Dr. Raymundo again in a week. Musculoskeletal: (+) right second toe swelling, (+) right second toe pain Skin: (+) right second toe ulcer, (+) right second toe erythema PAST MEDICAL HISTORY Diagnosis Date Acute intestinal obstruction ([facility]) 2019 Anemia Arthritis Ascending aorta dilation Blockage of coronary artery of heart ([facility]) penidn cardiac cath once COVID eases CAD (coronary artery disease) 01/11/2020 s/p PCI x2 Hyperlipidemia Hypertension Hyponatremia 07/20/2019 Hypothyroidism Iron malabsorption (HCC) 07/20/2019 Malignant neoplasm of rectum ([facility]) 2018 Toe infection Urinary retention Current Outpatient Medications Medication Sig Dispense Refill doxycycline hyclate (VIBRAMYCIN) 100 mg capsule TAKE 1 CAPSULE BY MOUTH EVERY 12 HOURS FOR 14 DAYS Ascorbic Acid (VITAMIN C) 1,000 mg tablet Take 1,000 mg by mouth once daily. nystatin (MYCOSTATIN) powder Apply 1 application to affected area three times daily. 60 g 11 isosorbide mononitrate ER (IMDUR) 30 mg 24 hr tablet Take 30 mg by mouth once daily. furosemide (LASIX) 40 mg tablet Take 40 mg by mouth once daily. carvedilol (COREG) 3.125 mg tablet Take 3.125 mg by mouth twice daily with meals. aspirin 81 mg chewable tablet Take 81 mg by mouth once daily. ferrous sulfate 325 mg (65 mg iron) tablet Take 325 mg by mouth twice daily. finasteride (PROSCAR) 5 mg tablet Take 5 mg by mouth once daily. potassium chloride (K-TAB) 10 mEq tablet Take 10 mEq by mouth once daily. tamsulosin ER (FLOMAX) 0.4 mg cap Take 1 capsule by mouth daily at bedtime. 30 capsule 11 levothyroxine (SYNTHROID) 50 mcg tablet Take 50 mcg by mouth once daily. pravastatin (PRAVACHOL) 40 mg tablet Take 40 mg by mouth once daily. acetaminophen (TYLENOL 8 HOUR) 650 mg CR tablet Take 650 mg by mouth every 8 hours as needed. cyanocobalamin 1,000 mcg/mL soln Inject 1,000 mcg intramuscularly once every month. 11 No current facility-administered medications for this visit. Family History Adopted: Yes Problem Relation Age of Onset other (adopted) Father other (adopted) Mother Anesthesia Problems No Family History Objective There were no vitals taken for this visit. - Cardiovascular: DP and PT pulses not readily palpable bilaterally; capillary refill time delayed to bilateral great toes; Doppler examination shows biphasic DP pulse in left lower extremity, monophasic DP and PT pulses in right lower extremity, non-audible PT pulse in left lower extremity. - Skin: Ulceration, full thickness, to the distal tuft of the right second toe measuring approximately 1 mm x 2 mm; marie-wound callus formation with peeling skin; slight serous drainage noted; slight scaling along the medial instep of bilateral feet. - Neurological: Protective sensation intact to bilateral feet. - Musculoskeletal: Long second toe relative to the right great toe; rigid hammer toe at the distal interphalangeal joint of the right second toe. Labs: - (03/30) Wound Culture: Staphylococcus aureus, susceptible to Augmentin, Bactrim, and Doxycycline. Assessment & Plan # Ulcer of toe of right foot, with fat layer exposed (HCC) (L97.512) # Hammertoe of right foot (M20.41) # Diminished pulses in lower extremity (R09.89) Chronic, non-healing ulcer on the distal tuft of the right second toe, present since January, with underlying rigid hammertoe deformity and elongated second toe contributing to increased pressure and delayed healing. Exam reveals diminished pulses and delayed capillary refill, raising concern for compromised perfusion. Wound culture from 03/30 showed susceptible Staph aureus; currently on doxycycline. No clinical signs of deep infection, but chronicity raises concern for possible osteomyelitis. - Continue doxycycline BID; refill available if needed. - Order X-ray of right second toe to evaluate for underlying osteomyelitis. - Order lower extremity vascular studies with toe pressures to assess perfusion. - Debrided marie-wound callus and provided education on wound care: daily cleansing with soap and water, thorough drying, application of Yanet dressing, and gauze coverage. debridement of wound of nonviable tissue was performed with tissue nippers. total debridement was 1 mm x 2 mm x 1 mm. bleeding was present and controlled with pressure. - Provided offloading pad to reduce pressure on the ulcer; instructed on proper use and cautioned against overtightening. - Advised against use of surgical shoe due to fall risk. we discussed the surgical shoe but given balance concerns, I feel the use of offloading pad should be sufficient. - Discussed potential need for partial toe amputation if osteomyelitis is confirmed or wound fails to heal. - Follow-up in 2 weeks to reassess wound healing and review imaging and vascular study results. Recording using [employer] software for draft documentation of the visit was discussed with the patient/authorized patient accounting representative; all questions welcomed and answered. Patient/authorized patient accounting representative agreed to proceed Neftaly Campbell DPM AMB ROOMING INTAKE FLOWSHEET DATA Risk Screening Do you have concerns about personal safety or safety in the home?: No Patient presents with: Right 2nd Toe - New, Ulcer Patient has been seeing another gold charmer since January. Lisa Ochoa LPN documented in this encounter [facility] 04-11-2025 Note HNO ID: [id number] Author: NEFTALY CAMPBELL, ? Service: ? Author Type: Physician Type: Progress Notes Filed: 04/11/2025 10:27 Note Text: Subjective The patient is a 79-year-old male, with a history of borderline diabetes, presenting for evaluation of a wound on the plantar surface of the right second toe. The wound has been present since January and is believed to have been caused by pressure from old boots. The patient has been under the care of another gold charmer, Dr. Raymundo, and has been seen every 2 weeks since January. He has been on three rounds of antibiotics: cephalexin, amoxicillin, and currently doxycycline BID, which was started on 04/05 and is prescribed for 14 days. Despite treatment, the wound appears worse today, with increased swelling and erythema noted by the patient's caregiver. A wound culture taken on 03/30 showed staphylococcus aureus. No x-rays have been performed. The patient is not diabetic but is on the borderline and is not on any blood thinners, though he does take a baby aspirin. He is a nonsmoker. The patient has been using orthopedic shoes with a wide toe box and has been applying Neosporin to the wound. He has also been using padded gauze pads to offload pressure from the wound, but these have not been effective. The patient is scheduled to see Dr. Raymundo again in a week. Musculoskeletal: (+) right second toe swelling, (+) right second toe pain Skin: (+) right second toe ulcer, (+) right second toe erythema PAST MEDICAL HISTORY Diagnosis Date Acute intestinal obstruction ([facility]) 2019 Anemia Arthritis Ascending aorta dilation Blockage of coronary artery of heart ([facility]) penidn cardiac cath once COVID eases CAD (coronary artery disease) 01/11/2020 s/p PCI x2 Hyperlipidemia Hypertension Hyponatremia 07/20/2019 Hypothyroidism Iron malabsorption ([facility]) 07/20/2019 Malignant neoplasm of rectum ([facility]) 2019 Toe infection Urinary retention Current Outpatient Medications Medication Sig Dispense Refill doxycycline hyclate (VIBRAMYCIN) 100 mg capsule TAKE 1 CAPSULE BY MOUTH EVERY 12 HOURS FOR 14 DAYS Ascorbic Acid (VITAMIN C) 1,000 mg tablet Take 1,000 mg by mouth once daily. nystatin (MYCOSTATIN) powder Apply 1 application to affected area three times daily. 60 g 11 isosorbide mononitrate ER (IMDUR) 30 mg 24 hr tablet Take 30 mg by mouth once daily. furosemide (LASIX) 40 mg tablet Take 40 mg by mouth once daily. carvedilol (COREG) 3.125 mg tablet Take 3.125 mg by mouth twice daily with meals. aspirin 81 mg chewable tablet Take 81 mg by mouth once daily. ferrous sulfate 325 mg (65 mg iron) tablet Take 325 mg by mouth twice daily. finasteride (PROSCAR) 5 mg tablet Take 5 mg by mouth once daily. potassium chloride (K-TAB) 10 mEq tablet Take 10 mEq by mouth once daily. tamsulosin ER (FLOMAX) 0.4 mg cap Take 1 capsule by mouth daily at bedtime. 30 capsule 11 levothyroxine (SYNTHROID) 50 mcg tablet Take 50 mcg by mouth once daily. pravastatin (PRAVACHOL) 40 mg tablet Take 40 mg by mouth once daily. acetaminophen (TYLENOL 8 HOUR) 650 mg CR tablet Take 650 mg by mouth every 8 hours as needed. cyanocobalamin 1,000 mcg/mL soln Inject 1,000 mcg intramuscularly once every month. 11 No current facility-administered medications for this visit. Family History Adopted: Yes Problem Relation Age of Onset other (adopted) Father other (adopted) Mother Anesthesia Problems No Family History Objective There were no vitals taken for this visit. - Cardiovascular: DP and PT pulses not readily palpable bilaterally; capillary refill time delayed to bilateral great toes; Doppler examination shows biphasic DP pulse in left lower extremity, monophasic DP and PT pulses in right lower extremity, non-audible PT pulse in left lower extremity. - Skin: Ulceration, full thickness, to the distal tuft of the right second toe measuring approximately 1 mm x 2 mm; marie-wound callus formation with peeling skin; slight serous drainage noted; slight scaling along the medial instep of bilateral feet. - Neurological: Protective sensation intact to bilateral feet. - Musculoskeletal: Long second toe relative to the right great toe; rigid hammer toe at the distal interphalangeal joint of the right second toe. Labs: - (03/30) Wound Culture: Staphylococcus aureus, susceptible to Augmentin, Bactrim, and Doxycycline. Assessment AND Plan # Ulcer of toe of right foot, with fat layer exposed (HCC) (L97.512) # Hammertoe of right foot (M20.41) # Diminished pulses in lower extremity (R09.89) Chronic, non-healing ulcer on the distal tuft of the right second toe, present since January, with underlying rigid hammertoe deformity and elongated second toe contributing to increased pressure and delayed healing. Exam reveals diminished pulses and delayed capillary refill, raising concern for compromised perfusion. Wound culture from 03/30 showed susceptible Staph aureus; currently (more content not included)... [facility] 04-11-2025 History of Present illness Narrative Radiology Service Progress Note PATIENT NAME: Huong Bates DATE OF SERVICE: April 11, 2025 TIME: 10:00 AM PATIENT IDENTITY VERIFICATION COMPLETED USING TWO (2) IDENTIFIERS: Name and Date of confirmed by patient verbally. FALL SCREENING: Has the patient had 2 falls in the last year or 1 fall with injury or currently using an Ambulatory Assistive Device (Walker, Cane, Wheelchair, Crutches, etc.)? No PATIENT GENDER DATA: Assigned male at PATIENT RELEVANT IMPLANT DATA REVIEWED: Yes PATIENT PRESENTS WITH AN IMPLANTABLE OR ATTACHED AURICULAR THERAPIST: No RADIOLOGY DEPARTMENT: General X-ray: Exam(s) Completed: Lower Extremity X-Ray(s): Toes, Right PERIPHERAL IV DATA: Not applicable SIGNED BY: RT Anjum(R) April 11, 2025 10:00 AM documented in this encounter [facility] 04-11-2025 Note HNO ID: [id number] Author: TIESHA RUFFIN RT(R) Service: ? Author Type: Technologist Type: Progress Notes Filed: 04/11/2025 10:14 Note Text: Radiology Service Progress Note PATIENT NAME: Huong Bates DATE OF SERVICE: April 11, 2025 TIME: 10:00 AM PATIENT IDENTITY VERIFICATION COMPLETED USING TWO (2) IDENTIFIERS: Name and Date of confirmed by patient verbally. FALL SCREENING: Has the patient had 2 falls in the last year or 1 fall with injury or currently using an Ambulatory Assistive Device (Walker, Cane, Wheelchair, Crutches, etc.)? No PATIENT GENDER DATA: Assigned male at PATIENT RELEVANT IMPLANT DATA REVIEWED: Yes PATIENT PRESENTS WITH AN IMPLANTABLE OR ATTACHED AURICULAR THERAPIST: No RADIOLOGY DEPARTMENT: General X-ray: Exam(s) Completed: Lower Extremity X-Ray(s): Toes, Right PERIPHERAL IV DATA: Not applicable SIGNED BY: RT Anjum(R) April 11, 2025 10:00 AM [facility] 04-11-2025 Instructions Neftaly Campbell - 04/11/2025 9:38 AM EDT We discussed your right second toe wound: - The wound has been present since January and is located on the bottom of your right second toe. It appears swollen and red, with some drainage and marie-wound callus formation. - I believe the wound is caused by pressure from your long second toe and its rigid hammer toe deformity, which increases pressure on the bottom of the toe. - To promote healing, it is essential to reduce pressure on the wound and ensure adequate blood flow to the area. We discussed your current treatment plan: - Continue taking Doxycycline 100 mg twice daily with food. This antibiotic is effective against the staph infection identified in your wound culture. - Clean the wound daily with soap and water, then dry it thoroughly. - Apply a small piece of Yanet (Premogran) dressing to the wound, cover it with gauze, and secure it. - Use the pad I provided to place under your toe to help relieve pressure. Do not pull the strap too tight. - Avoid applying lotion directly to the wound. You may use Eucerin or Vaseline Intensive Care lotion on the rest of your feet to address dry skin and scaling. We discussed additional evaluations: - I ordered an x-ray of your right second toe to check for any underlying bone infection. Please complete this today. - I also ordered vascular studies with toe pressures to assess blood flow to your feet. This will be done today as well. We discussed footwear: - Continue wearing your orthopedic shoes with a wide toe box. - I do not recommend a surgical shoe at this time due to concerns about your balance and fall risk. Follow-up: - Please schedule a follow-up appointment with me in 2 weeks to review the results of your x-ray and vascular studies and to assess the progress of your wound healing. If you notice increased redness, swelling, drainage, or pain in your toe, or if you develop a fever, please contact our office immediately. documented in this encounter [facility] 04-11-2025 Note HNO ID: [id number] Author: LISA OCHOA LPN Service: ? Author Type: Licensed Nurse Type: Progress Notes Filed: 04/11/2025 10:27 Note Text: AMB ROOMING INTAKE FLOWSHEET DATA Risk Screening Do you have concerns about personal safety or safety in the home?: No Patient presents with: Right 2nd Toe - New, Ulcer Patient has been seeing another gold charmer since January. Lisa Ochoa LPN [facility] 04-06-2025 Telephone encounter Note Patient is scheduled for 04/11/2025. Lisa Ochoa LPN [facility] Work Phone: 04-06-2025 Miscellaneous Notes Patient is scheduled for 04/11/2025. Lisa Ochoa LPN Patient's daughter called back in. Reports that the patient had a wound culture done on 03/30/25 and showed Staph. Patient need established with new gold charmer. Previous one left the country. Patient is not currently on antibiotics and has been dealing with issues for months. Suggested that the patient be seen at urgent care so treatment of infection is not delayed while they wait for an appointment with Dr. Campbell. Daughter would like a call back to see if there was any way to get him in as soon as possible. Lilibeth Casillas RN BACTERIAL CULTURE AND GRAM STAIN, ABSCESS AND WOUND (AEROBIC CULTURE) (03/30/2025 4:00 PM) Patient called to schedule apt with Dr Campbell for a staff infection on toe (Next available apt is May 2 w/ Adrian) Please advise Can be reached at [phone] documented in this encounter [facility] 04-05-2025 Telephone encounter Note Patient's daughter called back in. Reports that the patient had a wound culture done on 03/30/25 and showed Staph. Patient need established with new gold charmer. Previous one left the country. Patient is not currently on antibiotics and has been dealing with issues for months. Suggested that the patient be seen at urgent care so treatment of infection is not delayed while they wait for an appointment with Dr. Campbell. Daughter would like a call back to see if there was any way to get him in as soon as possible. Lilibeth Casillas RN BACTERIAL CULTURE AND GRAM STAIN, ABSCESS AND WOUND (AEROBIC CULTURE) (03/30/2025 4:00 PM) [facility] 04-05-2025 Telephone encounter Note Patient called to schedule apt with Dr Campbell for a staff infection on toe (Next available apt is May 2 w/ Adrian) Please advise Can be reached at [phone] [facility] Work Phone: 11-23-2024 Evaluation note Diagnosis Onset Date Resolution Bursitis of right elbow acute November 23, 2024 1:44pm [facility] Work Phone: 1(300) 862-146404-23-2025 Evaluation note* Diagnosis Onset Date Resolution Status Admit Date Bursitis of right elbow acute A pril 2024 1:44pm Bursitis of right elbow acute M ay 2024 12:37pm [facility] Work Phone: 1(940) 946-627404-23-2025 Evaluation note* Diagnosis Onset Date Resolution Status Admit Date Bursitis of right elbow acute A pril 2024 1:44pm Bursitis of right elbow acute M ay 2024 12:37pm Dyslipidemia chronic February 27, 2 025 1:50pm Hypertension chronic February 27, 2 025 1:50pm Renal insufficiency chronic February 27, 2025 1:50pm Stented coronary artery January 11, 2020 chronic February 27, 2025 1:50pm [facility] Work Phone: 1(406) 519-231303-07-2024 History and physical note Author Blair Gillis [facility] October 08, 2023 8:38am Note Date/Time October 08, 2023 8:39 am [facility] Medical Records Department [address] [place] [address] History & Physical Exam 10/08/23 0838 MR#: [id number] Acct: [id number] Name: HUONG BATES Rep #:[id number] : 1945 78 From: Blair Gillis MD PCP: Dr. Chaitanya Gardner MD Status:[facility] Location: [place] [address] History and Physical Date of Admission: 10/08/23 Chief Complaint: update H&P for right inguinal hernia repair [employer] Counselor Required: No Accompanied by: Is patient in pain?: No Allergies No Known Allergies Allergy (Verified 09/07/23 12:57) Medications acetaminophen 500 mg tablet 650 mg PO PRN PRN Pain 03/09/19 [History Confirmed 09/07/23] levothyroxine 50 mcg tablet 50 mcg PO DAILY thyroid 03/09/19 [History Confirmed 09/07/23] cyanocobalamin (vitamin B-12) 1,000 mcg/mL injection solution 1,000 mcg IM Q30D vitamin 04/06/19 [History Confirmed 09/07/23] aspirin 81 mg chewable tablet 81 mg PO DAILY@0800 09/27/19 [Rx Confirmed 09/07/23] furosemide 40 mg tablet 40 mg PO DAILY #30 tabs 09/27/19 [Rx Confirmed 09/07/23] tamsulosin 0.4 mg capsule 0.4 mg PO DAILY@1730 #30 caps 09/27/19 [Rx Confirmed 09/07/23] carvedilol 3.125 mg tablet 3.125 mg PO BID #180 tabs 10/24/19 [Rx Confirmed 09/07/23] ferrous sulfate 325 mg (65 mg iron) tablet 325 mg PO BID 10/24/19 [History Confirmed 09/07/23] finasteride 5 mg tablet 5 mg PO DAILY 10/24/19 [History Confirmed 09/07/23] isosorbide mononitrate 30 mg tablet,extended release 24 hr 30 mg PO DAILY #90 tabs 10/24/19 [Rx Confirmed 09/07/23] ascorbic acid (vitamin C) 1,000 mg tablet 1 g PO DAILY 01/07/21 [History Confirmed 09/07/23] ondansetron 4 mg disintegrating tablet 4 mg PO Q6H PRN nausea and vomiting #7 tabs 05/02/22 [Rx Confirmed 09/07/23] fenofibrate nanocrystallized 145 mg tablet 145 mg PO DAILY 04/27/23 [History Confirmed 09/07/23] lisinopril 10 mg tablet 10 mg PO DAILY 04/27/23 [History Confirmed 09/07/23] potassium chloride 10 mEq tablet,extended release(part/cryst) 10 meq PO DAILY 04/27/23 [History Confirmed 09/07/23] rosuvastatin 40 mg tablet 40 mg PO DAILY 04/27/23 [History Confirmed 09/07/23] cholecalciferol (vitamin D3) 125 mcg (5,000 unit) tablet 250 mcg PO DAILY 04/28/23 [History Confirmed 09/07/23] [facility] Medical History Acute CHF Arthritis Atherosclerosis of [place] coronary artery of [place] heart without angina pectoris Cancer Cardiology follow-up encounter Cellulitis of right foot Chest pain 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 Colon cancer Constipation Depression Easy bruising Former smoker Hallux limitus of right foot High cholesterol History of echocardiogram History of stress test Hyperlipidemia Hyperlipidemia Hypokalemia Hypothyroidism Inguinal hernia of left side without obstruction or gangrene Intraoperative ureteral injury Localized edema Loss of hearing Low iron Nausea and vomiting Pericardial effusion Prostate disease Rectal cancer Right foot ulcer SBO (small bowel obstruction) Sciatic leg pain Thyroid disease Uses wheelchair Wears glasses Wears hearing aid Wears partial dentures Surgical History History of cardiac catheterization History of colonoscopy History of coronary artery stent placement History of hernia repair History of ileostomy History of left heart catheterization (09/27/19) History of partial colectomy History of ureter repair Stented coronary artery (01/11/20) Family History Other Adopted Social History Smoking Status: Former smoker how long ago did patient quit smokin years ago alcohol intake: never substance use type: does not use caffeine: Yes Type: coffee Number of servings: 1 HPI HPI HPI: 78-year-old gentleman. On June 11, 2023 I assisted him with a extra-large Marlex plug and patch that I performed for him. The patient had a very large inguinal hernia XX extended for significant degree degree and had to be transected the internal ring was grossly dilated in the inguinal floor quite attenuated. This was the reason for the plug and patch. He was seen back in the office and was making good progress. On a separate note unrelated to that previous surgery he presents now wanting direction regarding a right inguinal hernia. He has a history of becoming combative after surgery as well as nauseated. He has a history of multiple coronary stents and is on low-dose aspirin therapy. In [facility] Dr. Purdy performed laparoscopic assistedlow anterior resection with colostomy formation. This was in treatment of rectal cancer. The patient had left ureteral injury at that time and was referred to [facility]. Additionally has had 2 separate hospitalizations at the [facility] for small bowel obstruction. Previous CT scandone October 08, 2021 demonstrates bilateral hydronephrosis more prominent on the right than the left. There is evidence of a right inguinal hernia at that time with small bowel involvement. The patient's previous appointment was because ofsymptomatic pain in the left groin area and a known left inguinal hernia. I hadeyaden discussed with the patient that time potential need for left orchiectomy. His care is complicated by the fact that he has a left lower quadrant permanent stoma in place. He presents today in quite a good mood. He has no particular complaints. He states although he did have some swelling in the left groin postoperatively but that subsequently has resolved. He only has some mild residual tenderness. He is quite pleased with the results of the surgery. States that he has had no legswelling these had no respiratory issues ROS General General: Yes weight change, fatigue, colon cancer and weakness; No appetite or breast cancer HEENT HEENT: No difficulty swallowing, eye injury, eye surgery, swollen glands or hoarseness Endo Endocrine: Yes thyroid disease; No diabetes mellitus, thyroid cancer, Hair loss, heat intolerance or cold intolerance Skin Skin: No rash or changing moles Breast Breast: No left breast lump, right breast lump, nipple discharge, breast pain, abnormal mammogram, abnormal US or breast enlargement Musc Musculoskeletal: Yes back problems and arthritis; No rheumatoid arthritis, gout or joint pain Cardio Cardiovascular: Yes heart disease, high blood pressure and heart stent; No murmur, pacemaker, atrial fibrillation, heart attack, palpitations, shortnessof breat with exertion or chest pain Psych Psychiatric: Yes anxiety; No depression or hearing voices Resp Respiratory: No shortness of breath, No sleep apnea, No cough, No COPD, No asthma, No emphysema and No wheezing Gastro Gastrointestinal: No abdominal pain, No nausea or vomiting, No diarrhea, No constipation, No blood in stool, No acid reflux, No hemorrhoids, No ulcers, No gallbladder problem and No black,tarry stools Abbe Hematologic: No blood thinners, No blood disorders, No bleeding, No anemia and No blood clots Additional Details: Baby aspirin daily Neuro Neurologic: No system reviewed and no additional complaints, except as documented, No as per HPI, No abnormal gait, No abnormal hearing, No abnormal movements, No abnormal speech, No behavioral changes, No burning sensations, No confusion, No convulsions, No disequilibrium, No dizziness, No localized weakness, No frequent falls, No headache(s), No lack of coordination, No loss ofvision, No memory loss, No numbness, No other visual disturbances, No radicular pain, No restless legs, No sensory deficit, No syncope, No tingling, No tremor(s), Yes weakness and No other (Walks with cane) Exam Const General: cooperative, comfortable and no acute distress Nutritional Appearance: obese HENMT Head: normal to inspection Eyes General: appearance normal, both eyes and all related structures Neck Neck: normal visual inspection Chest Chest palpation & inspection: normal inspection of the chest Resp Effort & Inspection: normal respiratory effort Auscultation: clear to auscultation bilaterally Cardio Rate: regular rate Rhythm: regular rhythm GI Palpation: soft and no hepatosplenomegaly Other: Permanent stoma with stoma bag left lower quadrant Other: Nicely healed transverse left groin incision. Nontender. Solid and intact. Testicles descended. Right groin with obvious hernia consistent with small bowel within the hernia extending all the way down to the testicle in the scrotum, reducible Skin General: no rashes or lesions noted Neuro General: patient alert and patient awake Extrem General: no calf tenderness Psych Appearance: grossly normal Assessment and Plan Assessment and Plan (1) Inguinal hernia of right side without obstruction or gangrene: Status: Acute Plan: I recommended the patient a right inguinal hernia repair with mesh. We have discussed the technique, benefit, risk, alternatives. Because of the extensiveness of his previous left inguinal hernia. He did require general anesthetic for that and he has quite a sizable hernia on the right so I am expecting the same. He has had an opportunity to ask and have questions answered. We will schedule procedure at his discretion. I appreciate the ongoing opportunity of assisting with the surgical care. Copy: Dr. Chaitanya Gillis M.D., F.A.C.S I have examined the patient and the H&P has been reviewed. There are no clinicalchanges since date of exam. Blair Gillis M.D., F.A.C.S. 10/08/23 0838 <Electronically signed by Blair Gillis MD> Cosigner Signature (if applicable): CC: Dr. Chaitanya Gardner MD; Dr. Blair Gillis MD~ Signed [facility] Work Phone: 1(443) 225-773311-09-2023 Discharge summary Author Blair Gillis [facility] June 11, 2023 1:19pm Note Date/Time June 11, 2023 1 1:01am [facility] Medical Records Department [address] [place] [address] Instructions for Home/Discharge Instructions 06/11/23 1101 MR#: [id number] Acct: [id number] Name: HUONG BATES Rep #:[id number] : 1945 77 From: Blair Gillis MD PCP: Dr. Chaitanya Gardner MD Status:[facility] Discharge Instructions Procedure General Surgery Diet Discharge Diet: Light diet - advance as tolerated (if you have questions about your diet instructions, please talk to you doctor.) Activity Discharge Activity: May Not Drive (for 3-5 days or while taking narcotic pain medicine.) May shower in (days): 1 Lifting Restrictions: 10 pounds Dressing / Incision Call your doctor if your incision/area has: Continuous Slow Oozing, Sudden Increased Bleeding, Increased Pain/ Swelling, Increased Redness and Foul Smelling Discharge Call your doctor if you observe: Fever of 101 or Higher Suture Line Care: Avoid Pulling/Pushing and Avoid Pinching/Bending Additional Dressing/Incision Instructions:: Change or remove dressing in 4 days. Leave steri-strips in place for 1 week. Follow Up Care Please Follow Up With: Blair Gillis MD When: Call [phone] to make an appointment to be seen in about 10 days. Test Results: Test results from this visit will be discussed in further detail at your follow- up appointment, if applicable. Discharge Plan Admission Attending Provider: Blair Gillis Primary Care Provider: Chaitanya Gardner Discharge Orders/Prescriptions Prescriptions: No Action ferrous sulfate 325 mg (65 mg iron) tablet 325 mg PO BID finasteride 5 mg tablet 5 mg PO DAILY carvedilol 3.125 mg tablet 3.125 mg PO BID Qty: 180 3RF isosorbide mononitrate 30 mg tablet extended release 24 hr 30 mg PO DAILY Qty: 90 3RF ascorbic acid (vitamin C) 1,000 mg tablet 1 g PO DAILY lisinopril 10 mg tablet 10 mg PO DAILY rosuvastatin 40 mg tablet 40 mg PO DAILY fenofibrate nanocrystallized 145 mg tablet 145 mg PO DAILY potassium chloride 10 mEq tablet,ER particles/crystals 10 meq PO DAILY acetaminophen 500 MG tablet 650 mg PO PRN PRN (Reason: Pain) levothyroxine 50 MCG tablet 50 mcg PO DAILY cyanocobalamin (vitamin B-12) 1,000 MCG/ML solution 1,000 mcg IM Q30D furosemide 40 MG tablet 40 mg PO DAILY Qty: 30 0RF tamsulosin 0.4 MG capsule 0.4 mg PO DAILY@1730 Qty: 30 0RF aspirin 81 MG tablet,chewable 81 mg PO DAILY@0800 0RF ondansetron 4 mg tablet,disintegrating 4 mg PO Q6H PRN (Reason: nausea and vomiting) Qty: 7 0RF cholecalciferol (vitamin D3) 125 mcg (5,000 unit) tablet 250 mcg PO DAILY Other Ambulatory Orders: 12 Lead EKG (Routine) Timeframe: 20230604 Location: None Selected Ordered By: Dr. Blair Gillis Referrals / Follow Up: Chaitanya Gardner MD [Primary Care Provider] - Disposition Disposition (needs filled in before D/C Order can be placed): Home, Self Care 06/11/23 1319<Electronically signed by Blair Gillis MD>Blair Gillis MD CC: Dr. Chaitanya Gardner MD ~ Signed [facility] Work Phone: 1(780) 787-889011-09-2023 History and physical note Author Blair Gillis [facility] June 11, 2023 11:01am Note Date/Time June 11, 2023 1 1:01am [facility] Medical Records Department [address] [place] [address] History & Physical Exam 06/11/23 1059 MR#: [id number] Acct: [id number] Name: HUONG BATES Rep #:[id number] : 1945 77 From: Blair Gillis MD PCP: Dr. Chaitanya Gardner MD Status:[facility] Location: [place] [address] History and Physical Date of Admission: 06/11/23 Visit Reasons: DISCUSS AFTER SURGERY CARE Chief Complaint: discuss after surgery care [employer] Counselor Required: No Accompanied by: Is patient in pain?: No Allergies No Known Allergies Allergy (Verified 06/09/23 13:57) Medications acetaminophen 500 mg tablet 650 mg PO PRN PRN Pain 03/09/19 [History Confirmed 06/09/23] levothyroxine 50 mcg tablet 50 mcg PO DAILY thyroid 03/09/19 [History Confirmed 06/09/23] cyanocobalamin (vitamin B-12) 1,000 mcg/mL injection solution 1,000 mcg IM Q30D vitamin 04/06/19 [History Confirmed 06/09/23] aspirin 81 mg chewable tablet 81 mg PO DAILY@0800 09/27/19 [Rx Confirmed 06/09/23] furosemide 40 mg tablet 40 mg PO DAILY #30 tabs 09/27/19 [Rx Confirmed 06/09/23] tamsulosin 0.4 mg capsule 0.4 mg PO DAILY@1730 #30 caps 09/27/19 [Rx Confirmed 06/09/23] carvedilol 3.125 mg tablet 3.125 mg PO BID #180 tabs 10/24/19 [Rx Confirmed 06/09/23] ferrous sulfate 325 mg (65 mg iron) tablet 325 mg PO BID 10/24/19 [History Confirmed 06/09/23] finasteride 5 mg tablet 5 mg PO DAILY 10/24/19 [History Confirmed 06/09/23] isosorbide mononitrate 30 mg tablet,extended release 24 hr 30 mg PO DAILY #90 tabs 10/24/19 [Rx Confirmed 06/09/23] ascorbic acid (vitamin C) 1,000 mg tablet 1 g PO DAILY 01/07/21 [History Confirmed 06/09/23] ondansetron 4 mg disintegrating tablet 4 mg PO Q6H PRN nausea and vomiting #7 tabs 05/02/22 [Rx Confirmed 06/09/23] fenofibrate nanocrystallized 145 mg tablet 145 mg PO DAILY 04/27/23 [History Confirmed 06/09/23] lisinopril 10 mg tablet 10 mg PO DAILY 04/27/23 [History Confirmed 06/09/23] potassium chloride 10 mEq tablet,extended release(part/cryst) 10 meq PO DAILY 04/27/23 [History Confirmed 06/09/23] rosuvastatin 40 mg tablet 40 mg PO DAILY 04/27/23 [History Confirmed 06/09/23] cholecalciferol (vitamin D3) 125 mcg (5,000 unit) tablet 250 mcg PO DAILY 04/28/23 [History Confirmed 06/09/23] [facility] Medical History Acute CHF Arthritis Atherosclerosis of [place] coronary artery of [place] heart without angina pectoris Cancer Cardiology follow-up encounter Cellulitis of right foot Chest pain 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 Colon cancer Constipation Depression Easy bruising Former smoker Hallux limitus of right foot High cholesterol History of echocardiogram History of stress test Hyperlipidemia Hyperlipidemia Hypokalemia Hypothyroidism Inguinal hernia of left side without obstruction or gangrene Intraoperative ureteral injury Localized edema Loss of hearing Low iron Nausea and vomiting Pericardial effusion Prostate disease Rectal cancer Right foot ulcer SBO (small bowel obstruction) Sciatic leg pain Thyroid disease Uses wheelchair Wears glasses Wears hearing aid Wears partial dentures Surgical History History of cardiac catheterization History of colonoscopy History of coronary artery stent placement History of hernia repair History of ileostomy History of left heart catheterization (09/27/19) History of partial colectomy History of ureter repair Stented coronary artery (01/11/20) Family History Other Adopted Social History Smoking Status: Former smoker how long ago did patient quit smokin years ago alcohol intake: never substance use type: does not use caffeine: Yes Type: coffee Number of servings: 1 HPI HPI Surgical H&P: Yes HPI: Patient is a 77 y/o M I am following for an update history and physical for an upcoming elective left inguinal hernia repair with mesh and possible orchiectomywith Dr. Gillis. Patient denies any recent hospitalizations or illnesses. Patient's notes he has nausea and can be combative following anesthesia. Patient denies any increased pain at the hernia site. He notes he has to have surgery completed as the hernia causes discomfort even with sitting. Patient states he has multiple cardiac stents placed in 2019. He is maintained on a daily aspirin. Patient's previous history per Dr. Gillis: 77-year-old gentleman is being referred by Dr. Chaitanya Gardner for surgical consultation regarding a left inguinal hernia and a written copy of my surgical consult recommendations will return to him. The patient has a history December 07, [address] Vásquez of a laparoscopic-assisted low anterior resection followed by colostomy formation and treatment of rectal cancer there was a left ureteral injury. The patient was referred to [facility]. Since that time he has had 2 separate hospitalizations at the [facility] for small bowel obstruction. Per Dr. Bertin Cohn January 11, 2020 the patient had PTCA with stenting of the proximal PL branch and of the mid RCA. States he has had 3 separate left abdomen stoma placements. That he has had some type of ventral hernia. He had extensive care done at the [facility]. He notes left groin bulging progressively getting worse over the past month. He does not recall any colon surgery. He did have imaging done at the [facility] per Dr. Bola Monson lung oncology on October 08, 2021 which did notdemonstrate any evidence of disease and the patient by his words were instructedthat he was clear of disease. CAT scan done 10/08/2021 shows mild bilateral hydronephrosis more prominent on the right. There is evidence of right inguinalhernia at that time with some small bowel involvement. No mass or adenopathy. The patient's concern however is regarding the left groin currently. He states that both sides slightly diminished when he is supine. He has never had to manually reduce the area. Nocturia x1 He denies history of myocardial infarction or stroke or DVT. He is noted to be borderline diabetic. He has nocturia x1 and is on tamsulosin therapy. ROS General General: Yes weight change, fatigue, colon cancer and weakness; No appetite or breast cancer HEENT HEENT: No difficulty swallowing, eye injury, eye surgery, swollen glands or hoarseness Endo Endocrine: Yes thyroid disease; No diabetes mellitus, thyroid cancer, Hair loss, heat intolerance or cold intolerance Skin Skin: No rash or changing moles Breast Breast: No left breast lump, right breast lump, nipple discharge, breast pain, abnormal mammogram, abnormal US or breast enlargement Musc Musculoskeletal: Yes back problems and arthritis; No rheumatoid arthritis, gout or joint pain Cardio Cardiovascular: Yes heart disease, high blood pressure and heart stent; No murmur, pacemaker, atrial fibrillation, heart attack, palpitations, shortnessof breat with exertion or chest pain Psych Psychiatric: Yes anxiety; No depression or hearing voices Resp Respiratory: No shortness of breath, No sleep apnea, No cough, No COPD, No asthma, No emphysema and No wheezing Gastro Gastrointestinal: No abdominal pain, No nausea or vomiting, No diarrhea, No constipation, No blood in stool, No acid reflux, No hemorrhoids, No ulcers, No gallbladder problem and No black,tarry stools Abbe Hematologic: No blood thinners, No blood disorders, No bleeding, No anemia and No blood clots Additional Details: Baby aspirin daily Neuro Neurologic: No system reviewed and no additional complaints, except as documented, No as per HPI, No abnormal gait, No abnormal hearing, No abnormal movements, No abnormal speech, No behavioral changes, No burning sensations, No confusion, No convulsions, No disequilibrium, No dizziness, No localized weakness, No frequent falls, No headache(s), No lack of coordination, No loss ofvision, No memory loss, No numbness, No other visual disturbances, No radicular pain, No restless legs, No sensory deficit, No syncope, No tingling, No tremor(s), Yes weakness and No other (Walks with cane) Exam Const General: cooperative, comfortable and no acute distress Other: Patient is very hard of hearing [facility] Head: normal to inspection Eyes General: appearance normal, both eyes and all related structures Neck Neck: normal visual inspection Neck mass: No Chest Chest palpation & inspection: normal inspection of the chest Resp Effort & Inspection: normal respiratory effort Auscultation: clear to auscultation bilaterally Cardio Rate: regular rate Rhythm: regular rhythm GI Other: Left mid abdomen- colostomy intact. Well healed midline abdominal incision. Other: Left groin- significantly large inguinal hernia with palpable bowel involvement.Partially reducible. Right groin- large inguinal with palpable bowel involvement. Reducible. No mass bilateral testicles Musc Cervical Spine: normal cervical lordosis Skin General: no rashes or lesions noted Neuro General: no focal motor deficits and CN's II-XI intact bilaterally Extrem General: normal to inspection Psych Appearance: grossly normal Affect: normal affect Assessment and Plan Assessment and Plan (1) Bilateral inguinal hernia: Status: Acute Qualifiers: Obstruction and gangrene presence: without obstruction or gangrene Recurrence: non-recurrent Qualified Code(s): K40.20 - Bilateral inguinal hernia, without obstruction or gangrene, not specified as recurrent Plan: Dr. Gillis will plan to perform an open left inguinal hernia repair with mesh andpossible orchiectomy. Procedure details, risks and benefits have been explained and reviewed. Patient and his , with daughter on speaker phone, had numerousquestions that were answered. Patient verbally understands and agrees with the plan. Patient will have a staged hernia repair. An open right inguinal hernia repair with mesh will be performed in 3 to 6 months following recovery of this current scheduled procedure. Patient will need to hold his aspirin for 3 days prior to the procedure. Patient's procedure will be completed under general anesthesia. POst-opertaive instructions were provided to the patient and his . I have examined the patient and the H&P has been reviewed. There are no clinicalchanges since date of exam. Blair Gillis M.D., F.A.C.S. 06/11/23 1101 <Electronically signed by Blair Gillis MD> Cosigner Signature (if applicable): CC: Dr. Chaitanya Gardner MD; Dr. Blair Gillis MD~ Signed [facility] Work Phone: 1(507) 806-384011-09-2023 Procedure [facility] 03-24-2022 History of Present illness Narrative* Bola Monson MD - 03/24/2022 11:14 AM EDT PATIENT NAME: Huong Bates. CLINIC NO: [id number]. ATTENDING PHYSICIAN: Bola Monson MD. DATE OF SERVICE: 03/24/2022 DIAGNOSIS: Rectal cancer. Clinical stage 2, T3, N0 -Chronic thrombocytopenia HPI: 75-year-old gentleman with history of hypertension and hypothyroidism present to family physician office with anemia. Patient also has noticed on and off rectal bleeding and increased constipation problems since last summer. He has no abdominal pain or weight loss. He was referred to Dr. Ward for endoscopy and colonoscopy. He had a colonoscopy last month which showed hyperplastic and tubular adenoma polyps, and invasive moderately differentiated adenocarcinoma at 10cm from the anal verge. He had CT chest abdomen pelvis and MRI scan of the pelvis relation and staging of rectal cancer. CTscan of the abdomen and pelvis also show a heterogeneously enlarged prostate. He has seen Dr. Ovalle in the summer and prostate exam showed an enlarge prostate and an elevated PSA 5.8. He has no familyhistory or personal history of prostate cancer. Patient has no urinary symptoms including urgency an d hesitancy or hematuria. MRI indicate a low - mid rectal tumor at least stage T3b and N1. The tumor extended to the anorectal angle and extent within 1 mm of the distal rectal fascia. Patient deniesany rectal pain or urgency. His CEA level was 2.5. CT scans otherwise showed no evidence of metastatic disease. Patient seen Dr. Noonan regarding his enlarged prostate and elevated PSA level last week. Despite hislow free PSA ratio, Dr. Noonan does not feel that patient require surgery even if he has prostate cancer. He would offer him endocrine therapy or cryotherapy if prostate cancer is detected in the future. Neoadjuvant chemotherapy: Capcitabine & radiation therapy ( completed on 10/20/2018 ) He underwent recent lap-assisted LAR involving LHC with colostomy formation (12/07/18, Dr. Ward) but unfortunately this was complicated intraoperative left ureteral injury identified intraoperativelyand managed with abdominal drains. Post op course c/b AMS, chronic thrombocytopenia, DARIAN, blood transfusion for anemia. He was transferred to [facility] 3 weeks ago for further management of ureteral injury. Pathology: Residual tumor cells seen in distal margin, but no tumor visible at the sigmoid colon resection, no lymph nodes were identified. ypT0, pNx. ( Complete staging cannot be assessed ) Adjuvant chemotherapy: Capcitabine He had an Exploratory laparotomy, takedown of midline incisional hernia, comprehensive adhesiolysis, dissection of omentum off transverse colon, mobilization of entire right and transverse colon, takedown of prolapsed double- barrel ileostomy and resection of parastomal hernia sac after repositioning of hernia contents, transection of mid transverse colon in discontinuity according to Enoc's and creation of new left-sided end colostomy in April 2021. Interim history: It has been 3 years since he completed neoadjuvant chemotherapy and radiation therapy for stage 3 rectal cancer. He had a pathological complete response. However, he had multiple complications from his surgery with a permanent colostomy. He denies abdominal pain, bloating, or weight loss. He has no difficulty with urination. No problem with appetite, and he is very active at home. He has no fatigue despite his anemia. He denies chest pain, or angina symptom. No increased bleeding or bruising with chronic thrombocytopenia. All medications & allergies updated and reviewed by me. REVIEW OF SYSTEMS: CONSTITUTIONAL: No fevers, chills, nightsweats, unintended weight loss HEENT: Denies frequent or severe heaches, nasal congestion/sinus symptoms, problematic allergy problems. + Decreased hearing EYES: No diplopia or blurry vision. CARDIOVASCULAR: No chest pain, dyspnea, palpitations, orthopnea, PND, ankle edema. PULM: No dyspnea, unexplained cough. GI: No dysphagia/odynophagia, problematic reflux, constipation, diarrhea, changes in stool habits, hematochezia/ rectal bleeding, no melena. NEURO: No new balance problems, peripheral weakness/paresthesias or numbness of concern. MUSC-SKEL: No new joint pain, swelling, or erythema. PSY: No concerns regarding depression, anxiety or panic. INTEGUMENTARY: No new skin changes (rash, new or changing mole, new growth) PHYSICAL EXAMINATION: 76-year-old gentleman appeared to be distress Performance status 90% BP 156/86 Pulse 68 Temp (Src) 97.6 (Temporal) Wt 244 lb (110.7kg) SpO2 100% HEENT: Head is normocephalic, atraumatic. Sclerae white, conjunctivae pink. PEERL. EOMs are intact.Oropharynx is benign. LYMPHATICS: There is no palpable adenopathy in the neck, supraclavicular region, axillae, or groin. LUNGS: Lungs are clear to percussion and auscultation. HEART: Heart is normal without murmurs, gallops, or rubs. ABDOMEN: Soft and nontender without organomegaly. No masses can be palpated. Permanent colostomy. RECTAL: Deferred EXTREMITIES: Are without edema. No petechiae or ecchymosis NEUROLOGIC: Exam is physiologic LABS Component Latest Ref Rng & Units 03/20/2022 WBC 3.70 - 11.00 k/uL 5.66 RBC 4.20 - 6.00 m/uL 3.91 (L) Hemoglobin 13.0 - 17.0 g/dL 12.9 (L) Hematocrit 39.0 - 51.0 % 37.7 (L) MCV 80.0 - 100.0 fL 96.4 MCH 26.0 - 34.0 pg 33.0 MCHC 30.5 - 36.0 g/dL 34.2 RDW-CV 11.5 - 15.0 % 13.1 Platelet Count 150 - 400 k/uL 79 (L) MPV 9.0 - 12.7 fL 10.4 Neut% % 72.3 Abs Neut (ANC) 1.45 - 7.50 k/uL 4.10 Lymph% % 17.5 Abs Lymph 1.00 - 4.00 k/uL 0.99 (L) Tama% % 6.9 Abs Tama <0.87 k/uL 0.39 Eosin% % 2.5 Abs Eosin <0.46 k/uL 0.14 Baso% % 0.4 Abs Baso <0.11 k/uL <0.03 Immature Gran % % 0.4 IMMATURE GRANS (ABS) <0.10 k/uL <0.03 NRBC /100 WBC 0.0 Absolute nRBC <0.01 k/uL <0.01 DTYPE Auto Component Latest Ref Rng & Units 03/20/2022 Iron 41 - 186 ug/dL 65 TIBC 232 - 386 ug/dL 250 Transferrin Saturation 15.0 - 57.0 % 26.0 Ferritin 30.3 - 565.7 ng/mL 276.0 Component Latest Ref Rng & Units 03/20/2022 Protein, Total 6.3 - 8.0 g/dL 6.4 Albumin 3.9 - 4.9 g/dL 4.0 Calcium 8.5 - 10.2 mg/dL 8.7 Bilirubin, Total 0.2 - 1.3 mg/dL 0.6 Alkaline Phosphatase 38 - 113 U/L 102 AST 14 - 40 U/L 19 ALT 10 - 54 U/L 22 Glucose 74 - 99 mg/dL 126 (H) BUN 9 - 24 mg/dL 17 Creatinine 0.73 - 1.22 mg/dL 1.26 (H) Sodium 136 - 144 mmol/L 138 Potassium 3.7 - 5.1 mmol/L 4.1 Chloride 97 - 105 mmol/L 105 CO2 22 - 30 mmol/L 23 Anion Gap 9 - 18 mmol/L 10 eGFR >=60 mL/min/1.73m 59 (L) CEA <=2.9 ng/mL 0.6 ASSESSMENT/PLAN: 76-year-old gentleman with clinical stage II T3, N0, mid rectal cancer at 10cm from anal verge. - Status post lap-assisted LAR involving [facility] with colostomy formation (12/07/18, Dr. Ward) but unfortunately this was complicated intraoperative left ureteral injury. Pathologic complete response yT0, Nx with neoadjuvant chemoradiation therapy. TONYA -He now has a permanent colostomy Plan: -Return as needed visit -Discuss with PCP for follow up colonoscopy vs annual fecal occult testing 2) Anemia of chronic disease; stage 3a chronic renal failure (eGFR 59) -Stable and asymptomatic on iron replacement Plan: -Continue iron twice daily -Follow-up with PCP regarding treatment of hypertension and chronic kidney disease. 3) chronic thrombocytopenia -Asymptomatic Plan: -Continue aspirin 81 mg once daily Portions of this documentation were copied and pasted from previous office visit notes in order to provide a cohesive continuity of the history. The note has been reviewed and edited and updated as necessary. Bola Monson MD Cc: MD Garcia Silverman MD documented in this encounterA[facility] Miscellaneous Notes* Telephone Encounter - Briseida Hanna - 02/07/2022 3:10 PM EDT Pt returned call and r/s * Telephone Encounter - Paradise Corrales Pss - 02/07/2022 2:35 PM EDT Message left for patient to contact office. Dr. Monson will be out of office in April. Document and close once rescheduled. documented in this encounterAcm[facility]09-24-2021 History of Past illness Narrative* Problem Noted Date Resolved Date Hypophosphataemia 04/26/2021 05/02/2021 Last Assessment & Plan: PLAN: -replace per protocol if phos <2.5 -monitor with labs Hypokalemia 04/26/2021 05/02/2021 Last Assessment & Plan: PLAN: -replace per protocol if K<4 -monitor with labs Ileus following gastrointestinal surgery 021 05/02/2021 Last Assessment & Plan: ASSESSMENT: -patient with pain/bloating overnight into POD 2 -NG placed briefly prior to patient removing PLAN: -resolved -again has issues with nausea/vomiting on POD 5 -having high colostomy function; could be post-obstructive -okay to continue with GIS diet -encourage ambulation/OOB as much as possible Hypomagnesemia 04/25/2021 05/02/2021 Last Assessment & Plan: PLAN: -replace per protocol if Mg<2 -monitor with labs Hyponatremia 07/20/2019 05/02/2021 Last Assessment & Plan: PLAN: -goal to keep >135 -monitor with labs Increased ileostomy output 06/16/201906/23 Last Assessment & Plan: Imodium IVF with bolus Elevated serum creatinine 06/16/20192018 Last Assessment & Plan: Trend Ceratinine IVF with bolus Imodium for high stoma output documented as of this encounter (statuses as of 02/07/2022) [facility] History of Past illness Narrative* Problem Noted Date Resolved Date Hypophosphataemia 04/26/2021 05/02/2021 Last Assessment & Plan: PLAN: -replace per protocol if phos <2.5 -monitor with labs Hypokalemia 04/26/2021 05/02/2021 Last Assessment & Plan: PLAN: -replace per protocol if K<4 -monitor with labs Ileus following gastrointestinal surgery 021 05/02/2021 Last Assessment & Plan: ASSESSMENT: -patient with pain/bloating overnight into POD 2 -NG placed briefly prior to patient removing PLAN: -resolved -again has issues with nausea/vomiting on POD 5 -having high colostomy function; could be post-obstructive -okay to continue with GIS diet -encourage ambulation/OOB as much as possible Hypomagnesemia 04/25/2021 05/02/2021 Last Assessment & Plan: PLAN: -replace per protocol if Mg<2 -monitor with labs Hyponatremia 07/20/2019 05/02/2021 Last Assessment & Plan: PLAN: -goal to keep >135 -monitor with labs Increased ileostomy output 06/16/201906/23 Last Assessment & Plan: Imodium IVF with bolus Elevated serum creatinine 06/16/20192018 Last Assessment & Plan: Trend Ceratinine IVF with bolus Imodium for high stoma output documented as of this encounter (statuses as of 03/25/2022) [facility]06[facility] Evaluation note* Diagnosis Onset Date Resolution Status [id number] chronic Hyperlipidemia chronic Stented coronary artery January 11, 2020 c [facility] Work Phone: Evaluation note* Diagnosis Rectal cancer (HCC)- Primary Malignant neoplasm of rectum Anemia due to stage 3a chronic kidney disease (HCC) Thrombocytopenia (HCC) Thrombocytopenia, unspecified documented in this encounter [facility]* Diagnosis Onset Date Resolution Status Preoperative cardiovascular examination acute [id number] chronic Hyperlipidemia chronic Inguinal hernia of left side without obstruction or gangrene acute Bilateral inguinal hernia ac [facility] Work Phone: Evaluation note* Diagnosis Onset Date Resolution Status Bilateral inguinal hernia ac [facility]zer Inguinal hernia of right david e without obstruction or gangrene acute [facility] Work Phone: Evaluation note* Diagnosis Onset Date Resolution Status Inguinal hernia of right david e without obstruction or gangrene acute Inguinal hernia of right david e without obstruction or gangrene acute Dyspnea on minimal exertion acute [id number] chronic Hyperlipidemia chronic [facility] Work Phone: Evaluation note* Diagnosis Postoperative pain Other acute postoperative pain Delirium Other alteration of consciousness Hx of delirium Personal history of other mental disorder Polypharmacy Encounter for long-term (current) use of other medications Severe protein-calorie malnutrition (HCC) Other severe protein-calorie malnutrition Ileostomy in place (HCC) Ileostomy status Intraoperative ureteral injury Urinary complications Post-operative state Other postprocedural status Delirium Other alteration of consciousness Severe protein-calorie malnutrition (HCC) Other severe protein-calorie malnutrition Increased ileostomy output (HCC) Other symptoms involving digestive system Elevated serum creatinine Other nonspecific findings on examination of blood Hyponatremia Hyposmolality and/or hyponatremia Hypophosphataemia Attention to ileostomy (HCC) Attention to ileostomy Rectal cancer (HCC) Malignant neoplasm of rectum Post-op pain Other acute postoperative pain Coronary artery disease involving [place] coronary artery of [place] heart without angina pectoris Controlled type 2 diabetes mellitus without complication, without long-term current use of insulin (HCC) Hypothyroidism Unspecified hypothyroidism Essential hypertension Unspecified essential hypertension Mixed hyperlipidemia Bladder outlet obstruction Bladder neck obstruction Attention to ileostomy (HCC) Attention to ileostomy Colostomy in place (HCC) Colostomy status Obesity, Class I, BMI 30-34.9 Obesity, unspecified Hypomagnesemia Disorders of magnesium metabolism Hypophosphataemia Hypokalemia Hypopotassemia Hyponatremia Hyposmolality and/or hyponatremia Ileus following gastrointestinal surgery (HCC) Other digestive system complications Pre-op evaluation- Primary Preoperative examination, unspecified Coronary artery disease involving [place] coronary artery of [place] heart without angina pectoris Essential hypertension Unspecified essential hypertension Mixed hyperlipidemia Bladder outlet obstruction Bladder neck obstruction Renal failure, unspecified chronicity Hypothyroidism, unspecified type Ulcer of toe of right foot, with fat layer exposed (HCC)- Primary Hammertoe of right foot Diminished pulses in lower extremity Other symptoms involving cardiovascular system [facility] Diagnosis Postoperative pain Other acute postoperative pain Delirium Other alteration of consciousness Hx of delirium Personal history of other mental disorder Polypharmacy Encounter for long-term (current) use of other medications Severe protein-calorie malnutrition (HCC) Other severe protein-calorie malnutrition Ileostomy in place (HCC) Ileostomy status Intraoperative ureteral injury Urinary complications Post-operative state Other postprocedural status Delirium Other alteration of consciousness Severe protein-calorie malnutrition (HCC) Other severe protein-calorie malnutrition Increased ileostomy output (HCC) Other symptoms involving digestive system Elevated serum creatinine Other nonspecific findings on examination of blood Hyponatremia Hyposmolality and/or hyponatremia Hypophosphataemia Attention to ileostomy (HCC) Attention to ileostomy Rectal cancer (HCC) Malignant neoplasm of rectum Post-op pain Other acute postoperative pain Coronary artery disease involving [place] coronary artery of [place] heart without angina pectoris Controlled type 2 diabetes mellitus without complication, without long-term current use of insulin (HCC) Hypothyroidism Unspecified hypothyroidism Essential hypertension Unspecified essential hypertension Mixed hyperlipidemia Bladder outlet obstruction Bladder neck obstruction Attention to ileostomy (HCC) Attention to ileostomy Colostomy in place (HCC) Colostomy status Obesity, Class I, BMI 30-34.9 Obesity, unspecified Hypomagnesemia Disorders of magnesium metabolism Hypophosphataemia Hypokalemia Hypopotassemia Hyponatremia Hyposmolality and/or hyponatremia Ileus following gastrointestinal surgery (HCC) Other digestive system complications Pre-op evaluation- Primary Preoperative examination, unspecified Coronary artery disease involving [place] coronary artery of [place] heart without angina pectoris Essential hypertension Unspecified essential hypertension Mixed hyperlipidemia Bladder outlet obstruction Bladder neck obstruction Renal failure, unspecified chronicity Hypothyroidism, unspecified type Ulcer of toe of right foot, with fat layer exposed (HCC) Hammertoe of right foot documented in this encounter [facility] Discharge instructions Additional Instructions Your blood pressure twice daily. Write those down. When you follow-up with your doctor in a week he can use that information to change or adjust your blood pressure medication if needed. Zofran as needed for nausea if you are not nauseated you do not need to take it at all.[facility] Work Phone: Reason for referral (narrative)No reason for referral information [facility] Work Phone: Reason for visit Narrative* Diagnostic Procedure Only (Routine) - Closed Specialty Diagnoses / Procedures Referred By Contac t Referred To Contact XR IMAGING Diagnoses Ulcer of toe of right foot, with fat layer exposed (HCC) Hammertoe of right foot Procedures XR TOE AP/LAT/OBL RIGHT RADEX TOE MINIMUM 2 VIEWS [place], Neftaly [address] [place] [address] Phone: tel: fax: [place] [address] Referral ID Status Reason Start Date Expiration Date V isits Requested Visits Authorized [id number] Closed Auto-Generate d Referral 04/11/2025 05/11/2026 1 1 [facility] Summary Purpose Family History No Family History Records Found Relationship Condition Age at Onset Recorded Date/T bruno Not Specified Adopted Unknown Advance Directives No Advanced Directives Records FoundDocuments on File Type Date Recorded Patient Manager Oracle Expl anation Advance Directive(s) 04/24/2021 8:53 AM Advance Directive(s) 04/24/2021 10:11 AM Advance Directive(s) 04/03/2021 11:01 AM Advance Directive(s) 12/18/2019 12:06 PM Advance Directive(s) 07/05/2019 7:03 AM Advance Directive(s) 05/13/2019 9:25 AM Advance Directive(s) 05/13/2019 9:26 AM Advance Directive(s) 12/16/2018 3:28 PM Documents on File Type Date Recorded Patient Manager Oracle Expl anation Advance Directive(s) 04/24/2021 10:11 AM Advance Directive(s) 05/13/2019 9:26 AM Advance Directive Response Recorded Date/ Time Name of Medical Power of Take Away Man agustin [facility]abazz [facility]- May 02, 2022 10:02am Advance Directives Yes January 10 7:53am Living Will Yes May 02, 2022 10:02am Power of Take Away Man Yes April 10:02am Advance Directive Response Recorded Date/ Time Name of Medical Power of Take Away Man June 03, 2023 1:37pm Advance Directives Yes January 10 6:53am Living Will Yes June 03 1:37pm Power of Take Away Man Yes June 03, 2023 1:37pm Advance Directive Response Recorded Date/ Time Name of Medical Power of Take Away Man on file September 23, 2023 2:48pm Advance Directives Yes January 10 6:53am Living Will Yes September 23, 024 2:48pm Power of Take Away Man Yes September 23, 2023 2:48pm Name of Medical Power of Take Away Man June 03, 2023 1:37pm Advance Directive Response Recorded Date/ Time Name of Medical Power of Take Away Man on file September 23, 2023 3:48pm Advance Directives Yes January 10 7:53am Living Will Yes September 23, 2 024 3:48pm Power of Take Away Man Yes September 23, 2023 3:48pm Advance Directive Response Recorded Date/ Time Advance Directives Yes January 10 7:53am Documents on File Type Date Recorded Patient Manager Oracle Expl anation Advance Directive(s) 04/24/2021 10:11 AM Advance Directive(s) 05/13/2019 9:26 AM Chief Complaint and Reason for Visit Chief Complaint 6 M FU high BP and 'sick' Reason for Visit [id number] Hyperlipidemia Stented coronary artery Chief Complaint 1 Y FU INGUINAL HERNIA Pelvic and perineal pain DISCUSS AFTER SURGERY CARE Hernia,Open Inguinal w/ Mesh Hernia,Open Inguinal w/ Mesh Reason for Visit Preoperative cardiov ascular examination [id number] Hyperlipidemia Inguinal hernia of left side without obstruction or gangrene Bilateral inguinal hernia Chief Complaint Hernia,Open Inguinal w/ Mesh Hernia,Open Inguinal w/ Mesh SURGERY 06/11 FU HERNIA REPAIR/update H&P PREOP Hernia, Open right Inguinal w/ Mesh Hernia, Open right Inguinal w/ Mesh Reason for Visit Bilateral inguinal h ernia Inguinal hernia of right side without obstruction or gangrene Chief Complaint FU HERNIA REPAIR/upd ate H&P PREOP Hernia, Open right Inguinal w/ Mesh Hernia, Open right Inguinal w/ Mesh Hernia Surgery 10/07 RC SOB edema: labs and CXR done [place] Reason for Visit Inguinal hernia of r ight side without obstruction or gangrene Inguinal hernia of right side without obstruction or gangrene Dyspnea on minimal exertion [id number] Hyperlipidemia Chief Complaint FU HERNIA REPAIR/upd ate H&P PREOP Hernia, Open right Inguinal w/ Mesh Hernia, Open right Inguinal w/ Mesh Hernia Surgery 10/07 RC SOB edema: labs and CXR done [place] E-ORDER Reason for Visit Inguinal hernia of r ight side without obstruction or gangrene Inguinal hernia of right side without obstruction or gangrene Dyspnea on minimal exertion [id number] Hyperlipidemia Chief Complaint Admit Date RIGHT ELBOW November 23, 2024 1:4 4pm Room 2 November 23, 2024 2:0 6pm right elbow December 28, 2024 12:37 pm Reason for Visit Admit Date Bursitis of right elbow November 23, 2024 1:44pm Chief Complaint Admit Date RIGHT ELBOW November 23, 2024 1:4 4pm Room 2 November 23, 2024 2:0 6pm right elbow December 28, 2024 12:37 pm EORDERS February 13, 2025 7:57 am Reason for Visit Admit Date Bursitis of right elbow November 23, 2024 1:44pm Bursitis of right elbow December 28, 2024 1 2:37pm Chief Complaint Admit Date RIGHT ELBOW November 23, 2024 1:4 4pm Room 2 November 23, 2024 2:0 6pm right elbow December 28, 2024 12:37 pm EORDERS February 13, 2025 7:57 am 6 M FU February 27, 2025 1:50 pm Reason for Visit Admit Date Bursitis of right elbow November 23, 2024 1:44pm Bursitis of right elbow December 28, 2024 1 2:37pm Dyslipidemia February 27, 2025 1:50 pm Hypertension February 27, 2025 1:50 pm Renal insufficiency February 27, 2025 1:50 pm Stented coronary artery February 27, 2025 1:50pm Additional Source Comments (unrecognized sect ion and content) No Status Records FoundNo Status Records FoundNo Status Records FoundNo Status Records FoundNo Status Records Found INFORMATION SOURCE (unrecogn ized section and content) DATE CREATED AUTHOR 07/13/2019 [facility] ([place]) DATE CREATED AUTHOR AUTHOR'S ORGANIZ ATION 09/26/2021 [facility] DATE CREATED AUTHOR AUTHOR'S ORGANIZ ATION 02/28/2025 [facility] DATE CREATED AUTHOR AUTHOR'S ORGANIZ ATION 04/04/2025 [facility] DATE CREATED AUTHOR AUTHOR'S ORGANIZ ATION 06/11/2025 [facility] Source Comments (unrecognize d section and content) In the event this informatio n is protected by the Federal Confidentiality of Alcohol and Drug Abuse Patient Records regulations: The Federal rules restrict any use of the information to criminally investigate or prosecute any alcohol or drug abuse patient.[facility] the event this information is protected by the Federal Confidentiality of Alcohol and Drug Abuse Patient Records regulations: The Federal rules restrict any use of the information to criminally investigate or prosecute any alcohol or drug abuse patient.[facility] the event this information is protected by the Federal Confidentiality of Alcohol and Drug Abuse Patient Records regulations: The Federal rules restrict any use of the information to criminally investigate or prosecute any alcohol or drug abuse patient.[facility] the event this information is protected by the Federal Confidentiality of Alcohol and Drug Abuse Patient Records regulations: The Federal rules restrict any use of the information to criminally investigate or prosecute any alcohol or drug abuse patient.[facility] the event this information is protected by the Federal Confidentiality of Alcohol and Drug Abuse Patient Records regulations: The Federal rules restrict any use of the information to criminally investigate or prosecute any alcohol or drug abuse patient.[facility] Reason for Visit (unrecogniz ed section and content) Reason Comments Appointment Rescheduled Reason Comments Established Patient Reason Comments Appointment Staff infection Reason Comments New Ulcer Care Teams (unrecognized sec tion and content) Client Experience Specialist Relationship Specialty Start Date End Date Chaitanya Gardner MD PCP - General Internal Medicine 08/17/18 Je Noonan MD [address] [place] [address] Specialty Program Assistant Urology 08/24/18 Mari Fernando MD, [address] [place], [place] [id number] Physician Radiation Oncology 08/25/18 Elle Burnette, RN Specialty Adult Psychiatrist Oncology 08/25/18 Bertin Cohn MD Telephonic Case Manager Cardiology 12/05/19 Client Experience Specialist Relationship Specialty Start Date End Date Chaitanya Gardner MD PCP - General Internal Medicine 08/17/18 Je Noonan MD [address] [address] Specialty Program Assistant Urology 08/24/18 Mari Fernando MD, [address] [place], [place] [id number] Physician Radiation Oncology 08/25/18 Elle Burnette RN Specialty Adult Psychiatrist Oncology 08/25/18 Bertin Cohn MD Telephonic Case Manager Cardiology 12/05/19 Team Status: Active Member Role Status Dates Dr. Chaitanya Gardner MD Family Provider Active Dr. Chaitanya Gardner MD Primary Care Provider Active Team Status: Inactive Member Role Status Dates Dr. Chaitanya Gardner MD Primary Care Provider, Referrin g Provider Active Huber Borrego DISPATCH ASSOCIATE, DISPATCH ASSOCIATE-C Attending Provider Active Team Status: Inactive Member Role Status Dates Dr. Chaitanya Gardner MD Primary Care Provider, Referrin g Provider Active Dr. Blair Gillis MD Attending Provider Active Team Status: Inactive Member Role Status Dates Dr. Chaitanya Gardner MD Primary Care Provider, Referrin g Provider Active Bhakti Hunt PA, PA-C Attending Provider Active Team Status: Active Member Role Status Dates Dr. Chaitanya Gardner MD Primary Care Provider Active Dr. Blair Gillis MD Attending Provid er, Referring Provider, Other Provider Active Team Status: Inactive Member Role Status Dates Dr. Chaitanya Gardner MD Primary Care Provider Active Dr. Blair Gillis MD Attending Provider, Referring Provider Active Team Status: Active Member Role Status Dates Dr. Chaitanya Gardner MD Primary Care Provider Active Dr. Dakota Miranda MD Attending Provider Active Dr. Tobin Sullivan MD Referring Provider Active Team Status: Inactive Member Role Status Dates Dr. Chaitanya Gardner MD Primary Care Provider Active Bhakti Hunt PA, PA-C Attending Provider Active Dr. Blair Gillis MD Referring Provider Active Team Status: Inactive Member Role Status Dates Dr. Chaitanya Gardner MD Primary Care Provider, Referrin g Provider Active Emily Leon DISPATCH ASSOCIATE, DISPATCH ASSOCIATE-C Attending Provider Active Team Status: Inactive Member Role Status Dates Dr. Chaitanya Gardner MD Primary Care Provider Active Emily Leon NP, DISPATCH ASSOCIATE-C Attending Provider, Referring P tray Active Team Status: Inactive Member Role Status Dates Dr. Chaitanya Gardner MD Primary Care Provider Active Start: November 23, 2024 End: November 23, 2024 Dr. Chaitanya Gardner MD Referring Provider Active Start: November 23, 2024 End: November 23, 2024 Dr. Daryl Thomas DO Attending Provider Active Start: November 23, 2024 End: November 23, 2024 Team Status: Inactive Member Role Status Dates Dr. Chaitanya Gardner MD Primary Care Provider Active Start: November 23, 2024 End: November 23, 2024 Dr. Dakota Miranda MD Attending Provider Active S tart: November 23, 2024 End: November 23, 2024 Team Status: Inactive Member Role Status Dates Dr. Chaitanya Gardner MD Primary Care Provider Active Start: December 28, 2024 End: December 28, 2024 Dr. Chaitanya Gardner MD Referring Provider Active Start: December 28, 2024 End: December 28, 2024 Dr. Daryl Thomas DO Attending Provider Active Start: December 28, 2024 End: December 28, 2024 Team Status: Active Member Role/Relationship Status Dates Dr. Chaitanya Gardner MD Family Provider Active November SUHAS Pearl-C Primary Care Provider Active Team Status: Inactive Member Role/Relationship Status Dates Dr. Chaitanya Gardner MD Primary Care Provider Active Start: November 23, 2024 End: November 23, 2024 Dr. Chaitanya Gardner MD Referring Provider Active Start: November 23, 2024 End: November 23, 2024 Dr. Daryl Thomas DO Attending Provider Active Start: November 23, 2024 End: November 23, 2024 Team Status: Inactive Member Role/Relationship Status Dates Dr. Chaitanya Gardner MD Primary Care Provider Active Start: November 23, 2024 End: November 23, 2024 Dr. Dakota Miranda MD Attending Provider Active S tart: November 23, 2024 End: November 23, 2024 Team Status: Inactive Member Role/Relationship Status Dates Dr. Chaitanya Gardner MD Primary Care Provider Active Start: December 28, 2024 End: December 28, 2024 Dr. Chaitanya Gardner MD Referring Provider Active Start: December 28, 2024 End: December 28, 2024 Dr. Daryl Thomas DO Attending Provider Active Start: December 28, 2024 End: December 28, 2024 Team Status: Inactive Member Role/Relationship Status Dates November SANTIAGO PearlC Primary Care Provider Active Start: February 13, 2025 End: February 13, 2025 SRIRAM Obrien Attending Provider Active Start: February 13, 2025 End: February 13, 2025 Bárbara BHATIA PA Referring Provider Active Start: February 13, 2025 End: February 13, 2025 Team Status: Active Member Role/Relationship Status Dates November AUGUSTIN Pearl Primary Care Provider Active Team Status: Inactive Member Role/Relationship Status Dates Dr. Chaitanya Gardner MD Referring Provider Active Start: February 27, 2025 End: February 27, 2025 Huber Borrego NP, DISPATCH ASSOCIATE-C Attending Provider Active S tart: February 27, 2025 End: February 27, 2025November AUGUSTIN Pearl Primary Care Provider Active Start: February 27, 2025 End: February 27, 2025 Client Experience Specialist Relationship Specialty Start Date End Date Chaitanya Gardner MD PCP - General Internal Medicine 08/17/18 Je Noonan MD [address] [place] [address] Specialty Program Assistant Urology 08/24/18 Mari Fernando MD [address] [place], [place] [id number] Physician Radiation Oncology 08/25/18 Bertin Cohn MD [address] [place] [address] Telephonic Case Manager Cardiology 12/05/19 Client Experience Specialist Relationship Specialty Start Date End Date Chaitanya Gardner MD PCP - General Internal Medicine 08/17/18 Je Noonan MD [address] [place] [address] Specialty Program Assistant Urology 08/24/18 Mari Fernando MD [address] [place] [address] Physician Radiation Oncology 08/25/18 Bertin Cohn MD [address] [place], [place] [id number] Telephonic Case Manager Cardiology 12/05/19 Client Experience Specialist Relationship Specialty Start Date End Date Chaitanya Gardner MD PCP - General Internal Medicine 08/17/18 Je Noonan MD [address] [address] Specialty Program Assistant Urology 08/24/18 Mari Fernando MD [address] [place], [place] [address] Physician Radiation Oncology 08/25/18 Bertin Cohn MD [address] [place] [place], [place] [address] Telephonic Case Manager Cardiology 12/05/19 Goals (unrecognized section and content) Goals may be documented in a n alternate sectionGoals may be documented in an alternate sectionGoals may be documented in an alternate sectionGoals may be documented in an alternate section FOR RECORDS PERTAINING TO PATIENTS WHO ARE OR HAVE BEEN ENROLLED IN A CHEMICAL DEPENDENCY/SUBSTANCEABUSE PROGRAM, SOME INFORMATION MAY BE OMITTED. This clinical summary was aggregated from multiple sources. Caution should be exercised in using it in the provision of clinical care. This summary normalizes information from multiple sources, and as a consequence, information in this document may materially change the coding, format and clinical context of patient data. In addition, data may be omitted in some cases. CLINICAL DECISIONS SHOULD BE BASED ON THE PRIMARY CLINICAL RECORDS. [facility]. provides no warranty or guarantee of the accuracy or completeness of information in this document.
[2025-07-19 11:24] LABS: AST(SGOT) 15 U/L (<=37); Alanine Aminotransfer ALT/SGPT 11 U/L (<=46); Albumin, Serum 3.9 g/dL (3.4-4.8); Alkaline Phosphatase 61 U/L (40-129); Bilirubin, Direct 0.22 mg/dL (0.00-0.30); Cholesterol 154 mg/dL (<=200); Globulin 2.5 g/dL (2.2-4.2); Low Density Lipoprotein Calc. 87 mg/dL; Triglycerides 172 mg/dL; Very Low Density Lipoprotein 34 mg/dL (5-40); cholesterol:hdl ratio screen 4.13
== END | disposition home or self-care (01) ==
PROVIDERS: PCP Nurse Practitioner Primary Care; Referring Provider Physician Assistant Medical; Visit Provider Physician Assistant Medical
DX: E78.00 Pure hypercholesterolemia, unspecified (principal)
CPT/HCPCS: 36415; 80061; 80076